=== PATIENT | male | born 1945 | race Caucasian/White ===

== ENCOUNTER 2017-04-07 15:45 | Inpatient (IN) | payer MEDICARE, BC ==
[~2017-04-07] VITALS: Ht 182.9 cm; Wt 94.5 kg
[2017-04-07] VITALS (11 sets, daily range): BP systolic 110–155; BP diastolic 58–86; PULSE 35–40; RESP 17–27; TEMP 98–98.2; O2SAT 94–100
[2017-04-07] MEDS ORDERED: ASPIRIN 81 MG CHEW TAB ONE (15:52)
[2017-04-07] MEDS ORDERED: NITROGLYCERIN 0.4 MG SL 25 TABS/BTL SL ONE (15:52)
[2017-04-07] MEDS ORDERED: SODIUM CHLOR 0.9% 1000 ML INJ 1,000 ML IV ONE ×2 (15:54→17:00)
[2017-04-07] MEDS ORDERED: ASPIRIN 81 MG CHEW TAB PO STA (15:54)
[2017-04-07] MEDS ORDERED: HEPARIN SODIUM - IV 10,000 UNITS/10 ML VIAL IV PUSH STA (15:54)
[2017-04-07] MEDS ORDERED: NITROGLYCERIN 0.4 MG SL 25 TABS/BTL SL STA (15:54)
[2017-04-07] MEDS ORDERED: SODIUM CHLORIDE 0.9% FLUSH 10 ML FLUSH IVF PRN (16:00)
[2017-04-07] MEDS ORDERED: NITROGLYCERIN-D5W 50 MG/250 ML 250 ML IV PRN ×2 (16:00→16:15)
[2017-04-07 16:12] LABS: AUTOMATED NEUTROPHIL # 16.5 TH/MM3 (1.8-7.7); BASOPHIL # 0.1 TH/MM3 (0-0.2); BASOPHIL % 0.5 % (0.0-2.0); HEMATOCRIT 28.1 % (39.0-51.0); HEMOGLOBIN 9.2 GM/DL (13.0-17.0); LYMPH % 6.1 % (9.0-44.0); LYMPHOCYTE # 1.2 TH/MM3 (1.0-4.8); MEAN CELL VOLUME 89.3 FL (80.0-100.0); MEAN CORPUSCULAR HEMOGLOBIN 29.3 PG (27.0-34.0); MEAN CORPUSCULAR HGB CONC 32.8 % (32.0-36.0); MEAN PLATELET VOLUME 10.5 FL (7.0-11.0); MONO % 8.9 % (0.0-8.0); MONOCYTE # 1.7 TH/MM3 (0-0.9); NEUT % 84.5 % (16.0-70.0); PLATELET COUNT 279 TH/MM3 (150-450); RED BLOOD COUNT 3.14 MIL/MM3 (4.50-5.90); WHITE BLOOD COUNT 19.5 TH/MM3 (4.0-11.0)
--- NOTE | 2017-04-07 16:21 | RADRPT ---
EXAM DATE/TIME: 04/07/2017 15:59 [facility] COMPARISON: No previous studies available for comparison. INDICATIONS : Stemi-alert. MEDICAL HISTORY : Unobtainable. SURGICAL HISTORY : Unobtainable. ENCOUNTER: Initial ACUITY: 1 day PAIN SCORE: Non-responsive. LOCATION: Bilateral chest FINDINGS: The heart is enlarged. The mediastinal contours are within normal limits. There are chronic interstit ial changes within the pulmonary parenchyma. There is no overt congestive failure. The osseous struct ures are intact. CONCLUSION: 1. Cardiomegaly and chronic appearing interstitial changes. No definite acute abnormality. Sina Bonner MD on April 07, 2017 at 16:19 Board Certified Radiologist. This report was verified electronically.
[2017-04-07 16:28] LABS: INTERNATIONAL NORMALIZED RATIO 1.1 RATIO; PROTHROMBIN TIME - PATIENT 10.9 SEC (9.8-11.6)
[2017-04-07] MEDS: SODIUM CHLOR 0.9% 1000 ML INJ 1,000 ML IV SCH (16:30)
[2017-04-07] MEDS ORDERED: CHLORHEXIDINE GLUCONATE 2 % 1 PACK (2 CLOTHS) TOP PRN (16:30)
[2017-04-07] MEDS ORDERED: HEPARIN-D5W 25,000 U/250 ML 250 ML IV PRN (16:30)
[2017-04-07] MEDS ORDERED: MISCELLANEOUS NURSING INFORMATION XX SCH (16:30)
[2017-04-07 16:31] LABS: CALCIUM 8.8 MG/DL (8.5-10.1); MAGNESIUM 3.3 MG/DL (1.5-2.5)
[2017-04-07 16:40] LABS: TROPONIN I 2.72 NG/ML (0.02-0.05)
[2017-04-07] MEDS ORDERED: GLUCAGON 1 MG/ML VIAL OTHER PRN (17:00)
[2017-04-07] MEDS ORDERED: DEXTROSE 50% IN WATER 50 ML VIAL(D50) IV PUSH ONE (17:00)
[2017-04-07] MEDS ORDERED: INSULIN HUMAN REGULAR 1,000 UNITS/10 ML VIAL IV PUSH ONE (17:00)
[2017-04-07] MEDS ORDERED: DEXTROSE 50% IN WATER 50 ML VIAL(D50) IV PUSH PRN (17:00)
--- NOTE | 2017-04-07 17:07 | PD.CONS ---
HPI Service Nephrology Consult Requested By Reason for Consult Acute Renal Failure Primary Care Physician History of Present Illness This is a 72 y/o male who came to the ER for fatigue and shortness of breath. He has had a flu like illness recently, apparently was on the floor for several days prior to ER admission. PMH of DM II, CVA with residual expressive aphasia, HTN, and CKD. 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 On arrival EKG showing bradycardia with junctional rhythm , STEMI inferiorly, rate in 30s. He is awake and alert. Blood pressure is stable. No baseline labs are available. POC labs show creatinine 9.7, Glu 251, mag 3.3, K 5.6, BUN over 140, Trop 2.7, BNP 1170. BMP is not available. He has not made any urine as of yet; a bladder scan was ordered. We were consulted to assist with management. Dr. Perdomo and Dr. Briceno are at the bedside. (Katharine Cruz) Review of Systems Constitutional: COMPLAINS OF: Fatigue, DENIES: Fever Respiratory: COMPLAINS OF: Shortness of breath Cardiovascular: COMPLAINS OF: Dyspnea on Exertion, DENIES: Chest pain, Lower Extremity Edema Gastrointestinal: DENIES: Abdominal pain (Katharine Cruz) Past Family Social History Allergies: Coded Allergies: Sulfa (Sulfonamide Antibiotics) (Verified Allergy, Intermediate, HIVES, ) penicillin G (Verified Allergy, Unknown, HIVES, 04/07/17) Past Medical History CKD, baseline unknown HTN DM II CVA, old Anemia Hyperlipidemia Past Surgical History Unknown Reported Medications Unable to list Active Ordered Medications Last 72 hours Impressions Chest X-Ray 04/07/17 0934 Signed Impressions: Service Date/Time: Friday, April 07, 2017 15:59 - CONCLUSION: 1. Cardiomegaly and chronic appearing interstitial changes. No definite acute abnormality. Sina Bonner MD Family History Non contributory Social History Former smoker No ETOH From [place], staying local currently Retired (Katharine Cruz) Physical Exam Vital Signs Vital Signs Date Time Temp Pulse Resp B/P (MAP) Pulse Ox O2 Delivery O2 Flow Rate FiO2 04/07/17 16:27 38 127/74 04/07/17 16:16 38 26 129/63 (85) 99 Nasal Cannula 4.00 04/07/17 16:09 38 24 137/67 (90) 100 Nasal Cannula 4.00 04/07/17 16:01 99 Nasal Cannula 4.00 04/07/17 16:01 22 99 Nasal Cannula 4.00 04/07/17 15:50 35 24 99 Nasal Cannula 4.00 04/07/17 15:49 98.0 40 22 153/86 (108) 100 Physical Exam Elderly Male, obese, on oxygen Awake, alert, follows commands, has expressive aphasia S1/S2, Bradycardic, rate 30s, no murmur Lungs clear Abd soft, non tender Ext without edema Laboratory Laboratory Tests Test 04/07/17 14:50 White Blood Count 19.5 Red Blood Count 3.14 Hemoglobin 9.2 Bedside Hemoglobin 8.8 Hematocrit 28.1 Bedside Hematocrit 26.0 Mean Corpuscular Volume 89.3 Mean Corpuscular Hemoglobin 29.3 Mean Corpuscular Hemoglobin Concent 32.8 Red Cell Distribution Width 16.0 Platelet Count 279 Mean Platelet Volume 10.5 Neutrophils (%) (Auto) 84.5 Lymphocytes (%) (Auto) 6.1 Monocytes (%) (Auto) 8.9 Eosinophils (%) (Auto) 0.0 Basophils (%) (Auto) 0.5 Neutrophils # (Auto) 16.5 Lymphocytes # (Auto) 1.2 Monocytes # (Auto) 1.7 Eosinophils # (Auto) 0.0 Basophils # (Auto) 0.1 CBC Comment DIFF FINAL Differential Comment Prothrombin Time 10.9 Prothromb Time International Ratio 1.1 Activated Partial Thromboplast Time 20.7 Bedside Sodium 133 Bedside Potassium 5.6 Bedside Chloride 102 Bedside Blood Urea Nitrogen GREATER THAN 140 Bedside Creatinine 9.7 Bedside Glucose 251 Calcium Level 8.8 Magnesium Level 3.3 Total Creatine Kinase 380 Troponin I 2.72 (Katharine Cruz) Result Diagram: 04/07/17 1450 Imaging Last 72 hours Impressions Chest X-Ray 04/07/17 1554 Signed Impressions: Service Date/Time: Friday, April 07, 2017 15:59 - CONCLUSION: 1. Cardiomegaly and chronic appearing interstitial changes. No definite acute abnormality. Sina Bonner MD (Katharine Cruz) Assessment and Plan Problem List: (1) Acute renal failure ICD Codes: N17.9 - Acute kidney failure, unspecified Plan: He has underlying CKD, exact baseline not known Renal failure due to bradycardia, diminished renal perfusion. Bladder scan with 95 ml, not retaining Obtain renal US Obtain UA He is hyperkalemic, give IV insulin and dextrose Start bicarb gtt per regional business manager if BMP showing metabolic acidosis Monitor urine output He may require dialysis this admission Repeat labs in AM (2) Bradycardia ICD Codes: R00.1 - Bradycardia, unspecified Plan: Due to HI Continue supportive care (3) STEMI (ST elevation myocardial infarction) ICD Codes: I21.3 - ST elevation (STEMI) myocardial infarction of unspecified site Plan: Cardiology following, may need cardiac cath (4) Anemia ICD Codes: D64.9 - Anemia, unspecified Plan: May have anemia of CKD. Check iron profile. (5) Leukocytosis ICD Codes: D72.829 - Elevated white blood cell count, unspecified Plan: May be reactive, monitor for infections Code Status Thanks for the consult. We will continue to follow. (Katharine Cruz) Assessment and Plan patient was seen and examined in the ER. Discussed with regional business manager. Patient presents with STEMI, follows with a hammer smith in [place], has been told that he has advanced renal dysfunction. Labs were noted. Repeat labs. Needs dialysis very soon. Cardiology evaluation. Prognosis is very much guarded. (Pantera Iraheta MD) Katharine Cruz Apr 07, 2017 17:07 Pantera Iraheta MD Apr 07, 2017 20:16
[2017-04-07] MEDS ORDERED: SODIUM BICARBONATE 8.4% INJ 50 MEQ/50 ML SYR IV PUSH ONE (17:15)
[2017-04-07] MEDS ORDERED: RESP: ALBUTEROL 2.5 MG/IPRATROPIUM 0.5 MG NEB (PRN) NEB (17:15)
--- NOTE | 2017-04-07 17:47 | PD ---
HPI Chief Complaint: STEMI Alert Time Seen by Provider: 15:54 Travel History International Travel<30 days: No Contact w/Intl Traveler<30days: No Traveled to known affect area: No History of Present Illness HPI This is a 72-year-old male with a history of diabetes mellitus, hypertension, depression, who presents today as a STEMI alert. Patient apparently had viral type symptoms last week and was admitted to [facility]. He arrived back home in [facility] the 3 or 4 days ago. According to him he has been laying on the floor for 3 days. Paramedics state that there were feces and urine all over the house. They state the patient was confused. 12-lead showed ST elevation in the inferior leads. Patient was made a STEMI alert by paramedics. The patient is an extremely poor historian. He told paramedics he was having pain all over. When I interviewed him, he reported pain nowhere. Then literally a few minutes later he stated he had pain in his "body". PFSH Past Medical History Cardiovascular Problems: Yes Cerebrovascular Accident: Yes Diabetes: Yes Diminished Hearing: No (UNKNOWN ) Tetanus Vaccination: Unknown Influenza Vaccination: No Past Surgical History Surgical History: Unable to Obtain Social History Alcohol Use: No Tobacco Use: No (QUIT MANY YEARS AGO PT STATES) Substance Use: No Allergies-Medications (Allergen,Severity, Reaction): Coded Allergies: Sulfa (Sulfonamide Antibiotics) (Verified Allergy, Intermediate, HIVES, ) penicillin G (Verified Allergy, Unknown, HIVES, 04/07/17) Review of Systems ROS Limitations: Clinical Condition, Altered Mental Status (Slight altered mental status), Poor Historian Except as stated in HPI: all other systems reviewed are Neg General / Constitutional: No: Fever, Chills HENT: No: Headaches, Lightheadedness, Neck Pain Cardiovascular: No: Chest Pain or Discomfort, Palpitations Respiratory: No: Cough, Shortness of Breath Gastrointestinal: No: Nausea, Vomiting, Diarrhea, Abdominal Pain Genitourinary: No: Decreased Urinary Output (Denied), Incontinence Musculoskeletal: Positive: Weakness, No: Pain (Initially stated no then stated pain all over) Skin: No Rash, No Lesions Neurologic: Positive: Weakness, Change in Mentation, No: Syncope, Headache, Incontinence, Seizures Psychiatric: Positive: Depression, No: Substance Abuse Physical Exam Narrative GENERAL: Well-developed male who appears to be tremulous. He appears to have dry mucous membranes. The patient has no obvious external signs of trauma. SKIN: Focused skin assessment warm/dry. HEAD: Atraumatic. Normocephalic. EYES: No scleral icterus. No injection or drainage. ENT: No nasal bleeding or discharge. Mucous membranes pink and very dry. NECK: Trachea midline. No JVD. CARDIOVASCULAR: Bradycardic in the 30s and 40s. RESPIRATORY: No accessory muscle use. Clear to auscultation. Breath sounds equal bilaterally. Decreased respiratory effort. GASTROINTESTINAL: Abdomen soft, non-tender, nondistended. MUSCULOSKELETAL: No obvious deformities. No clubbing. No cyanosis. No edema. NEUROLOGICAL: Awake and confused. No obvious cranial nerve deficits. Motor grossly within normal limits. Normal speech. Data Data Last Documented VS Vital Signs Date Time Temp Pulse Resp B/P (MAP) Pulse Ox O2 Delivery O2 Flow Rate FiO2 04/07/17 17:30 97 Nasal Cannula 2.00 04/07/17 16:55 37 24 131/71 (91) 04/07/17 15:49 98.0 Orders Orders Aspirin Chew (Aspirin Chew) (04/07/17 15:52) Nitroglycerin Sl (Nitrostat Sl) (04/07/17 15:52) Troponin I (04/07/17 15:54) Ckmb (Isoenzyme) Profile (04/07/17 15:54) Complete Blood Count With Diff (04/07/17 15:54) I-Stat Profile (04/07/17 15:54) I-Stat Creatinine (04/07/17 15:54) Calcium (04/07/17 15:54) Magnesium (Mg) (04/07/17 15:54) Prothrombin Time / Inr (Pt) (04/07/17 15:54) Act Partial Throm Time (Ptt) (04/07/17 15:54) B-Type Natriuretic Peptide (04/07/17 15:54) Chest, Single Ap (04/07/17 15:54) Electrocardiogram (04/07/17 15:54) Oxygen Administration (04/07/17 15:54) Iv Access Insert/Monitor (04/07/17 15:54) Oximetry (04/07/17 15:54) Sodium Chlor 0.9% 1000 Ml Inj (Ns 1000 M (04/07/17 15:54) Sodium Chloride 0.9% Flush (Ns Flush) (04/07/17 16:00) Aspirin Chew (Aspirin Chew) (04/07/17 15:54) Nitroglycerin Sl (Nitrostat Sl) (04/07/17 15:54) Nitroglycerin-D5w 50 Mg/250 Ml (Nitrogly (04/07/17 16:00) Heparin Inj (Heparin Inj) (04/07/17 15:54) Nitroglycerin-D5w 50 Mg/250 Ml (Nitrogly (04/07/17 16:15) Admit To Inpatient (04/07/17 ) Code Status (04/07/17 16:16) Vital Signs (Adult) RICH.Q1H (04/07/17 16:16) Activity Bed Rest (04/07/17 16:16) Elevate Head Of Bed (04/07/17 16:16) Neuro Checks . ORDERED (04/07/17 16:16) Complete Blood Count With Diff (04/08/17 04:00) Comprehensive Metabolic Panel (04/08/17 04:00) Consult Cardiology (04/07/17 ) Consult Nephrology (04/07/17 ) Maritime Pilot / Telemetry RICH.Q8H (04/07/17 16:16) ^ Initiate Protocol (04/07/17 16:16) Instruction (04/07/17 16:16) [facility] Nursing Information (04/07/17 16:30) Chlorhexidine 2% Cloth (Chlorhexidine 2% (04/08/17 04:00) Chlorhexidine 2% Cloth (Chlorhexidine 2% (04/07/17 16:30) Mrsa Pcr Surveillance (04/07/17 16:16) Inpatient Certification (04/07/17 ) Complete Blood Count With Diff (04/07/17 16:19) Comprehensive Metabolic Panel (04/07/17 16:19) Prothrombin Time / Inr (Pt) (04/07/17 16:19) Act Partial Throm Time (Ptt) (04/07/17 16:19) Creatine Kinase (Cpk) (04/07/17 16:19) Ckmb (Isoenzyme) Profile (04/07/17 16:19) Troponin I (04/07/17 16:19) Troponin I (04/07/17 22:19) Troponin I (04/08/17 04:19) Echo 2d Comp With Doppler (04/07/17 ) Urinalysis - C+S If Indicated (04/07/17 16:20) Aspirin Ec (Ecotrin Ec) (04/08/17 09:00) Heparin-D5w 25,000 U/250 Ml (Heparin-D5w (04/07/17 16:30) Cbc No Diff, Includes Plts (04/10/17 06:00) Act Partial Throm Time (Ptt) (04/07/17 23:22) Occult Blood (Hemoccult) Stool (04/07/17 16:22) Sodium Chlor 0.9% 1000 Ml Inj (Ns 1000 M (04/07/17 16:30) Us Kidney/Renal/Bladder (04/07/17 ) (Hub Use Only)Inp Phy Cons/Ref (04/07/17 ) (Hub Use Only)Inp Phy Cons/Ref (04/07/17 ) CKMB (04/07/17 14:50) CKMB% (04/07/17 14:50) Ct Brain W/O Iv Contrast(Rout) (04/07/17 16:46) Insulin Human Regular Inj (Novolin R Inj (04/07/17 17:00) Dextrose 50% In Evan (Vial) Inj (D50w (Vi (04/07/17 17:00) Sodium Chlor 0.9% 1000 Ml Inj (Ns 1000 M (04/07/17 17:00) Blood Glucose Goal (Criteria) (04/07/17 16:58) Hypoglycemia 70 Mg/Dl Or < (04/07/17 16:58) Notify Dr: Other (04/07/17 16:58) Dextrose 50% In Evan (Vial) Inj (D50w (Vi (04/07/17 17:00) Glucagon Inj (Glucagon Inj) (04/07/17 17:00) Insulin Human Reg Supp Scale (Novolin R (04/07/17 17:00) Influenzae A/B Antigen (04/07/17 17:05) Arterial Blood Gas (Abg) (04/07/17 ) Phosphorus (Po4) (04/07/17 17:07) Bladder Scan PRN (04/07/17 17:07) Albuterol-Ipratropium Neb (Duoneb Neb) (04/07/17 20:00) Albuterol-Ipratropium Neb (Duoneb Neb) (04/07/17 17:15) Pantoprazole Inj (Protonix Inj) (04/07/17 18:00) Calcium Gluconate Inj (Calcium Gluconate (04/07/17 18:00) Sodium Bicarbonate 8.4% Inj (Sodium Bica (04/07/17 17:15) Basic Metabolic Panel (Bmp) (04/08/17 06:00) Labs Laboratory Tests Test 04/07/17 14:50 04/07/17 17:07 04/07/17 17:18 White Blood Count 19.5 TH/MM3 Red Blood Count 3.14 MIL/MM3 Hemoglobin 9.2 GM/DL Bedside Hemoglobin 8.8 G/DL Hematocrit 28.1 % Bedside Hematocrit 26.0 % Mean Corpuscular Volume 89.3 FL Mean Corpuscular Hemoglobin 29.3 PG Mean Corpuscular Hemoglobin Concent 32.8 % Red Cell Distribution Width 16.0 % Platelet Count 279 TH/MM3 Mean Platelet Volume 10.5 FL Neutrophils (%) (Auto) 84.5 % Lymphocytes (%) (Auto) 6.1 % Monocytes (%) (Auto) 8.9 % Eosinophils (%) (Auto) 0.0 % Basophils (%) (Auto) 0.5 % Neutrophils # (Auto) 16.5 TH/MM3 Lymphocytes # (Auto) 1.2 TH/MM3 Monocytes # (Auto) 1.7 TH/MM3 Eosinophils # (Auto) 0.0 TH/MM3 Basophils # (Auto) 0.1 TH/MM3 CBC Comment DIFF FINAL Differential Comment Prothrombin Time 10.9 SEC Prothromb Time International Ratio 1.1 RATIO Activated Partial Thromboplast Time 20.7 SEC Bedside Sodium 133 MMOL/L Bedside Potassium 5.6 MMOL/L Bedside Chloride 102 MMOL/L Bedside Blood Urea Nitrogen GREATER THAN 140 MG/DL Bedside Creatinine 9.7 MG/DL Bedside Glucose 251 MG/DL Calcium Level 8.8 MG/DL Magnesium Level 3.3 MG/DL Total Creatine Kinase 380 U/L Creatine Kinase MB 8.7 NG/ML Creatine Kinase MB % 2.3 % Troponin I 2.72 NG/ML B-Type Natriuretic Peptide 1170 PG/ML Blood Gas Puncture Site RT RADIAL Blood Gas Patient Temperature 98.6 Blood Gas HCO3 14 mmol/L Blood Gas Base Excess -10.6 mmol/L Blood Gas Oxygen Saturation 95 % Arterial Blood pH 7.33 Arterial Blood Partial Pressure CO2 28 mmHg Arterial Blood Partial Pressure O2 98 mmHG Arterial Blood Oxygen Content 11.4 Vol % Arterial Blood Carboxyhemoglobin 1.8 % Arterial Blood Methemoglobin 0.6 % Blood Gas Hemoglobin 8.4 G/DL Oxygen Delivery Device NASAL CANNULA Blood Gas Liter Flow 4 L/M MDM Medical Decision Making Medical Screen Exam Complete: Yes Emergency Medical Condition: Yes Interpretation(s) Last 24 hours Impressions Chest X-Ray 04/07/17 1554 Signed Impressions: Service Date/Time: Friday, April 07, 2017 15:59 - CONCLUSION: 1. Cardiomegaly and chronic appearing interstitial changes. No definite acute abnormality. Sina Bonner MD Differential Diagnosis ACS versus metabolic derangement versus anemia versus rhabdomyolysis Narrative Course 72-year-old male presents as a STEMI alert from [place]. Patient had ST elevation noted in the inferior leads. The patient has been reportedly laying on the floor at his residence for 2 days. On i-STAT the patient's BUN and creatinine were greater than 140/9.7. Potassium was 5.6. Sodium 133 glucose 251 hemoglobin 8.8 hematocrit 26. Given this, the patient was discussed with Dr. Hutchinson, on-call hand glass cutter. At this point given his associated comorbid acute conditions, he will hold off on taking him to the [facility]. The patient had received 324 mg of p.o. aspirin. He is also received 6000 units of IV heparin. The patient will be admitted to the intensive care unit. He has been discussed with Dr. Perdomo, retail salesworker, who will admit the patient to his service. Critical Care Narrative Aggregate critical care time was 60 minutes. Time to perform other separately billable procedures was not included in the critical care time. My time did not include minutes spent treating any other patients simultaneously or on activities that did not directly contribute to the patient's treatment. The services I provided to this patient were to treat and/or prevent clinically significant deterioration that could result in: I provided critical care services requiring my management, as noted below: Chart data review, documentation time, medication orders and management, vital sign assessments/reviewing monitor data, ordering and reviewing lab tests, ordering and interpreting/reviewing x-rays and diagnostic studies, care of the patient and discussion of the patient with the admitting physicians. Diagnosis Primary Impression: STEMI (ST elevation myocardial infarction) Additional Impressions: Leukocytosis Acute renal failure Bradycardia Anemia Hyperkalemia Admitting Information Admitting Physician Requests: Admit Gilmar Gonzales MD Apr 07, 2017 17:47
--- NOTE | 2017-04-07 17:49 | RADRPT ---
EXAM DATE/TIME: 04/07/2017 17:37 [facility] COMPARISON: No previous studies available for comparison. INDICATIONS : Altered mental status. RADIATION DOSE: 40.80 CTDIvol (mGy) MEDICAL HISTORY : Stroke. Cardiovascular disease diabetes SURGICAL HISTORY : None. ENCOUNTER: Initial ACUITY: 1 day PAIN SCALE: Non-responsive LOCATION: Bilateral head TECHNIQUE: Multiple contiguous axial images were obtained of the head. Using automated exposure control and adj ustment of the mA and/or kV according to patient size, radiation dose was kept as low as reasonably a chievable to obtain optimal diagnostic quality images. DICOM format image data is available electro nically for review and comparison. FINDINGS: CEREBRUM: Mild to moderate diffuse cerebral volume loss. Diffuse ventriculomegaly which is slightly more than e xpected for degree of atrophy. Mild periventricular white matter hypodensities. No evidence of midlin e shift, mass lesion, hemorrhage or acute infarction. No extra-axial fluid collections are seen. POSTERIOR FOSSA: The cerebellum and brainstem are intact. The 4th ventricle is midline. The cerebellopontine angle i s unremarkable. EXTRACRANIAL: The visualized portion of the orbits is intact. SKULL: The calvaria is intact. No evidence of skull fracture. CONCLUSION: 1. Senescent changes with ventriculomegaly out of proportion to the degree of atrophy. Clinical corre lation for normal pressure hydrocephalus is recommended. Jesus Manuel Storm MD on April 07, 2017 at 17:46 Board Certified Radiologist. This report was verified electronically.
[2017-04-07 17:51] LABS: PHOSPHORUS 8.7 MG/DL (2.5-4.9)
[2017-04-07] MEDS ORDERED: CALCIUM GLUCONATE INJ 1 GM in SODIUM CHLORIDE 0.9% INJ 100 ML IV ONE (18:00)
--- NOTE | 2017-04-07 18:04 | MH ---
cc: YOBANI VERDIN M.D. DATE OF ADMISSION 04/07/2017 DATE OF 1945 HISTORY OF THE PRESENT ILLNESS The patient is a 72-year-old male with a past medical history of coronary artery disease, chronic kidney disease, cerebrovascular accident, hypertension, diabetes mellitus, hyperlipidemia who was brought into [facility] Emergency Department via ambulance with altered mental status. The patient's daughter could not reach him, so she called the fire rescue to go check on her father and on arrival they found him on the floor and has been there for the past two days. The patient is confused and when he came to the emergency department he was found bradycardic and a STEMI alert was called. EKG in the ER showed findings compatible with inferior wall myocardial infarction and bradycardia with a heart rate in the 30s. His labs on point of care significant for acute renal failure with a BUN greater than 140, creatinine 9.7. In addition the patient had a troponin of 2.72 and total CK of 380. Also he had leukocytosis with a WBC of 19.5. In the ED he was given one liter bolus of normal saline, aspirin and initially placed on nitroglycerine drip. The patient was seen by Dr. Briceno from the cardiology service and due to his significant renal failure. Cardiac catheterization was placed on hold and a plan to continue with medical therapy for now until his renal function recovers. The patient is awake, alert, however, he is intermittently confused. He is currently on 4 liters oxygen with saturation 98%, blood pressure 131/71 with heart rate in the 30s. The patient was also seen by Dr. Iraheta from nephrology service in the ED. He denies any chest pain, shortness of breath or any constitutional symptoms. The patient was recently discharged from [facility] in [place] after he was treated there for flu. PAST MEDICAL HISTORY Significant for: 1. Coronary artery disease. 2. Chronic kidney disease. 3. Cerebrovascular accident. 4. Diabetes mellitus. 5. Hypertension. 6. Hyperlipidemia. 7. Psychiatric history. PAST SURGICAL HISTORY The patient does not remember. ALLERGIES PENICILLIN AND SULFA. SOCIAL HISTORY Ex-smoker. No history of alcohol use. FAMILY HISTORY Noncontributory to present illness. MEDICATIONS Reported: The patient does not remember his medications currently. REVIEW OF SYSTEMS As per history of present illness, the rest of the review of systems limited as the patient is a poor historian. PHYSICAL EXAMINATION GENERAL: A 72-year-old male critically ill, bradycardic with heart rate in the 30s. VITAL SIGNS: Temperature of 98.0, pulse of 38, respiratory rate 24, blood pressure 131/71. Saturation of 98% on 4 liters of oxygen. HEENT: Atraumatic, normocephalic. Pupils equal, round and reactive to light and accommodation. Extraocular muscles are intact. Conjunctivae pink. Nonicteric sclerae. Oral mucosa dry mucous membranes. NECK: Supple. No JVD, adenopathy or thyromegaly. Trachea is midline. CARDIOVASCULAR: Bradycardic. Normal S1-S2. No murmurs, rubs, or gallops noted. LUNGS: Bilateral equal air entry. No crackles or wheezing. ABDOMEN: Soft. Nontender. Nondistended. Positive bowel sounds. EXTREMITIES: No clubbing, cyanosis or edema. NEUROLOGIC: Awake however, with intermittent confusion. No focal sensory deficits. LABORATORY DATA From point of care, sodium 131, potassium 5.6, chloride 106, BUN greater than 140, creatinine of 9.7, glucose 251. Magnesium 3.3. Total CK 380. Troponin 2.72. CKMB percentage 2.3. BNP 1170. WBC 19.5, hemoglobin 9.2, hematocrit 28, platelet count of 279. INR 1.1. PT 10.9, PTT 20.7. IMAGING A chest x-ray showed chronic appearing interstitial changes otherwise no acute abnormalities. EKG showed inferior wall myocardial infarction, bradycardia with heart rate in the 40s. IMPRESSION 1. Respiratory insufficiency. 2. ST-elevation myocardial infarction alert, inferior wall myocardial infarction. 3. Altered mental status. 4. Acute on chronic kidney disease. 5. Bradycardia. 6. Hyponatremia and hyperkalemia. 7. Leukocytosis. 8. Anemia. 9. History of coronary artery disease. 10. History of cerebrovascular accident. 11. Hypertension. 12. Diabetes mellitus. 13. Hyperlipidemia. RECOMMENDATIONS 1. Monitor neurological status closely and avoid any sedatives. We will proceed with a CT scan of the brain to rule out acute intracranial process. 2. Continue with oxygen and maintain saturations above 92%. 3. Bronchodilators in the form of DuoNeb q.4h plus q.2h as needed for shortness of breath. Check ABG now. 4. Monitor heart rate and blood pressure closely and maintain mean arterial pressure greater than 65 mmHg. We will discontinue nitro drip. The patient was given aspirin 324 milligrams p.o. times one. We will continue with aspirin daily and place on heparin drip if CT scan of the brain is negative for acute process. Monitor PTT per protocol. 5. Monitor cardiac enzymes with troponins and we will obtain 2-D echocardiogram to evaluate left ventricle function. Dr. Briceno from cardiology service saw the patient in the emergency department. We will hold off on beta ashley due to current bradycardia. Cardiac catheterization was placed on hold per cardiology due to underlying renal failure. 6. Monitor renal function ins and outs. Avoid nephrotoxins. He was given one liter of normal saline in the emergency department. We will give an additional one liter bolus of normal saline followed by maintenance fluids NS at 125 ml an hour. 10 units of IV Regular insulin along with D50 was ordered for hyperkalemia. In addition we will give one amp of calcium gluconate and one amp of sodium bicarbonate. We will obtain ultrasound of the kidneys to rule out hydronephrosis. The case was discussed with Dr. Iraheta. If there is no improvement in renal function the patient will likely need hemodialysis. 7. Keep n.p.o. for now and place on Protonix 40 milligrams IV daily for GI prophylaxis. 8. Monitor for signs of infection which include fever and WBC. We will check a urinalysis with culture if indicated. In addition we will screen for influenza. The patient was recently hospitalized at [facility] for the flu. 9. Farah culture if spikes a fever. His leukocytosis is likely stress related. We will monitor closely. 10. Monitor CBC and coagulations as the patient will be on a heparin drip. 11. Placed on sliding scale insulin with Accu-Cheks for glycemic control. 12. GI prophylaxis with Protonix 40 milligrams daily and DVT prophylaxis with sequential compression devices and heparin drip if CT scan of the brain is negative for acute process. 13. I will obtain stat labs now. 14. The case discussed with both Dr. Briceno and Dr. Iraheta. Further recommendations will be based on hospital course. The patient is critically ill with inferior wall myocardial infarction, renal failure and with altered mental status. MD KARLENE Walker/KK /5:00 PM /5:18 PM
[2017-04-07 18:09] LABS: TROPONIN I 2.31 NG/ML (0.02-0.05)
[2017-04-07] MEDS: INSULIN NovoLIN REGULAR SUPPLEMENTAL SCALE SQ SCH ×2 (18:34→21:51)
[2017-04-07] MEDS: PANTOPRAZOLE SODIUM 40 MG VIAL IV PUSH SCH (18:35)
--- NOTE | 2017-04-07 18:42 | RADRPT ---
EXAM DATE/TIME: 04/07/2017 18:11 [place] COMPARISON: No previous studies available for comparison. INDICATIONS : Acute kidney infection. MEDICAL HISTORY : Stroke. Diabetes. Cardiac disorders. Falls. SURGICAL HISTORY : None. ENCOUNTER: Initial ACUITY: 2 months PAIN SCORE: 2/10 LOCATION: Bilateral flank MEASUREMENTS: RIGHT KIDNEY: 10.4 x 4.8 x 4.8 cm LEFT KIDNEY: 9.5 x 4.7 x 5.3 cm FINDINGS: RIGHT KIDNEY: Markedly increased renal cortical echogenicity. Multiple small cysts. No evidence of hydronephrosis. LEFT KIDNEY: Markedly increased renal cortical echogenicity. Multiple small cysts. No evidence of hydronephrosis. BLADDER: Within normal limits given the degree of distension. CONCLUSION: Medical renal disease. No hydronephrosis. Jaleel Carlin MD on April 07, 2017 at 18:39 Board Certified Radiologist. This report was verified electronically.
[2017-04-07] MEDS ORDERED: SODIUM POLYSTYRENE SULFONATE SUSP 15 GM/60 ML CUP PO ONE (20:15)
[2017-04-07] MEDS: RESP: ALBUTEROL 2.5 MG/IPRATROPIUM 0.5 MG NEB (SCH) NEB ×2 (20:49→23:33)
[2017-04-07 21:09] LABS: ALBUMIN 2.8 GM/DL (3.4-5.0); BICARBONATE 17.7 MEQ/L (21.0-32.0); BLOOD UREA NITROGEN 125 MG/DL (7-18); CALCIUM 8.3 MG/DL (8.5-10.1); CHLORIDE 104 MEQ/L (98-107); GLUCOSE,RANDOM 164 MG/DL (74-106); SODIUM (NA) 138 MEQ/L (136-145)
[2017-04-07 21:10] LABS: AST (GOT) 63 U/L (15-37); GLOMERULAR FILTRATION RATE 6 ML/MIN (>89)
[2017-04-07 21:15] LABS: ALKALINE PHOSPHATASE 89 U/L (45-117); ALT (GPT) 71 U/L (12-78); TOTAL BILIRUBIN ADULT 0.4 MG/DL (0.2-1.0); TOTAL PROTEIN 6.9 GM/DL (6.4-8.2)
[2017-04-07 21:19] LABS: TROPONIN I 2.04 NG/ML (0.02-0.05)
--- NOTE | 2017-04-07 22:32 | MB ---
cc: JOEL HERNANDEZ M.D. DATE OF CONSULTATION 04/07/[address] elevation myocardial infarction. HISTORY OF PRESENT ILLNESS The patient is a 72-year-old white male with a history of hypertension, diabetes, hyperlipidemia, CVA 2017, possible myocardial infarction in [place] 2017, although the patient states he did not have a cardiac catheterization done , chronic renal insufficiency who was brought to the hospital after paramedics found him on the floor at home. Apparently he had been on the floor for the past 48 hours. Initial EKG suggested ST-elevation myocardial infarction so he was called as a STEMI alert. However, his creatinine returned greater than 9.0. The patient states he does have a substernal chest "pressure" at this time. The chest discomfort began sometime this morning and has been associated with shortness of breath without nausea or diaphoresis. He denies lightheadedness, syncope, near-syncope, palpitations, paroxysmal nocturnal dyspnea. About a week at two ago he had flu-like symptoms. Chronically he has intermittent minimal to mild dependent pedal edema. PAST MEDICAL HISTORY As above. No other details currently available. MEDICATIONS His cardiac medications at home currently unknown. ALLERGIES SULFA AND PENICILLIN. FAMILY HISTORY Noncontributory. SOCIAL HISTORY The patient quit smoking many years ago. He denies alcohol abuse. REVIEW OF SYSTEMS As in the history of present illness otherwise negative or noncontributory. He also currently denies headache, abdominal pain, melena, dyspepsia, nausea, diarrhea, bright red blood per rectum, fevers. PHYSICAL EXAMINATION VITAL SIGNS: On physical examination his blood pressure 127/74 with a pulse of 38, respirations 26. GENERAL: In general he is a well-developed, well-nourished white male in no acute distress. HEENT: On HEENT examination jugular venous pressure is hard to assess. Carotid pulses are 2+ bilaterally and without bruits. CHEST: Examination of the chest reveals clear lung sifuentes anteriorly. CARDIOVASCULAR: On cardiac examination he has a bradycardic regular rhythm with a grade 2/6 systolic murmur heard along the left sternal border and apex. No gallop is audible. ABDOMEN: On abdominal examination he has a soft, nontender abdomen. Bowel sounds are present. There is no definite hepatosplenomegaly. EXTREMITIES: Examination of extremities reveals no clubbing, cyanosis or edema. LABORATORY DATA Includes WBC 19.5, hemoglobin 9.2, platelets 279. Potassium 5.6, BUN greater than 140, creatinine 9.7. CK 380 with 2.3% MB fraction. Troponin 2.72. INR 1.1. IMAGING Chest x-ray shows no acute disease. EKG shows junctional rhythm, inferior and lateral ST elevation, consider early repolarization, consider acute injury pattern. IMPRESSION Possible acute myocardial infarction in a 72-year-old white male apparently with a history of myocardial infarction one year ago in [place], history of diabetes, hypertension, CVA, chronic renal insufficiency, hyperlipidemia. At this time he does have very mild chest discomfort which began this morning. Unfortunately he is not a good candidate for emergency cardiac catheterization with a high risk of dye induced renal failure. He likely has rhabdomyolysis. Some of the EKG changes, including the bradycardia, may be due to his metabolic derangements. The patient is normotensive with the bradycardia, which appears to be a junctional rhythm. There is no definite evidence for acute congestive heart failure. RECOMMENDATIONS 1. Agree with obtaining a head CT. If it is negative, administer heparin drip and aspirin. 2. Continue cardiac monitoring. At this point would not recommend a temporary pacemaker unless he demonstrates hypotension. 3. Aggressive intravenous fluid hydration. 4. Check a 2-D echo to assess his left ventricular function. 5. Hold off on beta ashley therapy given his bradycardia, hold off on KRISTYN inhibitor therapy given his renal insufficiency. 6. Agree with intravenous nitroglycerin. MD CARISSA Rodriguez/KK /4:54 PM /10:21 PM MTDArpit
[2017-04-07] MEDS ORDERED: SODIUM BICARBONATE 8.4% INJ 150 MEQ in WATER STERILE FOR INJ 850 ML IV SCH (23:00)
[2017-04-08] VITALS (21 sets, daily range): BP systolic 101–186; BP diastolic 51–86; PULSE 34–69; RESP 23–35; TEMP 97.8–99.2; O2SAT 93–100
[2017-04-08] MEDS: INSULIN NovoLIN REGULAR SUPPLEMENTAL SCALE SQ SCH ×6 (00:33→20:00)
[2017-04-08] MEDS: SODIUM CHLOR 0.9% 1000 ML INJ 1,000 ML IV SCH (03:20)
[2017-04-08 03:26] LABS: AUTOMATED NEUTROPHIL # 10.5 TH/MM3 (1.8-7.7); BASOPHIL # 0.2 TH/MM3 (0-0.2); BASOPHIL % 1.2 % (0.0-2.0); EOSINOPHIL % 0.2 % (0.0-4.0); HEMATOCRIT 26.4 % (39.0-51.0); HEMOGLOBIN 8.8 GM/DL (13.0-17.0); LYMPH % 9.7 % (9.0-44.0); LYMPHOCYTE # 1.3 TH/MM3 (1.0-4.8); MEAN CELL VOLUME 89.2 FL (80.0-100.0); MEAN CORPUSCULAR HEMOGLOBIN 29.7 PG (27.0-34.0); MEAN CORPUSCULAR HGB CONC 33.3 % (32.0-36.0); MEAN PLATELET VOLUME 10.5 FL (7.0-11.0); MONO % 11.7 % (0.0-8.0); MONOCYTE # 1.6 TH/MM3 (0-0.9); NEUT % 77.2 % (16.0-70.0); PLATELET COUNT 198 TH/MM3 (150-450); RED BLOOD COUNT 2.96 MIL/MM3 (4.50-5.90); RED CELL DISTRIBUTION WIDTH 16.2 % (11.6-17.2); WHITE BLOOD COUNT 13.6 TH/MM3 (4.0-11.0)
[2017-04-08 03:47] LABS: BICARBONATE 20.6 MEQ/L (21.0-32.0); CALCIUM 8.4 MG/DL (8.5-10.1); CREATININE 8.21 MG/DL (0.60-1.30)
[2017-04-08] MEDS: CHLORHEXIDINE GLUCONATE 2 % 1 PACK (2 CLOTHS) TOP SCH (04:00)
[2017-04-08 04:03] LABS: TROPONIN I 1.71 NG/ML (0.02-0.05)
[2017-04-08] MEDS: RESP: ALBUTEROL 2.5 MG/IPRATROPIUM 0.5 MG NEB (SCH) NEB ×5 (04:14→20:15)
--- NOTE | 2017-04-08 08:20 | PD.CARD.PN ---
Subjective Subjective Remarks Denies CP, dyspnea, dizziness, palpitations. Slept fairly well. Objective Medications Item Value Date Time Aspirin 325 mg 04/08/17 0900 (Ecotrin Ec) DAILY/PO Heparin Sodium/ 250 ml @ 10 mls/hr 04/07/17 1630 Dextrose TITRATE PRN/IV 04/07/172055 Current Medications Medications (Trade) Dose Ordered Sig/Mary Kay Route Start Time Stop Time Status Last Admin (NS Flush) 2 ml UNSCH PRN IVF 04/07/17 16:00 04/07/17 16:04 Miscellaneous Information 1 [id number] XX 04/07/17 16:30 04/07/17 16:30 (Chlorhexidine 2% Cloth) 3 pack Taper DAILY@04 TOP 04/08/17 04:00 04/04/18 03:59 04/08/17 04:00 (Chlorhexidine 2% Cloth) 3 pack UNSCH PRN TOP 04/07/17 16:30 (Ecotrin Ec) 325 mg DAILY PO 04/08/17 09:00 Heparin Sodium/ Dextrose 250 ml @ 10 mls/hr TITRATE PRN IV 04/07/17 16:30 04/07/17 20:56 Sodium Chloride 1,000 ml @ 75 mls/hr [id number] IV 04/07/17 16:30 04/08/17 03:20 (D50w (Vial) Inj) 50 ml UNSCH PRN IV PUSH 04/07/17 17:00 (Glucagon Inj) 1 mg UNSCH PRN OTHER 04/07/17 17:00 (NovoLIN R SUPPLEMENTAL SCALE) 1 Q4HR SQ 04/07/17 17:00 04/08/17 04:17 (Duoneb Neb) 1 ampule Q4HR NEB NEB 04/07/17 20:00 04/08/17 07:53 (Duoneb Neb) 1 ampule Q2HR NEB PRN NEB 04/07/17 17:15 (Protonix Inj) 40 mg Q24H IV PUSH 04/07/17 18:00 04/07/17 18:35 Sodium Bicarbonate 150 meq/Sterile Water 1,000 ml @ 50 mls/hr Q20H IV 04/07/17 23:00 04/07/17 23:01 Vital Signs / I&O Vital Signs Date Time Temp Pulse Resp B/P (MAP) Pulse Ox O2 Delivery O2 Flow Rate FiO2 04/08/17 07:53 96 Nasal Cannula 2.00 04/08/17 06:00 36 25 142/65 (90) 95 04/08/17 06:00 36 04/08/17 05:00 36 25 169/79 (109) 95 04/08/17 04:00 34 04/08/17 04:00 98.0 34 23 157/77 (103) 95 04/08/17 03:00 35 24 167/79 (108) 96 04/08/17 02:00 35 24 141/67 (91) 97 04/08/17 02:00 35 04/08/17 01:00 35 25 152/71 (98) 100 04/08/17 00:00 35 04/08/17 00:00 97.8 35 25 144/72 (96) 100 04/07/17 23:00 35 27 110/58 (75) 100 04/07/17 22:00 36 04/07/17 22:00 36 22 125/58 (80) 100 04/07/17 21:00 35 17 155/67 (96) 100 04/07/17 20:52 94 Nasal Cannula 3.00 04/07/17 20:00 36 04/07/17 20:00 98.2 36 24 128/67 (87) 100 04/07/17 17:30 97 Nasal Cannula 2.00 04/07/17 16:55 37 24 131/71 (91) 98 Nasal Cannula 4.00 04/07/17 16:27 38 127/74 04/07/17 16:16 38 26 129/63 (85) 99 Nasal Cannula 4.00 04/07/17 16:09 38 24 137/67 (90) 100 Nasal Cannula 4.00 04/07/17 16:01 99 Nasal Cannula 4.00 04/07/17 16:01 22 99 Nasal Cannula 4.00 04/07/17 15:50 35 24 99 Nasal Cannula 4.00 04/07/17 15:49 98.0 40 22 153/86 (108) 100 I/O 04/07/1718 04/07/17 04/08/17 04/08/17 04/08/17 07:00 15:00 23:00 07:00 15:00 23:00 Intake Total 130 ml 1915 ml Output Total 800 ml Balance 130 ml 1115 ml Intake Oral 240 ml IV Total 130 ml 1675 ml Output Urine Total 800 ml Bladder Scan Volume Amount 95 ml # Bowel Movements 1 Physical Exam GENERAL: Well developed, well nourished. No acute distress. HEENT: Jugular venous pressure is normal. CHEST: Lungs clear to auscultation anteriorly. CARDIAC: Regular rate and rhythm without S3, S4. II/ systolic murmur apex and left lower sternal border. ABDOMEN: Soft, nontender, no hepatosplenomegaly. Bowel sounds present. EXTREMITIES: No clubbing, cyanosis, or edema. Laboratory Laboratory Tests Test 04/07/17 14:50 04/07/17 17:07 04/07/17 17:18 04/07/17 20:37 White Blood Count 19.5 TH/MM3 Red Blood Count 3.14 MIL/MM3 Hemoglobin 9.2 GM/DL Bedside Hemoglobin 8.8 G/DL Hematocrit 28.1 % Bedside Hematocrit 26.0 % Mean Corpuscular Volume 89.3 FL Mean Corpuscular Hemoglobin 29.3 PG Mean Corpuscular Hemoglobin Concent 32.8 % Red Cell Distribution Width 16.0 % Platelet Count 279 TH/MM3 Mean Platelet Volume 10.5 FL Neutrophils (%) (Auto) 84.5 % Lymphocytes (%) (Auto) 6.1 % Monocytes (%) (Auto) 8.9 % Eosinophils (%) (Auto) 0.0 % Basophils (%) (Auto) 0.5 % Neutrophils # (Auto) 16.5 TH/MM3 Lymphocytes # (Auto) 1.2 TH/MM3 Monocytes # (Auto) 1.7 TH/MM3 Eosinophils # (Auto) 0.0 TH/MM3 Basophils # (Auto) 0.1 TH/MM3 CBC Comment DIFF FINAL Differential Comment Prothrombin Time 10.9 SEC Prothromb Time International Ratio 1.1 RATIO Activated Partial Thromboplast Time 20.7 SEC Bedside Sodium 133 MMOL/L Bedside Potassium 5.6 MMOL/L Bedside Chloride 102 MMOL/L Bedside Blood Urea Nitrogen GREATER THAN 140 MG/DL Bedside Creatinine 9.7 MG/DL Bedside Glucose 251 MG/DL Calcium Level 8.8 MG/DL 8.3 MG/DL Magnesium Level 3.3 MG/DL Total Creatine Kinase 380 U/L 294 U/L Creatine Kinase MB 8.7 NG/ML 7.2 NG/ML Creatine Kinase MB % 2.3 % Troponin I 2.72 NG/ML 2.31 NG/ML 2.04 NG/ML B-Type Natriuretic Peptide 1170 PG/ML Blood Gas Puncture Site RT RADIAL Blood Gas Patient Temperature 98.6 Blood Gas HCO3 14 mmol/L Blood Gas Base Excess -10.6 mmol/L Blood Gas Oxygen Saturation 95 % Arterial Blood pH 7.33 Arterial Blood Partial Pressure CO2 28 mmHg Arterial Blood Partial Pressure O2 98 mmHG Arterial Blood Oxygen Content 11.4 Vol % Arterial Blood Carboxyhemoglobin 1.8 % Arterial Blood Methemoglobin 0.6 % Blood Gas Hemoglobin 8.4 G/DL Oxygen Delivery Device NASAL CANNULA Blood Gas Liter Flow 4 L/M Phosphorus Level 8.7 MG/DL Blood Urea Nitrogen 125 MG/DL Creatinine 8.70 MG/DL Random Glucose 164 MG/DL Total Protein 6.9 GM/DL Albumin 2.8 GM/DL Alkaline Phosphatase 89 U/L Aspartate Amino Transf (AST/SGOT) 63 U/L Alanine Aminotransferase (ALT/SGPT) 71 U/L Total Bilirubin 0.4 MG/DL Sodium Level 138 MEQ/L Potassium Level 4.9 MEQ/L Chloride Level 104 MEQ/L Carbon Dioxide Level 17.7 MEQ/L Anion Gap 16 MEQ/L Estimat Glomerular Filtration Rate 6 ML/MIN Lactic Acid Level 2.6 mmol/L Test 04/07/17 21:00 04/07/17 22:53 04/08/17 03:05 Nasal Screen MRSA (PCR) MRSA NOT DETECTED Activated Partial Thromboplast Time 25.0 SEC 25.9 SEC White Blood Count 13.6 TH/MM3 Red Blood Count 2.96 MIL/MM3 Hemoglobin 8.8 GM/DL Hematocrit 26.4 % Mean Corpuscular Volume 89.2 FL Mean Corpuscular Hemoglobin 29.7 PG Mean Corpuscular Hemoglobin Concent 33.3 % Red Cell Distribution Width 16.2 % Platelet Count 198 TH/MM3 Mean Platelet Volume 10.5 FL Neutrophils (%) (Auto) 77.2 % Lymphocytes (%) (Auto) 9.7 % Monocytes (%) (Auto) 11.7 % Eosinophils (%) (Auto) 0.2 % Basophils (%) (Auto) 1.2 % Neutrophils # (Auto) 10.5 TH/MM3 Lymphocytes # (Auto) 1.3 TH/MM3 Monocytes # (Auto) 1.6 TH/MM3 Eosinophils # (Auto) 0.0 TH/MM3 Basophils # (Auto) 0.2 TH/MM3 CBC Comment DIFF FINAL Differential Comment Blood Urea Nitrogen 127 MG/DL Creatinine 8.21 MG/DL Random Glucose 169 MG/DL Calcium Level 8.4 MG/DL Sodium Level 140 MEQ/L Potassium Level 4.6 MEQ/L Chloride Level 105 MEQ/L Carbon Dioxide Level 20.6 MEQ/L Anion Gap 14 MEQ/L Estimat Glomerular Filtration Rate 7 ML/MIN Troponin I 1.71 NG/ML Imaging Last [address] 04/07/17 1646 Signed Impressions: Service Date/Time: Friday, April 07, 2017 17:37 - CONCLUSION: 1. Senescent changes with ventriculomegaly out of proportion to the degree of atrophy. Clinical correlation for normal pressure hydrocephalus is recommended. Jesus Manuel Storm MD Chest X-Ray 04/07/17 1554 Signed Impressions: Service Date/Time: Friday, April 07, 2017 15:59 - CONCLUSION: 1. Cardiomegaly and chronic appearing interstitial changes. No definite acute abnormality. Sina Bonner MD Assessment and Plan Problem List: (1) STEMI (ST elevation myocardial infarction) ICD Codes: I21.3 - ST elevation (STEMI) myocardial infarction of unspecified site Status: Acute Plan: Possible STEMI. Difficult to interpret significance of mildly abnormal troponin levels in setting of renal failure. CKMB's negative for [place]. Echo pending. REC await echo no beta ashley for now with bradycardia, no KRISTYN-I with his renal insufficiency conservative management from a cardiac standpoint can stop heparin drip later today, continue daily aspirin check lipid profile (2) Bradycardia ICD Codes: R00.1 - Bradycardia, unspecified Status: Acute Plan: Still appears to be in junctional rhythm. BP's normal to hypertensive. Continue to monitor. Consider permanent pacemaker therapy if no resolution of bradycardia by end of the week. Code Status full code Discussed Condition With patient Problem Qualifiers (1) STEMI (ST elevation myocardial infarction): Qualified Codes: I21.3 - ST elevation (STEMI) myocardial infarction of unspecified site Vikram Briceno MD Apr 08, 2017 08:20
[2017-04-08] MEDS: ASPIRIN EC 325 MG TABEC PO SCH (09:01)
[2017-04-08] MEDS: CLOPIDOGREL 75 MG TAB PO SCH (09:52)
[2017-04-08] MEDS: ISOSORBIDE MONONITRATE 60 MG CR TAB (IMDUR) PO SCH (09:52)
--- NOTE | 2017-04-08 10:16 | HHI.NPPN ---
Subjective General Problems: Anemia, Hypertension, Mebatolic Acidosis Renal Failure: Chronic, Acute Interval History He is awake. They are attempting IV access currently. He is non oliguric. Blood pressure elevated today (Katharine Cruz) Objective Data Data Vital Signs Date Time Temp Pulse Resp B/P (MAP) Pulse Ox O2 Delivery O2 Flow Rate FiO2 04/08/17 07:53 96 Nasal Cannula 2.00 04/08/17 06:00 36 25 142/65 (90) 95 04/08/17 06:00 36 04/08/17 05:00 36 25 169/79 (109) 95 04/08/17 04:00 34 04/08/17 04:00 98.0 34 23 157/77 (103) 95 04/08/17 03:00 35 24 167/79 (108) 96 04/08/17 02:00 35 24 141/67 (91) 97 04/08/17 02:00 35 04/08/17 01:00 35 25 152/71 (98) 100 04/08/17 00:00 35 04/08/17 00:00 97.8 35 25 144/72 (96) 100 04/07/17 23:00 35 27 110/58 (75) 100 04/07/17 22:00 36 04/07/17 22:00 36 22 125/58 (80) 100 04/07/17 21:00 35 17 155/67 (96) 100 04/07/17 20:52 94 Nasal Cannula 3.00 04/07/17 20:00 36 04/07/17 20:00 98.2 36 24 128/67 (87) 100 04/07/17 17:30 97 Nasal Cannula 2.00 04/07/17 16:55 37 24 131/71 (91) 98 Nasal Cannula 4.00 04/07/17 16:27 38 127/74 04/07/17 16:16 38 26 129/63 (85) 99 Nasal Cannula 4.00 04/07/17 16:09 38 24 137/67 (90) 100 Nasal Cannula 4.00 04/07/17 16:01 99 Nasal Cannula 4.00 04/07/17 16:01 22 99 Nasal Cannula 4.00 04/07/17 15:50 35 24 99 Nasal Cannula 4.00 04/07/17 15:49 98.0 40 22 153/86 (210) 100 (Katharine Cruz) -: 04/08/17 0305 04/08/17 0305 Microbiology 04/07/17 Influenza Types A,B Antigen (MAKENZIE) - Final, Complete NEGATIVE FOR FLU A AND B ANTIGEN.... Imaging Last [address] 04/07/17 1646 Signed Impressions: Service Date/Time: Friday, April 07, 2017 17:37 - CONCLUSION: 1. Senescent changes with ventriculomegaly out of proportion to the degree of atrophy. Clinical correlation for normal pressure hydrocephalus is recommended. Jesus Manuel Storm MD Chest X-Ray 04/07/17 1554 Signed Impressions: Service Date/Time: Friday, April 07, 2017 15:59 - CONCLUSION: 1. Cardiomegaly and chronic appearing interstitial changes. No definite acute abnormality. Sina Bonner MD Renal Ultrasound 04/07/17 0000 Signed Impressions: Service Date/Time: Friday, April 07, 2017 18:11 - CONCLUSION: Medical renal disease. No hydronephrosis. Jaleel Carlin MD (Katharine Cruz) Physical Exam General Appearance: Well Developed, Well Nourished, No Acute Distress, Comfortable (Katharine Cruz) Throat Throat Exam: Oral Mucosa Umbarger & Moist (Katharine Cruz) Neck Neck Exam: Neck Supple (Katharine Cruz) Pulmonary Resp Exam: Breath Sounds Equal, No Distress (Katharine Cruz) Cardiology CV Exam: Good Perfusion, Bradycardia (Katharine Cruz) Gastrointestinal/Abdomen GI Exam: Soft, Non-Tender, Bowel Sounds Present (Katharine Cruz) Musculoskeletal MS Exam: Joints Intact, Normal Gait (Katharine Cruz) Integumentary Skin Exam: Warm, Dry, Intact (Katharine Cruz) Extremeties Extremities Exam: No Edema, Pedal Pulses Palpable (Katharine Cruz) Neurologic Neuro Exam: Alert, Awake, Oriented, Speech Clear, Moving All Extremities (Katharine Cruz) Psychiatric Psych Exam: Appropriate Responses (Katharine Cruz) Assessment/Plan Discussed Condition With: Patient Assessment Summary: ROEL/Acute Renal Failure, Anemia of CKD Electrolyte Assessment: Metabolic Acidosis Problem List: (1) Acute renal failure ICD Codes: N17.9 - Acute kidney failure, unspecified Plan: He has underlying CKD, exact baseline not known Acute Renal failure due to bradycardia and VT, with diminished renal perfusion. Renal US not suggesting obstruction UA sent, awaiting results. Potassium has improved. Change fluids, stop NS, change bicarg gtt to 1/2 NS with 75 mEq. Monitor urine output He may require dialysis this admission Sevelamer added for hyperphosphatemia Repeat labs in AM (2) Bradycardia ICD Codes: R00.1 - Bradycardia, unspecified Status: Acute Plan: May need PPM Continue supportive care Hypertensive, avoid BB and KRISTYN, start Amlodipine 5 mg daily (3) STEMI (ST elevation myocardial infarction) ICD Codes: I21.3 - ST elevation (STEMI) myocardial infarction of unspecified site Status: Acute Plan: Cardiology following, On heparin gtt. (4) Anemia ICD Codes: D64.9 - Anemia, unspecified Plan: Iron profile pending may have anemia of CKD. (5) Leukocytosis ICD Codes: D72.829 - Elevated white blood cell count, unspecified Plan: May be reactive, monitor for infections Lactic acid elevated. (Katharine Cruz) Plan patient was seen and examined. Poor renal function, but hyperkalemia has improved. May need dialysis during this admission. Changed IVF composition. (Pantera Iraheta MD) Problem Qualifiers (1) STEMI (ST elevation myocardial infarction): Qualified Codes: I21.3 - ST elevation (STEMI) myocardial infarction of unspecified site Katharine Cruz Apr 08, 2017 10:16 Pantera Iraheta MD Apr 08, 2017 16:19
[2017-04-08 11:15] LABS: BILIRUBIN, URINE NEG (NEG); BLOOD, URINE NEG (NEG); GLUCOSE,URINE NEG (NEG); HYALINE CAST, URINE 1 /lpf (RARE); KETONE, URINE NEG (NEG); NITRITE,URINE NEG (NEG); PH, URINE 5.5 (5.0-8.5); URINE COLOR LIGHT-YELLOW (YELLW/STRAW); URINE LEUKOCYTE ESTERASE NEG (NEG)
[2017-04-08] MEDS: amLODIPine BESYLATE 5 MG TAB PO SCH (11:15)
[2017-04-08 11:54] LABS: % SATURATION IRON PROFILE 3.6 % (20-50); IRON (FE) 13 MCG/DL (65-175); TOTAL IRON BINDING CAPACITY 365 MCG/DL (250-450)
[2017-04-08] MEDS ORDERED: FUROSEMIDE 40 MG/4 ML VIAL ONE (12:43)
[2017-04-08] MEDS ORDERED: FUROSEMIDE 40 MG/4 ML VIAL IV PUSH ONE (13:00)
[2017-04-08] MEDS: SEVELAMER CARBONATE 800 MG TAB PO SCH ×2 (13:15→17:00)
[2017-04-08] MEDS: hydrALAZINE HCL 20 MG/ML VIAL IV PUSH PRN ×2 (13:15→15:56)
[2017-04-08] MEDS: SODIUM BICARBONATE 8.4% INJ 75 MEQ in SODIUM CHLOR 0.45% 1000 ML INJ 1,000 ML IV SCH (13:15)
--- NOTE | 2017-04-08 13:16 | RADRPT ---
EXAM DATE/TIME: 04/08/2017 12:41 [facility] COMPARISON: CHEST SINGLE AP, April 07, 2017, 15:59. INDICATIONS : Shortness of breath. MEDICAL HISTORY : Stroke. Diabetes. Cardiac disorders. Falls. SURGICAL HISTORY : None. ENCOUNTER: Subsequent ACUITY: 1 day PAIN SCORE: Non-responsive. LOCATION: Bilateral chest FINDINGS: Diffuse patchy airspace disease throughout the left lung, slightly more confluent at the lung base. C ardiac silhouette is enlarged. Pulmonary vascularity is indistinct centrally. Remainder of exam is un changed. CONCLUSION: 1. Cardiomegaly with positive fluid balance. 2. Diffuse patchy airspace disease throughout the left lung may reflect atypical pulmonary edema. Jesus Manuel Storm MD on April 08, 2017 at 13:11 Board Certified Radiologist. This report was verified electronically.
[2017-04-08] MEDS ORDERED: HALOPERIDOL LACTATE 5 MG/ML AMP IV PUSH PRN (14:30)
[2017-04-08 14:40] LABS: ALT (GPT) 78 U/L (12-78); AST (GOT) 71 U/L (15-37); BICARBONATE 15.1 MEQ/L (21.0-32.0); BLOOD UREA NITROGEN 130 MG/DL (7-18); CALCIUM 8.4 MG/DL (8.5-10.1); CHLORIDE 105 MEQ/L (98-107); CREATININE 8.52 MG/DL (0.60-1.30); GLOMERULAR FILTRATION RATE 6 ML/MIN (>89); GLUCOSE,RANDOM 149 MG/DL (74-106); SODIUM (NA) 141 MEQ/L (136-145)
[2017-04-08 14:43] LABS: ALKALINE PHOSPHATASE 91 U/L (45-117); TOTAL BILIRUBIN ADULT 0.4 MG/DL (0.2-1.0); TOTAL PROTEIN 7.2 GM/DL (6.4-8.2)
--- NOTE | 2017-04-08 15:44 | HHI.CCPN ---
Subjective Remarks/Hospital Course 04/07: The patient is a 72-year-old male with a past medical history of coronary artery disease, chronic kidney disease, cerebrovascular accident, hypertension, diabetes mellitus, hyperlipidemia who was brought into [facility] Emergency Department via ambulance with altered mental status. The patient's daughter could not reach him, so she called the fire rescue to go check on her father and on arrival they found him on the floor and has been there for the past two days. The patient is confused and when he came to the emergency department he was found bradycardic and a STEMI alert was called. EKG in the ER showed findings compatible with inferior wall myocardial infarction and bradycardia with a heart rate in the 30s. His labs on point of care significant for acute renal failure with a BUN greater than 140, creatinine 9.7. In addition the patient had a troponin of 2.72 and total CK of 380. Also he had leukocytosis with a WBC of 19.5. In the ED he was given one liter bolus of normal saline, aspirin and initially placed on nitroglycerine drip. The patient was seen by Dr. Briceno from the cardiology service and due to his significant renal failure. Cardiac catheterization was placed on hold and a plan to continue with medical therapy for now until his renal function recovers. The patient is awake, alert, however, he is intermittently confused. He is currently on 4 liters oxygen with saturation 98%, blood pressure 131/71 with heart rate in the 30s. The patient was also seen by Dr. Iraheta from nephrology service in the ED. He denies any chest pain, shortness of breath or any constitutional symptoms. The patient was recently discharged from [facility] in [place] after he was treated there for flu. 04/08: Continues to shortness of breath. Initiated on BiPAP. He pulled out his IVs earlier this morning. Heparin drip stopped. Mackey catheter placed in view of acute renal failure with need to monitor accurate urine output. Objective Vital Signs Date Time Temp Pulse Resp B/P (MAP) Pulse Ox O2 Delivery O2 Flow Rate FiO2 04/08/17 14:00 65 04/08/17 12:42 100 100 04/08/17 12:00 99.2 35 174/80 (111) 04/08/17 07:53 Nasal Cannula 2.00 Intake and Output 04/08/17 04/08/17 04/09/17 08:00 16:00 00:00 Intake Total 1915 ml 574.7 ml Output Total 800 ml Balance 1115 ml 574.7 ml Result Diagram: 04/08/17 0305 04/08/17 0305 Other Results Microbiology Date/Time Source Procedure Growth Status 04/07/17 17:18 Nasal Washing Influenza Types A,B Antigen (MAKENZIE) - Final NEGATIVE FOR FLU A AND B ANTIGEN.... Complete Laboratory Tests Test 04/07/17 17:07 04/08/17 13:40 Blood Gas Puncture Site RT RADIAL RT RADIAL Blood Gas Patient Temperature 98.6 98.6 Blood Gas HCO3 14 mmol/L (22-26) 17 mmol/L (22-26) Blood Gas Base Excess -10.6 mmol/L (-2-2) -5.7 mmol/L (-2-2) Blood Gas Oxygen Saturation 95 % (90-100) 93 % (90-100) Arterial Blood pH 7.33 (7.380-7.420) 7.46 (7.380-7.420) Arterial Blood Partial Pressure CO2 28 mmHg (38-42) 25 mmHg (38-42) Arterial Blood Partial Pressure O2 98 mmHG (61-120) 77 mmHg (61-120) Arterial Blood Oxygen Content 11.4 Vol % (12.0-20.0) 11.3 Vol % (12.0-20.0) Arterial Blood Carboxyhemoglobin 1.8 % (0-4) 1.6 % (0-4) Arterial Blood Methemoglobin 0.6 % (0-2) 1.5 % (0-2) Blood Gas Hemoglobin 8.4 G/DL (12.0-16.0) 8.6 G/DL (12.0-16.0) Oxygen Delivery Device NASAL CANNULA BIPAP Blood Gas Liter Flow 4 L/M Blood Gas Ventilator Setting EPAP 5/IPAP 15 Blood Gas Inspired Oxygen 50 % Objective Remarks HEENT: Atraumatic, normocephalic. Pupils equal, round and reactive to light and accommodation. Extraocular muscles are intact. Conjunctivae pink. Nonicteric sclerae. Oral mucosa dry mucous membranes. NECK: Supple. No JVD, adenopathy or thyromegaly. Trachea is midline. CARDIOVASCULAR: Bradycardic. Normal S1-S2. No murmurs, rubs, or gallops noted. LUNGS: On BiPAP with full facemask, Good air entry bilaterally, bilateral rhonchi, no wheezing. ABDOMEN: Soft. Nontender. Nondistended. Positive bowel sounds. EXTREMITIES: No clubbing, cyanosis or edema. NEUROLOGIC: Awake however, with intermittent confusion. No focal sensory deficits. A/P Assessment and Plan IMPRESSION 1. Respiratory insufficiency. 2. ST-elevation myocardial infarction alert, inferior wall myocardial infarction. 3. Altered mental status. 4. Acute on chronic kidney disease. 5. Bradycardia. 6. Hyponatremia and hyperkalemia. 7. Leukocytosis. 8. Anemia. 9. History of coronary artery disease. 10. History of cerebrovascular accident. 11. Hypertension. 12. Diabetes mellitus. 13. Hyperlipidemia. RECOMMENDATIONS 1. Monitor neurological status closely and avoid any sedatives. We will proceed with a CT scan of the brain to rule out acute intracranial process. 2. Continue with oxygen and maintain saturations above 92%. 3. Bronchodilators in the form of DuoNeb q.4h plus q.2h as needed for shortness of breath. Check ABG now. 4. Monitor heart rate and blood pressure closely and maintain mean arterial pressure greater than 65 mmHg. We will discontinue nitro drip. The patient was given aspirin 324 milligrams p.o. times one. We will continue with aspirin daily and place on heparin drip if CT scan of the brain is negative for acute process. Monitor PTT per protocol. 5. Monitor cardiac enzymes with troponins and we will obtain 2-D echocardiogram to evaluate left ventricle function. Dr. Briceno from cardiology service saw the patient in the emergency department. We will hold off on beta ashley due to current bradycardia. Cardiac catheterization was placed on hold per cardiology due to underlying renal failure. 6. Monitor renal function ins and outs. Avoid nephrotoxins. He was given one liter of normal saline in the emergency department. We will give an additional one liter bolus of normal saline followed by maintenance fluids NS at 125 ml an hour. Treated with glucose insulin, calcium and sodium bicarbonate for hyperkalemia on 04/07.. No evidence of obstruction on renal ultrasound. Dr Iraheta following. If there is no improvement in renal function the patient will likely need hemodialysis. 7. Keep n.p.o. for now and place on Protonix 40 milligrams IV daily for GI prophylaxis. 8. Monitor for signs of infection which include fever and WBC. We will check a urinalysis with culture if indicated. In addition we will screen for influenza. The patient was recently hospitalized at [facility] for the flu. We'll consult ID for suspected pneumonia on chest x-ray. We'll start Zosyn/Zyvox for empiric antibiotic coverage. 9. Initiated on BiPAP, will monitor closely. May require endotracheal intubation 10. Monitor CBC and coagulations as the patient will be on a heparin drip. 11. Placed on sliding scale insulin with Accu-Cheks for glycemic control. 12. GI prophylaxis with Protonix 40 milligrams daily and DVT prophylaxis with sequential compression devices. Heparin drip stopped. We'll initiate heparin for DVT prophylaxis. Condition critical Time spent on critical care extending procedures 35 minutes Tushar Haley MD Apr 08, 2017 15:44
[2017-04-08] MEDS ORDERED: ETOMIDATE 20 MG/10 ML VIAL IVP ONE (17:00)
[2017-04-08] MEDS ORDERED: fentaNYL CITRATE 250 MCG/5 ML AMP IV ONE (17:00)
[2017-04-08] MEDS ORDERED: ROCURONIUM INJ 50 MG/5 ML VIAL IV ONE (17:00)
[2017-04-08] MEDS ORDERED: ETOMIDATE 40 MG/20 ML VIAL ONE (17:04)
[2017-04-08] MEDS ORDERED: PROPOFOL 500 MG/50 ML INJ 50 ML ONE ×2 (17:10→18:42)
[2017-04-08] MEDS ORDERED: LEVOFLOXACIN 500 MG PREMIX INJ 100 ML IV ONE (18:00)
--- NOTE | 2017-04-08 18:19 | EKG ---
Date Performed: 04/07/2017 Time Performed: 15:53:05 PTAGE: 72 years EKG: UNCERTAIN IRREGULAR RHYTHM INTRAVENTRICULAR CONDUCTION DELAY INFERIOR MYOCARDIAL INFARCTION ACUTE [place] SIGNIFICANT BASELINE ARTIFARCT. NO PRIOR FOR COMPARISON. NO PREVIOUS TRACING DOCTOR: Ligia Mitchell Interpretating Date/Time 04/11/2017 20:33:51
[2017-04-08] MEDS: LINEZOLID 600 MG PREMIX 300 ML IV SCH (18:35)
[2017-04-08] MEDS: PANTOPRAZOLE SODIUM 40 MG VIAL IV PUSH SCH (18:37)
--- NOTE | 2017-04-08 18:40 | RADRPT ---
EXAM DATE/TIME: 04/08/2017 18:02 [facility] COMPARISON: CHEST SINGLE AP, April 08, 2017, 12:41. INDICATIONS : Post intubation. MEDICAL HISTORY : Stroke. Diabetes. Cardiac disorders. SURGICAL HISTORY : None. ENCOUNTER: Initial ACUITY: 1 day PAIN SCORE: Non-responsive. LOCATION: Bilateral chest FINDINGS: ETT at the level the clavicles. NGT in the proximal stomach. Right IJ central line near the cavoatria l junction. Redemonstration of diffuse patchy airspace disease throughout the left lung and in the mi d to lower right lung zones. Cardiomedi cell contours are stable. Remainder of exam is unchanged. CONCLUSION: 1. ETT in good position. NGT in the stomach. Right IJ central line at the cavoatrial junction. 2. No pneumothorax. 3. Redemonstration of pulmonary edema pattern. Jesus Manuel Storm MD on April 08, 2017 at 18:37 Board Certified Radiologist. This report was verified electronically.
[2017-04-08 18:44] LABS: AUTOMATED NEUTROPHIL # 20.6 TH/MM3 (1.8-7.7); BASOPHIL # 0.1 TH/MM3 (0-0.2); BASOPHIL % 0.3 % (0.0-2.0); HEMATOCRIT 26.2 % (39.0-51.0); HEMOGLOBIN 8.7 GM/DL (13.0-17.0); LYMPH % 4.3 % (9.0-44.0); MEAN CELL VOLUME 89.3 FL (80.0-100.0); MEAN CORPUSCULAR HEMOGLOBIN 29.8 PG (27.0-34.0); MEAN CORPUSCULAR HGB CONC 33.4 % (32.0-36.0); MEAN PLATELET VOLUME 10.1 FL (7.0-11.0); MONO % 7.5 % (0.0-8.0); MONOCYTE # 1.7 TH/MM3 (0-0.9); NEUT % 87.9 % (16.0-70.0); PLATELET COUNT 295 TH/MM3 (150-450); RED BLOOD COUNT 2.93 MIL/MM3 (4.50-5.90); RED CELL DISTRIBUTION WIDTH 16.4 % (11.6-17.2); WHITE BLOOD COUNT 23.4 TH/MM3 (4.0-11.0)
[2017-04-08 18:52] LABS: ALBUMIN 2.6 GM/DL (3.4-5.0); AST (GOT) 56 U/L (15-37); BICARBONATE 21.2 MEQ/L (21.0-32.0); BLOOD UREA NITROGEN 120 MG/DL (7-18); CALCIUM 8.1 MG/DL (8.5-10.1); CHLORIDE 103 MEQ/L (98-107); CREATININE 7.54 MG/DL (0.60-1.30); GLOMERULAR FILTRATION RATE 7 ML/MIN (>89); GLUCOSE,RANDOM 168 MG/DL (74-106); MAGNESIUM 2.8 MG/DL (1.5-2.5); SODIUM (NA) 139 MEQ/L (136-145)
[2017-04-08 18:53] LABS: ALT (GPT) 72 U/L (12-78); PHOSPHORUS 8.5 MG/DL (2.5-4.9)
[2017-04-08 18:57] LABS: ALKALINE PHOSPHATASE 89 U/L (45-117); TOTAL BILIRUBIN ADULT 0.6 MG/DL (0.2-1.0); TOTAL PROTEIN 6.7 GM/DL (6.4-8.2)
[2017-04-08] MEDS ORDERED: DOPamine 800 MG/D5W PREMIX 500 ML IV PRN (19:00)
[2017-04-08] MEDS ORDERED: TERBUTALINE INJ 1 MG/ML AMP SQ PRN (19:00)
[2017-04-08 19:05] LABS: TROPONIN I 1.56 NG/ML (0.02-0.05)
[2017-04-08 19:22] LABS: BANDS 2 % (0-6); LYMPHOCYTES 4 % (9-44); MONOCYTES 2 % (0-8); POLYS (SEG NEUTROPHILS) 92 % (16-70)
[2017-04-08 19:23] LABS: TOXIC GRANULATION 1+ (NORMAL)
--- NOTE | 2017-04-08 19:57 | PD.PROCEDR ---
Central Line Procedure REASON FOR PROCEDURE Central venous access PROCEDURE PERFORMED Central line placement: Right internal jugular vein with ultrasound guidance CONSENT Informed consent for procedure was not obtained as this was an emergent procedure following intubation ANESTHESIA Local injection of 1% Lidocaine DESCRIPTION OF THE PROCEDURE The patient was placed in supine, mild Trendelenburg position. The area was exposed and cleansed with ChloraPrep, times two. Large sterile drape was used to cover the patient, with the site exposed, under sterile conditions including cap, face mask, sterile gown, and sterile gloves. On single attempt, the introducer needle was inserted with negative pressure in syringe and venous flash was obtained. The guide wire was then advanced without any restriction and the needle was removed. The dilator was used without any complications. Using Seldinger technique and antimicrobial coated 80 cm triple lumen catheter was advanced over the guide wire to a depth of 18 centimeters. The guide wire was removed. All ports were aspirated with dark venous blood return and flushed easily with sterile saline. All ports were capped. Antibiotic disc was placed around central line at puncture site. The central line was secured to the skin with a stat lock. The area was bandaged with sterile see-through central line bandage. Postprocedure chest x-ray ordered RADIOLOGICAL DATA Ultrasound guidance was used to locate the right internal jugular vein. COMPLICATIONS: Initial failed attempt at right subclavian vein cannulation. No apparent complications ESTIMATED BLOOD LOSS: Less than 4 cc. Tushar Haley MD Apr 08, 2017 19:57
--- NOTE | 2017-04-08 20:00 | PD.PROCEDR ---
Procedure Note Procedure Procedure: Endotracheal intubation Preop diagnosis: Acute respiratory failure, acute [place], pneumonia, acute renal failure Postop diagnosis: Same Sedation used: Etomidate 20 mg, fentanyl 200 mcg, rocuronium 50 mg IV Procedure: Patient was preoxygenated with 100% oxygen via Ambu bag with bag mask ventilation, following induction of sedation and neuromuscular blockade, laryngoscopy was performed using a glide scope with good visualization of vocal cords. An 8 Uzbek ET tube was passed through the vocal cords under direct visualization up to the 23 centimeter delmis and after inflating cuff of ET tube, correct placement was confirmed using bagging with good color change on CO2 detector, 5 point auscultation and chest rise with ventilation. Patient was connected to mechanical ventilation. Patient tolerated the procedure well with no immediate complications noted. Postprocedure chest x-ray was ordered. Tushar Haley MD Apr 08, 2017 20:00
[2017-04-08] MEDS: PROPOFOL 1000 MG/100 ML INJ 100 ML IV PRN (21:03)
[2017-04-09] VITALS (30 sets, daily range): BP systolic 95–178; BP diastolic 48–81; PULSE 37–106; RESP 4–26; TEMP 97.4–98.8; O2SAT 99–100
[2017-04-09] MEDS: RESP: ALBUTEROL 2.5 MG/IPRATROPIUM 0.5 MG NEB (SCH) NEB ×7 (00:10→23:05)
[2017-04-09] MEDS: INSULIN NovoLIN REGULAR SUPPLEMENTAL SCALE SQ SCH ×6 (00:21→20:00)
[2017-04-09] MEDS: PROPOFOL 1000 MG/100 ML INJ 100 ML IV PRN ×7 (02:24→23:54)
[2017-04-09] MEDS: CHLORHEXIDINE GLUCONATE 2 % 1 PACK (2 CLOTHS) TOP SCH (03:19)
[2017-04-09 04:08] LABS: AUTOMATED NEUTROPHIL # 9.6 TH/MM3 (1.8-7.7); BASOPHIL % 0.2 % (0.0-2.0); EOSINOPHIL % 0.3 % (0.0-4.0); HEMATOCRIT 21.9 % (39.0-51.0); HEMOGLOBIN 7.2 GM/DL (13.0-17.0); LYMPH % 9.6 % (9.0-44.0); LYMPHOCYTE # 1.1 TH/MM3 (1.0-4.8); MEAN CELL VOLUME 89.3 FL (80.0-100.0); MEAN CORPUSCULAR HEMOGLOBIN 29.2 PG (27.0-34.0); MEAN CORPUSCULAR HGB CONC 32.7 % (32.0-36.0); MEAN PLATELET VOLUME 10.3 FL (7.0-11.0); MONO % 8.4 % (0.0-8.0); NEUT % 81.5 % (16.0-70.0); PLATELET COUNT 209 TH/MM3 (150-450); RED BLOOD COUNT 2.46 MIL/MM3 (4.50-5.90); RED CELL DISTRIBUTION WIDTH 16.5 % (11.6-17.2); WHITE BLOOD COUNT 11.8 TH/MM3 (4.0-11.0)
[2017-04-09 04:37] LABS: ALBUMIN 2.2 GM/DL (3.4-5.0); AST (GOT) 41 U/L (15-37); BLOOD UREA NITROGEN 125 MG/DL (7-18); CALCIUM 7.9 MG/DL (8.5-10.1); CHLORIDE 102 MEQ/L (98-107); CREATININE 7.78 MG/DL (0.60-1.30); GLOMERULAR FILTRATION RATE 7 ML/MIN (>89); GLUCOSE,RANDOM 170 MG/DL (74-106); SODIUM (NA) 139 MEQ/L (136-145)
[2017-04-09 04:41] LABS: ALKALINE PHOSPHATASE 71 U/L (45-117); ALT (GPT) 67 U/L (12-78); TOTAL BILIRUBIN ADULT 0.4 MG/DL (0.2-1.0); TOTAL PROTEIN 5.9 GM/DL (6.4-8.2)
[2017-04-09] MEDS: LINEZOLID 600 MG PREMIX 300 ML IV SCH ×2 (05:06→17:41)
[2017-04-09] MEDS ORDERED: SODIUM CHLOR 0.9% 250 ML INJ 250 ML IV ONE (06:45)
[2017-04-09] MEDS ORDERED: FUROSEMIDE 20 MG/2 ML VIAL IV PUSH ONE (06:45)
--- NOTE | 2017-04-09 07:52 | HHI.CCPN ---
Subjective Remarks/Hospital Course 04/07: The patient is a 72-year-old male with a past medical history of coronary artery disease, chronic kidney disease, cerebrovascular accident, hypertension, diabetes mellitus, hyperlipidemia who was brought into [facility] Emergency Department via ambulance with altered mental status. The patient's daughter could not reach him, so she called the fire rescue to go check on her father and on arrival they found him on the floor and has been there for the past two days. The patient is confused and when he came to the emergency department he was found bradycardic and a STEMI alert was called. EKG in the ER showed findings compatible with inferior wall myocardial infarction and bradycardia with a heart rate in the 30s. His labs on point of care significant for acute renal failure with a BUN greater than 140, creatinine 9.7. In addition the patient had a troponin of 2.72 and total CK of 380. Also he had leukocytosis with a WBC of 19.5. In the ED he was given one liter bolus of normal saline, aspirin and initially placed on nitroglycerine drip. The patient was seen by Dr. Briceno from the cardiology service and due to his significant renal failure. Cardiac catheterization was placed on hold and a plan to continue with medical therapy for now until his renal function recovers. The patient is awake, alert, however, he is intermittently confused. He is currently on 4 liters oxygen with saturation 98%, blood pressure 131/71 with heart rate in the 30s. The patient was also seen by Dr. Iraheta from nephrology service in the ED. He denies any chest pain, shortness of breath or any constitutional symptoms. The patient was recently discharged from [facility] in [place] after he was treated there for flu. 04/08: Continues to shortness of breath. Initiated on BiPAP. He pulled out his IVs earlier this morning. Heparin drip stopped. Mackey catheter placed in view of acute renal failure with need to monitor accurate urine output. 04/09: Patient intubated yesterday and placed on mechanical ventilation for worsening respiratory status. Received Lasix 20 mg IV yesterday and is maintaining good urine output. Heparin discontinued yesterday. Hemoglobin dropped noted and 1 unit PRBCs ordered for today. BUN creatinine remains elevated. Patient is currently on propofol and half and is with bicarbonate 42 cc per hour. Had some tremors noted in upper extremities this morning. Obtaining EEG though doubt seizure. Objective Vital Signs Date Time Temp Pulse Resp B/P (MAP) Pulse Ox O2 Delivery O2 Flow Rate FiO2 04/09/17 06:00 45 04/09/17 04:01 98.0 24 95/48 (64) 100 04/09/17 04:00 70 04/08/17 07:53 Nasal Cannula 2.00 Intake and Output 04/09/17 04/09/17 04/10/17 08:00 16:00 00:00 Intake Total 977.5 ml Output Total 600 ml Balance 377.5 ml Result Diagram: 04/09/17 0345 04/09/17 0345 Other Results Microbiology Date/Time Source Procedure Growth Status 04/07/17 17:18 Nasal Washing Influenza Types A,B Antigen (MAKENZIE) - Final NEGATIVE FOR FLU A AND B ANTIGEN.... Complete Laboratory Tests Test 04/08/17 13:40 Blood Gas Puncture Site RT RADIAL Blood Gas Patient Temperature 98.6 Blood Gas HCO3 17 mmol/L (22-26) Blood Gas Base Excess -5.7 mmol/L (-2-2) Blood Gas Oxygen Saturation 93 % (90-100) Arterial Blood pH 7.46 (7.380-7.420) Arterial Blood Partial Pressure CO2 25 mmHg (38-42) Arterial Blood Partial Pressure O2 77 mmHg (61-120) Arterial Blood Oxygen Content 11.3 Vol % (12.0-20.0) Arterial Blood Carboxyhemoglobin 1.6 % (0-4) Arterial Blood Methemoglobin 1.5 % (0-2) Blood Gas Hemoglobin 8.6 G/DL (12.0-16.0) Oxygen Delivery Device BIPAP Blood Gas Ventilator Setting EPAP 5/IPAP 15 Blood Gas Inspired Oxygen 50 % Objective Remarks HEENT/ Neuro: Sedated, orally intubated, Pallor present, no icterus, tongue/ mucosa moist Neck: No JVD. Right IJ central line in place Chest/Pulm: on mech vent, good air entry bilaterally, bilateral rhonchi, no wheezing or crackles CVS: S1-S2 regular, no murmur GI/abdomen: soft, nontender, bowel sounds sluggish Extremities: warm bilaterally, no edema Urinary Catheter: Yes Assessment to: Continue Vascular Central Line Catheter: Yes Assessment to: Continue Date of Insertion: Apr 08, 2017 Line: Central Venous Catheter Side: Right Location: Jugular A/P Assessment and Plan IMPRESSION 1. Acute respiratory failure on mechanical ventilation 2. ST-elevation myocardial infarction alert, inferior wall myocardial infarction. 3. Encephalopathy. 4. Acute on chronic kidney disease. 5. Bradycardia. 6. Hyponatremia and hyperkalemia. 7. Leukocytosis. 8. Anemia. 9. History of coronary artery disease. 10. History of cerebrovascular accident. 11. Hypertension. 12. Diabetes mellitus. 13. Hyperlipidemia. 14. Recent influenza RECOMMENDATIONS 1. Monitor neurological status closely and avoid any sedatives. Head CT with some cerebral atrophy. Stat EEG ordered for tremors noted in upper extremities 2. Intubated on 04/08, continue mechanical ventilation, vent bundle, bronchodilators as needed. 3. Propofol for sedation, daily sedation vacation. 4. Monitor heart rate and blood pressure closely. off heparin GTT. Continue aspirin per cardiology recommendations. Further evaluation for STEMI per cardiology. 2-D echo still pending 5. Dr. Briceno from cardiology service following. Beta ashley not initiated as patient was bradycardic on presentation. Hydralazine when necessary for hypertension. Cardiac catheterization was placed on hold per cardiology due to underlying renal failure. 6. Treated with glucose insulin, calcium and sodium bicarbonate for hyperkalemia on 04/07.. No evidence of obstruction on renal ultrasound. Dr Iraheta following. If there is no improvement in renal function the patient will likely need hemodialysis. Received fluid boluses initially. Remains nonoliguric. Received Lasix 20 mg IV on 04/08 as chest x-ray shows worsening pulmonary edema as well as infiltrates with worsening respiratory status. Additional Lasix 20 mg IV ordered for 04/09 to keep patient in even fluid balance as patient also received 1 unit PRBCs 7. Start tube feeds with Nepro and advanced to goal as tolerated. Continue Protonix 40 milligrams IV daily for GI prophylaxis. 8.The patient was recently hospitalized at [facility] ([place], [place]) for the flu. We'll consult ID for suspected pneumonia on chest x-ray. Was started on levaquin/Zyvox for empiric antibiotic coverage on 04/08. ID consult requested. Check urine for strep pneumo and Legionella antigen. 9. One unit PRBCs ordered on 04/09, follow CBC transfuse to keep hemoglobin closer to 9 g percent in view of suspected [place] 11. Placed on sliding scale insulin with Accu-Cheks for glycemic control. 12. GI prophylaxis with Protonix 40 milligrams daily and DVT prophylaxis with sequential compression devices. Heparin drip stopped 04/08. Initiate heparin for DVT prophylaxis. Condition critical Time spent on critical care extending procedures 40 minutes Tushar Haley MD Apr 09, 2017 07:52
[2017-04-09] MEDS: SEVELAMER CARBONATE 800 MG TAB PO SCH (08:04)
[2017-04-09] MEDS: amLODIPine BESYLATE 5 MG TAB PO SCH (08:04)
[2017-04-09] MEDS: ASPIRIN EC 325 MG TABEC PO SCH (08:04)
[2017-04-09] MEDS: ISOSORBIDE MONONITRATE 60 MG CR TAB (IMDUR) PO SCH (08:04)
[2017-04-09] MEDS: CLOPIDOGREL 75 MG TAB PO SCH (08:05)
--- NOTE | 2017-04-09 08:43 | PD.CARD.PN ---
Subjective Subjective Remarks Intubated. Sedated. Objective Medications Item Value Date Time Amlodipine 5 mg 04/08/17 1115 Besylate DAILY/PO 04/09/17 0804 (Norvasc) Aspirin 325 mg 04/08/17 0900 (Ecotrin Ec) DAILY/PO 04/09/17 0804 Isosorbide 60 mg 04/08/17 0900 Mononitrate DAILY/PO 04/09/17 0804 (Imdur) Clopidogrel 75 mg 04/08/17 0900 Bisulfate DAILY/PO 04/09/17 0805 (Plavix) Current Medications Medications (Trade) Dose Ordered Sig/Mary Kay Route Start Time Stop Time Status Last Admin (NS Flush) 2 ml UNSCH PRN IVF 04/07/17 16:00 04/07/17 16:04 Miscellaneous Information 1 Q361D XX 04/07/17 16:30 04/07/17 16:30 (Chlorhexidine 2% Cloth) 3 pack Taper DAILY@04 TOP 04/08/17 04:00 04/04/18 03:59 04/09/17 03:19 (Chlorhexidine 2% Cloth) 3 pack UNSCH PRN TOP 04/07/17 16:30 (Ecotrin Ec) 325 mg DAILY PO 04/08/17 09:00 04/09/17 08:04 Heparin Sodium/ Dextrose 250 ml @ 10 mls/hr TITRATE PRN IV 04/07/17 16:30 04/07/17 20:56 (D50w (Vial) Inj) 50 ml UNSCH PRN IV PUSH 04/07/17 17:00 (Glucagon Inj) 1 mg UNSCH PRN OTHER 04/07/17 17:00 (NovoLIN R SUPPLEMENTAL SCALE) 1 Q4HR SQ 04/07/17 17:00 04/09/17 08:04 (Duoneb Neb) 1 ampule Q4HR NEB NEB 04/07/17 20:00 04/09/17 08:11 (Duoneb Neb) 1 ampule Q2HR NEB PRN NEB 04/07/17 17:15 (Protonix Inj) 40 mg Q24H IV PUSH 04/07/17 18:00 04/08/17 18:37 (Imdur) 60 mg DAILY PO 04/08/17 09:00 04/09/17 08:04 (Plavix) 75 mg DAILY PO 04/08/17 09:00 04/09/17 08:05 (Renvela) 800 mg TIDAC PO 04/08/17 12:00 04/09/17 08:04 Sodium Bicarbonate 75 meq/Sodium Chloride 1,075 ml @ 42 mls/hr Q24H IV 04/08/17 12:00 04/08/17 13:15 (Norvasc) 5 mg DAILY PO 04/08/17 11:15 04/09/17 08:04 (Apresoline Inj) 20 mg Q2H PRN IV PUSH 04/08/17 13:00 04/08/17 15:56 (Haldol Inj) 5 mg Q4H PRN IV PUSH 04/08/17 14:30 04/08/17 14:32 Linezolid 300 ml @ 300 mls/hr Q12H IV 04/08/17 17:00 04/09/17 05:06 Levofloxacin/ Dextrose 50 ml @ 50 mls/hr Q48H IV 04/10/17 18:00 Dopamine HCl/ Dextrose 500 ml @ 11.475 mls/ hr TITRATE PRN IV 04/08/17 19:00 (Brethine Inj) 1 mg UNSCH PRN SQ 04/08/17 19:00 Propofol 100 ml @ 3.06 mls/hr TITRATE PRN IV 04/08/17 20:30 04/09/17 06:15 Sodium Chloride 250 ml @ 15 mls/hr ONCE ONCE IV 04/09/17 06:45 04/09/17 23:24 Vital Signs / I&O Vital Signs Date Time Temp Pulse Resp B/P (MAP) Pulse Ox O2 Delivery O2 Flow Rate FiO2 04/09/17 08:13 100 60 04/09/17 06:00 45 04/09/17 04:01 98.0 37 24 95/48 (64) 100 04/09/17 04:00 37 04/09/17 04:00 70 04/09/17 03:31 100 70 04/09/17 02:00 37 04/09/17 00:10 100 90 04/09/17 00:00 39 04/09/17 00:00 98.8 39 24 121/57 (78) 100 04/09/17 00:00 90 04/08/17 22:00 44 04/08/17 20:16 100 100 04/08/17 20:00 98.5 47 24 101/51 (68) 100 04/08/17 20:00 100 04/08/17 20:00 47 04/08/17 18:00 49 04/08/17 17:20 95 100 04/08/17 17:15 100 04/08/17 16:59 95 40 04/08/17 16:00 69 04/08/17 16:00 98.0 69 31 186/72 (110) 93 04/08/17 14:00 65 04/08/17 12:42 100 100 04/08/17 12:00 58 04/08/17 12:00 99.2 58 35 174/80 (111) 100 04/08/17 10:00 50 I/O 04/08/17 04/08/17 04/08/17 04/09/17 04/09/17 04/09/17 07:00 15:00 23:00 07:00 15:00 23:00 Intake Total 1915 ml 574.7 ml 894.5 ml 977.5 ml Output Total 800 ml 2000 ml 600 ml Balance 1115 ml 574.7 ml -1105.5 ml 377.5 ml Intake Oral 240 ml 236 ml 0 ml IV Total 1675 ml 574.7 ml 658.5 ml 977.5 ml Output Urine Total 800 ml 2000 ml 600 ml # Bowel Movements 1 Physical Exam GENERAL: Well developed, well nourished. Intubated. Sedated. HEENT: Jugular venous pressure is normal. CHEST: Lungs clear to auscultation anteriorly. CARDIAC: Regular rate and rhythm without S3, S4. I-II/ systolic murmur apex and left lower sternal border. ABDOMEN: Soft, nontender, no hepatosplenomegaly. Bowel sounds present. EXTREMITIES: No clubbing, cyanosis, or edema. Laboratory Laboratory Tests Test 04/08/17 09:00 04/08/17 12:40 04/08/17 13:40 04/08/17 18:10 Urine Color LIGHT-YELLOW Urine Turbidity CLEAR Urine pH 5.5 Urine Specific [place] 1.013 Urine Protein 100 mg/dL Urine Glucose (UA) NEG mg/dL Urine Ketones NEG mg/dL Urine Occult Blood NEG Urine Nitrite NEG Urine Bilirubin NEG Urine Urobilinogen LESS THAN 2.0 MG/DL Urine Leukocyte Esterase NEG Urine RBC 1 /hpf Urine WBC 1 /hpf Urine Hyaline Casts 1 /lpf Microscopic Urinalysis Comment CATH-CULT NOT IND Activated Partial Thromboplast Time 24.0 SEC Blood Gas Puncture Site RT RADIAL Blood Gas Patient Temperature 98.6 Blood Gas HCO3 17 mmol/L Blood Gas Base Excess -5.7 mmol/L Blood Gas Oxygen Saturation 93 % Arterial Blood pH 7.46 Arterial Blood Partial Pressure CO2 25 mmHg Arterial Blood Partial Pressure O2 77 mmHg Arterial Blood Oxygen Content 11.3 Vol % Arterial Blood Carboxyhemoglobin 1.6 % Arterial Blood Methemoglobin 1.5 % Blood Gas Hemoglobin 8.6 G/DL Oxygen Delivery Device BIPAP Blood Gas Ventilator Setting EPAP 5/IPAP 15 Blood Gas Inspired Oxygen 50 % White Blood Count 23.4 TH/MM3 Red Blood Count 2.93 MIL/MM3 Hemoglobin 8.7 GM/DL Hematocrit 26.2 % Mean Corpuscular Volume 89.3 FL Mean Corpuscular Hemoglobin 29.8 PG Mean Corpuscular Hemoglobin Concent 33.4 % Red Cell Distribution Width 16.4 % Platelet Count 295 TH/MM3 Mean Platelet Volume 10.1 FL Neutrophils (%) (Auto) 87.9 % Lymphocytes (%) (Auto) 4.3 % Monocytes (%) (Auto) 7.5 % Eosinophils (%) (Auto) 0.0 % Basophils (%) (Auto) 0.3 % Neutrophils # (Auto) 20.6 TH/MM3 Lymphocytes # (Auto) 1.0 TH/MM3 Monocytes # (Auto) 1.7 TH/MM3 Eosinophils # (Auto) 0.0 TH/MM3 Basophils # (Auto) 0.1 TH/MM3 CBC Comment AUTO DIFF Differential Total Cells Counted 100 Neutrophils % (Manual) 92 % Band Neutrophils % 2 % Lymphocytes % 4 % Monocytes % 2 % Neutrophils # (Manual) 22.0 TH/MM3 Differential Comment FINAL DIFF MANUAL Toxic Granulation 1+ Platelet Estimate NORMAL Platelet Morphology Comment NORMAL Blood Urea Nitrogen 120 MG/DL Creatinine 7.54 MG/DL Random Glucose 168 MG/DL Total Protein 6.7 GM/DL Albumin 2.6 GM/DL Calcium Level 8.1 MG/DL Phosphorus Level 8.5 MG/DL Magnesium Level 2.8 MG/DL Alkaline Phosphatase 89 U/L Aspartate Amino Transf (AST/SGOT) 56 U/L Alanine Aminotransferase (ALT/SGPT) 72 U/L Total Bilirubin 0.6 MG/DL Sodium Level 139 MEQ/L Potassium Level 4.1 MEQ/L Chloride Level 103 MEQ/L Carbon Dioxide Level 21.2 MEQ/L Anion Gap 15 MEQ/L Estimat Glomerular Filtration Rate 7 ML/MIN Lactic Acid Level 1.6 mmol/L Troponin I 1.56 NG/ML Test 04/09/17 03:45 White Blood Count 11.8 TH/MM3 Red Blood Count 2.46 MIL/MM3 Hemoglobin 7.2 GM/DL Hematocrit 21.9 % Mean Corpuscular Volume 89.3 FL Mean Corpuscular Hemoglobin 29.2 PG Mean Corpuscular Hemoglobin Concent 32.7 % Red Cell Distribution Width 16.5 % Platelet Count 209 TH/MM3 Mean Platelet Volume 10.3 FL Neutrophils (%) (Auto) 81.5 % Lymphocytes (%) (Auto) 9.6 % Monocytes (%) (Auto) 8.4 % Eosinophils (%) (Auto) 0.3 % Basophils (%) (Auto) 0.2 % Neutrophils # (Auto) 9.6 TH/MM3 Lymphocytes # (Auto) 1.1 TH/MM3 Monocytes # (Auto) 1.0 TH/MM3 Eosinophils # (Auto) 0.0 TH/MM3 Basophils # (Auto) 0.0 TH/MM3 CBC Comment DIFF FINAL Differential Comment Blood Urea Nitrogen 125 MG/DL Creatinine 7.78 MG/DL Random Glucose 170 MG/DL Total Protein 5.9 GM/DL Albumin 2.2 GM/DL Calcium Level 7.9 MG/DL Alkaline Phosphatase 71 U/L Aspartate Amino Transf (AST/SGOT) 41 U/L Alanine Aminotransferase (ALT/SGPT) 67 U/L Total Bilirubin 0.4 MG/DL Sodium Level 139 MEQ/L Potassium Level 4.0 MEQ/L Chloride Level 102 MEQ/L Carbon Dioxide Level 23.0 MEQ/L Anion Gap 14 MEQ/L Estimat Glomerular Filtration Rate 7 ML/MIN Assessment and Plan Problem List: (1) STEMI (ST elevation myocardial infarction) ICD Codes: I21.3 - ST elevation (STEMI) myocardial infarction of unspecified site Status: Acute Plan: Possible STEMI. Difficult to interpret significance of mildly abnormal troponin levels in setting of renal failure. CKMB's negative for [place]. Echo still pending. REC await echo no beta ashley for now with bradycardia, no KRISTYN-I with his renal insufficiency conservative management from a cardiac standpoint continue daily aspirin, clopidogrel check lipid profile (2) Bradycardia ICD Codes: R00.1 - Bradycardia, unspecified Status: Acute Plan: Appears to be in sinus bradycardia this morning. BP's normal to hypertensive. Continue to monitor. Code Status full code Discussed Condition With Dr. Haley Problem Qualifiers (1) STEMI (ST elevation myocardial infarction): Qualified Codes: I21.3 - ST elevation (STEMI) myocardial infarction of unspecified site Vikram Briceno MD Apr 09, 2017 08:43
[2017-04-09] MEDS ORDERED: IRON SUCROSE INJ 100 MG in SODIUM CHLORIDE 0.9% INJ 100 ML IV SCH (10:00)
[2017-04-09 10:51] LABS: CHOLESTEROL/ HDL RATIO 4.92 RATIO; HDL CHOLESTEROL 28.2 MG/DL (40.0-60.0)
--- NOTE | 2017-04-09 11:04 | PD.ID.CON ---
History of Present Illness Service ID Consult Requested By [facility] Reason for Consult Evaluation and Mment of Possible Necrotizing pneumonia. Primary Care Physician Unknown Diagnoses: History of Present Illness Most of the history was obtained by review of medical records. Patient is currently intubated and sedated. No family in the room. Mr. Hubbard is a 72-year-old male with past medical history significant for coronary artery disease, chronic kidney disease, cerebrovascular accident, hypertension diabetes, hyperlipidemia who was brought into the emergency room via ambulance due to altered mental status. Apparently the patient's daughter could not reach him so she called far department to check on him. On arrival to found him on the floor in reportedly patient was probably there for at least 2 days. Patient was confused and came to the emergency room was found to be bradycardic and a STEMI alert was called. EKG in the ER reportedly was consistent with inferior wall KS and bradycardia in the 30s. Patient had a BUN of 140, creatinine of 9.7 upon arrival in the emergency department. His troponin was 2.72 and total CK of 380. He had leukocytosis of 19.5. In the emergency department he was given 1 L fluid bolus aspirin and Dr. Briceno from cardiology was consulted. Patient was initially placed on nitroglycerin drip as well. Cardiac catheterization was placed on hold due to significant renal failure. It was decided to continue with medical therapy until his renal function improves. Patient was admitted on the critical care services. Dr. Geofrfey Hamilton from nephrology services also been consulted. At the time of my evaluation patient is in the IMC currently not on any pressors. Patient remains intubated and sedated. On a brief sedation vacation patient reportedly moves his extremities. RN reports jittery movements of his upper extremities. An EEG was done report is still pending. Per my discussion with the electrician second there is a plan for hemodialysis to be initiated today after Vas-Cath was placed. RN for the patient reported that she had been told by the patient's daughter that there is a significant psychiatric history. Also that the patient was recently discharged from [facility] in [place] where he is treated for flu. Due to worsening chest x-ray and respiratory status infectious disease was consulted for possible necrotizing pneumonia. Review of Systems ROS Limitations: Intubated Past Family Social History Allergies: Coded Allergies: Sulfa (Sulfonamide Antibiotics) (Verified Allergy, Intermediate, HIVES, ) penicillin G (Verified Allergy, Unknown, HIVES, 04/07/17) Past Medical History 1. Coronary artery disease. 2. Chronic kidney disease. 3. Cerebrovascular accident. 4. Diabetes mellitus. 5. Hypertension. 6. Hyperlipidemia. 7. Psychiatric history. Past Surgical History None per records. Reported Medications Could not be obtained. Active Ordered Medications Current Medications Medications (Trade) Dose Ordered Sig/Mary Kay Route Start Time Stop Time Status Last Admin (NS Flush) 2 ml UNSCH PRN IVF 04/07/17 16:00 04/07/17 16:04 Miscellaneous Information 1 Q361D XX 04/07/17 16:30 04/07/17 16:30 (Chlorhexidine 2% Cloth) 3 pack Taper DAILY@04 TOP 04/08/17 04:00 04/04/18 03:59 04/09/17 03:19 (Chlorhexidine 2% Cloth) 3 pack UNSCH PRN TOP 04/07/17 16:30 (Ecotrin Ec) 325 mg DAILY PO 04/08/17 09:00 04/09/17 08:04 Heparin Sodium/ Dextrose 250 ml @ 10 mls/hr TITRATE PRN IV 04/07/17 16:30 04/07/17 20:56 (D50w (Vial) Inj) 50 ml UNSCH PRN IV PUSH 04/07/17 17:00 (Glucagon Inj) 1 mg UNSCH PRN OTHER 04/07/17 17:00 (NovoLIN R SUPPLEMENTAL SCALE) 1 Q4HR SQ 04/07/17 17:00 04/09/17 12:17 (Duoneb Neb) 1 ampule Q4HR NEB NEB 04/07/17 20:00 04/09/17 10:37 (Duoneb Neb) 1 ampule Q2HR NEB PRN NEB 04/07/17 17:15 (Protonix Inj) 40 mg Q24H IV PUSH 04/07/17 18:00 04/08/17 18:37 (Imdur) 60 mg DAILY PO 04/08/17 09:00 04/09/17 08:04 (Plavix) 75 mg DAILY PO 04/08/17 09:00 04/09/17 08:05 Sodium Bicarbonate 75 meq/Sodium Chloride 1,075 ml @ 42 mls/hr Q24H IV 04/08/17 12:00 04/09/17 14:00 04/08/17 13:15 (Norvasc) 5 mg DAILY PO 04/08/17 11:15 04/09/17 08:04 (Apresoline Inj) 20 mg Q2H PRN IV PUSH 04/08/17 13:00 04/08/17 15:56 (Haldol Inj) 5 mg Q4H PRN IV PUSH 04/08/17 14:30 04/08/17 14:32 Linezolid 300 ml @ 300 mls/hr Q12H IV 04/08/17 17:00 04/09/17 05:06 Levofloxacin/ Dextrose 50 ml @ 50 mls/hr Q48H IV 04/10/17 18:00 Dopamine HCl/ Dextrose 500 ml @ 11.475 mls/ hr TITRATE PRN IV 04/08/17 19:00 (Brethine Inj) 1 mg UNSCH PRN SQ 04/08/17 19:00 Propofol 100 ml @ 3.06 mls/hr TITRATE PRN IV 04/08/17 20:30 04/09/17 11:24 Sodium Chloride 250 ml @ 15 mls/hr ONCE ONCE IV 04/09/17 06:45 04/09/17 23:24 (Phoslo) 667 mg TID OG-TUBE 04/09/17 09:00 04/09/17 11:24 Cefepime HCl 1000 mg/Sodium Chloride 100 ml @ 200 mls/hr Q24H IV 04/09/17 12:00 04/09/17 12:17 Iron Sucrose 100 mg/Sodium Chloride 105 ml @ 105 mls/hr Q24H IV 04/09/17 12:00 04/11/17 12:59 04/09/17 12:17 Sodium Chloride 1,000 ml @ 0 mls/hr Q0M PRN OTHER 04/09/17 11:45 (Heparin Inj) 8,000 units UNSCH PRN IV FLUSH 04/09/17 11:45 Sodium Chloride 1,000 ml @ 200 mls/hr Q5H PRN IV 04/09/17 11:45 Sodium Chloride 1,000 ml @ 0 mls/hr Q0M PRN OTHER 04/09/17 11:45 (Mannitol Inj) 12.5 gm UNSCH PRN IV 04/09/17 11:45 Albumin Human 100 ml @ 60 mls/hr UNSCH PRN IV 04/09/17 11:45 (NS Flush) 5 ml UNSCH PRN IV FLUSH 04/09/17 11:45 (Heparin Inj) UNSCH PRN .XX 04/09/17 11:45 (Gentamicin Inj) 20 mg UNSCH PRN OTHER 04/09/17 11:45 (Zofran Inj) 4 mg UNSCH PRN IV PUSH 04/09/17 11:45 (Tylenol) 650 mg UNSCH PRN PO 04/09/17 11:45 (Benadryl) 25 mg UNSCH PRN PO 04/09/17 11:45 (Nitrostat Sl) 0.4 mg UNSCH PRN SL 04/09/17 11:45 (Catapres) 0.1 mg UNSCH PRN PO 04/09/17 11:45 (Epogen Inj) 10,000 units UNSCH PRN IV PUSH 04/09/17 11:45 (Gelfoam 12 Mm/7 Mm Top) 1 foam UNSCH PRN TOP 04/09/17 11:45 (Tamiflu) 75 mg BID PO 04/09/17 13:00 UNV Family History Could not be obtained. Social History Lives at home with his call friend. Has a daughter. Ex-smoker. No alcohol. No reported illicit drug use. Physical Exam Vital Signs Vital Signs Date Time Temp Pulse Resp B/P (MAP) Pulse Ox O2 Delivery O2 Flow Rate FiO2 04/09/17 10:38 100 50 04/09/17 10:00 44 24 142/61 (88) 100 04/09/17 09:00 51 21 157/65 (95) 100 04/09/17 08:13 100 60 04/09/17 08:00 60 04/09/17 08:00 97.4 50 24 164/72 (102) 100 04/09/17 07:00 41 24 110/55 (73) 100 04/09/17 06:00 45 04/09/17 04:01 98.0 37 24 95/48 (64) 100 04/09/17 04:00 37 04/09/17 04:00 70 04/09/17 03:31 100 70 04/09/17 02:00 37 04/09/17 00:10 100 90 04/09/17 00:00 39 04/09/17 00:00 98.8 39 24 121/57 (78) 100 04/09/17 00:00 90 04/08/17 22:00 44 04/08/17 20:16 100 100 04/08/17 20:00 98.5 47 24 101/51 (68) 100 04/08/17 20:00 100 04/08/17 20:00 47 04/08/17 18:00 49 04/08/17 17:20 95 100 04/08/17 17:15 100 04/08/17 16:59 95 40 04/08/17 16:00 69 04/08/17 16:00 98.0 69 31 186/72 (110) 93 04/08/17 14:00 65 04/08/17 12:42 100 100 04/08/17 12:00 58 04/08/17 12:00 99.2 58 35 174/80 (111) 100 Physical Exam GENERAL: This is a well-nourished, well-developed patient, in no apparent distress. SKIN: No rashes, ecchymoses or lesions. Cool and dry. HEAD: Atraumatic. Normocephalic. No temporal or scalp tenderness. EYES: Pupils equal round and reactive. Extraocular motions intact. No scleral icterus. No injection or drainage. ENT: INtubated NECK: Trachea midline. No JVD or lymphadenopathy. Supple, nontender, no meningeal signs. CARDIOVASCULAR: Regular rate and rhythm without murmurs, gallops, or rubs. RESPIRATORY: Clear to auscultation. Breath sounds equal bilaterally. No wheezes , rales, or rhonchi. GASTROINTESTINAL: Abdomen soft, non-tender, nondistended. No hepato-splenomegaly , or palpable masses. No guarding. MUSCULOSKELETAL: Extremities without clubbing, cyanosis, or edema. No joint tenderness, effusion, or edema noted. No calf tenderness. Negative Homans sign bilaterally. NEUROLOGICAL: Sedated. Psych could not be assessed IV line sites with no e.o infection. Laboratory Laboratory Tests Test 04/08/17 12:40 04/08/17 13:40 04/08/17 18:10 04/09/17 03:45 Activated Partial Thromboplast Time 24.0 Blood Gas Puncture Site RT RADIAL Blood Gas Patient Temperature 98.6 Blood Gas HCO3 17 Blood Gas Base Excess -5.7 Blood Gas Oxygen Saturation 93 Arterial Blood pH 7.46 Arterial Blood Partial Pressure CO2 25 Arterial Blood Partial Pressure O2 77 Arterial Blood Oxygen Content 11.3 Arterial Blood Carboxyhemoglobin 1.6 Arterial Blood Methemoglobin 1.5 Blood Gas Hemoglobin 8.6 Oxygen Delivery Device BIPAP Blood Gas Ventilator Setting EPAP 5/IPAP 15 Blood Gas Inspired Oxygen 50 White Blood Count 23.4 11.8 Red Blood Count 2.93 2.46 Hemoglobin 8.7 7.2 Hematocrit 26.2 21.9 Mean Corpuscular Volume 89.3 89.3 Mean Corpuscular Hemoglobin 29.8 29.2 Mean Corpuscular Hemoglobin Concent 33.4 32.7 Red Cell Distribution Width 16.4 16.5 Platelet Count 295 209 Mean Platelet Volume 10.1 10.3 Neutrophils (%) (Auto) 87.9 81.5 Lymphocytes (%) (Auto) 4.3 9.6 Monocytes (%) (Auto) 7.5 8.4 Eosinophils (%) (Auto) 0.0 0.3 Basophils (%) (Auto) 0.3 0.2 Neutrophils # (Auto) 20.6 9.6 Lymphocytes # (Auto) 1.0 1.1 Monocytes # (Auto) 1.7 1.0 Eosinophils # (Auto) 0.0 0.0 Basophils # (Auto) 0.1 0.0 CBC Comment AUTO DIFF DIFF FINAL Differential Total Cells Counted 100 Neutrophils % (Manual) 92 Band Neutrophils % 2 Lymphocytes % 4 Monocytes % 2 Neutrophils # (Manual) 22.0 Differential Comment FINAL DIFF MANUAL Toxic Granulation 1+ Platelet Estimate NORMAL Platelet Morphology Comment NORMAL Blood Urea Nitrogen 120 125 Creatinine 7.54 7.78 Random Glucose 168 170 Total Protein 6.7 5.9 Albumin 2.6 2.2 Calcium Level 8.1 7.9 Phosphorus Level 8.5 Magnesium Level 2.8 Alkaline Phosphatase 89 71 Aspartate Amino Transf (AST/SGOT) 56 41 Alanine Aminotransferase (ALT/SGPT) 72 67 Total Bilirubin 0.6 0.4 Sodium Level 139 139 Potassium Level 4.1 4.0 Chloride Level 103 102 Carbon Dioxide Level 21.2 23.0 Anion Gap 15 14 Estimat Glomerular Filtration Rate 7 7 Lactic Acid Level 1.6 Troponin I 1.56 B-Type Natriuretic Peptide 911 Triglycerides Level 269 Cholesterol Level 139 LDL Cholesterol 57 HDL Cholesterol 28.2 Cholesterol/HDL Ratio 4.92 Date/Time Source Procedure Growth Status 04/09/17 06:00 Blood Peripheral Aerobic Blood Culture Pending Received 04/09/17 06:00 Blood Peripheral Anaerobic Blood Culture Pending Received 04/08/17 18:40 Sputum Endotracheal Gram Stain - Final Resulted 04/08/17 18:40 Sputum Endotracheal Sputum Culture Pending Resulted Result Diagram: 04/09/17 0345 04/09/17 0345 Imaging Last Impressions Chest X-Ray 04/08/17 0000 Signed Impressions: Service Date/Time: Saturday, April 08, 2017 18:02 - CONCLUSION: 1. ETT in good position. NGT in the stomach. Right IJ central line at the cavoatrial junction. 2. No pneumothorax. 3. Redemonstration of pulmonary edema pattern. Jesus Manuel Storm MD Head CT 04/07/17 1646 Signed Impressions: Service Date/Time: Friday, April 07, 2017 17:37 - CONCLUSION: 1. Senescent changes with ventriculomegaly out of proportion to the degree of atrophy. Clinical correlation for normal pressure hydrocephalus is recommended. Jesus Manuel Storm MD Renal Ultrasound 04/07/17 0000 Signed Impressions: Service Date/Time: Friday, April 07, 2017 18:11 - CONCLUSION: Medical renal disease. No hydronephrosis. Jaleel Carlin MD Assessment and Plan Assessment and Plan Necrotizing pneumonia likely post influenza(based on the recent history of flu)\ Acute renal failure likely component of chronic kidney disease based on history. Now will be placed on dialysis. Acute respiratory failure on ventilator ST elevation KS inferior wall Bradycardia Hyponatremia and hyperkalemia Leukocytosis likely secondary to infection Recent history of flu unsure if this was treated will obtain records. History of coronary artery disease History of cerebrovascular accident History of psychiatric issues Diabetes mellitus Recommendations: Continue Levaquin Start cefepime IV renal dose adjusted by me. Will challenge patient to cefepime. Continue Zyvox oral Start Tamiflu Follow cultures Follow clinically CT chest without contrast (necrotizing pneumonia) Resp panel check Influenza PCR. Obtain records from [facility]. Micki Haley MD Apr 09, 2017 11:04
--- NOTE | 2017-04-09 11:19 | MG ---
cc: CAMELIA SALAZAR M.D. Lab No: [id number] Date: 04/09/2017 Age: 72 Sex: M Race: ___ REFERRING PHYSICIAN EEG requesting by Dr. Haley INDICATIONS A stat EEG was obtained on this 72-year-old patient being evaluated for possible seizures, shaking episodes. DESCRIPTION The patient is intubated. There is bilateral slowing characterized by theta and some delta rhythms. There are beta rhythms and there was a lot of artifact. There might be some underlying sharp activity on the left hemisphere, but the tracing is limited because of the excessive artifact. Photic stimulation was unremarkable. INTERPRETATION Abnormal EEG because of bi-hemisphere slowing with possible sharp discharge on the left hemisphere. The study is limited because of the excessive artifact. The sharp discharge could be of an epileptiform significance, although this is not a definitive finding as there is a substantial amount of intermixed artifact. There is no ictal pattern. MD YESENIA Leal/STACEY /11:09 AM /11:13 AM
[2017-04-09] MEDS: CALCIUM ACETATE 667 MG CAP OG-TUBE SCH ×3 (11:24→17:41)
--- NOTE | 2017-04-09 11:44 | HHI.NPPN ---
Subjective General Problems: Anemia, Hypertension, Mebatolic Acidosis Renal Failure: Chronic, Acute Interval History He was intubated yesterday evening for shortness of breath, difficulty breathing. Renal function is worse although he is making urine. I was able to speak with both daughters at length about current situation. 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 Apparently he has missed his last 10 visits, no show. He is non compliant. In his baseline was 3.2, GFR 19. Prior to that in May his creatinine was 2.6. (Katharine Cruz) Review of Systems General General Remarks unable to obtain (Katharine Cruz) Objective Data Data 04/09/17 04/10/17 19:00 07:00 Intake Total 97.1 ml Balance 97.1 ml IV Total 97.1 ml Vital Signs Date Time Temp Pulse Resp B/P (MAP) Pulse Ox O2 Delivery O2 Flow Rate FiO2 04/09/17 10:38 100 50 04/09/17 10:00 44 24 142/61 (88) 100 04/09/17 09:00 51 21 157/65 (95) 100 04/09/17 08:13 100 60 04/09/17 08:00 60 04/09/17 08:00 97.4 50 24 164/72 (102) 100 04/09/17 07:00 41 24 110/55 (73) 100 04/09/17 06:00 45 04/09/17 04:01 98.0 37 24 95/48 (64) 100 04/09/17 04:00 37 04/09/17 04:00 70 04/09/17 03:31 100 70 04/09/17 02:00 37 04/09/17 00:10 100 90 04/09/17 00:00 39 04/09/17 00:00 98.8 39 24 121/57 (78) 100 04/09/17 00:00 90 04/08/17 22:00 44 04/08/17 20:16 100 100 04/08/17 20:00 98.5 47 24 101/51 (68) 100 04/08/17 20:00 100 04/08/17 20:00 47 04/08/17 18:00 49 04/08/17 17:20 95 100 04/08/17 17:15 100 04/08/17 16:59 95 40 04/08/17 16:00 69 04/08/17 16:00 98.0 69 31 186/72 (110) 93 04/08/17 14:00 65 04/08/17 12:42 100 100 04/08/17 12:00 58 04/08/17 12:00 99.2 58 35 174/80 (111) 100 (Katharine CruzP) -: 04/09/17 0345 04/09/17 0345 Microbiology 04/09/17 Aerobic Blood Culture, Received Pending 04/09/17 Anaerobic Blood Culture, Received Pending 04/08/17 Aerobic Blood Culture - Preliminary, Resulted NO GROWTH IN 1 DAY 04/08/17 Anaerobic Blood Culture - Preliminary, Resulted NO GROWTH IN 1 DAY 04/08/17 Gram Stain - Final, Resulted 04/08/17 Sputum Culture, Resulted Pending Imaging Last 72 hours Impressions Chest X-Ray 04/08/17 0000 Signed Impressions: Service Date/Time: Saturday, April 08, 2017 18:02 - CONCLUSION: 1. ETT in good position. NGT in the stomach. Right IJ central line at the cavoatrial junction. 2. No pneumothorax. 3. Redemonstration of pulmonary edema pattern. Jesus Manuel Storm MD Chest X-Ray 04/08/17 0000 Signed Impressions: Service Date/Time: Saturday, April 08, 2017 12:41 - CONCLUSION: 1. Cardiomegaly with positive fluid balance. 2. Diffuse patchy airspace disease throughout the left lung may reflect atypical pulmonary edema. Jesus Manuel Storm MD Head CT 04/07/17 1646 Signed Impressions: Service Date/Time: Friday, April 07, 2017 17:37 - CONCLUSION: 1. Senescent changes with ventriculomegaly out of proportion to the degree of atrophy. Clinical correlation for normal pressure hydrocephalus is recommended. Jseus Manuel Storm MD Chest X-Ray 04/07/17 1554 Signed Impressions: Service Date/Time: Friday, April 07, 2017 15:59 - CONCLUSION: 1. Cardiomegaly and chronic appearing interstitial changes. No definite acute abnormality. Sina Bonner MD Renal Ultrasound 04/07/17 0000 Signed Impressions: Service Date/Time: Friday, April 07, 2017 18:11 - CONCLUSION: Medical renal disease. No hydronephrosis. Jaleel Carlin MD Tubes & Lines: Mackey (AnthonyKatharine B. FIRST COAT OPERATOR) Physical Exam General Appearance: Well Developed, Well Nourished, No Acute Distress, Comfortable (Anthony,Katharine B. FIRST COAT OPERATOR) Throat Throat Exam: Oral Mucosa Hagaman & Moist (Anthony,Katharine B. FIRST COAT OPERATOR) Neck Neck Exam: Neck Supple (Anthony,Katharine B. FIRST COAT OPERATOR) Pulmonary Resp Exam: Breath Sounds Equal, No Distress (Anthony,Katharine B. FIRST COAT OPERATOR) Cardiology CV Exam: Good Perfusion, Bradycardia (Anthony,Katharine B. FIRST COAT OPERATOR) Gastrointestinal/Abdomen GI Exam: Soft, Non-Tender, Bowel Sounds Present (Anthony,Katharine B. FIRST COAT OPERATOR) Musculoskeletal MS Exam: Joints Intact, Normal Gait (Anthony,Katharine B. FIRST COAT OPERATOR) Integumentary Skin Exam: Warm, Dry, Intact (Anthony,Katharine B. FIRST COAT OPERATOR) Extremeties Extremities Exam: Pedal Pulses Palpable, Moderate Edema (Anthony,Katharine B. FIRST COAT OPERATOR) Neurologic Neuro Exam: Alert, Awake, Oriented, Speech Clear, Moving All Extremities (Anthony,Katharine B. FIRST COAT OPERATOR) Psychiatric Psych Exam: Appropriate Responses (AnthonyKatharine B. FIRST COAT OPERATOR) Assessment/Plan Discussed Condition With: Patient Assessment Summary: ROEL/Acute Renal Failure, Anemia of CKD Electrolyte Assessment: Metabolic Acidosis Problem List: (1) Acute renal failure ICD Codes: N17.9 - Acute kidney failure, unspecified Plan: He has underlying CKD,. Per the associate professor of english, Dr. Ramirez in [place], his GFR was 19 (creatinine 3.2) in October (CKD 4), he had underlying diabetic nephropathy with proteinuria. Acute Renal failure due to bradycardia and [place], with diminished renal perfusion. He is making urine although renal function has declined. Needs to start dialysis. I have spoke with the daughters, they gave consent for vascath placement and to initiate HD. Dr. Haley to place catheter today. Stop bicarb gtt when HD is started. HD today and tomorrow, then reevaluate. Follow renal function daily. Await renal recovery. Change Renvela to calcium acetate with Nepro tube feeding. Spoke with the two daughters, Alejandrina Hubbard ([phone]) lives in [place]. Monika Hubbard ([phone]) lives in [place] however is unable to travel. They have his living will, read it over the phone. Monika is the POA. He did not want life support if in terminal illness, persistent vegetative state, or end state organ failure. It is not clear if his renal function will recover or if he will be able to come off of dialysis. Consider palliative care consultation to determine goals of care. He apparently lives alone in [place], is resistant to medical advice, does not open the door for HHC or PT/OT, is very non compliant with medical advice. Dr. Herron to cover the rest of the week. (2) Bradycardia ICD Codes: R00.1 - Bradycardia, unspecified Status: Acute Plan: May need PPM Continue supportive care Blood pressure remains elevated; avoid BB and KRISTYN, on Amlodipine 5 mg daily (3) Anemia ICD Codes: D64.9 - Anemia, unspecified Plan: May have anemia of CKD. Ordered blood transfusion today. Has iron deficiency, start venofer. (4) STEMI (ST elevation myocardial infarction) ICD Codes: I21.3 - ST elevation (STEMI) myocardial infarction of unspecified site Status: Acute Plan: Cardiology following, unclear if he suffered NY. Off heparin gtt. (5) Leukocytosis ICD Codes: D72.829 - Elevated white blood cell count, unspecified Plan: May be reactive, monitor for infections Lactic acid elevated. (Katharien Cruz) Plan patient was seen and examined. Agree with above assessment and plan. Dialysis today and tomorrow. Baseline stage IV CKD. Unclear if his renal function will recover. Prognosis is guarded. (Pantera Iraheta MD) Problem Qualifiers (1) STEMI (ST elevation myocardial infarction): Qualified Codes: I21.3 - ST elevation (STEMI) myocardial infarction of unspecified site Katharine Cruz Apr 09, 2017 11:44 Pantera Iraheta MD Apr 09, 2017 16:00
[2017-04-09] MEDS ORDERED: ACETAMINOPHEN 325 MG TAB PO PRN (11:45)
[2017-04-09] MEDS ORDERED: cloNIDine HCL 0.1 MG TAB PO PRN (11:45)
[2017-04-09] MEDS ORDERED: SODIUM CHLOR 0.9% 1000 ML INJ 1,000 ML OTHER PRN ×2 (11:45)
[2017-04-09] MEDS ORDERED: ONDANSETRON HCL 4 MG/2 ML VIAL IV PUSH PRN (11:45)
[2017-04-09] MEDS ORDERED: diphenhydrAMINE HCL 25 MG CAP PO PRN (11:45)
[2017-04-09] MEDS ORDERED: SODIUM CHLORIDE 0.9% FLUSH 10 ML FLUSH IV FLUSH PRN (11:45)
[2017-04-09] MEDS ORDERED: HEPARIN SODIUM - IV 10,000 UNITS/10 ML VIAL IV FLUSH PRN (11:45)
[2017-04-09] MEDS ORDERED: SODIUM CHLOR 0.9% 1000 ML INJ 1,000 ML IV PRN (11:45)
[2017-04-09] MEDS ORDERED: NITROGLYCERIN 0.4 MG SL 25 TABS/BTL SL PRN (11:45)
[2017-04-09] MEDS ORDERED: GELATIN 12 MM/7 MM FOAM TOP PRN (11:45)
[2017-04-09] MEDS: SODIUM BICARBONATE 8.4% INJ 75 MEQ in SODIUM CHLOR 0.45% 1000 ML INJ 1,000 ML IV SCH (12:00)
[2017-04-09] MEDS: CEFEPIME INJ 1,000 MG in SODIUM CHLORIDE 0.9% INJ 100 ML IV SCH (12:17)
[2017-04-09] MEDS: IRON SUCROSE INJ 100 MG in SODIUM CHLORIDE 0.9% INJ 100 ML IV SCH (12:17)
--- NOTE | 2017-04-09 12:59 | RADRPT ---
EXAM DATE/TIME: 04/09/2017 12:38 [facility] COMPARISON: No previous studies available for comparison. INDICATIONS : Pneumonia. RADIATION DOSE: 9.59 CTDIvol (mGy) MEDICAL HISTORY : Non-responsive. SURGICAL HISTORY : Non-responsive. ENCOUNTER: Initial ACUITY: 1 day PAIN SCALE: Non-responsive LOCATION: chest TECHNIQUE: Volumetric scanning of the chest was performed. Using automated exposure control and adjustment of t he mA and/or kV according to patient size, radiation dose was kept as low as reasonably achievable to obtain optimal diagnostic quality images. DICOM format image data is available electronically for r eview and comparison. Follow-up recommendations for detected pulmonary nodules are based at a minimum on nodule size and pa tient risk factors according to Fleischner Society Guidelines. FINDINGS: Endotracheal tube is in good position. Nasogastric tube seen entering the stomach. There is patchy airspace disease in both lungs most characteristic of bronchopneumonia. There also sm all bilateral pleural effusions and dependent atelectasis and consolidation in both lungs. There is n o cavitation to suggest necrotizing pneumonia or septic embolic disease. Moderate to severe coronary artery calcifications. Borderline enlarged right precarinal lymph nodes. No acute findings in the upper abdomen. CONCLUSION: 1. Patchy air space in both lungs most characteristic of bronchopneumonia. No cavitation to suggest a necrotizing pneumonia. Small bilateral pleural effusions with basal and dependent consolidation in t he lungs. 2. Endotracheal tube and nasogastric tube in good position. 3. Moderate to severe coronary artery calcifications. John Paul Yeboah MD on April 09, 2017 at 12:53 Board Certified Radiologist. This report was verified electronically.
--- NOTE | 2017-04-09 13:41 | ECHRPT ---
Indication: [facility] CONCLUSIONS Moderately dilated left ventricle. Mild to moderate concentric left ventricular hypertrophy. The left ventricular systolic function is hyperdynamic with an estimated ejection fraction in the ra nge of 45- 50%. The left atrial size is jeae-qu-cpyqkejzrs dilated. The right atrial size is mildly dilated. Emxd-lg-cunoyobo mitral valve regurgitation. Aortic valve sclerosis is present. Mild aortic valve stenosis. Aortic valve area is 1.6 cm. Aortic valve mean gradient is 14 mmHg. There is trace tricuspid valve regurgitation. The estimated pulmonary arterial pressure is 31.5 mmHg. technically limited study BP: 97 / 48 HR: 37 Rhythm: Atrial flutter, Sinus MEASUREMENTS (Male / Female) Normal Values Technical Quality:Fair 2D ECHO LV Diastolic Diameter PLAX 8.0 cm 4.2 - 5.9 / 3.9 - 5.3 cm LV Systolic Diameter PLAX 5.4 cm IVS Diastolic Thickness 1.6 cm 0.6 - 1.0 / 0.6 - 0.9 cm LVPW Diastolic Thickness 1.6 cm 0.6 - 1.0 / 0.6 - 0.9 cm LV Relative Wall Thickness 0.4 LVOT Diameter 2.0 cm Aortic Root Diameter 3.2 cm LA Systolic Diameter LX 4.6 cm 3.0 - 4.0 / 2.7 - 3.8 cm M-MODE AV Cusp Separation MM 2.4 cm DOPPLER AV Peak Velocity 280.0 cm/s AV Peak Gradient 31.4 mmHg AV Mean Gradient 14.0 mmHg AV Velocity Time Integral 47.8 cm LVOT Peak Velocity 121.0 cm/s LVOT Peak Gradient 5.9 mmHg LVOT Velocity Time Integral 23.6 cm AV Area Cont Eq vti 1.6 cm AV Area Cont Eq pk 1.4 cm Mitral E Point Velocity 113.0 cm/s Mitral A Point Velocity 37.0 cm/s Mitral E to A Ratio 3.1 LV E' Lateral Velocity 10.8 cm/s Mitral E to LV E' Lateral Ratio 10.5 LV E' Septal Velocity 3.9 cm/s Mitral E to LV E' Septal Ratio 29.0 TR Peak Velocity 232.0 cm/s TR Peak Gradient 21.5 mmHg Right Atrial Pressure 10.0 mmHg Pulmonary Artery Systolic Pressu 31.5 mmHg Right Ventricular Systolic Press 31.5 mmHg PV Peak Velocity 77.5 cm/s PV Peak Gradient 2.4 mmHg FINDINGS LEFT VENTRICLE Moderately dilated left ventricle. Moderate to severe concentric left ventricular hypertrophy. The left ventricular systolic function is hyperdynamic with an estimated ejection fraction in the ra nge of 65- 70%. RIGHT VENTRICLE Normal right ventricular size and systolic function. LEFT ATRIUM The left atrial size is nwfz-cs-ufyiehkytr dilated. RIGHT ATRIUM The right atrial size is mildly dilated. ATRIAL SEPTUM The interatrial septum not well visualized. AORTA The aortic root and proximal ascending aorta are normal in size on limited imaging. MITRAL VALVE Hqim-ue-niygvuxo mitral valve regurgitation. AORTIC VALVE Aortic valve sclerosis is present. Mild aortic valve stenosis. Aortic valve area is 1.6 cm. Aortic valve mean gradient is 14 mmHg. TRICUSPID VALVE There is trace tricuspid valve regurgitation. The estimated pulmonary arterial pressure is 31.5 mmHg. PULMONARY VALVE No pulmonary valve regurgitation or stenosis. VESSELS There is less than 50% respiratory change in dimension of the inferior vena cava (abnormal). PERICARDIUM No pericardial effusion. Diogo Cunningham MD, FACC, FSCAI (Electronically Signed) Final Date:09 April 2017 13:40
[2017-04-09] MEDS: OSELTAMIVIR PHOSPHATE 75 MG CAP PO SCH (14:00)
--- NOTE | 2017-04-09 14:58 | RADRPT ---
EXAM DATE/TIME: 04/09/2017 14:30 [facility] COMPARISON: CHEST SINGLE AP, April 08, 2017, 18:02. INDICATIONS : Post vascath placement. MEDICAL HISTORY : Stroke. Diabetes. Cardiac disorders. SURGICAL HISTORY : None. ENCOUNTER: Subsequent ACUITY: 1 day PAIN SCORE: Non-responsive. LOCATION: Bilateral chest FINDINGS: Endotracheal tube, or right central line and nasogastric tube are stable. A left neck Vas-Cath as bee n introduced. The catheter tip extends to the SVC. There is no evidence of pneumothorax or other comp lication of placement. There has been slight improvement in aeration with decrease in confluence of b ilateral infiltrates, particularly in the right base. Cardiac contours are grossly stable. CONCLUSION: Satisfactory Vas-Cath positioning. No evidence of complication of placement. Slight improvement in aeration Jaleel Carlin MD on April 09, 2017 at 14:55 Board Certified Radiologist. This report was verified electronically.
--- NOTE | 2017-04-09 16:06 | EKG ---
Date Performed: 04/08/2017 Time Performed: 07:43:38 PTAGE: 72 years EKG: AV JUNCTIONAL RHYTHM ST ELEVATION INFERIORLY PROBABLE INFERIOR MYOCARDIAL INFARCTION , OF I NDETERMINATE AGE ABNORMAL ECG PREVIOUS TRACING : 04/07/2017 15.53 DOCTOR: Deyvi Cardona Interpretating Date/Time 04/09/2017 16:05:16
[2017-04-09] MEDS: HEPARIN SODIUM - IV 10,000 UNITS/10 ML VIAL PRN (16:48)
[2017-04-09] MEDS: EPOETIN ALFA 10,000 UNITS/ML VIAL IV PUSH PRN (16:48)
[2017-04-09] MEDS: GENTAMICIN SULFATE 20 MG/2 ML VIAL OTHER PRN (16:49)
[2017-04-09] MEDS: PANTOPRAZOLE SODIUM 40 MG VIAL IV PUSH SCH (17:41)
--- NOTE | 2017-04-09 19:11 | PD.PROCEDR ---
Procedure Note Procedure Preop diagnosis: Acute respiratory failure, acute renal failure, acute OK Postop diagnosis: Same Informed consent: Obtained from family and documented on chart Anesthesia: 1% lidocaine for local infiltration anesthesia Procedure: Dialysis catheter placement Site: Left internal jugular vein Ultrasound guidance : Yes After sterile prepping and draping using 1% lidocaine for local infiltration anesthesia, left internal jugular vein was visualized using an ultrasound was finder and under direct visualization was cannulated using an introducer needle with dark nonpulsatile blood return. A Guidewire was passed through the introducer needle without any resistance and the needle was then removed. After making a skin neck and dilation of tract, a 20 cm dual lumen dialysis catheter was passed over the guidewire by modified seldinger's technique into the left internal jugular vein up to the 19 cm delmis and the guidewire was then removed. Good blood return obtained through both ports which were then flushed with saline and subsequently hep-locked. After suturing the catheter in place, a Bio- occlusive dressing with biopatch was applied to the site. Post procedure chest x -ray was ordered and reviewed with good placement of left IJ dialysis catheter with tip overlying SVC, no pneumothorax on postprocedure film. Patient tolerated the procedure well with no immediate complications noted. Tushar Haley MD Apr 09, 2017 19:11
[2017-04-09] MEDS: hydrALAZINE HCL 20 MG/ML VIAL IV PUSH PRN (22:32)
[2017-04-10] VITALS (17 sets, daily range): BP systolic 115–173; BP diastolic 65–86; PULSE 85–120; RESP 24–28; TEMP 98–98.7; O2SAT 94–100
[2017-04-10] MEDS: INSULIN NovoLIN REGULAR SUPPLEMENTAL SCALE SQ SCH ×7 (00:03→23:59)
[2017-04-10] MEDS: OSELTAMIVIR PHOSPHATE 75 MG CAP PO SCH ×2 (00:03→14:53)
[2017-04-10] MEDS: hydrALAZINE HCL 20 MG/ML VIAL IV PUSH PRN ×3 (01:41→10:36)
[2017-04-10] MEDS: RESP: ALBUTEROL 2.5 MG/IPRATROPIUM 0.5 MG NEB (SCH) NEB ×6 (03:17→23:20)
[2017-04-10] MEDS: PROPOFOL 1000 MG/100 ML INJ 100 ML IV PRN ×7 (03:32→22:03)
[2017-04-10] MEDS: CHLORHEXIDINE GLUCONATE 2 % 1 PACK (2 CLOTHS) TOP SCH (04:00)
[2017-04-10] MEDS: LINEZOLID 600 MG PREMIX 300 ML IV SCH ×2 (04:49→16:41)
[2017-04-10 05:26] LABS: AUTOMATED NEUTROPHIL # 11.9 TH/MM3 (1.8-7.7); BASOPHIL % 0.2 % (0.0-2.0); EOSINOPHIL # 0.1 TH/MM3 (0-0.4); EOSINOPHIL % 0.6 % (0.0-4.0); HEMATOCRIT 29.6 % (39.0-51.0); LYMPH % 4.6 % (9.0-44.0); LYMPHOCYTE # 0.6 TH/MM3 (1.0-4.8); MEAN CELL VOLUME 88.3 FL (80.0-100.0); MEAN CORPUSCULAR HEMOGLOBIN 29.8 PG (27.0-34.0); MEAN CORPUSCULAR HGB CONC 33.8 % (32.0-36.0); MEAN PLATELET VOLUME 9.8 FL (7.0-11.0); MONO % 8.2 % (0.0-8.0); MONOCYTE # 1.1 TH/MM3 (0-0.9); NEUT % 86.4 % (16.0-70.0); PLATELET COUNT 230 TH/MM3 (150-450); RED BLOOD COUNT 3.35 MIL/MM3 (4.50-5.90); RED CELL DISTRIBUTION WIDTH 15.8 % (11.6-17.2); WHITE BLOOD COUNT 13.8 TH/MM3 (4.0-11.0)
[2017-04-10 05:41] LABS: ALBUMIN 2.5 GM/DL (3.4-5.0); ALKALINE PHOSPHATASE 105 U/L (45-117); ALT (GPT) 61 U/L (12-78); AST (GOT) 29 U/L (15-37); BICARBONATE 26.2 MEQ/L (21.0-32.0); BLOOD UREA NITROGEN 90 MG/DL (7-18); CALCIUM 8.6 MG/DL (8.5-10.1); CHLORIDE 99 MEQ/L (98-107); CREATININE 5.78 MG/DL (0.60-1.30); GLOMERULAR FILTRATION RATE 10 ML/MIN (>89); GLUCOSE,RANDOM 207 MG/DL (74-106); SODIUM (NA) 138 MEQ/L (136-145); TOTAL BILIRUBIN ADULT 0.5 MG/DL (0.2-1.0); TOTAL PROTEIN 6.9 GM/DL (6.4-8.2)
--- NOTE | 2017-04-10 05:43 | RADRPT ---
EXAM DATE/TIME: 04/10/2017 03:32 [facility] COMPARISON: CT THORAX W/O CONTRAST, April 09, 2017, 12:38. CHEST SINGLE AP, April 09, 2017, 14:30. INDICATIONS : Shortness of breath, possible pulmonary disease. MEDICAL HISTORY : Stroke. Diabetes mellitus type II. SURGICAL HISTORY : None. ENCOUNTER: Subsequent ACUITY: 4 - 6 days PAIN SCORE: Non-responsive. LOCATION: Bilateral chest FINDINGS: A single AP symmetric the pubic chest was obtained and again demonstrates the endotracheal tube in pl michelle with the tip approximately 4 cm above the greta. A gastric tube is seen coursing through the eso phagus into the stomach. The bilateral internal jugular central venous catheters are in place. The ri ght lung now appears clear. There is hazy infiltrate left perihilar region. There is hazy opacity at the left lung base as well. There is a small area of lucency along the left heart border with apparen t small area of pleural flexion. There is overlying artifact as well. CONCLUSION: 1. Questionable small medial left pneumothorax which may be artifactual. There is overlying oxygen tu cody in this region as well as patchy infiltrate in the left lung. A repeat study or CT would be sandra mmended for further evaluation. 2. Endotracheal tube and bilateral internal jugular central venous lines remain in place. Timothy Tabares MD on April 10, 2017 at 5:38 Board Certified Radiologist. This report was verified electronically.
--- NOTE | 2017-04-10 08:12 | PD.CARD.PN ---
Subjective Subjective Remarks Intubated. Sedated. Objective Medications Item Value Date Time Heparin Sodium/ 250 ml @ 10 mls/hr 04/07/17 1630 Dextrose TITRATE PRN/IV 04/07/17 2056 Amlodipine 5 mg 04/08/17 1115 Besylate DAILY/PO 04/09/17 08 (Norvasc) Aspirin 325 mg 04/08/17 0900 (Ecotrin Ec) DAILY/PO 04/09/17 0804 Isosorbide 60 mg 04/08/17 0900 Mononitrate DAILY/PO 04/09/17 08 (Imdur) Clopidogrel 75 mg 04/08/17 0900 Bisulfate DAILY/PO 04/09/17 0805 (Plavix) Current Medications Medications (Trade) Dose Ordered Sig/Mary Kay Route Start Time Stop Time Status Last Admin (NS Flush) 2 ml UNSCH PRN IVF 04/07/17 16:00 04/07/17 16:04 Miscellaneous Information 1 Q361D XX 04/07/17 16:30 04/07/17 16:30 (Chlorhexidine 2% Cloth) 3 pack Taper DAILY@04 TOP 04/08/17 04:00 04/04/18 03:59 04/10/17 04:00 (Chlorhexidine 2% Cloth) 3 pack UNSCH PRN TOP 04/07/17 16:30 (Ecotrin Ec) 325 mg DAILY PO 04/08/17 09:00 04/09/17 08:04 Heparin Sodium/ Dextrose 250 ml @ 10 mls/hr TITRATE PRN IV 04/07/17 16:30 04/07/17 20:56 (D50w (Vial) Inj) 50 ml UNSCH PRN IV PUSH 04/07/17 17:00 (Glucagon Inj) 1 mg UNSCH PRN OTHER 04/07/17 17:00 (NovoLIN R SUPPLEMENTAL SCALE) 1 Q4HR SQ 04/07/17 17:00 04/10/17 04:49 (Duoneb Neb) 1 ampule Q4HR NEB NEB 04/07/17 20:00 04/10/17 06:26 (Duoneb Neb) 1 ampule Q2HR NEB PRN NEB 04/07/17 17:15 (Protonix Inj) 40 mg Q24H IV PUSH 04/07/17 18:00 2/21/18 17:41 (Imdur) 60 mg DAILY PO 04/08/17 09:00 04/09/17 08:04 (Plavix) 75 mg DAILY PO 04/08/17 09:00 04/09/17 08:05 (Norvasc) 5 mg DAILY PO 04/08/17 11:15 04/09/17 08:04 (Apresoline Inj) 20 mg Q2H PRN IV PUSH 04/08/17 13:00 04/10/17 05:33 (Haldol Inj) 5 mg Q4H PRN IV PUSH 04/08/17 14:30 04/08/17 14:32 Linezolid 300 ml @ 300 mls/hr Q12H IV 04/08/17 17:00 04/10/17 04:49 Levofloxacin/ Dextrose 50 ml @ 50 mls/hr Q48H IV 04/10/17 18:00 Dopamine HCl/ Dextrose 500 ml @ 11.475 mls/ hr TITRATE PRN IV 04/08/17 19:00 (Brethine Inj) 1 mg UNSCH PRN SQ 04/08/17 19:00 Propofol 100 ml @ 3.06 mls/hr TITRATE PRN IV 04/08/17 20:30 04/10/17 05:33 (Phoslo) 667 mg TID OG-TUBE 04/09/17 09:00 04/09/17 17:41 Cefepime HCl 1000 mg/Sodium Chloride 100 ml @ 200 mls/hr Q24H IV 04/09/17 12:00 04/09/17 12:17 Iron Sucrose 100 mg/Sodium Chloride 105 ml @ 105 mls/hr Q24H IV 04/09/17 12:00 04/11/17 12:59 04/09/17 12:17 Sodium Chloride 1,000 ml @ 0 mls/hr Q0M PRN OTHER 04/09/17 11:45 (Heparin Inj) 8,000 units UNSCH PRN IV FLUSH 04/09/17 11:45 Sodium Chloride 1,000 ml @ 200 mls/hr Q5H PRN IV 04/09/17 11:45 Sodium Chloride 1,000 ml @ 0 mls/hr Q0M PRN OTHER 04/09/17 11:45 (Mannitol Inj) 12.5 gm UNSCH PRN IV 04/09/17 11:45 Albumin Human 100 ml @ 60 mls/hr UNSCH PRN IV 04/09/17 11:45 (NS Flush) 5 ml UNSCH PRN IV FLUSH 04/09/17 11:45 (Heparin Inj) UNSCH PRN .XX 04/09/17 11:45 04/09/17 16:48 (Gentamicin Inj) 20 mg UNSCH PRN OTHER 04/09/17 11:45 04/09/17 16:49 (Zofran Inj) 4 mg UNSCH PRN IV PUSH 04/09/17 11:45 (Tylenol) 650 mg UNSCH PRN PO 04/09/17 11:45 (Benadryl) 25 mg UNSCH PRN PO 04/09/17 11:45 (Nitrostat Sl) 0.4 mg UNSCH PRN SL 04/09/17 11:45 (Catapres) 0.1 mg UNSCH PRN PO 04/09/17 11:45 (Epogen Inj) 10,000 units UNSCH PRN IV PUSH 04/09/17 11:45 04/09/17 16:48 (Gelfoam 12 Mm/7 Mm Top) 1 foam UNSCH PRN TOP 04/09/17 11:45 (Tamiflu) 75 mg Q12H PO 04/09/17 14:00 04/10/17 00:03 Vital Signs / I&O Vital Signs Date Time Temp Pulse Resp B/P (MAP) Pulse Ox O2 Delivery O2 Flow Rate FiO2 04/10/17 07:48 95 40 04/10/17 06:00 116 04/10/17 04:00 98.5 103 28 173/72 (105) 94 04/10/17 04:00 103 04/10/17 04:00 40 04/10/17 03:18 95 40 04/10/17 02:00 106 04/10/17 00:00 98.2 105 26 173/78 (109) 100 04/10/17 00:00 105 04/10/17 00:00 40 04/09/17 22:34 40 04/09/17 22:14 100 40 04/09/17 22:00 97 04/09/17 20:00 98.7 100 26 134/81 (98) 100 04/09/17 20:00 50 04/09/17 20:00 100 04/09/17 19:51 100 40 18 18:00 95 18 18:00 95 23 126/79 (95) 99 04/09/17 17:01 106 24 100/64 (76) 100 04/09/17 17:00 98.0 106 24 100/64 (76) 100 04/09/17 16:00 87 04/09/17 16:00 50 04/09/17 16:00 85 24 135/73 (93) 100 04/09/17 15:00 95 4 117/56 (76) 100 04/09/17 14:24 100 50 04/09/17 14:15 98.3 96 20 141/63 100 04/09/17 14:01 97.9 91 20 147/63 100 04/09/17 14:00 100 24 147/63 (91) 100 04/09/17 14:00 100 04/09/17 13:30 98.5 95 24 122/59 100 04/09/17 13:00 98 24 148/65 (92) 100 04/09/17 12:59 100 100 04/09/17 12:00 97.8 53 25 178/75 (109) 100 04/09/17 12:00 53 04/09/17 12:00 50 04/09/17 10:38 100 50 04/09/17 10:00 44 24 142/61 (88) 100 04/09/17 10:00 44 04/09/17 09:00 51 21 157/65 (95) 100 04/09/17 08:13 100 60 I/O 04/09/17 04/09/17 04/09/17 04/10/17 04/10/17 04/10/17 07:00 15:00 23:00 07:00 15:00 23:00 Intake Total 977.5 ml 679.3 ml 1195 ml 1007 ml Output Total 600 ml 1600 ml 2100 ml Balance 377.5 ml 679.3 ml -405 ml -1093 ml Intake Oral 0 ml IV Total 977.5 ml 679.3 ml 500 ml 600 ml Tube Feeding 215 ml 407 ml Packed Cells 430 ml Blood Product IV Normal Saline Flush 50 ml Output Urine Total 600 ml 1600 ml 2100 ml Physical Exam GENERAL: Well developed, well nourished. Intubated. Sedated. HEENT: Jugular venous pressure is normal. CHEST: Lungs clear to auscultation anteriorly. CARDIAC: Tachycardic irregular rhythm without S3, S4. I-II/ systolic murmur apex and left lower sternal border. ABDOMEN: Soft, nontender, no hepatosplenomegaly. Bowel sounds present. EXTREMITIES: No clubbing, cyanosis, or edema. Laboratory Laboratory Tests Test 04/09/17 11:30 04/10/17 04:30 Adenovirus (PCR) NOT DETECTED Bordetella holmesii (PCR) NOT DETECTED Bordetella pertussis DNA (PCR) NOT DETECTED B. parapertussis/bronchi (PCR) NOT DETECTED Human Metapneumovirus (PCR) NOT DETECTED Influenza Type A (RT-PCR) NOT DETECTED Influenza Type A (H1) (PCR) NOT DETECTED Influenza Type A (H3) (PCR) NOT DETECTED Influenza Type B (RT-PCR) NOT DETECTED Parainfluenza Type 1 (PCR) NOT DETECTED Parainfluenza Type 2 (PCR) NOT DETECTED Parainfluenza Type 3 (PCR) NOT DETECTED Parainfluenza Type 4 (PCR) NOT DETECTED Resp Syncytial Virus Type A (PCR) NOT DETECTED Resp Syncytial Virus Type B (PCR) NOT DETECTED Rhinovirus (PCR) NOT DETECTED White Blood Count 13.8 TH/MM3 Red Blood Count 3.35 MIL/MM3 Hemoglobin 10.0 GM/DL Hematocrit 29.6 % Mean Corpuscular Volume 88.3 FL Mean Corpuscular Hemoglobin 29.8 PG Mean Corpuscular Hemoglobin Concent 33.8 % Red Cell Distribution Width 15.8 % Platelet Count 230 TH/MM3 Mean Platelet Volume 9.8 FL Neutrophils (%) (Auto) 86.4 % Lymphocytes (%) (Auto) 4.6 % Monocytes (%) (Auto) 8.2 % Eosinophils (%) (Auto) 0.6 % Basophils (%) (Auto) 0.2 % Neutrophils # (Auto) 11.9 TH/MM3 Lymphocytes # (Auto) 0.6 TH/MM3 Monocytes # (Auto) 1.1 TH/MM3 Eosinophils # (Auto) 0.1 TH/MM3 Basophils # (Auto) 0.0 TH/MM3 CBC Comment DIFF FINAL Differential Comment Blood Urea Nitrogen 90 MG/DL Creatinine 5.78 MG/DL Random Glucose 207 MG/DL Total Protein 6.9 GM/DL Albumin 2.5 GM/DL Calcium Level 8.6 MG/DL Alkaline Phosphatase 105 U/L Aspartate Amino Transf (AST/SGOT) 29 U/L Alanine Aminotransferase (ALT/SGPT) 61 U/L Total Bilirubin 0.5 MG/DL Sodium Level 138 MEQ/L Potassium Level 3.5 MEQ/L Chloride Level 99 MEQ/L Carbon Dioxide Level 26.2 MEQ/L Anion Gap 13 MEQ/L Estimat Glomerular Filtration Rate 10 ML/MIN Imaging Last 24 hours Impressions Chest X-Ray 04/10/17 0600 Signed Impressions: Service Date/Time: March 03:32 - CONCLUSION: 1. Questionable small medial left pneumothorax which may be artifactual. There is overlying oxygen tubing in this region as well as patchy infiltrate in the left lung. A repeat study or CT would be recommended for further evaluation. 2. Endotracheal tube and bilateral internal jugular central venous lines remain in place. Timothy Tabares MD Assessment and Plan Problem List: (1) STEMI (ST elevation myocardial infarction) ICD Codes: I21.3 - ST elevation (STEMI) myocardial infarction of unspecified site Status: Acute Plan: Possible STEMI on presentation. Difficult to interpret significance of mildly abnormal troponin levels in setting of renal failure. CKMB's negative for DC. EF on echo reported as 45-50%. The study is technically very difficult ; I suspect the EF is closer to 30%. REC add carvedilol 6.25 mg bid conservative management from a cardiac standpoint continue daily aspirin, clopidogrel (2) Paroxysmal atrial fibrillation ICD Codes: I48.0 - Paroxysmal atrial fibrillation Status: Acute Plan: Now in atrial fib with RVR. Rec IV Amiodarone, resume heparin drip. (3) Dilated cardiomyopathy ICD Codes: I42.0 - Dilated cardiomyopathy Status: Chronic Plan: Echo technically very difficult, EF reported as 45-50%. By my review, suspect it is closer to 30%. Rec add carvedilol. No KRISTYN-I with his renal insufficiency. Consider mild diuresis. Code Status full code Problem Qualifiers (1) STEMI (ST elevation myocardial infarction): Qualified Codes: I21.3 - ST elevation (STEMI) myocardial infarction of unspecified site Vikram Briceno MD Apr 10, 2017 08:12
[2017-04-10] MEDS ORDERED: AMIODARONE INJ 150 MG in DEXTROSE 5% IN WATER 100ML INJ 100 ML IV ONE ×2 (08:25)
[2017-04-10] MEDS ORDERED: AMIODARONE INJ 450 MG in DEXTROSE 5% IN WATE(EXCEL) INJ 241 ML IV PRN ×2 (08:30)
[2017-04-10] MEDS ORDERED: HEPARIN SODIUM - IV 10,000 UNITS/10 ML VIAL IV PUSH ONE (08:30)
[2017-04-10] MEDS: CLOPIDOGREL 75 MG TAB PO SCH (08:35)
[2017-04-10] MEDS: ASPIRIN EC 325 MG TABEC PO SCH (08:35)
[2017-04-10] MEDS: CALCIUM ACETATE 667 MG CAP OG-TUBE SCH ×3 (08:36→17:50)
[2017-04-10] MEDS: ISOSORBIDE MONONITRATE 60 MG CR TAB (IMDUR) PO SCH (08:36)
[2017-04-10] MEDS: amLODIPine BESYLATE 5 MG TAB PO SCH (08:36)
[2017-04-10] MEDS: HEPARIN-D5W 25,000 U/250 ML 250 ML IV PRN (08:40)
[2017-04-10] MEDS: CARVEDILOL 6.25 MG TAB PO SCH ×3 (09:00→22:03)
[2017-04-10] MEDS: AMIODARONE INJ 450 MG in SODIUM CHLOR 0.9% (EXCEL) INJ 250 ML IV PRN ×2 (09:25→18:20)
[2017-04-10 09:54] LABS: HEPATITIS A AB IGM NEGATIVE (NEGATIVE); HEPATITIS B CORE AB IGM NEGATIVE (NEGATIVE); HEPATITIS B SURFACE ANTIGEN NEGATIVE (NEGATIVE); HEPATITIS C AB IgG NEGATIVE (NEGATIVE)
[2017-04-10] MEDS: CEFEPIME INJ 1,000 MG in SODIUM CHLORIDE 0.9% INJ 100 ML IV SCH (10:53)
[2017-04-10] MEDS: IRON SUCROSE INJ 100 MG in SODIUM CHLORIDE 0.9% INJ 100 ML IV SCH (11:52)
--- NOTE | 2017-04-10 14:07 | HHI.CCPN ---
Subjective Remarks/Hospital Course 04/07: The patient is a 72-year-old male with a past medical history of coronary artery disease, chronic kidney disease, cerebrovascular accident, hypertension, diabetes mellitus, hyperlipidemia who was brought into [facility] Emergency Department via ambulance with altered mental status. The patient's daughter could not reach him, so she called the fire rescue to go check on her father and on arrival they found him on the floor and has been there for the past two days. The patient is confused and when he came to the emergency department he was found bradycardic and a STEMI alert was called. EKG in the ER showed findings compatible with inferior wall myocardial infarction and bradycardia with a heart rate in the 30s. His labs on point of care significant for acute renal failure with a BUN greater than 140, creatinine 9.7. In addition the patient had a troponin of 2.72 and total CK of 380. Also he had leukocytosis with a WBC of 19.5. In the ED he was given one liter bolus of normal saline, aspirin and initially placed on nitroglycerine drip. The patient was seen by Dr. Briceno from the cardiology service and due to his significant renal failure. Cardiac catheterization was placed on hold and a plan to continue with medical therapy for now until his renal function recovers. The patient is awake, alert, however, he is intermittently confused. He is currently on 4 liters oxygen with saturation 98%, blood pressure 131/71 with heart rate in the 30s. The patient was also seen by Dr. Iraheta from nephrology service in the ED. He denies any chest pain, shortness of breath or any constitutional symptoms. The patient was recently discharged from [facility] in [place] after he was treated there for flu. 04/08: Continues to shortness of breath. Initiated on BiPAP. He pulled out his IVs earlier this morning. Heparin drip stopped. Mackey catheter placed in view of acute renal failure with need to monitor accurate urine output. 04/09: Patient intubated yesterday and placed on mechanical ventilation for worsening respiratory status. Received Lasix 20 mg IV yesterday and is maintaining good urine output. Heparin discontinued yesterday. Hemoglobin dropped noted and 1 unit PRBCs ordered for today. BUN creatinine remains elevated. Patient is currently on propofol and half and is with bicarbonate 42 cc per hour. Had some tremors noted in upper extremities this morning. Obtaining EEG though doubt seizure. 2/22: Remains sedated, orally intubated on mechanical ventilation. Started on hemodialysis yesterday. When into A. fib overnight. Being restarted on heparin GTT as well as being started on amiodarone drip per cardiology. Objective Vital Signs Date Time Temp Pulse Resp B/P (MAP) Pulse Ox O2 Delivery O2 Flow Rate FiO2 04/10/17 12:38 40 04/10/17 12:00 120 04/10/17 12:00 98.0 26 135/86 (102) 96 04/08/17 07:53 Nasal Cannula 2.00 Intake and Output 04/10/17 04/10/17 04/11/17 08:00 16:00 00:00 Intake Total 907 ml Output Total 2100 ml 1000 ml Balance -1193 ml -1000 ml Result Diagram: 04/10/17 0430 04/10/17 0430 Other Results Microbiology Date/Time Source Procedure Growth Status 04/08/17 18:40 Sputum Endotracheal Gram Stain - Final Complete 04/08/17 18:40 Sputum Endotracheal Sputum Culture - Final HEAVY GROWTH NORMAL RESPIRATORY ISMAEL Complete 04/07/17 17:18 Nasal Washing Influenza Types A,B Antigen (MAKENZIE) - Final NEGATIVE FOR FLU A AND B ANTIGEN.... Complete 04/09/17 09:55 Urine Catheterized Urine Legionella Antigen - Final PRESUMPTIVE NEGATIVE FOR LEGIONELLA P... Complete 04/09/17 09:55 Urine Catheterized Urine Streptococcus pneumoniae Antigen (M - Final PRESUMPTIVE NEGATIVE FOR STREPTOCOCCU... Complete Objective Remarks HEENT/ Neuro: Sedated, orally intubated, Pallor present, no icterus, tongue/ mucosa moist Neck: No JVD. Right IJ central line in place Chest/Pulm: on mech vent, good air entry bilaterally, bilateral rhonchi, no wheezing or crackles CVS: S1-S2 irregularly irregular , no murmur GI/abdomen: soft, nontender, bowel sounds sluggish Extremities: warm bilaterally, no edema Date of Insertion: Apr 08, 2017 Line: Central Venous Catheter Side: Right Location: Jugular A/P Assessment and Plan IMPRESSION 1. Acute respiratory failure on mechanical ventilation 2. ST-elevation myocardial infarction alert, inferior wall myocardial infarction. 3. Encephalopathy. 4. Acute on chronic kidney disease. 5. Bradycardia. 6. Hyponatremia and hyperkalemia. 7. Leukocytosis. 8. Anemia. 9. History of coronary artery disease. 10. History of cerebrovascular accident. 11. Hypertension. 12. Diabetes mellitus. 13. Hyperlipidemia. 14. Recent influenza 15. New onset A. fib RECOMMENDATIONS 1. Monitor neurological status closely and avoid any sedatives. Head CT with some cerebral atrophy. Stat EEG ordered for tremors noted in upper extremities on 04/09 2. Intubated on 04/08, continue mechanical ventilation, vent bundle, bronchodilators as needed. 3. Propofol for sedation, daily sedation vacation. 4. Monitor heart rate and blood pressure closely. off heparin GTT. Continue aspirin per cardiology recommendations. Further evaluation for STEMI per cardiology. 2-D echo with LVEF 30-45% 5. Dr. Briceno from cardiology service following. Beta ashley not initiated as patient was bradycardic on presentation. Hydralazine when necessary for hypertension. Being restarted on heparin GTT for A. fib as well as amiodarone gtt. Cardiac catheterization was placed on hold per cardiology due to underlying renal failure. 6. Treated with glucose insulin, calcium and sodium bicarbonate for hyperkalemia on 04/07.. No evidence of obstruction on renal ultrasound. Dr Iraheta following. Received fluid boluses initially. Remains nonoliguric. Received Lasix 20 mg IV on 04/08 as chest x-ray shows worsening pulmonary edema as well as infiltrates with worsening respiratory status. Additional Lasix 20 mg IV ordered for 04/09 to keep patient in even fluid balance as patient also received 1 unit PRBCs. Started on hemodialysis 04/09 7. Start tube feeds with Nepro and advanced to goal as tolerated. Continue Protonix 40 milligrams IV daily for GI prophylaxis. 8.The patient was recently hospitalized at [facility] for the flu. We'll consult ID for suspected pneumonia on chest x-ray. Was started on levaquin/Zyvox for empiric antibiotic coverage on 04/08. ID consult requested. Check urine for strep pneumo and Legionella antigen. 9. One unit PRBCs ordered on 04/09, follow CBC transfuse to keep hemoglobin closer to 9 g percent in view of suspected IA 11. Placed on sliding scale insulin with Accu-Cheks for glycemic control. 12. GI prophylaxis with Protonix 40 milligrams daily and DVT prophylaxis with sequential compression devices. Heparin drip stopped 04/08, restarted on . D/W Dr. Briceno Condition critical Time spent on critical care extending procedures 40 minutes Tushar Haley MD Apr 10, 2017 14:07
[2017-04-10] MEDS ORDERED: HEPARIN SODIUM - IV 10,000 UNITS/10 ML VIAL IV PUSH PRN (14:15)
--- NOTE | 2017-04-10 17:42 | HHI.IDPN ---
Subjective Subjective Remarks Mr. Hubbard is a 72-year-old male with past medical history significant for coronary artery disease, chronic kidney disease, cerebrovascular accident, hypertension diabetes, hyperlipidemia who was brought into the emergency room via ambulance due to altered mental status. Apparently the patient's daughter could not reach him so she called far department to check on him. On arrival to found him on the floor in reportedly patient was probably there for at least 2 days. Patient was confused and came to the emergency room was found to be bradycardic and a STEMI alert was called. EKG in the ER reportedly was consistent with inferior wall NV and bradycardia in the 30s. Patient had a BUN of 140, creatinine of 9.7 upon arrival in the emergency department. His troponin was 2.72 and total CK of 380. He had leukocytosis of 19.5. In the emergency department he was given 1 L fluid bolus aspirin and Dr. Briceno from cardiology was consulted. Patient was initially placed on nitroglycerin drip as well. Cardiac catheterization was placed on hold due to significant renal failure. It was decided to continue with medical therapy until his renal function improves. Patient was admitted on the critical care services. Dr. Geoffrey Hamilton from nephrology services also been consulted. At the time of my evaluation patient is in the IMC currently not on any pressors. Patient remains intubated and sedated. On a brief sedation vacation patient reportedly moves his extremities. RN reports jittery movements of his upper extremities. An EEG was done report is still pending. Per my discussion with the pet care associate there is a plan for hemodialysis to be initiated today after Vas-Cath was placed. RN for the patient reported that she had been told by the patient's daughter that there is a significant psychiatric history. Also that the patient was recently discharged from [facility] in [place] where he is treated for flu. Due to worsening chest x-ray and respiratory status infectious disease was consulted for possible necrotizing pneumonia. Overnight events reviewed. No fevers No rash No diarrhea Underwent HD yesterday using a Vascath placed yday. Antibiotics Tamiflu Cefepime IV Levaquin IV Zyvox IV Lines Line sites with no e.o infection Past Medical History Past Medical History 1. Coronary artery disease. 2. Chronic kidney disease. 3. Cerebrovascular accident. 4. Diabetes mellitus. 5. Hypertension. 6. Hyperlipidemia. 7. Psychiatric history. Past Surgical History None per records. Allergies: Coded Allergies: Sulfa (Sulfonamide Antibiotics) (Verified Allergy, Intermediate, HIVES, ) penicillin G (Verified Allergy, Unknown, HIVES, 04/07/17) Objective . Vital Signs Date Time Temp Pulse Resp B/P (MAP) Pulse Ox O2 Delivery O2 Flow Rate FiO2 04/10/17 16:00 104 04/10/17 16:00 98.1 104 24 121/74 (90) 96 04/10/17 16:00 40 04/10/17 14:00 93 04/10/17 12:38 40 04/10/17 12:00 40 04/10/17 12:00 120 04/10/17 12:00 98.0 120 26 135/86 (102) 96 04/10/17 11:19 97 40 04/10/17 10:00 106 04/10/17 09:25 102 178/78 04/10/17 09:06 114 179/81 04/10/17 08:00 40 04/10/17 08:00 98.5 114 27 166/77 (106) 95 04/10/17 08:00 114 04/10/17 07:48 95 40 04/10/17 06:00 116 04/10/17 04:00 98.5 103 28 173/72 (105) 94 04/10/17 04:00 103 04/10/17 04:00 40 04/10/17 03:18 95 40 04/10/17 02:00 106 04/10/17 00:00 98.2 105 26 173/78 (109) 100 04/10/17 00:00 105 04/10/17 00:00 40 04/09/17 22:34 40 04/09/17 22:14 100 40 04/09/17 22:00 97 04/09/17 20:00 98.7 100 26 134/81 (98) 100 04/09/17 20:00 50 04/09/17 20:00 100 04/09/17 19:51 100 40 04/09/17 18:00 95 04/09/17 18:00 95 23 126/79 (95) 99 04/10/17 04/10/17 04/11/17 15:00 23:00 07:00 Intake Total 408 ml 100 ml Output Total 1000 ml Balance -592 ml 100 ml IV Total 408 ml 100 ml Hemodialysis 1000 ml . Laboratory Tests Test 04/08/17 18:10 04/09/17 03:45 04/10/17 04:30 White Blood Count 23.4 TH/MM3 11.8 TH/MM3 13.8 TH/MM3 Red Blood Count 2.93 MIL/MM3 2.46 MIL/MM3 3.35 MIL/MM3 Hemoglobin 8.7 GM/DL 7.2 GM/DL 10.0 GM/DL Hematocrit 26.2 % 21.9 % 29.6 % Mean Corpuscular Volume 89.3 FL 89.3 FL 88.3 FL Mean Corpuscular Hemoglobin 29.8 PG 29.2 PG 29.8 PG Mean Corpuscular Hemoglobin Concent 33.4 % 32.7 % 33.8 % Red Cell Distribution Width 16.4 % 16.5 % 15.8 % Platelet Count 295 TH/MM3 209 TH/MM3 230 TH/MM3 Mean Platelet Volume 10.1 FL 10.3 FL 9.8 FL Neutrophils (%) (Auto) 87.9 % 81.5 % 86.4 % Lymphocytes (%) (Auto) 4.3 % 9.6 % 4.6 % Monocytes (%) (Auto) 7.5 % 8.4 % 8.2 % Eosinophils (%) (Auto) 0.0 % 0.3 % 0.6 % Basophils (%) (Auto) 0.3 % 0.2 % 0.2 % Neutrophils # (Auto) 20.6 TH/MM3 9.6 TH/MM3 11.9 TH/MM3 Lymphocytes # (Auto) 1.0 TH/MM3 1.1 TH/MM3 0.6 TH/MM3 Monocytes # (Auto) 1.7 TH/MM3 1.0 TH/MM3 1.1 TH/MM3 Eosinophils # (Auto) 0.0 TH/MM3 0.0 TH/MM3 0.1 TH/MM3 Basophils # (Auto) 0.1 TH/MM3 0.0 TH/MM3 0.0 TH/MM3 CBC Comment AUTO DIFF DIFF FINAL DIFF FINAL Differential Total Cells Counted 100 Neutrophils % (Manual) 92 % Band Neutrophils % 2 % Lymphocytes % 4 % Monocytes % 2 % Neutrophils # (Manual) 22.0 TH/MM3 Differential Comment FINAL DIFF MANUAL Toxic Granulation 1+ Platelet Estimate NORMAL Platelet Morphology Comment NORMAL Laboratory Tests Test 04/08/17 18:10 04/09/17 03:45 04/10/17 04:30 Blood Urea Nitrogen 120 MG/DL 125 MG/DL 90 MG/DL Creatinine 7.54 MG/DL 7.78 MG/DL 5.78 MG/DL Random Glucose 168 MG/DL 170 MG/DL 207 MG/DL Total Protein 6.7 GM/DL 5.9 GM/DL 6.9 GM/DL Albumin 2.6 GM/DL 2.2 GM/DL 2.5 GM/DL Calcium Level 8.1 MG/DL 7.9 MG/DL 8.6 MG/DL Phosphorus Level 8.5 MG/DL Magnesium Level 2.8 MG/DL Alkaline Phosphatase 89 U/L 71 U/L 105 U/L Aspartate Amino Transf (AST/SGOT) 56 U/L 41 U/L 29 U/L Alanine Aminotransferase (ALT/SGPT) 72 U/L 67 U/L 61 U/L Total Bilirubin 0.6 MG/DL 0.4 MG/DL 0.5 MG/DL Sodium Level 139 MEQ/L 139 MEQ/L 138 MEQ/L Potassium Level 4.1 MEQ/L 4.0 MEQ/L 3.5 MEQ/L Chloride Level 103 MEQ/L 102 MEQ/L 99 MEQ/L Carbon Dioxide Level 21.2 MEQ/L 23.0 MEQ/L 26.2 MEQ/L Anion Gap 15 MEQ/L 14 MEQ/L 13 MEQ/L Estimat Glomerular Filtration Rate 7 ML/MIN 7 ML/MIN 10 ML/MIN Lactic Acid Level 1.6 mmol/L Troponin I 1.56 NG/ML B-Type Natriuretic Peptide 911 PG/ML Triglycerides Level 269 MG/DL Cholesterol Level 139 MG/DL LDL Cholesterol 57 MG/DL HDL Cholesterol 28.2 MG/DL Cholesterol/HDL Ratio 4.92 RATIO Microbiology Date/Time Source Procedure Growth Status 04/09/17 06:00 Blood Peripheral Aerobic Blood Culture - Preliminary NO GROWTH IN 1 DAY Resulted 04/09/17 06:00 Blood Peripheral Anaerobic Blood Culture - Preliminary NO GROWTH IN 1 DAY Resulted 04/08/17 17:45 Blood Peripheral Aerobic Blood Culture - Preliminary Staphylococcus Epidermidis Resulted 04/08/17 17:45 Blood Peripheral Anaerobic Blood Culture - Preliminary NO GROWTH IN 2 DAYS Resulted 04/08/17 18:40 Sputum Endotracheal Gram Stain - Final Complete 04/08/17 18:40 Sputum Endotracheal Sputum Culture - Final HEAVY GROWTH NORMAL RESPIRATORY ISMAEL Complete 04/09/17 09:55 Urine Catheterized Urine Legionella Antigen - Final PRESUMPTIVE NEGATIVE FOR LEGIONELLA P... Complete 04/09/17 09:55 Urine Catheterized Urine Streptococcus pneumoniae Antigen (M - Final PRESUMPTIVE NEGATIVE FOR STREPTOCOCCU... Complete Imaging Last Impressions Chest X-Ray 04/10/17 0600 Signed Impressions: Service Date/Time: March 03:32 - CONCLUSION: 1. Questionable small medial left pneumothorax which may be artifactual. There is overlying oxygen tubing in this region as well as patchy infiltrate in the left lung. A repeat study or CT would be recommended for further evaluation. 2. Endotracheal tube and bilateral internal jugular central venous lines remain in place. Timothy Tabares MD Chest CT 04/09/17 0000 Signed Impressions: Service Date/Time: Sunday, April 09, 2017 12:38 - CONCLUSION: 1. Patchy air space in both lungs most characteristic of bronchopneumonia. No cavitation to suggest a necrotizing pneumonia. Small bilateral pleural effusions with basal and dependent consolidation in the lungs. 2. Endotracheal tube and nasogastric tube in good position. 3. Moderate to severe coronary artery calcifications. John Paul Yeboah MD Head CT 04/07/17 1646 Signed Impressions: Service Date/Time: Friday, April 07, 2017 17:37 - CONCLUSION: 1. Senescent changes with ventriculomegaly out of proportion to the degree of atrophy. Clinical correlation for normal pressure hydrocephalus is recommended. Jesus Manuel Storm MD Renal Ultrasound 04/07/17 0000 Signed Impressions: Service Date/Time: Friday, April 07, 2017 18:11 - CONCLUSION: Medical renal disease. No hydronephrosis. Jaleel Carlin MD Physical Exam GENERAL: This is a well-nourished, well-developed patient, in no apparent distress. SKIN: No rashes, ecchymoses or lesions. Cool and dry. HEAD: Atraumatic. Normocephalic. No temporal or scalp tenderness. EYES: Pupils equal round and reactive. Extraocular motions intact. No scleral icterus. No injection or drainage. ENT: Intubated NECK: Trachea midline. No JVD or lymphadenopathy. Supple, nontender, no meningeal signs. CARDIOVASCULAR: Regular rate and rhythm without murmurs, gallops, or rubs. RESPIRATORY: Clear to auscultation. Breath sounds equal bilaterally. No wheezes , rales, or rhonchi. GASTROINTESTINAL: Abdomen soft, non-tender, nondistended. No hepato-splenomegaly , or palpable masses. No guarding. MUSCULOSKELETAL: Extremities without clubbing, cyanosis, or edema. No joint tenderness, effusion, or edema noted. No calf tenderness. Negative Homans sign bilaterally. NEUROLOGICAL: Sedated. Psych could not be assessed IV line sites with no e.o infection. Assessment & Plan Remarks Necrotizing pneumonia likely post influenza(based on the recent history of flu)\ Acute renal failure likely component of chronic kidney disease based on history. Now will be placed on dialysis. Acute respiratory failure on ventilator ST elevation NV inferior wall Bradycardia Hyponatremia and hyperkalemia Leukocytosis likely secondary to infection Recent history of flu unsure if this was treated will obtain records. History of coronary artery disease History of cerebrovascular accident History of psychiatric issues Diabetes mellitus Recommendations: Continue Levaquin Continue cefepime IV Continue Zyvox DC Tamiflu Follow cultures Follow clinically CT chest reviewed Obtain records from [place]. I will be off 04/11/2017 to 04/13/2017. Other ID MDs covering for me. Please check with [facility] call center. Micki Haley MD Apr 10, 2017 17:42
[2017-04-10] MEDS: PANTOPRAZOLE SODIUM 40 MG VIAL IV PUSH SCH (17:50)
[2017-04-10] MEDS: LEVOFLOXACIN 250 MG PREMIX INJ 50 ML IV SCH (17:50)
--- NOTE | 2017-04-10 21:20 | HHI.NPPN ---
Subjective General Problems: Anemia, Hypertension, Mebatolic Acidosis Renal Failure: Chronic, Acute Additional Remarks Patient remain intubated and sedated. Review of Systems General General Remarks unable to obtain Objective Data Data 04/10/17 04/11/17 19:00 07:00 Intake Total 2226.8 ml Output Total 2350 ml Balance -123.2 ml IV Total 1899.8 ml Tube Feeding 327 ml Output Urine Total 1350 ml Hemodialysis 1000 ml Vital Signs Date Time Temp Pulse Resp B/P (MAP) Pulse Ox O2 Delivery O2 Flow Rate FiO2 04/10/17 18:20 98 160/91 04/10/17 18:00 85 04/10/17 16:00 104 04/10/17 16:00 98.1 104 24 121/74 (90) 96 04/10/17 16:00 40 04/10/17 14:00 93 04/10/17 12:38 40 04/10/17 12:00 40 04/10/17 12:00 120 04/10/17 12:00 98.0 120 26 135/86 (102) 96 04/10/17 11:19 97 40 04/10/17 10:00 106 04/10/17 09:25 102 178/78 04/10/17 09:06 114 179/81 04/10/17 08:00 40 04/10/17 08:00 98.5 114 27 166/77 (106) 95 04/10/17 08:00 114 04/10/17 07:48 95 40 04/10/17 06:00 116 04/10/17 04:00 98.5 103 28 173/72 (105) 94 04/10/17 04:00 103 04/10/17 04:00 40 04/10/17 03:18 95 40 04/10/17 02:00 106 04/10/17 00:00 98.2 105 26 173/78 (109) 100 04/10/17 00:00 105 04/10/17 00:00 40 04/09/17 22:34 40 04/09/17 22:14 100 40 04/09/17 22:00 97 -: 04/10/17 0430 04/10/17 0430 Tubes & Lines: Mackey Physical Exam General Appearance: Well Developed, Well Nourished, No Acute Distress, Comfortable Throat Throat Exam: Oral Mucosa [place] & Moist Neck Neck Exam: Neck Supple Pulmonary Resp Exam: Breath Sounds Equal, Crackles, Rhonchi, Decreased Bases, Poor Inspiratory Effort Cardiology CV Exam: Good Perfusion, Bradycardia Gastrointestinal/Abdomen GI Exam: Soft, Non-Tender, Bowel Sounds Present Musculoskeletal MS Exam: Joints Intact, Normal Gait Integumentary Skin Exam: Warm, Dry, Intact Extremeties Extremities Exam: Moderate Edema Neurologic Neuro Exam: Sedated Assessment/Plan Discussed Condition With: Patient Assessment Summary: ROEL/Acute Renal Failure, Anemia of CKD Electrolyte Assessment: Metabolic Acidosis Problem List: (1) Acute renal failure ICD Codes: N17.9 - Acute kidney failure, unspecified Plan: He has underlying CKD,. Per the motor overhauler, Dr. Ramirez in [place], his GFR was 19 (creatinine 3.2) in October (CKD 4), he had underlying diabetic nephropathy with proteinuria. Acute Renal failure due to bradycardia and DE, with diminished renal perfusion. He is making urine although renal function has declined. Started on HD after the Vascath. 2nd Treatment today. Has been non oliguric, Creatinine remain high. 1 liter remove with HD. Next HD Sat. or as needed. (2) Bradycardia ICD Codes: R00.1 - Bradycardia, unspecified Status: Acute Plan: May need PPM Continue supportive care Blood pressure remains elevated; avoid BB and KRISTYN, on Amlodipine 5 mg daily (3) Anemia ICD Codes: D64.9 - Anemia, unspecified Plan: May have anemia of CKD. Ordered blood transfusion today. Has iron deficiency, start venofer. (4) STEMI (ST elevation myocardial infarction) ICD Codes: I21.3 - ST elevation (STEMI) myocardial infarction of unspecified site Status: Acute Plan: Cardiology following, unclear if he suffered DE. Off heparin gtt. (5) Leukocytosis ICD Codes: D72.829 - Elevated white blood cell count, unspecified Plan: May be reactive, monitor for infections Lactic acid elevated. Problem Qualifiers (1) STEMI (ST elevation myocardial infarction): Qualified Codes: I21.3 - ST elevation (STEMI) myocardial infarction of unspecified site Hayes Herron MD Apr 10, 2017 21:20
[2017-04-11] VITALS (16 sets, daily range): BP systolic 110–169; BP diastolic 70–93; PULSE 80–126; RESP 13–24; TEMP 96.9–99.3; O2SAT 94–100
[2017-04-11] MEDS: fentaNYL DRIP 250 ML IV PRN ×3 (00:21→21:21)
[2017-04-11] MEDS: HEPARIN SODIUM - IV 10,000 UNITS/10 ML VIAL IV PUSH PRN ×4 (00:30→22:51)
[2017-04-11] MEDS: hydrALAZINE HCL 20 MG/ML VIAL IV PUSH PRN (01:21)
[2017-04-11] MEDS: CHLORHEXIDINE GLUCONATE 2 % 1 PACK (2 CLOTHS) TOP SCH (03:19)
[2017-04-11] MEDS: INSULIN NovoLIN REGULAR SUPPLEMENTAL SCALE SQ SCH ×6 (03:39→23:27)
[2017-04-11] MEDS: RESP: ALBUTEROL 2.5 MG/IPRATROPIUM 0.5 MG NEB (SCH) NEB ×5 (03:58→19:29)
[2017-04-11] MEDS: LINEZOLID 600 MG PREMIX 300 ML IV SCH (04:27)
[2017-04-11 05:42] LABS: AUTOMATED NEUTROPHIL # 7.2 TH/MM3 (1.8-7.7); BASOPHIL % 0.3 % (0.0-2.0); EOSINOPHIL # 0.1 TH/MM3 (0-0.4); EOSINOPHIL % 1.2 % (0.0-4.0); HEMATOCRIT 27.8 % (39.0-51.0); HEMOGLOBIN 9.3 GM/DL (13.0-17.0); LYMPH % 9.3 % (9.0-44.0); LYMPHOCYTE # 0.8 TH/MM3 (1.0-4.8); MEAN CELL VOLUME 88.7 FL (80.0-100.0); MEAN CORPUSCULAR HEMOGLOBIN 29.7 PG (27.0-34.0); MEAN CORPUSCULAR HGB CONC 33.5 % (32.0-36.0); MEAN PLATELET VOLUME 9.3 FL (7.0-11.0); MONO % 9.1 % (0.0-8.0); MONOCYTE # 0.8 TH/MM3 (0-0.9); NEUT % 80.1 % (16.0-70.0); PLATELET COUNT 216 TH/MM3 (150-450); RED BLOOD COUNT 3.14 MIL/MM3 (4.50-5.90); RED CELL DISTRIBUTION WIDTH 15.8 % (11.6-17.2)
[2017-04-11 06:09] LABS: BICARBONATE 30.4 MEQ/L (21.0-32.0); CALCIUM 8.6 MG/DL (8.5-10.1); CREATININE 4.55 MG/DL (0.60-1.30)
[2017-04-11] MEDS: CLOPIDOGREL 75 MG TAB PO SCH (08:03)
[2017-04-11] MEDS: ISOSORBIDE MONONITRATE 60 MG CR TAB (IMDUR) PO SCH (08:03)
[2017-04-11] MEDS: ASPIRIN EC 325 MG TABEC PO SCH (08:03)
[2017-04-11] MEDS: CALCIUM ACETATE 667 MG CAP OG-TUBE SCH ×3 (08:03→18:01)
[2017-04-11] MEDS: amLODIPine BESYLATE 5 MG TAB PO SCH (08:03)
[2017-04-11] MEDS: CARVEDILOL 6.25 MG TAB PO SCH (08:03)
[2017-04-11] MEDS: HEPARIN-D5W 25,000 U/250 ML 250 ML IV PRN (08:05)
[2017-04-11] MEDS: PROPOFOL 1000 MG/100 ML INJ 100 ML IV PRN ×2 (08:06→18:01)
--- NOTE | 2017-04-11 10:00 | HHI.CCPN ---
Subjective Remarks/Hospital Course 04/07: The patient is a 72-year-old male with a past medical history of coronary artery disease, chronic kidney disease, cerebrovascular accident, hypertension, diabetes mellitus, hyperlipidemia who was brought into [facility] Emergency Department via ambulance with altered mental status. The patient's daughter could not reach him, so she called the fire rescue to go check on her father and on arrival they found him on the floor and has been there for the past two days. The patient is confused and when he came to the emergency department he was found bradycardic and a STEMI alert was called. EKG in the ER showed findings compatible with inferior wall myocardial infarction and bradycardia with a heart rate in the 30s. His labs on point of care significant for acute renal failure with a BUN greater than 140, creatinine 9.7. In addition the patient had a troponin of 2.72 and total CK of 380. Also he had leukocytosis with a WBC of 19.5. In the ED he was given one liter bolus of normal saline, aspirin and initially placed on nitroglycerine drip. The patient was seen by Dr. Briceno from the cardiology service and due to his significant renal failure. Cardiac catheterization was placed on hold and a plan to continue with medical therapy for now until his renal function recovers. The patient is awake, alert, however, he is intermittently confused. He is currently on 4 liters oxygen with saturation 98%, blood pressure 131/71 with heart rate in the 30s. The patient was also seen by Dr. Iraheta from nephrology service in the ED. He denies any chest pain, shortness of breath or any constitutional symptoms. The patient was recently discharged from [facility] in [place] after he was treated there for flu. 04/08: Continues to shortness of breath. Initiated on BiPAP. He pulled out his IVs earlier this morning. Heparin drip stopped. Mackey catheter placed in view of acute renal failure with need to monitor accurate urine output. 04/09: Patient intubated yesterday and placed on mechanical ventilation for worsening respiratory status. Received Lasix 20 mg IV yesterday and is maintaining good urine output. Heparin discontinued yesterday. Hemoglobin dropped noted and 1 unit PRBCs ordered for today. BUN creatinine remains elevated. Patient is currently on propofol and half and is with bicarbonate 42 cc per hour. Had some tremors noted in upper extremities this morning. Obtaining EEG though doubt seizure. 2/22: Remains sedated, orally intubated on mechanical ventilation. Started on hemodialysis yesterday. When into A. fib overnight. Being restarted on heparin GTT as well as being started on amiodarone drip per cardiology. 04/11 Patient remains sedated and intubated. On Heparin drip. Amiodarone held overnight as patient noted to have sinus pauses . Objective Vital Signs Date Time Temp Pulse Resp B/P (MAP) Pulse Ox O2 Delivery O2 Flow Rate FiO2 04/11/17 07:40 40 04/11/17 07:40 99 04/11/17 06:00 95 04/11/17 04:00 96.9 24 158/90 (112) 04/08/17 07:53 Nasal Cannula 2.00 Intake and Output 04/11/17 04/11/17 04/12/17 08:00 16:00 00:00 Intake Total 455 ml Output Total 925 ml Balance -470 ml Result Diagram: 04/11/17 0515 04/11/17 0515 Other Results Laboratory Tests Test 04/10/17 14:58 04/10/17 22:00 04/11/17 05:15 Activated Partial Thromboplast Time 40.4 SEC 26.3 SEC 30.9 SEC White Blood Count 9.0 TH/MM3 Red Blood Count 3.14 MIL/MM3 Hemoglobin 9.3 GM/DL Hematocrit 27.8 % Mean Corpuscular Volume 88.7 FL Mean Corpuscular Hemoglobin 29.7 PG Mean Corpuscular Hemoglobin Concent 33.5 % Red Cell Distribution Width 15.8 % Platelet Count 216 TH/MM3 Mean Platelet Volume 9.3 FL Neutrophils (%) (Auto) 80.1 % Lymphocytes (%) (Auto) 9.3 % Monocytes (%) (Auto) 9.1 % Eosinophils (%) (Auto) 1.2 % Basophils (%) (Auto) 0.3 % Neutrophils # (Auto) 7.2 TH/MM3 Lymphocytes # (Auto) 0.8 TH/MM3 Monocytes # (Auto) 0.8 TH/MM3 Eosinophils # (Auto) 0.1 TH/MM3 Basophils # (Auto) 0.0 TH/MM3 CBC Comment DIFF FINAL Differential Comment Blood Urea Nitrogen 56 MG/DL Creatinine 4.55 MG/DL Random Glucose 220 MG/DL Calcium Level 8.6 MG/DL Sodium Level 140 MEQ/L Potassium Level 3.8 MEQ/L Chloride Level 102 MEQ/L Carbon Dioxide Level 30.4 MEQ/L Anion Gap 8 MEQ/L Estimat Glomerular Filtration Rate 13 ML/MIN Imaging Last Impressions Chest X-Ray 04/10/17 0600 Signed Impressions: Service Date/Time: March 03:32 - CONCLUSION: 1. Questionable small medial left pneumothorax which may be artifactual. There is overlying oxygen tubing in this region as well as patchy infiltrate in the left lung. A repeat study or CT would be recommended for further evaluation. 2. Endotracheal tube and bilateral internal jugular central venous lines remain in place. Timothy Tabares MD Chest CT 04/09/17 0000 Signed Impressions: Service Date/Time: Sunday, April 09, 2017 12:38 - CONCLUSION: 1. Patchy air space in both lungs most characteristic of bronchopneumonia. No cavitation to suggest a necrotizing pneumonia. Small bilateral pleural effusions with basal and dependent consolidation in the lungs. 2. Endotracheal tube and nasogastric tube in good position. 3. Moderate to severe coronary artery calcifications. John Paul Yeboah MD Head CT 04/07/17 1646 Signed Impressions: Service Date/Time: Friday, April 07, 2017 17:37 - CONCLUSION: 1. Senescent changes with ventriculomegaly out of proportion to the degree of atrophy. Clinical correlation for normal pressure hydrocephalus is recommended. Jesus Manuel Storm MD Renal Ultrasound 04/07/17 0000 Signed Impressions: Service Date/Time: Friday, April 07, 2017 18:11 - CONCLUSION: Medical renal disease. No hydronephrosis. Jaleel Carlin MD Objective Remarks GENERAL: Patient is 72 intubated and sedated SKIN: Warm and dry. HEAD: Normocephalic. EYES: No scleral icterus. No injection or drainage. NECK: Supple, trachea midline. No JVD or lymphadenopathy. CARDIOVASCULAR: Regular rate and rhythm without murmurs, gallops, or rubs. RESPIRATORY: Breath sounds equal bilaterally. No accessory muscle use. GASTROINTESTINAL: Abdomen soft, non-tender, nondistended. MUSCULOSKELETAL: No cyanosis, or edema. Neuro: Sedated, Date of Insertion: Apr 08, 2017 Line: Central Venous Catheter Side: Right Location: Jugular A/P Assessment and Plan IMPRESSION 1. Acute respiratory failure on mechanical ventilation 2. ST-elevation myocardial infarction alert, inferior wall myocardial infarction. 3. Encephalopathy. 4. Acute on chronic kidney disease. 5. Bradycardia. 6. Hyponatremia and hyperkalemia. 7. Leukocytosis. 8. Anemia. 9. History of coronary artery disease. 10. History of cerebrovascular accident. 11. Hypertension. 12. Diabetes mellitus. 13. Hyperlipidemia. 14. Recent influenza 15. New onset A. fib Plan neuro: On fentanyl infusion for sedation. Daily sedation vacation. Monitor neuro status Head CT with some cerebral atrophy. EEG 04/09- limited study Pulm: Intubated on 04/08, continue with vent support keep sat >92% vent bundle, bronchodilators . start SBT daily as [place] CT chest 04/09: Patchy air space in both lungs most characteristic of bronchopneumonia. No cavitation to suggest a necrotizing pneumonia. Small bilateral pleural effusions with basal and dependent consolidation in the lungs CV: Monitor Hr and BP, Continue aspirin per cardiology recommendations. Further evaluation for STEMI per cardiology. 2-D echo with LVEF 30-45% Dr. Briceno is following. on heparin GTT for A. fib . Cardiac catheterization was placed on hold per cardiology due to underlying renal failure Continue ASA, Coreg, Norvasc, Imdur and Plavix : Monitor renal function, I/O's, avoid nephrotoxins Started on hemodialysis 04/09, s/p HD 04/10 with 1L removed Cr: 4.55 from 5.78, UOP:2275ml in 24 hrs Renal is following- Dr. Iraheta GI: On Nepro @30ml/hr. Continue Protonix 40 milligrams IV daily for GI prophylaxis. ID: Continue abx per ID ( On Levaquin, Cefepime, Zyvox) monitor or signs of infections ( Fever, WBC) 04/09 Sputum cx: normal resp sintia, 04/08 strep pneumonia and legionella ag negative Heme: s/p transfusion 1unit PRBCs on 04/09, follow CBC transfuse to keep hemoglobin closer to 9 g percent in view of suspected PA Endo: SSI with Accu-Cheks for glycemic control. GI prophylaxis with Protonix 40 milligrams daily and DVT prophylaxis with SCDs, on Heparin drip Lines: Right IJ CVP, Left IJ vascath placed 04/08 Discussed with family at bedside and updated them on his condition. Palliative care eval to asses with goals of care CCT 30 mins Laurel Manuel MD Apr 11, 2017 09:59
[2017-04-11] MEDS ORDERED: METOPROLOL TARTRATE 5 MG/5 ML VIAL ONE (10:07)
[2017-04-11] MEDS ORDERED: METOPROLOL TARTRATE 5 MG/5 ML VIAL IV PUSH ONE (10:15)
[2017-04-11] MEDS: CEFEPIME INJ 1,000 MG in SODIUM CHLORIDE 0.9% INJ 100 ML IV SCH (11:40)
[2017-04-11] MEDS: IRON SUCROSE INJ 100 MG in SODIUM CHLORIDE 0.9% INJ 100 ML IV SCH (11:40)
--- NOTE | 2017-04-11 12:04 | PD.CARD.PN ---
Subjective Subjective Remarks Intubated. Sedated. Objective Medications Item Value Date Time Carvedilol 6.25 mg 04/10/17 0900 (Coreg) Q12HR/PO 04/11/17 08 Heparin Sodium/ 250 ml @ 10 mls/hr 04/10/17 0815 Dextrose TITRATE PRN/IV 04/11/17 08 Amlodipine 5 mg 04/08/17 1115 Besylate DAILY/PO 04/11/17 08 (Norvasc) Aspirin 325 mg 04/08/17 0900 (Ecotrin Ec) DAILY/PO 04/11/17 08 Isosorbide 60 mg 04/08/17 09 Mononitrate DAILY/PO 04/11/17 08 (Imdur) Clopidogrel 75 mg 04/08/17 0900 Bisulfate DAILY/PO 04/11/17 08 (Plavix) Current Medications Medications (Trade) Dose Ordered Sig/Mary Kay Route Start Time Stop Time Status Last Admin (NS Flush) 2 ml UNSCH PRN IVF 04/07/17 16:00 04/07/17 16:04 Miscellaneous Information 1 Q361D XX 04/07/17 16:30 04/07/17 16:30 (Chlorhexidine 2% Cloth) 3 pack Taper DAILY@04 TOP 04/08/17 04:00 04/04/18 03:59 04/11/17 03:19 (Chlorhexidine 2% Cloth) 3 pack UNSCH PRN TOP 04/07/17 16:30 (Ecotrin Ec) 325 mg DAILY PO 04/08/17 09:00 04/11/17 08:03 (D50w (Vial) Inj) 50 ml UNSCH PRN IV PUSH 04/07/17 17:00 (Glucagon Inj) 1 mg UNSCH PRN OTHER 04/07/17 17:00 (NovoLIN R SUPPLEMENTAL SCALE) 1 Q4HR SQ 04/07/17 17:00 04/11/17 08:41 (Duoneb Neb) 1 ampule Q4HR NEB NEB 04/07/17 20:00 04/11/17 11:25 (Duoneb Neb) 1 ampule Q2HR NEB PRN NEB 04/07/17 17:15 (Protonix Inj) 40 mg Q24H IV PUSH 04/07/17 18:00 04/10/17 17:50 (Imdur) 60 mg DAILY PO 04/08/17 09:00 04/11/17 08:03 (Plavix) 75 mg DAILY PO 04/08/17 09:00 04/11/17 08:03 (Norvasc) 5 mg DAILY PO 04/08/17 11:15 04/11/17 08:03 (Apresoline Inj) 20 mg Q2H PRN IV PUSH 04/08/17 13:00 04/11/17 01:21 (Haldol Inj) 5 mg Q4H PRN IV PUSH 04/08/17 14:30 04/08/17 14:32 Linezolid 300 ml @ 300 mls/hr Q12H IV 04/08/17 17:00 04/11/17 04:27 Levofloxacin/ Dextrose 50 ml @ 50 mls/hr Q48H IV 04/10/17 18:00 04/10/17 17:50 Dopamine HCl/ Dextrose 500 ml @ 11.475 mls/ hr TITRATE PRN IV 04/08/17 19:00 (Brethine Inj) 1 mg UNSCH PRN SQ 04/08/17 19:00 Propofol 100 ml @ 3.06 mls/hr TITRATE PRN IV 04/08/17 20:30 04/11/17 08:06 (Phoslo) 667 mg TID OG-TUBE 04/09/17 09:00 04/11/17 08:03 Cefepime HCl 1000 mg/Sodium Chloride 100 ml @ 200 mls/hr Q24H IV 04/09/17 12:00 04/11/17 11:40 Iron Sucrose 100 mg/Sodium Chloride 105 ml @ 105 mls/hr Q24H IV 04/09/17 12:00 04/11/17 12:59 04/11/17 11:40 Sodium Chloride 1,000 ml @ 0 mls/hr Q0M PRN OTHER 04/09/17 11:45 (Heparin Inj) 8,000 units UNSCH PRN IV FLUSH 04/09/17 11:45 Sodium Chloride 1,000 ml @ 200 mls/hr Q5H PRN IV 04/09/17 11:45 Sodium Chloride 1,000 ml @ 0 mls/hr Q0M PRN OTHER 04/09/17 11:45 (Mannitol Inj) 12.5 gm UNSCH PRN IV 04/09/17 11:45 Albumin Human 100 ml @ 60 mls/hr UNSCH PRN IV 04/09/17 11:45 (NS Flush) 5 ml UNSCH PRN IV FLUSH 04/09/17 11:45 (Heparin Inj) UNSCH PRN .XX 04/09/17 11:45 04/09/17 16:48 (Gentamicin Inj) 20 mg UNSCH PRN OTHER 04/09/17 11:45 04/09/17 16:49 (Zofran Inj) 4 mg UNSCH PRN IV PUSH 04/09/17 11:45 (Tylenol) 650 mg UNSCH PRN PO 04/09/17 11:45 (Benadryl) 25 mg UNSCH PRN PO 04/09/17 11:45 (Nitrostat Sl) 0.4 mg UNSCH PRN SL 04/09/17 11:45 (Catapres) 0.1 mg UNSCH PRN PO 04/09/17 11:45 (Epogen Inj) 10,000 units UNSCH PRN IV PUSH 04/09/17 11:45 04/09/17 16:48 (Gelfoam 12 Mm/7 Mm Top) 1 foam UNSCH PRN TOP 04/09/17 11:45 (Heparin Inj) 5,000 units UNSCH PRN IV PUSH 04/10/17 14:15 (Heparin Inj) 2,500 units UNSCH PRN IV PUSH 04/10/17 14:15 04/11/17 06:39 Heparin Sodium/ Dextrose 250 ml @ 10 mls/hr TITRATE PRN IV 04/10/17 08:15 04/11/17 08:05 (Coreg) 6.25 mg Q12HR PO 04/10/17 09:00 04/11/17 08:03 Fentanyl Citrate 250 ml @ 5 mls/hr TITRATE PRN IV 04/11/17 00:15 04/11/17 09:52 Vital Signs / I&O Vital Signs Date Time Temp Pulse Resp B/P (MAP) Pulse Ox O2 Delivery O2 Flow Rate FiO2 04/11/17 11:26 99 40 04/11/17 10:00 99 04/11/17 08:00 90 04/11/17 08:00 99.3 126 13 165/84 (111) 94 04/11/17 08:00 40 04/11/17 07:40 40 04/11/17 07:40 99 40 04/11/17 06:00 95 04/11/17 04:01 97 40 04/11/17 04:00 40 04/11/17 04:00 96.9 106 24 158/90 (112) 96 04/11/17 04:00 106 04/11/17 02:00 101 04/11/17 00:00 99.2 105 24 154/81 (105) 98 04/11/17 00:00 105 04/11/17 00:00 40 04/10/17 23:20 99 40 04/10/17 22:00 112 04/10/17 20:25 99 40 04/10/17 20:00 40 04/10/17 20:00 98.7 94 24 115/65 (82) 97 04/10/17 20:00 94 04/10/17 18:20 98 160/91 04/10/17 18:00 85 04/10/17 16:00 104 04/10/17 16:00 98.1 104 24 121/74 (90) 96 04/10/17 16:00 40 04/10/17 14:00 93 04/10/17 12:38 40 I/O 04/10/17 04/10/17 04/10/17 04/11/17 04/11/17 04/11/17 07:00 15:00 23:00 07:00 15:00 23:00 Intake Total 1007 ml 408 ml 1968.8 ml 499 ml Output Total 2100 ml 1000 ml 1350 ml 925 ml Balance -1093 ml -592 ml 618.8 ml -426 ml IV Total 600 ml 408 ml 1641.8 ml 148 ml Tube Feeding 407 ml 327 ml 351 ml Output Urine Total 2100 ml 1350 ml 925 ml Hemodialysis 1000 ml Physical Exam GENERAL: Well developed, well nourished. Intubated. Sedated. HEENT: Jugular venous pressure is normal. CHEST: Lungs clear to auscultation anteriorly. CARDIAC: Tachycardic irregular rhythm without S3, S4. I-II/ systolic murmur apex and left lower sternal border. ABDOMEN: Soft, nontender, no hepatosplenomegaly. Bowel sounds present. EXTREMITIES: No clubbing, cyanosis, or edema. Laboratory Laboratory Tests Test 04/10/17 14:58 04/10/17 22:00 04/11/17 05:15 Activated Partial Thromboplast Time 40.4 SEC 26.3 SEC 30.9 SEC White Blood Count 9.0 TH/MM3 Red Blood Count 3.14 MIL/MM3 Hemoglobin 9.3 GM/DL Hematocrit 27.8 % Mean Corpuscular Volume 88.7 FL Mean Corpuscular Hemoglobin 29.7 PG Mean Corpuscular Hemoglobin Concent 33.5 % Red Cell Distribution Width 15.8 % Platelet Count 216 TH/MM3 Mean Platelet Volume 9.3 FL Neutrophils (%) (Auto) 80.1 % Lymphocytes (%) (Auto) 9.3 % Monocytes (%) (Auto) 9.1 % Eosinophils (%) (Auto) 1.2 % Basophils (%) (Auto) 0.3 % Neutrophils # (Auto) 7.2 TH/MM3 Lymphocytes # (Auto) 0.8 TH/MM3 Monocytes # (Auto) 0.8 TH/MM3 Eosinophils # (Auto) 0.1 TH/MM3 Basophils # (Auto) 0.0 TH/MM3 CBC Comment DIFF FINAL Differential Comment Blood Urea Nitrogen 56 MG/DL Creatinine 4.55 MG/DL Random Glucose 220 MG/DL Calcium Level 8.6 MG/DL Sodium Level 140 MEQ/L Potassium Level 3.8 MEQ/L Chloride Level 102 MEQ/L Carbon Dioxide Level 30.4 MEQ/L Anion Gap 8 MEQ/L Estimat Glomerular Filtration Rate 13 ML/MIN Assessment and Plan Problem List: (1) STEMI (ST elevation myocardial infarction) ICD Codes: I21.3 - ST elevation (STEMI) myocardial infarction of unspecified site Status: Acute Plan: Possible STEMI on presentation. Difficult to interpret significance of mildly abnormal troponin levels in setting of renal failure. CKMB's negative for IA. EF on echo reported as 45-50%. The study is technically very difficult ; I suspect the EF is closer to 30%. REC increase carvedilol conservative management from a cardiac standpoint continue daily aspirin, clopidogrel (2) Paroxysmal atrial fibrillation ICD Codes: I48.0 - Paroxysmal atrial fibrillation Status: Acute Plan: Remains in atrial fib fluctuating HR's. Rec continue IV Amiodarone, resume heparin drip. Increase carvedilol. (3) Dilated cardiomyopathy ICD Codes: I42.0 - Dilated cardiomyopathy Status: Chronic Plan: Echo technically very difficult, EF reported as 45-50%. By my review, suspect it is closer to 30%. Rec increase carvedilol. No KRISTYN-I with his renal insufficiency. Consider mild diuresis. Code Status full code Problem Qualifiers (1) STEMI (ST elevation myocardial infarction): Qualified Codes: I21.3 - ST elevation (STEMI) myocardial infarction of unspecified site Vikram Briceno MD Apr 11, 2017 12:04
--- NOTE | 2017-04-11 12:04 | HHI.NPPN ---
Subjective General Problems: Anemia, Hypertension, Mebatolic Acidosis Renal Failure: Chronic, Acute Additional Remarks Patient remain intubated and sedated. Family at bedside (Carley Castillo) Review of Systems General General Remarks unable to obtain (Carley Castillo) Objective Data Data Vital Signs Date Time Temp Pulse Resp B/P (MAP) Pulse Ox O2 Delivery O2 Flow Rate FiO2 04/11/17 11:26 99 40 04/11/17 10:00 99 04/11/17 08:00 90 04/11/17 08:00 99.3 126 13 165/84 (111) 94 04/11/17 08:00 40 04/11/17 07:40 40 04/11/17 07:40 99 40 04/11/17 06:00 95 04/11/17 04:01 97 40 04/11/17 04:00 40 04/11/17 04:00 96.9 106 24 158/90 (112) 96 04/11/17 04:00 106 04/11/17 02:00 101 04/11/17 00:00 99.2 105 24 154/81 (105) 98 04/11/17 00:00 105 04/11/17 00:00 40 04/10/17 23:20 99 40 04/10/17 22:00 112 04/10/17 20:25 99 40 04/10/17 20:00 40 04/10/17 20:00 98.7 94 24 115/65 (82) 97 04/10/17 20:00 94 04/10/17 18:20 98 160/91 04/10/17 18:00 85 04/10/17 16:00 104 04/10/17 16:00 98.1 104 24 121/74 (90) 96 04/10/17 16:00 40 04/10/17 14:00 93 04/10/17 12:38 40 (Carley Castillo) -: 04/11/17 0515 04/11/17 0515 Imaging Last Impressions Chest X-Ray 04/10/17 0600 Signed Impressions: Service Date/Time: March 03:32 - CONCLUSION: 1. Questionable small medial left pneumothorax which may be artifactual. There is overlying oxygen tubing in this region as well as patchy infiltrate in the left lung. A repeat study or CT would be recommended for further evaluation. 2. Endotracheal tube and bilateral internal jugular central venous lines remain in place. Timothy Tabares MD Chest CT 04/09/17 0000 Signed Impressions: Service Date/Time: Sunday, April 09, 2017 12:38 - CONCLUSION: 1. Patchy air space in both lungs most characteristic of bronchopneumonia. No cavitation to suggest a necrotizing pneumonia. Small bilateral pleural effusions with basal and dependent consolidation in the lungs. 2. Endotracheal tube and nasogastric tube in good position. 3. Moderate to severe coronary artery calcifications. John Paul Yeboah MD Head CT 04/07/17 1646 Signed Impressions: Service Date/Time: Friday, April 07, 2017 17:37 - CONCLUSION: 1. Senescent changes with ventriculomegaly out of proportion to the degree of atrophy. Clinical correlation for normal pressure hydrocephalus is recommended. Jesus Manuel Storm MD Renal Ultrasound 04/07/17 0000 Signed Impressions: Service Date/Time: Friday, April 07, 2017 18:11 - CONCLUSION: Medical renal disease. No hydronephrosis. Jaleel Carlin MD Tubes & Lines: [place] (Carley Castillo M. INTEGRITY ASSESSOR) Physical Exam General Appearance: Well Developed, Well Nourished, No Acute Distress, Comfortable (GelCarley lew M. INTEGRITY ASSESSOR) Throat Throat Exam: Oral Mucosa [place] & Moist (Leila Castillone M. INTEGRITY ASSESSOR) Neck Neck Exam: Neck Supple (Leila Castillone M. INTEGRITY ASSESSOR) Pulmonary Resp Exam: Breath Sounds Equal, Crackles, Rhonchi, Decreased Bases, Poor Inspiratory Effort (GellermannLeilaCarley M. INTEGRITY ASSESSOR) Cardiology CV Exam: Good Perfusion, Bradycardia (AngielerLeila baconne M. INTEGRITY ASSESSOR) Gastrointestinal/Abdomen GI Exam: Soft, Non-Tender, Bowel Sounds Present (Leila Castillone M. INTEGRITY ASSESSOR) Musculoskeletal MS Exam: Joints Intact, Normal Gait (GellermannLeilaCarley M. INTEGRITY ASSESSOR) Integumentary Skin Exam: Warm, Dry, Intact (GellermannLeilaCarley M. INTEGRITY ASSESSOR) Extremeties Extremities Exam: Moderate Edema (TeofilomannLeilaCarley M. INTEGRITY ASSESSOR) Neurologic Neuro Exam: Sedated (GelCarley lew) Assessment/Plan Discussed Condition With: Patient Assessment Summary: ROEL/Acute Renal Failure, Anemia of CKD Electrolyte Assessment: Metabolic Acidosis Problem List: (1) Acute renal failure ICD Codes: N17.9 - Acute kidney failure, unspecified Plan: He has underlying CKD,. Per the locomotive pipe fitter, Dr. Ramirez in [place], his GFR was 19 (creatinine 3.2) in October (CKD 4), he had underlying diabetic nephropathy with proteinuria. Acute Renal failure due to bradycardia and NY, with diminished renal perfusion. Started on HD Has been non oliguric with UOP at 2275 over past 24 hours. Creatinine remain high slightly improved at 4.55 from 4.798 Next HD Sat. or as needed. (2) Bradycardia ICD Codes: R00.1 - Bradycardia, unspecified Status: Acute Plan: May need PPM Continue supportive care Blood pressure remains elevated; avoid BB and KRISTYN, on Amlodipine 5 mg daily (3) Anemia ICD Codes: D64.9 - Anemia, unspecified Plan: May have anemia of CKD. Has iron deficiency, has had venofer. (4) STEMI (ST elevation myocardial infarction) ICD Codes: I21.3 - ST elevation (STEMI) myocardial infarction of unspecified site Status: Acute Plan: Cardiology following, unclear if he suffered NY. Off heparin gtt. (5) Leukocytosis ICD Codes: D72.829 - Elevated white blood cell count, unspecified Plan: May be reactive, monitor for infections Lactic acid elevated. (Carley Castillo) Problem List: (1) Acute renal failure ICD Codes: N17.9 - Acute kidney failure, unspecified Plan: He has underlying CKD,. Per the locomotive pipe fitter, Dr. Ramirez in [place], his GFR was 19 (creatinine 3.2) in October (CKD 4), he had underlying diabetic nephropathy with proteinuria. Acute Renal failure due to bradycardia and NY, with diminished renal perfusion. Started on HD Has been non oliguric with UOP at 2275 over past 24 hours. Creatinine remain high slightly improved at 4.55 from 4.798 Next HD Sat. or as needed. Patient seen and examined, agree with above. HD will be in AM again. Watch for renal recovery (2) Bradycardia ICD Codes: R00.1 - Bradycardia, unspecified Status: Acute Plan: May need PPM Continue supportive care Blood pressure remains elevated; avoid BB and KRISTYN, on Amlodipine 5 mg daily (3) Anemia ICD Codes: D64.9 - Anemia, unspecified Plan: May have anemia of CKD. Has iron deficiency, has had venofer. (4) STEMI (ST elevation myocardial infarction) ICD Codes: I21.3 - ST elevation (STEMI) myocardial infarction of unspecified site Status: Acute Plan: Cardiology following, unclear if he suffered NY. Off heparin gtt. (5) Leukocytosis ICD Codes: D72.829 - Elevated white blood cell count, unspecified Plan: May be reactive, monitor for infections Lactic acid elevated. (Hayes Herron MD) Problem Qualifiers (1) STEMI (ST elevation myocardial infarction): Qualified Codes: I21.3 - ST elevation (STEMI) myocardial infarction of unspecified site Carley Castillo Apr 11, 2017 12:04 Hayes Herron MD Apr 11, 2017 22:53
--- NOTE | 2017-04-11 12:56 | HHI.IDPN ---
Subjective Subjective Remarks ID X cver for Dr Haley chart was reviewed Mr. Hubbard is a 72-year-old male with past medical history significant for coronary artery disease, chronic kidney disease, cerebrovascular accident, hypertension diabetes, hyperlipidemia who was brought into the emergency room via ambulance due to altered mental status. Apparently the patient's daughter could not reach him so she called far department to check on him. On arrival to found him on the floor in reportedly patient was probably there for at least 2 days. Patient was confused and came to the emergency room was found to be bradycardic and a STEMI alert was called. EKG in the ER reportedly was consistent with inferior wall NE and bradycardia in the 30s. Patient had a BUN of 140, creatinine of 9.7 upon arrival in the emergency department. His troponin was 2.72 and total CK of 380. He had leukocytosis of 19.5. In the emergency department he was given 1 L fluid bolus aspirin and Dr. Briceno from cardiology was consulted. Patient was initially placed on nitroglycerin drip as well. Cardiac catheterization was placed on hold due to significant renal failure. It was decided to continue with medical therapy until his renal function improves. Patient was admitted on the critical care services. Dr. Geoffrey Hamilton from nephrology services also been consulted. At the time of my evaluation patient is in the [facility] currently not on any pressors. Patient remains intubated and sedated. On a brief sedation vacation patient reportedly moves his extremities. RN reports jittery movements of his upper extremities. An EEG was done report is still pending. Per my discussion with the garbage collector supervisor there is a plan for hemodialysis to be initiated today after Vas-Cath was placed. RN for the patient reported that she had been told by the patient's daughter that there is a significant psychiatric history. Also that the patient was recently discharged from [facility] in [place] where he is treated for flu. Due to worsening chest x-ray and respiratory status infectious disease was consulted for possible necrotizing pneumonia. CT showed No cavitation to suggest a necrotizing pneumonia Sputum clx with nl resp sintia Low grade Staph epi in blood clx (1/4 bottles) Overnight events reviewed. No fevers No rash No diarrhea Makes good urine WBC down to 9 K On vent PEEP 5 FiO2 40% Antibiotics Tamiflu Cefepime IV Levaquin IV Zyvox IV Lines Line sites with no e.o infection Past Medical History Past Medical History 1. Coronary artery disease. 2. Chronic kidney disease. 3. Cerebrovascular accident. 4. Diabetes mellitus. 5. Hypertension. 6. Hyperlipidemia. 7. Psychiatric history. Past Surgical History None per records. Allergies: Coded Allergies: Sulfa (Sulfonamide Antibiotics) (Verified Allergy, Intermediate, HIVES, ) penicillin G (Verified Allergy, Unknown, HIVES, 04/07/17) Objective . Vital Signs Date Time Temp Pulse Resp B/P (MAP) Pulse Ox O2 Delivery O2 Flow Rate FiO2 04/11/17 11:26 99 40 04/11/17 10:00 99 04/11/17 08:00 90 04/11/17 08:00 99.3 126 13 165/84 (111) 94 04/11/17 08:00 40 04/11/17 07:40 40 04/11/17 07:40 99 40 04/11/17 06:00 95 04/11/17 04:01 97 40 04/11/17 04:00 40 04/11/17 04:00 96.9 106 24 158/90 (112) 96 04/11/17 04:00 106 04/11/17 02:00 101 04/11/17 00:00 99.2 105 24 154/81 (105) 98 04/11/17 00:00 105 04/11/17 00:00 40 04/10/17 23:20 99 40 04/10/17 22:00 112 04/10/17 20:25 99 40 04/10/17 20:00 40 04/10/17 20:00 98.7 94 24 115/65 (82) 97 04/10/17 20:00 94 04/10/17 18:20 98 160/91 04/10/17 18:00 85 04/10/17 16:00 104 04/10/17 16:00 98.1 104 24 121/74 (90) 96 04/10/17 16:00 40 04/10/17 14:00 93 . Laboratory Tests Test 04/10/17 04:30 04/11/17 05:15 White Blood Count 13.8 TH/MM3 9.0 TH/MM3 Red Blood Count 3.35 MIL/MM3 3.14 MIL/MM3 Hemoglobin 10.0 GM/DL 9.3 GM/DL Hematocrit 29.6 % 27.8 % Mean Corpuscular Volume 88.3 FL 88.7 FL Mean Corpuscular Hemoglobin 29.8 PG 29.7 PG Mean Corpuscular Hemoglobin Concent 33.8 % 33.5 % Red Cell Distribution Width 15.8 % 15.8 % Platelet Count 230 TH/MM3 216 TH/MM3 Mean Platelet Volume 9.8 FL 9.3 FL Neutrophils (%) (Auto) 86.4 % 80.1 % Lymphocytes (%) (Auto) 4.6 % 9.3 % Monocytes (%) (Auto) 8.2 % 9.1 % Eosinophils (%) (Auto) 0.6 % 1.2 % Basophils (%) (Auto) 0.2 % 0.3 % Neutrophils # (Auto) 11.9 TH/MM3 7.2 TH/MM3 Lymphocytes # (Auto) 0.6 TH/MM3 0.8 TH/MM3 Monocytes # (Auto) 1.1 TH/MM3 0.8 TH/MM3 Eosinophils # (Auto) 0.1 TH/MM3 0.1 TH/MM3 Basophils # (Auto) 0.0 TH/MM3 0.0 TH/MM3 CBC Comment DIFF FINAL DIFF FINAL Differential Comment Laboratory Tests Test 04/10/17 04:30 04/11/17 05:15 Blood Urea Nitrogen 90 MG/DL 56 MG/DL Creatinine 5.78 MG/DL 4.55 MG/DL Random Glucose 207 MG/DL 220 MG/DL Total Protein 6.9 GM/DL Albumin 2.5 GM/DL Calcium Level 8.6 MG/DL 8.6 MG/DL Alkaline Phosphatase 105 U/L Aspartate Amino Transf (AST/SGOT) 29 U/L Alanine Aminotransferase (ALT/SGPT) 61 U/L Total Bilirubin 0.5 MG/DL Sodium Level 138 MEQ/L 140 MEQ/L Potassium Level 3.5 MEQ/L 3.8 MEQ/L Chloride Level 99 MEQ/L 102 MEQ/L Carbon Dioxide Level 26.2 MEQ/L 30.4 MEQ/L Anion Gap 13 MEQ/L 8 MEQ/L Estimat Glomerular Filtration Rate 10 ML/MIN 13 ML/MIN Microbiology Date/Time Source Procedure Growth Status 04/09/17 06:00 Blood Peripheral Aerobic Blood Culture - Preliminary NO GROWTH IN 2 DAYS Resulted 04/09/17 06:00 Blood Peripheral Anaerobic Blood Culture - Preliminary NO GROWTH IN 2 DAYS Resulted 04/08/17 17:45 Blood Peripheral Aerobic Blood Culture - Preliminary Staphylococcus Epidermidis Resulted 04/08/17 17:45 Blood Peripheral Anaerobic Blood Culture - Preliminary NO GROWTH IN 3 DAYS Resulted 04/08/17 18:40 Sputum Endotracheal Gram Stain - Final Complete 04/08/17 18:40 Sputum Endotracheal Sputum Culture - Final HEAVY GROWTH NORMAL RESPIRATORY SINTIA Complete 04/09/17 09:55 Urine Catheterized Urine Legionella Antigen - Final PRESUMPTIVE NEGATIVE FOR LEGIONELLA P... Complete 04/09/17 09:55 Urine Catheterized Urine Streptococcus pneumoniae Antigen (M - Final PRESUMPTIVE NEGATIVE FOR STREPTOCOCCU... Complete Imaging Last Impressions Chest X-Ray 04/10/17 0600 Signed Impressions: Service Date/Time: March 03:32 - CONCLUSION: 1. Questionable small medial left pneumothorax which may be artifactual. There is overlying oxygen tubing in this region as well as patchy infiltrate in the left lung. A repeat study or CT would be recommended for further evaluation. 2. Endotracheal tube and bilateral internal jugular central venous lines remain in place. Timothy Tabares MD Chest CT 04/09/17 0000 Signed Impressions: Service Date/Time: Sunday, April 09, 2017 12:38 - CONCLUSION: 1. Patchy air space in both lungs most characteristic of bronchopneumonia. No cavitation to suggest a necrotizing pneumonia. Small bilateral pleural effusions with basal and dependent consolidation in the lungs. 2. Endotracheal tube and nasogastric tube in good position. 3. Moderate to severe coronary artery calcifications. John Paul Yeboah MD Head CT 04/07/17 1646 Signed Impressions: Service Date/Time: Friday, April 07, 2017 17:37 - CONCLUSION: 1. Senescent changes with ventriculomegaly out of proportion to the degree of atrophy. Clinical correlation for normal pressure hydrocephalus is recommended. Jesus Manuel Storm MD Renal Ultrasound 04/07/17 0000 Signed Impressions: Service Date/Time: Friday, April 07, 2017 18:11 - CONCLUSION: Medical renal disease. No hydronephrosis. Jaleel Carlin MD Physical Exam GENERAL: This is a well-nourished, well-developed patient, in no apparent distress. SKIN: No rashes, ecchymoses or lesions. Cool and dry. HEAD: Atraumatic. Normocephalic. No temporal or scalp tenderness. EYES: Pupils equal round and reactive. Extraocular motions intact. No scleral icterus. No injection or drainage. ENT: Intubated NECK: Trachea midline. No JVD or lymphadenopathy. Supple, nontender, no meningeal signs. CARDIOVASCULAR: Regular rate and rhythm without murmurs, gallops, or rubs. RESPIRATORY: Clear to auscultation. Breath sounds equal bilaterally. No wheezes , rales, or rhonchi. GASTROINTESTINAL: Abdomen soft, non-tender, nondistended. No hepato-splenomegaly , or palpable masses. No guarding. MUSCULOSKELETAL: Extremities without clubbing, cyanosis, or edema. No joint tenderness, effusion, or edema noted. No calf tenderness. Negative Homans sign bilaterally. NEUROLOGICAL: Sedated. Psych could not be assessed IV line sites with no e.o infection. Assessment & Plan Remarks pneumonia likely post influenza(based on the recent history of flu)\ no e/o necrotizing process Acute renal failure likely component of chronic kidney disease based on history. Now will be placed on dialysis. Acute respiratory failure on ventilator ST elevation NE inferior wall Bradycardia Hyponatremia and hyperkalemia Leukocytosis likely secondary to infection Recent history of flu unsure if this was treated will obtain records. History of coronary artery disease History of cerebrovascular accident History of psychiatric issues Diabetes mellitus Low grade Staph epi bactermeia, cw contaminant Recommendations: Continue Levaquin Continue cefepime IV dc Zyvox dw pt's dgtr Mouna Cunningham MD Apr 11, 2017 12:56
--- NOTE | 2017-04-11 14:50 | PD.CONS ---
Consult Service Palliative Care . Consult Requested By Dr. Perdomo . Primary Care Physician Unknown . Reason for Consultation a. To assist with evaluation and management of symptoms including: pain, dyspnea b. To assist medical decision maker(s) with: better understanding of current medical conditions; weighing benefits/burdens of medical treatment options; making medical treatment decisions. . (Dolly Duran) HPI History of Present Illness Mr. Hubbard is a 72-year-old male with CAD, CKD, CVA, diabetes, hypertension, ND , depression and hyperlipidemia who presented to [facility] ED on 04/07/2017 via EMS for evaluation of altered mental status. Apparently the patient had recently been hospitalized at [facility] with flulike symptoms. His caregiver was unable to reach him on the phone Caregiver had been unable to reach the patient by phone for a couple of days. He was found on the floor and confused but was able to explain he had been there for a couple of days. There was urine and feces all over the house. Patient was confused, complaining of pain all over. Upon EMS arrival, the patient was placed on 3 L oxygen via nasal cannula. EKG showed ST elevation in the inferior and lateral leads with a LBBB; he was made a STEMI alert by paramedics. Patient was given ASA and nitroglycerin without relief. IV access was obtained and the patient received 200ml NS bolus. Additional diagnostic data: * Vital signs: Pulse 40, respirations 22, BP 153/86, oxygen saturation 99% on 4 L via nasal cannula, temperature 98.0 * WBC: 19.5, hemoglobin 9.2, hematocrit 28.1, platelets 279, neutrophils 84.5% * PT: 10.9, INR 1.1, APTT 20.7 * Sodium: 133, potassium 5.6, chloride 102, glucose 251, calcium 8.8, magnesium 3.3 * BUN: 140, creatinine 9.7 * Total creatine kinase: 380 * CK-MB: 8.7 * Troponin: 2.72 * BNP 1170 * Influenza negative * Chest x-ray with cardiomegaly and chronic appearing interstitial changes; no definite acute abnormalities Patient was admitted to critical care for further evaluation and medical management of ST elevation myocardial infarction. Additional impressions include leukocytosis, acute renal failure, bradycardia, anemia and hyperkalemia. Cardiology and nephrology were consulted. Patient has underlying CKD, but baseline is unknown. 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 ARF may be secondary to bradycardia, to diminished renal perfusion. Patient not making urine; a bladder scan showed only 95 mL's. Urinalysis was negative. A ultrasound of the kidneys showed medical renal disease; no hydronephrosis. Hyperkalemic with potassium level of 5.6; given IV insulin and dextrose. BUN >140; creatinine 9.7. If there is no improvement in renal function, patient will likely need hemodialysis. Cardiology, Dr. Briceno, evaluating patient. Patient reporting substernal chest pressure that had begun earlier in the day with associated shortness of breath. No nausea or diaphoresis reported. Patient reports chronic, intermittent dependent pedal edema. Recommendations to obtain CT head (if negative will initiate heparin drip and aspirin) and echocardiogram. Consider temporary pacemaker unless the patient comes hypotensive. We'll continue IV nitroglycerin. Beta blockers on hold secondary to bradycardia; KRISTYN inhibitor inhibitors on hold secondary to renal insufficiency. = CT head on 04/07/2017 owing senescent changes with ventriculomegaly out of proportion to the degree of atrophy. Clinical correlation for normal pressure hydrocephalus is recommended. Patient having ongoing dyspnea; placed on BiPAP initially but later required intubation and mechanical ventilation for worsening respiratory status. Hemoglobin dropped to 7.2 and the patient was transfused with 1 unit of PRBCs Infectious disease was consulted due to worsening chest x-ray and respiratory status. CT chest 04/09/2017 showing patchy airspace in both lungs most characteristic of bronchopneumonia. No cavitation to suggest a necrotizing pneumonia. Small bilateral pleural effusions with basal and dependent consolidation in the lungs. Moderate to severe coronary artery disease. Patient is on Zyvox; started on Cefepime and Tamiflu. Echocardiogram with EF of 30% per Dr. Briceno Nephrology was able to contact kidney specialist in [place]. Apparently the patient has missed his last 10 appointments. He is reportedly noncompliant. In October, his baseline creatinine: 3.2, GFR: 19. Prior to that in May, since creatinine was 2.6. Hemodialysis catheter was placed on 04/09/17 and dialysis was initiated. Patient went into atrial fibrillation overnight on 04/10/2017. Heparin drip was restarted. Amiodarone drip was initiated per cardiology but was later held secondary to noted sinus pauses. Palliative Care was consulted to assist with symptom management and to discuss with the family the benefits and burdens of his current illnesses and the options regarding future care.. . Function/Cognitive Trajectory Information obtained from patient's daughter (Alejandrina). Patient has a complex medical history that includes extensive mental illness. Patient was living closer to his daughter who was making sure that he was going to medical appointments. He is quite noncompliant with medical advice and has been having more difficulty living independently. . (Dolly Duran) Review of Systems ROS Limitations: Intubated, Altered Mental Status, Speech Impaired Respiratory: COMPLAINS OF: Shortness of breath (ROS obtained through review of medical records and report.) Psychiatric: COMPLAINS OF: Anxiety, Depression (Dolly Duran) Past Family Social History Coded Allergies: Sulfa (Sulfonamide Antibiotics) (Verified Allergy, Intermediate, HIVES, ) penicillin G (Verified Allergy, Unknown, HIVES, 04/07/17) Past Medical History Coronary artery disease Chronic kidney disease CVA-2016 Diabetes Hypertension Hyperlipidemia ND-2017 Dementia Significant history of mental illness . Past Surgical History Patient cannot recall surgical history. Reported Medications Patient is unable to provide current medications. . Current Medications Medications (Trade) Dose Ordered Sig/Mary Kay Route Start Time Stop Time Status Last Admin (NS Flush) 2 ml UNSCH PRN IVF 04/07/17 16:00 04/07/17 16:04 Miscellaneous Information 1 Q361D XX 04/07/17 16:30 04/07/17 16:30 (Chlorhexidine 2% Cloth) 3 pack Taper DAILY@04 TOP 04/08/17 04:00 04/04/18 03:59 04/11/17 03:19 (Chlorhexidine 2% Cloth) 3 pack UNSCH PRN TOP 04/07/17 16:30 (Ecotrin Ec) 325 mg DAILY PO 04/08/17 09:00 04/11/17 08:03 (D50w (Vial) Inj) 50 ml UNSCH PRN IV PUSH 04/07/17 17:00 (Glucagon Inj) 1 mg UNSCH PRN OTHER 04/07/17 17:00 (NovoLIN R SUPPLEMENTAL SCALE) 1 Q4HR SQ 04/07/17 17:00 04/11/17 12:16 (Duoneb Neb) 1 ampule Q4HR NEB NEB 04/07/17 20:00 04/11/17 11:25 (Duoneb Neb) 1 ampule Q2HR NEB PRN NEB 04/07/17 17:15 (Protonix Inj) 40 mg Q24H IV PUSH 04/07/17 18:00 04/10/17 17:50 (Imdur) 60 mg DAILY PO 04/08/17 09:00 04/11/17 08:03 (Plavix) 75 mg DAILY PO 04/08/17 09:00 04/11/17 08:03 (Norvasc) 5 mg DAILY PO 04/08/17 11:15 04/11/17 08:03 (Apresoline Inj) 20 mg Q2H PRN IV PUSH 04/08/17 13:00 04/11/17 01:21 (Haldol Inj) 5 mg Q4H PRN IV PUSH 04/08/17 14:30 04/08/17 14:32 Levofloxacin/ Dextrose 50 ml @ 50 mls/hr Q48H IV 04/10/17 18:00 04/10/17 17:50 Dopamine HCl/ Dextrose 500 ml @ 11.475 mls/ hr TITRATE PRN IV 04/08/17 19:00 (Brethine Inj) 1 mg UNSCH PRN SQ 04/08/17 19:00 Propofol 100 ml @ 3.06 mls/hr TITRATE PRN IV 04/08/17 20:30 04/11/17 08:06 (Phoslo) 667 mg TID OG-TUBE 04/09/17 09:00 04/11/17 13:11 Cefepime HCl 1000 mg/Sodium Chloride 100 ml @ 200 mls/hr Q24H IV 04/09/17 12:00 04/11/17 11:40 Sodium Chloride 1,000 ml @ 0 mls/hr Q0M PRN OTHER 04/09/17 11:45 (Heparin Inj) 8,000 units UNSCH PRN IV FLUSH 04/09/17 11:45 Sodium Chloride 1,000 ml @ 200 mls/hr Q5H PRN IV 04/09/17 11:45 Sodium Chloride 1,000 ml @ 0 mls/hr Q0M PRN OTHER 04/09/17 11:45 (Mannitol Inj) 12.5 gm UNSCH PRN IV 04/09/17 11:45 Albumin Human 100 ml @ 60 mls/hr UNSCH PRN IV 04/09/17 11:45 (NS Flush) 5 ml UNSCH PRN IV FLUSH 04/09/17 11:45 (Heparin Inj) UNSCH PRN .XX 04/09/17 11:45 04/09/17 16:48 (Gentamicin Inj) 20 mg UNSCH PRN OTHER 04/09/17 11:45 04/09/17 16:49 (Zofran Inj) 4 mg UNSCH PRN IV PUSH 04/09/17 11:45 (Tylenol) 650 mg UNSCH PRN PO 04/09/17 11:45 (Benadryl) 25 mg UNSCH PRN PO 04/09/17 11:45 (Nitrostat Sl) 0.4 mg UNSCH PRN SL 04/09/17 11:45 (Catapres) 0.1 mg UNSCH PRN PO 04/09/17 11:45 (Epogen Inj) 10,000 units UNSCH PRN IV PUSH 04/09/17 11:45 04/09/17 16:48 (Gelfoam 12 Mm/7 Mm Top) 1 foam UNSCH PRN TOP 04/09/17 11:45 (Heparin Inj) 5,000 units UNSCH PRN IV PUSH 04/10/17 14:15 (Heparin Inj) 2,500 units UNSCH PRN IV PUSH 04/10/17 14:15 04/11/17 06:39 Heparin Sodium/ Dextrose 250 ml @ 10 mls/hr TITRATE PRN IV 04/10/17 08:15 04/11/17 08:05 Fentanyl Citrate 250 ml @ 5 mls/hr TITRATE PRN IV 04/11/17 00:15 04/11/17 09:52 (Coreg) 12.5 mg Q12HR PO 04/11/17 21:00 . Family History Pending further conversation with the patient's family. Substance Use Tobacco: Alcohol: Prescription med abuse: Illicits: Psychosocial History Patient is retired and . He apparently lives alone in [place]. He has 2 daughters, Alejandrina and Trinh. She is noncompliant with medical advice; he does not open the door for C for PT/OT. 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 (Dolly Duran) Living Will: Copy in medical record Health Care Surrogate: Copy in medical record Durable Power of Direct Marketing Manager: Copy in medical record Date completed: 06/15/2015 . Health Care Surrogate(s): Patient designated either one of his daughters to act as the healthcare surrogate decision maker. Either Alejandrina Hubbard or Monika Hubbard . Documented care wishes: Written advanced directives have been completed and are successful and patient' s paper chart. . Today's verbally stated goals: Patient is unable to verbalize medical treatment goals given his current clinical condition. . Family/friends goals: Patient's daughters state they wish to on her the patient's written advanced directives. Based on this, his CODE STATUS was changed to an ALTERNATE CODE- intubation only. They are comfortable giving their father some time to see if he can improve, but if he does not they will want to transition to comfort focused care. . Ethical and Legal Issues No known ethical or legal issues at this time. Sign. (oDlly Duran) Physical Exam Vital Signs Date Time Temp Pulse Resp B/P (MAP) Pulse Ox O2 Delivery O2 Flow Rate FiO2 04/11/17 11:26 99 40 04/11/17 10:00 99 04/11/17 08:00 90 04/11/17 08:00 99.3 126 13 165/84 (111) 94 04/11/17 08:00 40 04/11/17 07:40 40 04/11/17 07:40 99 40 04/11/17 06:00 95 04/11/17 04:01 97 40 04/11/17 04:00 40 04/11/17 04:00 96.9 106 24 158/90 (112) 96 04/11/17 04:00 106 04/11/17 02:00 101 04/11/17 00:00 99.2 105 24 154/81 (105) 98 04/11/17 00:00 105 04/11/17 00:00 40 04/10/17 23:20 99 40 04/10/17 22:00 112 04/10/17 20:25 99 40 04/10/17 20:00 40 04/10/17 20:00 98.7 94 24 115/65 (82) 97 04/10/17 20:00 94 04/10/17 18:20 98 160/91 04/10/17 18:00 85 04/10/17 16:00 104 04/10/17 16:00 98.1 104 24 121/74 (90) 96 04/10/17 16:00 40 . 04/11/17 04/12/17 19:00 07:00 Intake Total 205 ml Balance 205 ml IV Total 205 ml . Exam CONSTITUTIONAL/GENERAL: This is an adequately nourished male patient who is currently intubated on mechanical ventilation. TUBES/LINES/DRAINS: Right IJ CVL, left IJ Vas-Cath, ETT, NGT, Mackey catheter, SCDs, put his boots SKIN: Abrasions on bilateral lower extremities. Skin temperature appropriate. Not diaphoretic. HEAD: Atraumatic. Normocephalic. EYES: No scleral icterus. No injection or drainage. Fundi not examined. ENT: Hearing grossly normal. Nose without bleeding or purulent drainage. NECK: Trachea midline. Supple, nontender. No palpable thyroid enlargement or nodularity. CARDIOVASCULAR: Regular rate and rhythm without murmurs, gallops, or rubs. No JVD. Peripheral pulses symmetric. RESPIRATORY/CHEST: Intubated on mechanical ventilation. Clear to auscultation. Breath sounds diminished bilaterally. No wheezes, rales, or rhonchi. GASTROINTESTINAL: Abdomen soft, non-tender, nondistended. No guarding. Bowel sounds present. GENITOURINARY: Without palpable bladder distension. Mackey catheter in place. MUSCULOSKELETAL: Extremities without clubbing, cyanosis, or edema. . No mottling or clubbing. LYMPHATICS: No palpable cervical or supraclavicular adenopathy. NEUROLOGICAL: Sedated on propofol and fentanyl. Arouses to verbal stimuli. PSYCHIATRIC: Difficult to assess given clinical condition; however at times patient does appear restless and/or agitated. . (Dolly Duran) Diagnostic Tests Laboratory Laboratory Tests Test 04/08/17 18:10 04/09/17 03:45 04/09/17 11:30 04/10/17 04:30 White Blood Count 23.4 TH/MM3 (4.0-11.0) 11.8 TH/MM3 (4.0-11.0) 13.8 TH/MM3 (4.0-11.0) Red Blood Count 2.93 MIL/MM3 (4.50-5.90) 2.46 MIL/MM3 (4.50-5.90) 3.35 MIL/MM3 (4.50-5.90) Hemoglobin 8.7 GM/DL (13.0-17.0) 7.2 GM/DL (13.0-17.0) 10.0 GM/DL (13.0-17.0) Hematocrit 26.2 % (39.0-51.0) 21.9 % (39.0-51.0) 29.6 % (39.0-51.0) Mean Corpuscular Volume 89.3 FL (80.0-100.0) 89.3 FL (80.0-100.0) 88.3 FL (80.0-100.0) Mean Corpuscular Hemoglobin 29.8 PG (27.0-34.0) 29.2 PG (27.0-34.0) 29.8 PG (27.0-34.0) Mean Corpuscular Hemoglobin Concent 33.4 % (32.0-36.0) 32.7 % (32.0-36.0) 33.8 % (32.0-36.0) Red Cell Distribution Width 16.4 % (11.6-17.2) 16.5 % (11.6-17.2) 15.8 % (11.6-17.2) Platelet Count 295 TH/MM3 (150-450) 209 TH/MM3 (150-450) 230 TH/MM3 (150-450) Mean Platelet Volume 10.1 FL (7.0-11.0) 10.3 FL (7.0-11.0) 9.8 FL (7.0-11.0) Neutrophils (%) (Auto) 87.9 % (16.0-70.0) 81.5 % (16.0-70.0) 86.4 % (16.0-70.0) Lymphocytes (%) (Auto) 4.3 % (9.0-44.0) 9.6 % (9.0-44.0) 4.6 % (9.0-44.0) Monocytes (%) (Auto) 7.5 % (0.0-8.0) 8.4 % (0.0-8.0) 8.2 % (0.0-8.0) Eosinophils (%) (Auto) 0.0 % (0.0-4.0) 0.3 % (0.0-4.0) 0.6 % (0.0-4.0) Basophils (%) (Auto) 0.3 % (0.0-2.0) 0.2 % (0.0-2.0) 0.2 % (0.0-2.0) Neutrophils # (Auto) 20.6 TH/MM3 (1.8-7.7) 9.6 TH/MM3 (1.8-7.7) 11.9 TH/MM3 (1.8-7.7) Lymphocytes # (Auto) 1.0 TH/MM3 (1.0-4.8) 1.1 TH/MM3 (1.0-4.8) 0.6 TH/MM3 (1.0-4.8) Monocytes # (Auto) 1.7 TH/MM3 (0-0.9) 1.0 TH/MM3 (0-0.9) 1.1 TH/MM3 (0-0.9) Eosinophils # (Auto) 0.0 TH/MM3 (0-0.4) 0.0 TH/MM3 (0-0.4) 0.1 TH/MM3 (0-0.4) Basophils # (Auto) 0.1 TH/MM3 (0-0.2) 0.0 TH/MM3 (0-0.2) 0.0 TH/MM3 (0-0.2) CBC Comment AUTO DIFF DIFF FINAL DIFF FINAL Differential Total Cells Counted 100 Neutrophils % (Manual) 92 % (16-70) Band Neutrophils % 2 % (0-6) Lymphocytes % 4 % (9-44) Monocytes % 2 % (0-8) Neutrophils # (Manual) 22.0 TH/MM3 (1.8-7.7) Differential Comment FINAL DIFF MANUAL Toxic Granulation 1+ (NORMAL) Platelet Estimate NORMAL (NORMAL) Platelet Morphology Comment NORMAL (NORMAL) Blood Urea Nitrogen 120 MG/DL (7-18) 125 MG/DL (7-18) 90 MG/DL (7-18) Creatinine 7.54 MG/DL (0.60-1.30) 7.78 MG/DL (0.60-1.30) 5.78 MG/DL (0.60-1.30) Random Glucose 168 MG/DL (74-106) 170 MG/DL (74-106) 207 MG/DL (74-106) Total Protein 6.7 GM/DL (6.4-8.2) 5.9 GM/DL (6.4-8.2) 6.9 GM/DL (6.4-8.2) Albumin 2.6 GM/DL (3.4-5.0) 2.2 GM/DL (3.4-5.0) 2.5 GM/DL (3.4-5.0) Calcium Level 8.1 MG/DL (8.5-10.1) 7.9 MG/DL (8.5-10.1) 8.6 MG/DL (8.5-10.1) Phosphorus Level 8.5 MG/DL (2.5-4.9) Magnesium Level 2.8 MG/DL (1.5-2.5) Alkaline Phosphatase 89 U/L (45-117) 71 U/L (45-117) 105 U/L (45-117) Aspartate Amino Transf (AST/SGOT) 56 U/L (15-37) 41 U/L (15-37) 29 U/L (15-37) Alanine Aminotransferase (ALT/SGPT) 72 U/L (12-78) 67 U/L (12-78) 61 U/L (12-78) Total Bilirubin 0.6 MG/DL (0.2-1.0) 0.4 MG/DL (0.2-1.0) 0.5 MG/DL (0.2-1.0) Sodium Level 139 MEQ/L (136-145) 139 MEQ/L (136-145) 138 MEQ/L (136-145) Potassium Level 4.1 MEQ/L (3.5-5.1) 4.0 MEQ/L (3.5-5.1) 3.5 MEQ/L (3.5-5.1) Chloride Level 103 MEQ/L (98-107) 102 MEQ/L (98-107) 99 MEQ/L (98-107) Carbon Dioxide Level 21.2 MEQ/L (21.0-32.0) 23.0 MEQ/L (21.0-32.0) 26.2 MEQ/L (21.0-32.0) Anion Gap 15 MEQ/L (5-15) 14 MEQ/L (5-15) 13 MEQ/L (5-15) Estimat Glomerular Filtration Rate 7 ML/MIN (>89) 7 ML/MIN (>89) 10 ML/MIN (>89) Lactic Acid Level 1.6 mmol/L (0.4-2.0) Troponin I 1.56 NG/ML (0.02-0.05) B-Type Natriuretic Peptide 911 PG/ML (0-100) Triglycerides Level 269 MG/DL (42-150) Cholesterol Level 139 MG/DL (120-200) LDL Cholesterol 57 MG/DL (0-99) HDL Cholesterol 28.2 MG/DL (40.0-60.0) Cholesterol/HDL Ratio 4.92 RATIO Adenovirus (PCR) NOT DETECTED (NOT DETECT) Bordetella holmesii (PCR) NOT DETECTED (NOT DETECT) Bordetella pertussis DNA (PCR) NOT DETECTED (NOT DETECT) B. parapertussis/bronchi (PCR) NOT DETECTED (NOT DETECT) Human Metapneumovirus (PCR) NOT DETECTED (NOT DETECT) Influenza Type A (RT-PCR) NOT DETECTED (NOT DETECT) Influenza Type A (H1) (PCR) NOT DETECTED (NOT DETECT) Influenza Type A (H3) (PCR) NOT DETECTED (NOT DETECT) Influenza Type B (RT-PCR) NOT DETECTED (NOT DETECT) Parainfluenza Type 1 (PCR) NOT DETECTED (NOT DETECT) Parainfluenza Type 2 (PCR) NOT DETECTED (NOT DETECT) Parainfluenza Type 3 (PCR) NOT DETECTED (NOT DETECT) Parainfluenza Type 4 (PCR) NOT DETECTED (NOT DETECT) Resp Syncytial Virus Type A (PCR) NOT DETECTED (NOT DETECT) Resp Syncytial Virus Type B (PCR) NOT DETECTED (NOT DETECT) Rhinovirus (PCR) NOT DETECTED (NOT DETECT) Hepatitis A IgM Antibody NEGATIVE (NEGATIVE) Hepatitis B Surface Antigen NEGATIVE (NEGATIVE) Hepatitis B Core IgM Antibody NEGATIVE (NEGATIVE) Hepatitis C Antibody NEGATIVE (NEGATIVE) Test 04/10/17 14:58 04/10/17 22:00 04/11/17 05:15 04/11/17 13:20 Activated Partial Thromboplast Time 40.4 SEC (24.3-30.1) 26.3 SEC (24.3-30.1) 30.9 SEC (24.3-30.1) 36.3 SEC (24.3-30.1) White Blood Count 9.0 TH/MM3 (4.0-11.0) Red Blood Count 3.14 MIL/MM3 (4.50-5.90) Hemoglobin 9.3 GM/DL (13.0-17.0) Hematocrit 27.8 % (39.0-51.0) Mean Corpuscular Volume 88.7 FL (80.0-100.0) Mean Corpuscular Hemoglobin 29.7 PG (27.0-34.0) Mean Corpuscular Hemoglobin Concent 33.5 % (32.0-36.0) Red Cell Distribution Width 15.8 % (11.6-17.2) Platelet Count 216 TH/MM3 (150-450) Mean Platelet Volume 9.3 FL (7.0-11.0) Neutrophils (%) (Auto) 80.1 % (16.0-70.0) Lymphocytes (%) (Auto) 9.3 % (9.0-44.0) Monocytes (%) (Auto) 9.1 % (0.0-8.0) Eosinophils (%) (Auto) 1.2 % (0.0-4.0) Basophils (%) (Auto) 0.3 % (0.0-2.0) Neutrophils # (Auto) 7.2 TH/MM3 (1.8-7.7) Lymphocytes # (Auto) 0.8 TH/MM3 (1.0-4.8) Monocytes # (Auto) 0.8 TH/MM3 (0-0.9) Eosinophils # (Auto) 0.1 TH/MM3 (0-0.4) Basophils # (Auto) 0.0 TH/MM3 (0-0.2) CBC Comment DIFF FINAL Differential Comment Blood Urea Nitrogen 56 MG/DL (7-18) Creatinine 4.55 MG/DL (0.60-1.30) Random Glucose 220 MG/DL (74-106) Calcium Level 8.6 MG/DL (8.5-10.1) Sodium Level 140 MEQ/L (136-145) Potassium Level 3.8 MEQ/L (3.5-5.1) Chloride Level 102 MEQ/L (98-107) Carbon Dioxide Level 30.4 MEQ/L (21.0-32.0) Anion Gap 8 MEQ/L (5-15) Estimat Glomerular Filtration Rate 13 ML/MIN (>89) (Dolly Duran) Result Diagram: 04/11/17 0515 04/11/17 0515 Microbiology Microbiology Date/Time Source Procedure Growth Status 04/09/17 06:00 Blood Peripheral Aerobic Blood Culture - Preliminary NO GROWTH IN 2 DAYS Resulted 04/09/17 06:00 Blood Peripheral Anaerobic Blood Culture - Preliminary NO GROWTH IN 2 DAYS Resulted 04/08/17 17:45 Blood Peripheral Aerobic Blood Culture - Preliminary Staphylococcus Epidermidis Resulted 04/08/17 17:45 Blood Peripheral Anaerobic Blood Culture - Preliminary NO GROWTH IN 3 DAYS Resulted 04/08/17 18:40 Sputum Endotracheal Gram Stain - Final Complete 04/08/17 18:40 Sputum Endotracheal Sputum Culture - Final HEAVY GROWTH NORMAL RESPIRATORY ISMAEL Complete 04/09/17 09:55 Urine Catheterized Urine Legionella Antigen - Final PRESUMPTIVE NEGATIVE FOR LEGIONELLA P... Complete 04/09/17 09:55 Urine Catheterized Urine Streptococcus pneumoniae Antigen (M - Final PRESUMPTIVE NEGATIVE FOR STREPTOCOCCU... Complete Procedures 04/08/17: Right IJ CVL 04/08/17: Endotracheal intubation 04/09/17: Left IJ Vas-Cath (Dolly Duran) Patient/Family Conference Issues Discussed: * Palliative care role, purpose, approach * Additional medical, psychosocial, and spiritual history * Patients general health, functional status, and cognitive changes in the months leading up to the current hospitalization * Patient/family understanding of the current medical problems * Patient/family understanding of prognosis * Patients goals of care as best understood from advance directives and/or conversations and/or values * Current medical treatment options and benefits/burdens of those options * Likely scenarios comparing ongoing aggressive care with a transition to comfort measures only * Questions answered to the best of my ability * Palliative care contact information provided (Dolly Duran) Assessment and Plan Disease Oriented Problem List: (1) Respiratory insufficiency (2) Altered mental status (3) Acute kidney injury superimposed on chronic kidney disease (4) Diabetes (5) History of CVA (cerebrovascular accident) (6) History of coronary artery disease (7) Hyperlipidemia (8) STEMI (ST elevation myocardial infarction) (9) Leukocytosis (10) Anemia (11) Bradycardia Symptom Scale: Pertinent Non-Medical Issues Psychosocial: Spiritual: Legal: Ethical issues impacting care: Important Contacts Daughter-Alejandrina Hubbard ([phone]) lives in [place]. Daughter-Monika Hubbard ([phone]) lives in [place] Code Status: Full Code Plan * ALTERNATE CODE-intubation only * Decision-making: Patient does not have insight or judgment related to his medical conditions. It is unclear if he will regain this capacity. Patient designated either one of his daughters to act as the healthcare surrogate decision maker. Either Alejandrina Hubbard or Monika Hubbard * Patient's daughters state they wish to on her the patient's written advanced directives. Based on this, his CODE STATUS was changed to an ALTERNATE CODE- intubation only. They are comfortable giving their father some time to see if he can improve, but if he does not they will want to transition to comfort focused care. * Discussed patient with bedside nurse (Davon) and Dr. Manuel. * Consult pending. * Spoke with daughter (Alejandrina) via telephone. Attempted to contact daughter (Monika ) as well and a message was left on her voice mail. Palliative care contact information was provided to both daughters. * SYMPTOM MANAGEMENT: = Dyspnea: Patient is currently intubated and on mechanical ventilation. CT of the chest showed patchy airspace in both lungs most characteristic of bronchopneumonia. No cavitation to suggest a necrotizing pneumonia. Small bilateral pleural effusions with basal and dependent consolidation was noted in the lungs. Sputum culture was negative. On cefepime and levofloxacin; PRN Duonebs are available. = Pain: Multifactorial. Possible contributing factors would include intubation, OGT, invasive lines, Mackey catheter, immobility, bedbound status, possible infection, status post recent ND. Patient is currently sedated on propofol and Fentanyl (Dolly Duran) Thank you for the opportunity to participate in the care of Mr. Hubbard. , (Dolly Duran) Attestation To help prompt me to consider important information that might be impacting today's encounter and assessment, information from prior notes written by myself or my colleagues may have been "brought forward" into today's note. My signature on this note, however, is an attestation that I personally performed the exam, history, and/or decision-making noted today, and, unless otherwise indicated, the interactions with patient, family, and staff as well as the review of records all occurred today. I also attest that the listed assessment and stated plan reflect my best clinical judgment today based on the combination of historical information, prior notes, and today's exam/ interactions. When time spent is documented, it refers only to time spent today by the signer, or if indicated, combined time spent today by collaborating physician/nurse practitioner. . (Dolly Duran) Collaborating MD Comments Chart reviewed. Case discussed with palliative care STEWARDESS SUPERVISOR. Above STEWARDESS SUPERVISOR note reviewed and I concur. . (Tin Chicas MD) Dolly Duran Apr 11, 2017 14:50 Tin Chicas MD Apr 16, 2017 17:34
[2017-04-11] MEDS ORDERED: AMIODARONE INJ 150 MG in DEXTROSE 5% IN WATER 100ML INJ 100 ML IV ONE ×2 (17:21)
[2017-04-11] MEDS ORDERED: AMIODARONE INJ 450 MG in DEXTROSE 5% IN WATE(EXCEL) INJ 241 ML IV PRN ×2 (17:31)
[2017-04-11] MEDS: PANTOPRAZOLE SODIUM 40 MG VIAL IV PUSH SCH (18:00)
[2017-04-11] MEDS ORDERED: CARVEDILOL 12.5 MG TAB PO SCH (21:00)
[2017-04-11] MEDS: AMIODARONE INJ 450 MG in SODIUM CHLOR 0.9% (EXCEL) INJ 250 ML IV PRN (21:23)
[2017-04-12] VITALS (19 sets, daily range): BP systolic 96–152; BP diastolic 53–83; PULSE 79–126; RESP 20–24; TEMP 98.4–100.2; O2SAT 88–100
[2017-04-12] MEDS: PROPOFOL 1000 MG/100 ML INJ 100 ML IV PRN ×6 (02:11→23:43)
[2017-04-12] MEDS: CHLORHEXIDINE GLUCONATE 2 % 1 PACK (2 CLOTHS) TOP SCH (03:23)
[2017-04-12] MEDS: INSULIN NovoLIN REGULAR SUPPLEMENTAL SCALE SQ SCH ×6 (03:30→23:55)
[2017-04-12] MEDS: AMIODARONE INJ 450 MG in SODIUM CHLOR 0.9% (EXCEL) INJ 250 ML IV PRN ×2 (04:31→20:25)
[2017-04-12] MEDS: HEPARIN-D5W 25,000 U/250 ML 250 ML IV PRN ×2 (04:32→20:24)
[2017-04-12 05:53] LABS: AUTOMATED NEUTROPHIL # 6.5 TH/MM3 (1.8-7.7); BASOPHIL % 0.4 % (0.0-2.0); EOSINOPHIL # 0.3 TH/MM3 (0-0.4); EOSINOPHIL % 3.3 % (0.0-4.0); HEMATOCRIT 30.9 % (39.0-51.0); HEMOGLOBIN 10.3 GM/DL (13.0-17.0); LYMPH % 14.2 % (9.0-44.0); LYMPHOCYTE # 1.3 TH/MM3 (1.0-4.8); MEAN CELL VOLUME 90.9 FL (80.0-100.0); MEAN CORPUSCULAR HEMOGLOBIN 30.2 PG (27.0-34.0); MEAN CORPUSCULAR HGB CONC 33.2 % (32.0-36.0); MEAN PLATELET VOLUME 9.2 FL (7.0-11.0); MONO % 8.9 % (0.0-8.0); MONOCYTE # 0.8 TH/MM3 (0-0.9); NEUT % 73.2 % (16.0-70.0); PLATELET COUNT 243 TH/MM3 (150-450); RED CELL DISTRIBUTION WIDTH 16.5 % (11.6-17.2); WHITE BLOOD COUNT 8.9 TH/MM3 (4.0-11.0)
[2017-04-12] MEDS: HEPARIN SODIUM - IV 10,000 UNITS/10 ML VIAL IV PUSH PRN (05:58)
[2017-04-12 06:10] LABS: BICARBONATE 29.5 MEQ/L (21.0-32.0); CALCIUM 9.4 MG/DL (8.5-10.1); CREATININE 4.99 MG/DL (0.60-1.30)
[2017-04-12] MEDS: CLOPIDOGREL 75 MG TAB PO SCH (08:09)
[2017-04-12] MEDS: amLODIPine BESYLATE 5 MG TAB PO SCH (08:09)
[2017-04-12] MEDS: ASPIRIN EC 325 MG TABEC PO SCH (08:09)
[2017-04-12] MEDS: ISOSORBIDE MONONITRATE 60 MG CR TAB (IMDUR) PO SCH (08:09)
[2017-04-12] MEDS: CALCIUM ACETATE 667 MG CAP OG-TUBE SCH ×3 (08:10→16:47)
[2017-04-12] MEDS: fentaNYL DRIP 250 ML IV PRN ×2 (08:10→17:14)
[2017-04-12 08:22] LABS: BANDS 1 % (0-6); LYMPHOCYTES 12 % (9-44); METAMYELOCYTES 2 % (0-1); MONOCYTES 6 % (0-8); MYELOCYTES 1 % (0-0); POLYS (SEG NEUTROPHILS) 74 % (16-70); PROMYELOCYTES 1 % (0-0)
[2017-04-12] MEDS: HEPARIN SODIUM - IV 10,000 UNITS/10 ML VIAL PRN (09:29)
[2017-04-12] MEDS: GENTAMICIN SULFATE 20 MG/2 ML VIAL OTHER PRN (09:29)
[2017-04-12] MEDS: EPOETIN ALFA 10,000 UNITS/ML VIAL IV PUSH PRN (09:29)
[2017-04-12] MEDS: ALBUMIN 25% INJ 100 ML IV PRN (11:25)
[2017-04-12] MEDS: MANNITOL 12.5 GM/50 ML VIAL IV PRN (11:25)
--- NOTE | 2017-04-12 11:47 | HHI.NPPN ---
Subjective General Problems: Anemia, Hypertension, Mebatolic Acidosis Renal Failure: Chronic, Acute Additional Remarks Patient remain intubated and sedated. Seen on HD today Review of Systems General General Remarks unable to obtain Objective Data Data Vital Signs Date Time Temp Pulse Resp B/P (MAP) Pulse Ox O2 Delivery O2 Flow Rate FiO2 04/12/17 10:00 85 04/12/17 08:41 100 40 04/12/17 08:00 40 04/12/17 08:00 88 04/12/17 08:00 99.4 88 24 129/76 (93) 99 04/12/17 06:00 82 04/12/17 04:31 107 192/109 04/12/17 04:27 100 40 04/12/17 04:00 98.4 103 24 152/81 (104) 96 04/12/17 04:00 40 04/12/17 04:00 103 04/12/17 02:00 79 04/12/17 00:09 99 40 04/12/17 00:00 117 04/12/17 00:00 40 04/12/17 00:00 99.2 117 24 148/83 (104) 98 04/11/17 22:00 80 04/11/17 21:23 98 109/57 04/11/17 20:00 115 04/11/17 20:00 40 04/11/17 20:00 98.9 115 23 169/93 (118) 97 04/11/17 19:27 100 40 04/11/17 18:00 94 04/11/17 16:00 96 04/11/17 16:00 40 04/11/17 16:00 98.5 96 24 134/74 (94) 97 04/11/17 14:00 119 04/11/17 12:00 98.1 97 24 110/70 (83) 99 04/11/17 12:00 97 04/11/17 12:00 40 -: 04/12/17 0500 04/12/17 0500 Tubes & Lines: Mac[place] Physical Exam General Appearance: Well Developed, Well Nourished, No Acute Distress, Comfortable Throat Throat Exam: Oral Mucosa [place] & Moist Neck Neck Exam: Neck Supple Pulmonary Resp Exam: Breath Sounds Equal, Crackles, Rhonchi, Decreased Bases, Poor Inspiratory Effort Cardiology CV Exam: Good Perfusion, Bradycardia Gastrointestinal/Abdomen GI Exam: Soft, Non-Tender, Bowel Sounds Present Musculoskeletal MS Exam: Joints Intact, Normal Gait Integumentary Skin Exam: Warm, Dry, Intact Extremeties Extremities Exam: Moderate Edema Neurologic Neuro Exam: Sedated Assessment/Plan Discussed Condition With: Patient Assessment Summary: ROEL/Acute Renal Failure, Anemia of CKD Electrolyte Assessment: Metabolic Acidosis Problem List: (1) Acute renal failure ICD Codes: N17.9 - Acute kidney failure, unspecified Plan: He has underlying CKD,. Per the file keeper, Dr. Ramirez in [place], his GFR was 19 (creatinine 3.2) in October (CKD 4), he had underlying diabetic nephropathy with proteinuria. Acute Renal failure due to bradycardia and CO, with diminished renal perfusion. Started on HD Has been non oliguric with UOP at 1.8L over past 24 hours. HD today, then plan for next HD Friday. Continue to monitor creatinine and UOP for any renal recovery. (2) Bradycardia ICD Codes: R00.1 - Bradycardia, unspecified Status: Acute Plan: May need PPM Continue supportive care Blood pressure remains elevated; avoid BB and KRISTYN, on Amlodipine 5 mg daily (3) Anemia ICD Codes: D64.9 - Anemia, unspecified Plan: May have anemia of CKD. Has iron deficiency, has had venofer. (4) STEMI (ST elevation myocardial infarction) ICD Codes: I21.3 - ST elevation (STEMI) myocardial infarction of unspecified site Status: Acute Plan: Cardiology following, unclear if he suffered CO. Off heparin gtt. (5) Leukocytosis ICD Codes: D72.829 - Elevated white blood cell count, unspecified Plan: May be reactive, monitor for infections Lactic acid elevated. Problem Qualifiers (1) Anemia: (2) STEMI (ST elevation myocardial infarction): Qualified Codes: I21.3 - ST elevation (STEMI) myocardial infarction of unspecified site Sina Carlisle MD Apr 12, 2017 11:47
[2017-04-12] MEDS: CEFEPIME INJ 1,000 MG in SODIUM CHLORIDE 0.9% INJ 100 ML IV SCH (12:29)
--- NOTE | 2017-04-12 16:37 | PD.CARD.PN ---
Subjective Subjective Remarks Intubated. Sedated. Objective Medications Item Value Date Time Heparin Sodium/ 250 ml @ 10 mls/hr 04/10/17 0815 Dextrose TITRATE PRN/IV 04/12/17 0432 Amlodipine 5 mg 04/08/17 1115 Besylate DAILY/PO 04/12/17 0809 (Norvasc) Aspirin 325 mg 04/08/17 0900 (Ecotrin Ec) DAILY/PO 04/12/17 0809 Isosorbide 60 mg 04/08/17 0900 Mononitrate DAILY/PO 04/12/17 0809 (Imdur) Clopidogrel 75 mg 04/08/17 0900 Bisulfate DAILY/PO 04/12/17 08 (Plavix) Current Medications Medications (Trade) Dose Ordered Sig/[employer] [place] Route Start Time Stop Time Status Last Admin (NS Flush) 2 ml UNSCH PRN IVF 04/07/17 16:00 04/07/17 16:04 Miscellaneous Information 1 Q361D XX 04/07/17 16:30 04/07/17 16:30 (Chlorhexidine 2% Cloth) 3 pack Taper DAILY@04 TOP 04/08/17 04:00 04/04/18 03:59 04/12/17 03:23 (Chlorhexidine 2% Cloth) 3 pack UNSCH PRN TOP 04/07/17 16:30 (Ecotrin Ec) 325 mg DAILY PO 04/08/17 09:00 04/12/17 08:09 (D50w (Vial) Inj) 50 ml UNSCH PRN IV PUSH 04/07/17 17:00 (Glucagon Inj) 1 mg UNSCH PRN OTHER 04/07/17 17:00 (NovoLIN R SUPPLEMENTAL SCALE) 1 Q4HR SQ 04/07/17 17:00 04/12/17 12:30 (Duoneb Neb) 1 ampule Q2HR NEB PRN NEB 04/07/17 17:15 (Protonix Inj) 40 mg Q24H IV PUSH 04/07/17 18:00 04/11/17 18:00 (Imdur) 60 mg DAILY PO 04/08/17 09:00 04/12/17 08:09 (Plavix) 75 mg DAILY PO 04/08/17 09:00 04/12/17 08:09 (Norvasc) 5 mg DAILY PO 04/08/17 11:15 04/12/17 08:09 (Apresoline Inj) 20 mg Q2H PRN IV PUSH 04/08/17 13:00 04/11/17 01:21 (Haldol Inj) 5 mg Q4H PRN IV PUSH 04/08/17 14:30 04/08/17 14:32 Levofloxacin/ Dextrose 50 ml @ 50 mls/hr Q48H IV 04/10/17 18:00 04/10/17 17:50 Dopamine HCl/ Dextrose 500 ml @ 11.475 mls/ hr TITRATE PRN IV 04/08/17 19:00 (Brethine Inj) 1 mg UNSCH PRN SQ 04/08/17 19:00 Propofol 100 ml @ 3.06 mls/hr TITRATE PRN IV 04/08/17 20:30 04/12/17 12:30 (Phoslo) 667 mg TID OG-TUBE 04/09/17 09:00 04/12/17 12:29 Cefepime HCl 1000 mg/Sodium Chloride 100 ml @ 200 mls/hr Q24H IV 04/09/17 12:00 04/12/17 12:29 Sodium Chloride 1,000 ml @ 0 mls/hr Q0M PRN OTHER 04/09/17 11:45 (Heparin Inj) 8,000 units UNSCH PRN IV FLUSH 04/09/17 11:45 Sodium Chloride 1,000 ml @ 200 mls/hr Q5H PRN IV 04/09/17 11:45 Sodium Chloride 1,000 ml @ 0 mls/hr Q0M PRN OTHER 04/09/17 11:45 (Mannitol Inj) 12.5 gm UNSCH PRN IV 04/09/17 11:45 04/12/17 11:25 Albumin Human 100 ml @ 60 mls/hr UNSCH PRN IV 04/09/17 11:45 04/12/17 11:25 (NS Flush) 5 ml UNSCH PRN IV FLUSH 04/09/17 11:45 (Heparin Inj) UNSCH PRN .XX 04/09/17 11:45 04/12/17 09:29 (Gentamicin Inj) 20 mg UNSCH PRN OTHER 04/09/17 11:45 04/12/17 09:29 (Zofran Inj) 4 mg UNSCH PRN IV PUSH 04/09/17 11:45 (Tylenol) 650 mg UNSCH PRN PO 04/09/17 11:45 (Benadryl) 25 mg UNSCH PRN PO 04/09/17 11:45 (Nitrostat Sl) 0.4 mg UNSCH PRN SL 04/09/17 11:45 (Catapres) 0.1 mg UNSCH PRN PO 04/09/17 11:45 (Epogen Inj) 10,000 units UNSCH PRN IV PUSH 04/09/17 11:45 04/12/17 09:29 (Gelfoam 12 Mm/7 Mm Top) 1 foam UNSCH PRN TOP 04/09/17 11:45 (Heparin Inj) 5,000 units UNSCH PRN IV PUSH 04/10/17 14:15 (Heparin Inj) 2,500 units UNSCH PRN IV PUSH 04/10/17 14:15 04/12/17 05:58 Heparin Sodium/ Dextrose 250 ml @ 10 mls/hr TITRATE PRN IV 04/10/17 08:15 04/12/17 04:32 Fentanyl Citrate 250 ml @ 5 mls/hr TITRATE PRN IV 04/11/17 00:15 04/12/17 08:10 Amiodarone HCl 450 mg/Sodium Chloride 259 ml @ 33.33 mls/ hr Q7H47M PRN IV 04/11/17 21:00 04/12/17 04:31 Vital Signs / I&O Vital Signs Date Time Temp Pulse Resp B/P (MAP) Pulse Ox O2 Delivery O2 Flow Rate FiO2 04/12/17 16:00 40 04/12/17 15:52 96 40 04/12/17 14:00 108 04/12/17 13:30 40 04/12/17 12:00 40 04/12/17 12:00 98.9 80 24 99/67 (78) 98 04/12/17 12:00 80 04/12/17 11:49 100 40 04/12/17 10:00 85 04/12/17 08:41 100 40 04/12/17 08:00 40 04/12/17 08:00 88 04/12/17 08:00 99.4 88 24 129/76 (93) 99 04/12/17 06:00 82 04/12/17 04:31 107 192/109 04/12/17 04:27 100 40 04/12/17 04:00 98.4 103 24 152/81 (104) 96 04/12/17 04:00 40 04/12/17 04:00 103 04/12/17 02:00 79 04/12/17 00:09 99 40 04/12/17 00:00 117 04/12/17 00:00 40 04/12/17 00:00 99.2 117 24 148/83 (104) 98 04/11/17 22:00 80 04/11/17 21:23 98 109/57 04/11/17 20:00 115 04/11/17 20:00 40 04/11/17 20:00 98.9 115 23 169/93 (118) 97 04/11/17 19:27 100 40 04/11/17 18:00 94 I/O 04/11/17 04/11/17 04/11/17 04/12/17 04/12/17 04/12/17 06:59 14:59 22:59 06:59 14:59 22:59 Intake Total 499 ml 205 ml 1574.2 ml 603 ml Output Total 925 ml 1050 ml 750 ml 1500 ml Balance -426 ml 205 ml 524.2 ml -147 ml -1500 ml IV Total 148 ml 205 ml 953.2 ml 250 ml Tube Feeding 351 ml 441 ml 353 ml Other 180 ml Output Urine Total 925 ml 1050 ml 750 ml Hemodialysis 1500 ml Physical Exam GENERAL: Well developed, well nourished. Intubated. Sedated. HEENT: Jugular venous pressure is normal. CHEST: Lungs clear to auscultation anteriorly. CARDIAC: Irregular rhythm without S3, S4. I-II/ systolic murmur apex and left lower sternal border. ABDOMEN: Soft, nontender, no hepatosplenomegaly. Bowel sounds present. EXTREMITIES: No clubbing, cyanosis, or edema. Laboratory Laboratory Tests Test 04/11/17 21:10 04/12/17 05:00 Activated Partial Thromboplast Time 28.5 SEC 27.7 SEC White Blood Count 8.9 TH/MM3 Red Blood Count 3.40 MIL/MM3 Hemoglobin 10.3 GM/DL Hematocrit 30.9 % Mean Corpuscular Volume 90.9 FL Mean Corpuscular Hemoglobin 30.2 PG Mean Corpuscular Hemoglobin Concent 33.2 % Red Cell Distribution Width 16.5 % Platelet Count 243 TH/MM3 Mean Platelet Volume 9.2 FL Neutrophils (%) (Auto) 73.2 % Lymphocytes (%) (Auto) 14.2 % Monocytes (%) (Auto) 8.9 % Eosinophils (%) (Auto) 3.3 % Basophils (%) (Auto) 0.4 % Neutrophils # (Auto) 6.5 TH/MM3 Lymphocytes # (Auto) 1.3 TH/MM3 Monocytes # (Auto) 0.8 TH/MM3 Eosinophils # (Auto) 0.3 TH/MM3 Basophils # (Auto) 0.0 TH/MM3 CBC Comment AUTO DIFF Differential Total Cells Counted 100 Neutrophils % (Manual) 74 % Band Neutrophils % 1 % Lymphocytes % 12 % Monocytes % 6 % Eosinophils % 3 % Neutrophils # (Manual) 7.0 TH/MM3 Metamyelocytes 2 % Myelocytes 1 % Promyelocytes 1 % Differential Comment FINAL DIFF MANUAL Platelet Estimate NORMAL Platelet Morphology Comment NORMAL Red Cell Morphology Comment NORMAL Blood Urea Nitrogen 58 MG/DL Creatinine 4.99 MG/DL Random Glucose 162 MG/DL Calcium Level 9.4 MG/DL Sodium Level 141 MEQ/L Potassium Level 3.8 MEQ/L Chloride Level 102 MEQ/L Carbon Dioxide Level 29.5 MEQ/L Anion Gap 10 MEQ/L Estimat Glomerular Filtration Rate 12 ML/MIN Assessment and Plan Problem List: (1) STEMI (ST elevation myocardial infarction) ICD Codes: I21.3 - ST elevation (STEMI) myocardial infarction of unspecified site Status: Acute Plan: Possible STEMI on presentation. Difficult to interpret significance of mildly abnormal troponin levels in setting of renal failure. CKMB's negative for OH. EF on echo reported as 45-50%. The study is technically very difficult ; I suspect the EF is closer to 30%. REC no beta ashley with problems with prolonged asystolic episodes conservative management from a cardiac standpoint continue daily aspirin, clopidogrel, amlodipine (2) Paroxysmal atrial fibrillation ICD Codes: I48.0 - Paroxysmal atrial fibrillation Status: Acute Plan: Remains in atrial fib fluctuating HR's, mostly controlled. Unable to use Amiodarone, beta ashley with problems with prolonged asystole. Continue conservative therapy. Ideally patient would need permanent pacemaker implant, though alternative code status noted. (3) Dilated cardiomyopathy ICD Codes: I42.0 - Dilated cardiomyopathy Status: Chronic Plan: Echo technically very difficult, EF reported as 45-50%. By my review, suspect it is closer to 30%. No beta ashley with episodes of asystole. No KRISTYN -I with his renal insufficiency. Consider mild diuresis. Code Status alternative code Problem Qualifiers (1) STEMI (ST elevation myocardial infarction): Qualified Codes: I21.3 - ST elevation (STEMI) myocardial infarction of unspecified site Vikram Briceno MD Apr 12, 2017 16:36
[2017-04-12] MEDS: LEVOFLOXACIN 250 MG PREMIX INJ 50 ML IV SCH (16:47)
[2017-04-12] MEDS: PANTOPRAZOLE SODIUM 40 MG VIAL IV PUSH SCH (16:47)
--- NOTE | 2017-04-12 18:28 | HHI.IDPN ---
Subjective Subjective Remarks ID X cver for Dr Tera kapoor remains on vent, mFiO2 40% Cardiology ff STEMI HD today non oliguric Antibiotics Cefepime IV Levaquin IV Lines Line sites with no e.o infection Past Medical History Past Medical History 1. Coronary artery disease. 2. Chronic kidney disease. 3. Cerebrovascular accident. 4. Diabetes mellitus. 5. Hypertension. 6. Hyperlipidemia. 7. Psychiatric history. Past Surgical History None per records. Allergies: Coded Allergies: Sulfa (Sulfonamide Antibiotics) (Verified Allergy, Intermediate, HIVES, ) penicillin G (Verified Allergy, Unknown, HIVES, 04/07/17) Objective . Vital Signs Date Time Temp Pulse Resp B/P (MAP) Pulse Ox O2 Delivery O2 Flow Rate FiO2 04/12/17 18:00 97 04/12/17 16:00 40 04/12/17 16:00 98.8 102 20 96/53 (67) 96 04/12/17 16:00 102 04/12/17 15:52 96 40 04/12/17 14:00 108 04/12/17 13:30 40 04/12/17 12:00 40 04/12/17 12:00 98.9 80 24 99/67 (78) 98 04/12/17 12:00 80 04/12/17 11:49 100 40 04/12/17 10:00 85 04/12/17 08:41 100 40 04/12/17 08:00 40 04/12/17 08:00 88 04/12/17 08:00 99.4 88 24 129/76 (93) 99 04/12/17 06:00 82 04/12/17 04:31 107 192/109 04/12/17 04:27 100 40 04/12/17 04:00 98.4 103 24 152/81 (104) 96 04/12/17 04:00 40 04/12/17 04:00 103 04/12/17 02:00 79 04/12/17 00:09 99 40 04/12/17 00:00 117 04/12/17 00:00 40 04/12/17 00:00 99.2 117 24 148/83 (104) 98 04/11/17 22:00 80 04/11/17 21:23 98 109/57 04/11/17 20:00 115 04/11/17 20:00 40 04/11/17 20:00 98.9 115 23 169/93 (118) 97 04/11/17 19:27 100 40 04/12/17 04/12/17 04/13/17 15:00 23:00 07:00 Intake Total 460 ml Output Total 1500 ml 550 ml Balance -1500 ml -90 ml Tube Feeding 460 ml Output Urine Total 550 ml Hemodialysis 1500 ml . Laboratory Tests Test 04/11/17 05:15 04/12/17 05:00 White Blood Count 9.0 TH/MM3 8.9 TH/MM3 Red Blood Count 3.14 MIL/MM3 3.40 MIL/MM3 Hemoglobin 9.3 GM/DL 10.3 GM/DL Hematocrit 27.8 % 30.9 % Mean Corpuscular Volume 88.7 FL 90.9 FL Mean Corpuscular Hemoglobin 29.7 PG 30.2 PG Mean Corpuscular Hemoglobin Concent 33.5 % 33.2 % Red Cell Distribution Width 15.8 % 16.5 % Platelet Count 216 TH/MM3 243 TH/MM3 Mean Platelet Volume 9.3 FL 9.2 FL Neutrophils (%) (Auto) 80.1 % 73.2 % Lymphocytes (%) (Auto) 9.3 % 14.2 % Monocytes (%) (Auto) 9.1 % 8.9 % Eosinophils (%) (Auto) 1.2 % 3.3 % Basophils (%) (Auto) 0.3 % 0.4 % Neutrophils # (Auto) 7.2 TH/MM3 6.5 TH/MM3 Lymphocytes # (Auto) 0.8 TH/MM3 1.3 TH/MM3 Monocytes # (Auto) 0.8 TH/MM3 0.8 TH/MM3 Eosinophils # (Auto) 0.1 TH/MM3 0.3 TH/MM3 Basophils # (Auto) 0.0 TH/MM3 0.0 TH/MM3 CBC Comment DIFF FINAL AUTO DIFF Differential Comment FINAL DIFF MANUAL Differential Total Cells Counted 100 Neutrophils % (Manual) 74 % Band Neutrophils % 1 % Lymphocytes % 12 % Monocytes % 6 % Eosinophils % 3 % Neutrophils # (Manual) 7.0 TH/MM3 Metamyelocytes 2 % Myelocytes 1 % Promyelocytes 1 % Platelet Estimate NORMAL Platelet Morphology Comment NORMAL Red Cell Morphology Comment NORMAL Laboratory Tests Test 04/11/17 05:15 04/12/17 05:00 Blood Urea Nitrogen 56 MG/DL 58 MG/DL Creatinine 4.55 MG/DL 4.99 MG/DL Random Glucose 220 MG/DL 162 MG/DL Calcium Level 8.6 MG/DL 9.4 MG/DL Sodium Level 140 MEQ/L 141 MEQ/L Potassium Level 3.8 MEQ/L 3.8 MEQ/L Chloride Level 102 MEQ/L 102 MEQ/L Carbon Dioxide Level 30.4 MEQ/L 29.5 MEQ/L Anion Gap 8 MEQ/L 10 MEQ/L Estimat Glomerular Filtration Rate 13 ML/MIN 12 ML/MIN Imaging Last Impressions Chest X-Ray 04/10/17 0600 Signed Impressions: Service Date/Time: March 03:32 - CONCLUSION: 1. Questionable small medial left pneumothorax which may be artifactual. There is overlying oxygen tubing in this region as well as patchy infiltrate in the left lung. A repeat study or CT would be recommended for further evaluation. 2. Endotracheal tube and bilateral internal jugular central venous lines remain in place. Timothy Tabares MD Chest CT 04/09/17 0000 Signed Impressions: Service Date/Time: Sunday, April 09, 2017 12:38 - CONCLUSION: 1. Patchy air space in both lungs most characteristic of bronchopneumonia. No cavitation to suggest a necrotizing pneumonia. Small bilateral pleural effusions with basal and dependent consolidation in the lungs. 2. Endotracheal tube and nasogastric tube in good position. 3. Moderate to severe coronary artery calcifications. John Paul Yeboah MD Head CT 04/07/17 1646 Signed Impressions: Service Date/Time: Friday, April 07, 2017 17:37 - CONCLUSION: 1. Senescent changes with ventriculomegaly out of proportion to the degree of atrophy. Clinical correlation for normal pressure hydrocephalus is recommended. Jesus Manuel Storm MD Renal Ultrasound 04/07/17 0000 Signed Impressions: Service Date/Time: Friday, April 07, 2017 18:11 - CONCLUSION: Medical renal disease. No hydronephrosis. Jaleel Carlin MD Physical Exam GENERAL: This is a well-nourished, well-developed patient, in no apparent distress. SKIN: No rashes, ecchymoses or lesions. Cool and dry. HEAD: Atraumatic. Normocephalic. No temporal or scalp tenderness. EYES: Pupils equal round and reactive. Extraocular motions intact. No scleral icterus. No injection or drainage. ENT: Intubated NECK: Trachea midline. No JVD or lymphadenopathy. Supple, nontender, no meningeal signs. CARDIOVASCULAR: Regular rate and rhythm without murmurs, gallops, or rubs. RESPIRATORY: Clear to auscultation. Breath sounds equal bilaterally. No wheezes , rales, or rhonchi. GASTROINTESTINAL: Abdomen soft, ? tender (grimacintg to palpation), quite distended. No hepato-splenomegaly, or palpable masses. No guarding. MUSCULOSKELETAL: Extremities without clubbing, cyanosis, or edema. No joint tenderness, effusion, or edema noted. No calf tenderness. Negative Homans sign bilaterally. NEUROLOGICAL: Sedated. Psych could not be assessed IV line sites with no e.o infection. Assessment & Plan Remarks pneumonia likely post influenza(based on the recent history of flu)\ no e/o necrotizing process Acute renal failure likely component of chronic kidney disease based on history. Now will be placed on dialysis. Acute respiratory failure on ventilator ST elevation ND inferior wall Bradycardia Hyponatremia and hyperkalemia Leukocytosis likely secondary to infection Recent history of flu unsure if this was treated will obtain records. History of coronary artery disease History of cerebrovascular accident History of psychiatric issues Diabetes mellitus Low grade Staph epi bactermeia, cw contaminant Abd distention - worse Recommendations: change Levaquin to azithro cont cefepime IV chk KUB If worse abd distentio n will need CT abd dw pt's dgtr Mouna Cunningham MD Apr 12, 2017 18:28
[2017-04-12] MEDS ORDERED: HEPARIN SODIUM - IV 10,000 UNITS/10 ML VIAL IV PUSH ONE (18:45)
[2017-04-12] MEDS: AZITHROMYCIN INJ 500 MG in SODIUM CHLOR 0.9% 250 ML INJ 250 ML IV SCH (20:26)
--- NOTE | 2017-04-12 22:34 | HHI.CCPN ---
Subjective Remarks/Hospital Course 04/07: The patient is a 72-year-old male with a past medical history of coronary artery disease, chronic kidney disease, cerebrovascular accident, hypertension, diabetes mellitus, hyperlipidemia who was brought into [facility] Emergency Department via ambulance with altered mental status. The patient's daughter could not reach him, so she called the fire rescue to go check on her father and on arrival they found him on the floor and has been there for the past two days. The patient is confused and when he came to the emergency department he was found bradycardic and a STEMI alert was called. EKG in the ER showed findings compatible with inferior wall myocardial infarction and bradycardia with a heart rate in the 30s. His labs on point of care significant for acute renal failure with a BUN greater than 140, creatinine 9.7. In addition the patient had a troponin of 2.72 and total CK of 380. Also he had leukocytosis with a WBC of 19.5. In the ED he was given one liter bolus of normal saline, aspirin and initially placed on nitroglycerine drip. The patient was seen by Dr. Briceno from the cardiology service and due to his significant renal failure. Cardiac catheterization was placed on hold and a plan to continue with medical therapy for now until his renal function recovers. The patient is awake, alert, however, he is intermittently confused. He is currently on 4 liters oxygen with saturation 98%, blood pressure 131/71 with heart rate in the 30s. The patient was also seen by Dr. Iraheta from nephrology service in the ED. He denies any chest pain, shortness of breath or any constitutional symptoms. The patient was recently discharged from [facility] in [place] after he was treated there for flu. 04/08: Continues to shortness of breath. Initiated on BiPAP. He pulled out his IVs earlier this morning. Heparin drip stopped. Mackey catheter placed in view of acute renal failure with need to monitor accurate urine output. 04/09: Patient intubated yesterday and placed on mechanical ventilation for worsening respiratory status. Received Lasix 20 mg IV yesterday and is maintaining good urine output. Heparin discontinued yesterday. Hemoglobin dropped noted and 1 unit PRBCs ordered for today. BUN creatinine remains elevated. Patient is currently on propofol and half and is with bicarbonate 42 cc per hour. Had some tremors noted in upper extremities this morning. Obtaining EEG though doubt seizure. 2/22: Remains sedated, orally intubated on mechanical ventilation. Started on hemodialysis yesterday. When into A. fib overnight. Being restarted on heparin GTT as well as being started on amiodarone drip per cardiology. 04/11 Patient remains sedated and intubated. On Heparin drip. Amiodarone held overnight as patient noted to have sinus pauses . Subjective: 04/12 On amiodarone and heparin drip. HD today with 1.5 kg removal. Did not tolerate CPAP trial. Objective Vital Signs Date Time Temp Pulse Resp B/P (MAP) Pulse Ox O2 Delivery O2 Flow Rate FiO2 04/12/17 22:00 104 04/12/17 20:25 117/74 04/12/17 20:00 100.2 23 88 04/12/17 20:00 40 04/08/17 07:53 Nasal Cannula 2.00 Intake and Output 04/12/17 04/12/17 04/13/17 08:00 16:00 00:00 Intake Total 603 ml 100 ml 510 ml Output Total 750 ml 1500 ml 550 ml Balance -147 ml -1400 ml -40 ml Result Diagram: 04/12/17 0500 04/12/17 0500 Imaging Last Impressions Chest X-Ray 04/10/17 0600 Signed Impressions: Service Date/Time: March 03:32 - CONCLUSION: 1. Questionable small medial left pneumothorax which may be artifactual. There is overlying oxygen tubing in this region as well as patchy infiltrate in the left lung. A repeat study or CT would be recommended for further evaluation. 2. Endotracheal tube and bilateral internal jugular central venous lines remain in place. Timothy Tabares MD Chest CT 04/09/17 0000 Signed Impressions: Service Date/Time: Sunday, April 09, 2017 12:38 - CONCLUSION: 1. Patchy air space in both lungs most characteristic of bronchopneumonia. No cavitation to suggest a necrotizing pneumonia. Small bilateral pleural effusions with basal and dependent consolidation in the lungs. 2. Endotracheal tube and nasogastric tube in good position. 3. Moderate to severe coronary artery calcifications. John Paul Yeboah MD Head CT 04/07/17 1646 Signed Impressions: Service Date/Time: Friday, April 07, 2017 17:37 - CONCLUSION: 1. Senescent changes with ventriculomegaly out of proportion to the degree of atrophy. Clinical correlation for normal pressure hydrocephalus is recommended. Jesus Manuel Storm MD Renal Ultrasound 04/07/17 0000 Signed Impressions: Service Date/Time: Friday, April 07, 2017 18:11 - CONCLUSION: Medical renal disease. No hydronephrosis. Jaleel Carlin MD Objective Remarks Drips: Amiodarone 0.5 minute milligrams per hour Heparin 1500 units/hr Fentanyl 250 g per hour Propofol 50 g per KG per minute GENERAL: Critically ill-appearing male who is orotracheally intubated. SKIN: Warm and dry. HEAD: Normocephalic. EYES: Pupils 2mm and sluggishly reactive bilaterally. No scleral icterus. No injection or drainage. NECK: Supple, trachea midline. No JVD or lymphadenopathy. R IJ CVL with dressing c/d/i. L IJ Vascath in place with dressing c/d/i. CARDIOVASCULAR: irregularly irregular, A fib rate 90s on monitor. 2/6 systolic murmur LLSB RESPIRATORY: Orotracheally intubated. Coarse bilateral breath sounds. No rales or wheeze. GASTROINTESTINAL: OGT is clogged, nurse at bedside trying unsuccessfully to relieve obstruction with paty gordo. Replacing NGT. abdomen is distended and tympanitic. Bowel sounds hypoactive : Mackey in place with dark yellow urine MUSCULOSKELETAL: No cyanosis. 1+ edema BUE. NEURO: Sedated, opens eyes, moves extremities restlessly off sedation. Does not follow commands. Date of Insertion: Apr 08, 2017 Line: Central Venous Catheter Side: Right Location: Jugular A/P Assessment and Plan NEURO: Acute encephalopathy History of stroke On fentanyl infusion for analgosedation. Propofol for sedation. Daily sedation vacation. Monitor neuro status Head CT 04/07 - cerebral atrophy, recommend clinical correlation for NPH EEG 04/09- bihemisphere slowing with sharp discharge L hemisphere. Limited due to artifact. Sharp discharge could be of epileptiform significance but no definitive due to artifact. Now sedated on propofol which may provide some seizure protection. Will repeat EEG while off sedatives and consult neurology if abnormal. Obtain MRI to evaluate for acute stroke or other underlying cause of L hemisphere sharps. Obtain ammonia level, b12, tsh. PULM: Acute respiratory failure Small bilateral pleural effusions Intubated on 04/08, continue with vent support keep sat >92% vent bundle, bronchodilators. Daily SBT as tolerated. CT chest 04/09: Patchy air space in both lungs most characteristic of bronchopneumonia. No cavitation to suggest a necrotizing pneumonia. Small bilateral pleural effusions with basal and dependent consolidation in the lungs CXR 04/10 - ? small medial PTX. Repeat CXR. CV: Episode of asystole STEMI, inferior Atrial fibrillation with RVR, new onset Hypertension Hyperlipidemia Coronary artery disease Chronic systolic heart failure Medical management per cardiology in setting of renal failure. 2-D echo 04/09 - Per Dr. Briceno review, EF felt to be 30%. On Amiodarone for management of A fib RVR and rate is 90-110s without any episodes of pauses today. Not candidate for beta-ashley due asystole. Would need permanent pacemaker placement for A fib management if that is keeping with goals of care. BP marginal, placed hold orders on norvasc. Hold Imdur 60 daily because should not be crushed. Would consider diuresis with lasix, though BP likely will not tolerate currently post dialysis without vasopressor/inotrope support. However, selection of agent challenging for fear of exacerbating tachycardia when he cannot tolerate rate control agents. Neosynephrine not ideal in systolic failure due to increased afterload. Will hold off, likely attempt diuresis between dialysis days. Dr. Briceno following. Continue aspirin 325 mg by mouth daily, Plavix any 5 mill grams by mouth daily. Heparin drip for A fib with CHADS-VASC 6. FEN/RENAL/: ROEL overlying CKD IV Hyponatremia Hyperkalemia Monitor renal function, I/O's, avoid nephrotoxins Started on hemodialysis 04/09, s/p HD 04/10 with 1L removed, 1.5 kg removed . Plan for repeat HD Tues. Renal is following- Dr. Iraheta GI: Obesity Chronic mild protein energy malnutrition Ileus Has been On Nepro @30ml/hr (goal rate per nutrition is 40 ml/hr). Will hold for now KUB 04/12 - gaseous distension of colon. and small bowel Replace OGT which is clogged. Place new OG to LIWS. Repeat KUB 04/13. CT abd if not improved. F/u LFTs and lipase Continue Protonix 40 milligrams IV daily for GI prophylaxis. ID: Post-influenza pneumonia Leukocytosis Continue abx per ID, Dr. Cunningham: Azithromycin 04/12 #1, cefepime 04/09 #4. Levaquin discontinued 04/12 04/09 Sputum cx: normal resp sintia, 04/08 strep pneumonia and legionella ag negative 04/08 blood culutre 02/18 with Staph epidermidis. Suspected contaminant. Blood culture 04/09 NGTD. Heme: Anemia s/p transfusion 1unit PRBCs on 04/09, follow CBC transfuse to keep hemoglobin 8 given ACS. Endo: Diabetes mellitus Bedside glucose every 4 hours with medium dose sliding scale GI prophylaxis with Protonix 40 milligrams daily and DVT prophylaxis with SCDs, on Heparin drip Lines: Right IJ CVP 04/08 #5, Left IJ vascath placed 04/08 #5 Palliative care following and assisting with discussion of goals of care. Healthcare surrogate honoring advanced directives with code status ALT CODE Intubation only. Per palliative care documentation family giving time to assess improvement and would consider transition to comfort care if he is not improving. Level III follow up Venessa Rosales MD Apr 12, 2017 22:34
--- NOTE | 2017-04-12 22:38 | RADRPT ---
EXAM DATE/TIME: 04/12/2017 22:15 [facility] COMPARISON: No previous studies available for comparison. INDICATIONS : Abdominal distention. MEDICAL HISTORY : Diabetes mellitus type II. Stroke. SURGICAL HISTORY : None. ENCOUNTER: Initial ACUITY: 1 day PAIN SCORE: Non-responsive. LOCATION: Bilateral abdomen FINDINGS: 2 supine frontal views of the abdomen demonstrate air distended bowel that appears to mostly represen t the colon. The air within bowel in the left mid abdomen could represent small bowel as well. No org anomegaly is present. Nasogastric tube overlies the stomach. There are innumerable clips overlying th e pelvis. No abnormal mass effect is appreciated. Degenerative changes are present throughout the lum bar spine and in the hip joints. CONCLUSION: There is gaseous distention of the bowel that I believe is mostly if not entirely the colon. However, the distended/dilated small bowel in the left midabdomen could also represent small bowel. The charleen rn favors ileus. Suggest a followup to confirm resolution and consider CT if symptoms persist. Jaleel Fischer MD on April 12, 2017 at 22:35 Board Certified Radiologist. This report was verified electronically.
--- NOTE | 2017-04-12 23:30 | RADRPT ---
EXAM DATE/TIME: 04/12/2017 23:11 [facility] COMPARISON: CHEST SINGLE AP, April 10, 2017, 3:32. INDICATIONS : Shortness of breath, possible pulmonary disease. MEDICAL HISTORY : Stroke. Diabetes mellitus type II. SURGICAL HISTORY : None. ENCOUNTER: Subsequent ACUITY: 1 week PAIN SCORE: Non-responsive. LOCATION: Bilateral chest FINDINGS: Mild bilateral airspace opacities, mostly at the base on the right and more diffuse on the left. Both sides are improved in the interim. Small, bilateral pleural effusions are likely. No pneumothorax. Heart size stable, upper limits of normal. Endotracheal tube tip is 4 cm above the greta. There is a nasogastric tube coiled in the stomach. Right and left internal jugular central venous catheter are again seen, tip in the superior vena cava. CONCLUSION: Improved airspace opacities, currently mild. No change lines and tubes. Jaleel Slade MD on April 12, 2017 at 23:27 Board Certified Radiologist. This report was verified electronically.
[2017-04-13] VITALS (17 sets, daily range): BP systolic 96–149; BP diastolic 61–91; PULSE 77–127; RESP 19–22; TEMP 98.2–99.7; O2SAT 97–100
[2017-04-13] MEDS: HEPARIN SODIUM - IV 10,000 UNITS/10 ML VIAL IV PUSH PRN ×3 (02:10→19:10)
[2017-04-13] MEDS: fentaNYL DRIP 250 ML IV PRN ×3 (03:37→21:13)
[2017-04-13] MEDS: CHLORHEXIDINE GLUCONATE 2 % 1 PACK (2 CLOTHS) TOP SCH (03:38)
[2017-04-13] MEDS: INSULIN NovoLIN REGULAR SUPPLEMENTAL SCALE SQ SCH ×5 (03:49→20:00)
--- NOTE | 2017-04-13 05:01 | RADRPT ---
EXAM DATE/TIME: 04/13/2017 04:02 [facility] COMPARISON: ABDOMEN KUB ONLY, April 12, 2017, 22:15. CHEST SINGLE AP, April 12, 2017, 23:11. INDICATIONS : Abdominal distention. MEDICAL HISTORY : Diabetes mellitus type II. Stroke. SURGICAL HISTORY : None. ENCOUNTER: Subsequent ACUITY: 1 week PAIN SCORE: Non-responsive. LOCATION: Bilateral Abdomen FINDINGS: There is moderate colonic distention that appears fairly generalized and presumably ileus/nonmechanic al. No small bowel distention seen. No free air. Nasogastric tube is coiled in the upper stomach. CONCLUSION: Colonic distention as above, probably nonobstructive and not significantly changed. Otherwise benign- appearing abdomen. Jaleel Slade MD on April 13, 2017 at 4:59 Board Certified Radiologist. This report was verified electronically.
[2017-04-13] MEDS: PROPOFOL 1000 MG/100 ML INJ 100 ML IV PRN ×5 (05:06→20:29)
[2017-04-13 06:50] LABS: AUTOMATED NEUTROPHIL # 7.3 TH/MM3 (1.8-7.7); BASOPHIL % 0.3 % (0.0-2.0); EOSINOPHIL # 0.3 TH/MM3 (0-0.4); EOSINOPHIL % 3.4 % (0.0-4.0); HEMATOCRIT 25.5 % (39.0-51.0); HEMOGLOBIN 8.5 GM/DL (13.0-17.0); LYMPH % 7.2 % (9.0-44.0); LYMPHOCYTE # 0.7 TH/MM3 (1.0-4.8); MEAN CORPUSCULAR HEMOGLOBIN 30.4 PG (27.0-34.0); MEAN CORPUSCULAR HGB CONC 33.4 % (32.0-36.0); MEAN PLATELET VOLUME 8.5 FL (7.0-11.0); MONO % 7.8 % (0.0-8.0); MONOCYTE # 0.7 TH/MM3 (0-0.9); NEUT % 81.3 % (16.0-70.0); PLATELET COUNT 185 TH/MM3 (150-450); RED CELL DISTRIBUTION WIDTH 16.3 % (11.6-17.2)
[2017-04-13 07:09] LABS: ALBUMIN 2.5 GM/DL (3.4-5.0); ALT (GPT) 34 U/L (12-78); AST (GOT) 31 U/L (15-37); BICARBONATE 30.4 MEQ/L (21.0-32.0); BLOOD UREA NITROGEN 48 MG/DL (7-18); CALCIUM 8.9 MG/DL (8.5-10.1); CHLORIDE 104 MEQ/L (98-107); CREATININE 4.69 MG/DL (0.60-1.30); GLOMERULAR FILTRATION RATE 12 ML/MIN (>89); GLUCOSE,RANDOM 148 MG/DL (74-106); MAGNESIUM 2.5 MG/DL (1.5-2.5); SODIUM (NA) 142 MEQ/L (136-145)
[2017-04-13 07:12] LABS: ALKALINE PHOSPHATASE 60 U/L (45-117); TOTAL BILIRUBIN ADULT 0.4 MG/DL (0.2-1.0); TOTAL PROTEIN 6.4 GM/DL (6.4-8.2)
[2017-04-13] MEDS: amLODIPine BESYLATE 5 MG TAB PO SCH (08:06)
[2017-04-13] MEDS: ASPIRIN EC 325 MG TABEC PO SCH (08:06)
[2017-04-13] MEDS: CALCIUM ACETATE 667 MG CAP OG-TUBE SCH ×3 (08:06→18:22)
[2017-04-13] MEDS: CLOPIDOGREL 75 MG TAB PO SCH (08:07)
[2017-04-13] MEDS: AMIODARONE INJ 450 MG in SODIUM CHLOR 0.9% (EXCEL) INJ 250 ML IV PRN (08:19)
[2017-04-13] MEDS: HEPARIN-D5W 25,000 U/250 ML 250 ML IV PRN ×2 (08:23→22:07)
--- NOTE | 2017-04-13 09:09 | PD.CARD.PN ---
Subjective Subjective Remarks Intubated. Sedated. Objective Medications Item Value Date Time Amiodarone HCl 259 ml @ 33.33 mls/hr 04/11/17 2100 450 mg/Sodium .Q7H47M PRN/IV 04/13/17 0819 Chloride Heparin Sodium/ 250 ml @ 10 mls/hr 04/10/17 0815 Dextrose TITRATE PRN/IV 04/13/17 0823 Amlodipine 5 mg 04/08/17 1115 Besylate DAILY/PO 04/13/17 0806 (Norvasc) Aspirin 325 mg 04/08/17 0900 (Ecotrin Ec) DAILY/PO 04/13/17 0806 Clopidogrel 75 mg 04/08/17 0900 Bisulfate DAILY/PO 04/13/17 0807 (Plavix) Current Medications Medications (Trade) Dose Ordered Sig/[employer] Route Start Time Stop Time Status Last Admin (NS Flush) 2 ml UNSCH PRN IVF 04/07/17 16:00 04/07/17 16:04 Miscellaneous Information 1 Q361D XX 04/07/17 16:30 04/07/17 16:30 (Chlorhexidine 2% Cloth) Taper DAILY@04 TOP 04/08/17 04:00 04/04/18 03:59 04/13/17 03:38 (Chlorhexidine 2% Cloth) 3 pack UNSCH PRN TOP 04/07/17 16:30 (Ecotrin Ec) 325 mg DAILY PO 04/08/17 09:00 04/13/17 08:06 (D50w (Vial) Inj) 50 ml UNSCH PRN IV PUSH 04/07/17 17:00 (Glucagon Inj) 1 mg UNSCH PRN OTHER 04/07/17 17:00 (NovoLIN R SUPPLEMENTAL SCALE) 1 Q4HR SQ 04/07/17 17:00 04/13/17 08:06 (Duoneb Neb) 1 ampule Q2HR NEB PRN NEB 04/07/17 17:15 (Protonix Inj) 40 mg Q24H IV PUSH 04/07/17 18:00 04/12/17 16:47 (Plavix) 75 mg DAILY PO 04/08/17 09:00 04/13/17 08:07 (Norvasc) 5 mg DAILY PO 04/08/17 11:15 Future hold 04/13/17 08:06 (Apresoline Inj) 20 mg Q2H PRN IV PUSH 04/08/17 13:00 04/11/17 01:21 (Haldol Inj) 5 mg Q4H PRN IV PUSH 04/08/17 14:30 04/08/17 14:32 Dopamine HCl/ Dextrose 500 ml @ 11.475 mls/ hr TITRATE PRN IV 04/08/17 19:00 (Brethine Inj) 1 mg UNSCH PRN SQ 04/08/17 19:00 Propofol 100 ml @ 3.06 mls/hr TITRATE PRN IV 04/08/17 20:30 04/13/17 05:06 (Phoslo) 667 mg TID OG-TUBE 04/09/17 09:00 04/13/17 08:06 Cefepime HCl 1000 mg/Sodium Chloride 100 ml @ 200 mls/hr Q24H IV 04/09/17 12:00 04/12/17 12:29 Sodium Chloride 1,000 ml @ 0 mls/hr Q0M PRN OTHER 04/09/17 11:45 (Heparin Inj) 8,000 units UNSCH PRN IV FLUSH 04/09/17 11:45 Sodium Chloride 1,000 ml @ 200 mls/hr Q5H PRN IV 04/09/17 11:45 Sodium Chloride 1,000 ml @ 0 mls/hr Q0M PRN OTHER 04/09/17 11:45 (Mannitol Inj) 12.5 gm UNSCH PRN IV 04/09/17 11:45 04/12/17 11:25 Albumin Human 100 ml @ 60 mls/hr UNSCH PRN IV 04/09/17 11:45 04/12/17 11:25 (NS Flush) 5 ml UNSCH PRN IV FLUSH 04/09/17 11:45 (Heparin Inj) UNSCH PRN .XX 04/09/17 11:45 04/12/17 09:29 (Gentamicin Inj) 20 mg UNSCH PRN OTHER 04/09/17 11:45 04/12/17 09:29 (Zofran Inj) 4 mg UNSCH PRN IV PUSH 04/09/17 11:45 (Tylenol) 650 mg UNSCH PRN PO 04/09/17 11:45 (Benadryl) 25 mg UNSCH PRN PO 04/09/17 11:45 (Nitrostat Sl) 0.4 mg UNSCH PRN SL 04/09/17 11:45 (Catapres) 0.1 mg UNSCH PRN PO 04/09/17 11:45 (Epogen Inj) 10,000 units UNSCH PRN IV PUSH 04/09/17 11:45 04/12/17 09:29 (Gelfoam 12 Mm/7 Mm Top) 1 foam UNSCH PRN TOP 04/09/17 11:45 (Heparin Inj) 5,000 units UNSCH PRN IV PUSH 04/10/17 14:15 (Heparin Inj) 2,500 units UNSCH PRN IV PUSH 04/10/17 14:15 04/13/17 02:10 Heparin Sodium/ Dextrose 250 ml @ 10 mls/hr TITRATE PRN IV 04/10/17 08:15 04/13/17 08:23 Fentanyl Citrate 250 ml @ 5 mls/hr TITRATE PRN IV 04/11/17 00:15 04/13/17 03:37 Amiodarone HCl 450 mg/Sodium Chloride 259 ml @ 33.33 mls/ hr Q7H47M PRN IV 04/11/17 21:00 04/13/17 08:19 Azithromycin 500 mg/Sodium Chloride 250 ml @ 250 mls/hr Q24H IV 04/12/17 20:00 04/12/17 20:26 Vital Signs / I&O Vital Signs Date Time Temp Pulse Resp B/P (MAP) Pulse Ox O2 Delivery O2 Flow Rate FiO2 04/13/17 08:19 106 160/87 04/13/17 08:00 99.7 126 20 149/69 (95) 98 04/13/17 08:00 126 04/13/17 07:46 98 40 04/13/17 06:00 98 04/13/17 04:00 106 04/13/17 04:00 99.2 106 21 147/75 (99) 98 04/13/17 04:00 40 04/13/17 03:48 98 40 04/13/17 02:00 96 04/13/17 00:00 87 04/13/17 00:00 40 04/13/17 00:00 99.3 87 19 142/91 (108) 99 04/12/17 23:22 98 40 04/12/17 22:00 104 04/12/17 20:25 92 117/74 04/12/17 20:00 126 04/12/17 20:00 100.2 126 23 117/74 (88) 88 04/12/17 20:00 40 04/12/17 19:27 99 40 04/12/17 18:00 97 04/12/17 16:00 40 04/12/17 16:00 98.8 102 20 96/53 (67) 96 04/12/17 16:00 102 04/12/17 15:52 96 40 04/12/17 14:00 108 04/12/17 13:30 40 04/12/17 12:00 40 04/12/17 12:00 98.9 80 24 99/67 (78) 98 04/12/17 12:00 80 04/12/17 11:49 100 40 04/12/17 10:00 85 I/O 04/12/17 04/12/17 04/12/17 04/13/17 04/13/17 04/13/17 07:00 15:00 23:00 07:00 15:00 23:00 Intake Total 603 ml 100 ml 760 ml 718 ml Output Total 750 ml 1500 ml 550 ml 300 ml Balance -147 ml -1400 ml 210 ml 418 ml IV Total 250 ml 100 ml 300 ml 450 ml Tube Feeding 353 ml 460 ml 268 ml Output Urine Total 750 ml 550 ml 300 ml Hemodialysis 1500 ml # Bowel Movements 0 Physical Exam GENERAL: Well developed, well nourished. Intubated. Sedated. HEENT: Jugular venous pressure hard to assess. CHEST: Lungs clear to auscultation anteriorly. CARDIAC: Irregular rhythm without S3, S4. I-II/ systolic murmur apex and left lower sternal border. ABDOMEN: Soft, nontender, no hepatosplenomegaly. Bowel sounds present. EXTREMITIES: No clubbing, cyanosis, or edema. Laboratory Laboratory Tests Test 04/12/17 16:30 04/13/17 00:38 04/13/17 06:07 Activated Partial Thromboplast Time 36.8 SEC 29.5 SEC White Blood Count 9.0 TH/MM3 Red Blood Count 2.80 MIL/MM3 Hemoglobin 8.5 GM/DL Hematocrit 25.5 % Mean Corpuscular Volume 91.0 FL Mean Corpuscular Hemoglobin 30.4 PG Mean Corpuscular Hemoglobin Concent 33.4 % Red Cell Distribution Width 16.3 % Platelet Count 185 TH/MM3 Mean Platelet Volume 8.5 FL Neutrophils (%) (Auto) 81.3 % Lymphocytes (%) (Auto) 7.2 % Monocytes (%) (Auto) 7.8 % Eosinophils (%) (Auto) 3.4 % Basophils (%) (Auto) 0.3 % Neutrophils # (Auto) 7.3 TH/MM3 Lymphocytes # (Auto) 0.7 TH/MM3 Monocytes # (Auto) 0.7 TH/MM3 Eosinophils # (Auto) 0.3 TH/MM3 Basophils # (Auto) 0.0 TH/MM3 CBC Comment DIFF FINAL Differential Comment Blood Urea Nitrogen 48 MG/DL Creatinine 4.69 MG/DL Random Glucose 148 MG/DL Total Protein 6.4 GM/DL Albumin 2.5 GM/DL Calcium Level 8.9 MG/DL Magnesium Level 2.5 MG/DL Alkaline Phosphatase 60 U/L Aspartate Amino Transf (AST/SGOT) 31 U/L Alanine Aminotransferase (ALT/SGPT) 34 U/L Total Bilirubin 0.4 MG/DL Sodium Level 142 MEQ/L Potassium Level 4.3 MEQ/L Chloride Level 104 MEQ/L Carbon Dioxide Level 30.4 MEQ/L Anion Gap 8 MEQ/L Estimat Glomerular Filtration Rate 12 ML/MIN Ammonia 15 MCMOL/L Lipase 296 U/L Vitamin B12 Level 1267 PG/ML Thyroid Stimulating Hormone 3rd Gen 9.250 uIU/ML Imaging Last 24 hours Impressions Abdomen X-Ray 04/13/17 0600 Signed Impressions: Service Date/Time: Thursday, April 13, 2017 04:02 - CONCLUSION: Colonic distention as above, probably nonobstructive and not significantly changed. Otherwise benign-appearing abdomen. Jaleel Slade MD Assessment and Plan Problem List: (1) STEMI (ST elevation myocardial infarction) ICD Codes: I21.3 - ST elevation (STEMI) myocardial infarction of unspecified site Status: Acute Plan: Stable cardiac status. Possible STEMI on presentation. Difficult to interpret significance of mildly abnormal troponin levels in setting of renal failure. CKMB's negative for [place]. EF on echo reported as 45-50%. The study is technically very difficult; I suspect the EF is closer to 30%. REC no beta ashley with problems with prolonged asystolic episodes conservative management from a cardiac standpoint continue daily aspirin, clopidogrel, amlodipine, increase dose (2) Paroxysmal atrial fibrillation ICD Codes: I48.0 - Paroxysmal atrial fibrillation Status: Acute Plan: Remains in atrial fib fluctuating HR's, mostly elevated. Unable to increase medical therapy with problems with prolonged asystole. No pauses past 48 hours. Continue conservative therapy. Ideally patient would need permanent pacemaker implant, though alternative code status noted. Continue IV Amiodarone. (3) Dilated cardiomyopathy ICD Codes: I42.0 - Dilated cardiomyopathy Status: Chronic Plan: Echo technically very difficult, EF reported as 45-50%. By my review, suspect it is closer to 30%. No beta ashley with episodes of asystole. No KRISTYN -I with his renal insufficiency. Consider mild diuresis. Code Status alternative code Problem Qualifiers (1) STEMI (ST elevation myocardial infarction): Qualified Codes: I21.3 - ST elevation (STEMI) myocardial infarction of unspecified site Vikram Briceno MD Apr 13, 2017 09:09
[2017-04-13] MEDS ORDERED: RESP: ALBUTEROL 2.5 MG/3 ML NEB (PRN) NEB (10:45)
[2017-04-13] MEDS ORDERED: ACETAMINOPHEN 650 MG/20.3 ML UDC NG PRN (11:00)
--- NOTE | 2017-04-13 11:09 | HHI.CCPN ---
Subjective Remarks/Hospital Course 72-year-old male with a past medical history of coronary artery disease, chronic kidney disease, cerebrovascular accident, hypertension, diabetes mellitus, hyperlipidemia who was brought into [facility] Emergency Department via ambulance with altered mental status. The patient's daughter could not reach him, so she called the fire rescue to go check on her father and on arrival they found him on the floor and has been there for the past two days. The patient is confused and when he came to the emergency department he was found bradycardic and a STEMI alert was called. EKG in the ER showed findings compatible with inferior wall myocardial infarction and bradycardia with a heart rate in the 30s. His labs on point of care significant for acute renal failure with a BUN greater than 140, creatinine 9.7. In addition the patient had a troponin of 2.72 and total CK of 380. Also he had leukocytosis with a WBC of 19.5. In the ED he was given one liter bolus of normal saline, aspirin and initially placed on nitroglycerine drip. The patient was seen by Dr. Briceno from the cardiology service and due to his significant renal failure. Cardiac catheterization was placed on hold and a plan to continue with medical therapy for now until his renal function recovers. The patient is awake, alert , however, he is intermittently confused. He is currently on 4 liters oxygen with saturation 98%, blood pressure 131/71 with heart rate in the 30s. The patient was also seen by Dr. Iraheta from nephrology service in the ED. He denies any chest pain, shortness of breath or any constitutional symptoms. The patient was recently discharged from [facility] in [place] after he was treated there for flu. 04/08: Continues to shortness of breath. Initiated on BiPAP. He pulled out his IVs earlier this morning. Heparin drip stopped. Mackey catheter placed in view of acute renal failure with need to monitor accurate urine output. 04/09: Patient intubated yesterday and placed on mechanical ventilation for worsening respiratory status. Received Lasix 20 mg IV yesterday and is maintaining good urine output. Heparin discontinued yesterday. Hemoglobin dropped noted and 1 unit PRBCs ordered for today. BUN creatinine remains elevated. Patient is currently on propofol and half and is with bicarbonate 42 cc per hour. Had some tremors noted in upper extremities this morning. Obtaining EEG though doubt seizure. 04/10: Remains sedated, orally intubated on mechanical ventilation. Started on hemodialysis yesterday. When into A. fib overnight. Being restarted on heparin GTT as well as being started on amiodarone drip per cardiology. 04/11 Patient remains sedated and intubated. On Heparin drip. Amiodarone held overnight as patient noted to have sinus pauses . 04/12 On amiodarone and heparin drip. HD today with 1.5 kg removal. Did not tolerate CPAP trial. Subjective 04/13: Resting in bed in no acute distress. MAXIMUM TEMPERATURE 100.2. Currently 99.7F. Distended colonic ileus. We'll start bowel regimen (see orders) and received soapsuds enema 1 today. If no result will need CT abdomen /pelvis within the next 24 hours. High residuals with Nepro currently on hold. Objective Vital Signs Date Time Temp Pulse Resp B/P (MAP) Pulse Ox O2 Delivery O2 Flow Rate FiO2 04/13/17 08:19 106 160/87 04/13/17 08:00 40 04/13/17 08:00 99.7 20 98 Intake and Output 04/13/17 04/13/17 04/14/17 08:00 16:00 00:00 Intake Total 618 ml Output Total 300 ml Balance 318 ml Result Diagram: 04/13/17 0607 04/13/17 0607 Other Results Microbiology Date/Time Source Procedure Growth Status 04/09/17 06:00 Blood Peripheral Aerobic Blood Culture - Preliminary NO GROWTH IN 4 DAYS Resulted 04/09/17 06:00 Blood Peripheral Anaerobic Blood Culture - Preliminary NO GROWTH IN 4 DAYS Resulted 04/08/17 18:40 Sputum Endotracheal Gram Stain - Final Complete 04/08/17 18:40 Sputum Endotracheal Sputum Culture - Final HEAVY GROWTH NORMAL RESPIRATORY SINTIA Complete 04/09/17 09:55 Urine Catheterized Urine Legionella Antigen - Final PRESUMPTIVE NEGATIVE FOR LEGIONELLA P... Complete 04/09/17 09:55 Urine Catheterized Urine Streptococcus pneumoniae Antigen (M - Final PRESUMPTIVE NEGATIVE FOR STREPTOCOCCU... Complete Imaging Last Impressions Abdomen X-Ray 04/13/17 0600 Signed Impressions: Service Date/Time: Thursday, April 13, 2017 04:02 - CONCLUSION: Colonic distention as above, probably nonobstructive and not significantly changed. Otherwise benign-appearing abdomen. Jaleel Slade MD Chest X-Ray 04/12/17 0000 Signed Impressions: Service Date/Time: Wednesday, April 12, 2017 23:11 - CONCLUSION: Improved airspace opacities, currently mild. No change lines and tubes. Jaleel Slade MD Chest CT 04/09/17 0000 Signed Impressions: Service Date/Time: Sunday, April 09, 2017 12:38 - CONCLUSION: 1. Patchy air space in both lungs most characteristic of bronchopneumonia. No cavitation to suggest a necrotizing pneumonia. Small bilateral pleural effusions with basal and dependent consolidation in the lungs. 2. Endotracheal tube and nasogastric tube in good position. 3. Moderate to severe coronary artery calcifications. John Paul Yeboah MD Head CT 04/07/17 1646 Signed Impressions: Service Date/Time: Friday, April 07, 2017 17:37 - CONCLUSION: 1. Senescent changes with ventriculomegaly out of proportion to the degree of atrophy. Clinical correlation for normal pressure hydrocephalus is recommended. Jesus Manuel Storm MD Renal Ultrasound 04/07/17 0000 Signed Impressions: Service Date/Time: Friday, April 07, 2017 18:11 - CONCLUSION: Medical renal disease. No hydronephrosis. Jaleel Carlin MD Objective Remarks GENERAL: 72-year-old male who is orotracheally intubated. SKIN: Warm and dry. Multiple evolving abrasions anterior/tibial aspect bilaterally well-healed HEAD: Normocephalic. EYES: Pupils 1-2mm and sluggishly reactive bilaterally. No scleral icterus. No injection or drainage. NECK: Supple, trachea midline. No JVD or lymphadenopathy. R IJ CVL with dressing c/d/i. L IJ Vascath in place with dressing c/d/i. CARDIOVASCULAR: Tachycardia, IR. S1, S2 no S4. 2/6 systolic murmur LLSB RESPIRATORY: Orotracheally intubated. Coarse bilateral breath sounds are appreciated bilaterally without wheezing GASTROINTESTINAL: NGT in right nares. Abdomen is distended and tympanitic. Bowel sounds hypoactive but present with no high-pitched tinkling sounds appreciated : Mackey catheter in place with dark yellow urine MUSCULOSKELETAL: 1+ edema BUE. NEURO: Currently Sedated, opens eyes, moves extremities restlessly all 4 extremities off sedation. Does not follow commands. Urinary Catheter: Yes Assessment to: Continue Mackey insert reason: Prolonged Immobilization Vascular Central Line Catheter: Yes Assessment to: Continue Date of Insertion: Apr 08, 2017 Line: Central Venous Catheter Side: Right Location: Jugular A/P Assessment and Plan NEURO/PSYCH: Acute encephalopathy History of cerebrovascular accident Chronic benzodiazepine use her sister? Saline disorder per sister? Currently on fentanyl infusion at 250 g an hour for analgosedation. Propofol at 40 mg/kg per minute for sedation. Goal RASS -2 Daily sedation vacation. Monitor neuro status Head CT 04/07 - cerebral atrophy with ventriculomegaly, recommend clinical correlation for normal pressure hydrocephalus EEG 04/09- bihemisphere slowing with sharp discharge L hemisphere. Limited due to artifact. Sharp discharge could be of epileptiform significance but no definitive due to artifact. Now sedated on propofol which may provide some seizure protection. Ordered EEG which was completed 04/13 AM while off sedatives and consult neurology if abnormal. Ordered MRI brain to evaluate for acute stroke or other underlying cause of L hemisphere sharps. Ammonia level 15, B12 - 1267, TSH 9.2 - pending free T3/T4. Obtain home medications with medicine reconciliation still pending PULM: Acute respiratory failure Small bilateral pleural effusions Intubated on 04/08, PRVC 16/500/1./ Ventilator bundle Albuterol/ipratropium aerosols every 6 hours with albuterol aerosols every 2 hours. Dyspnea Daily SBT as tolerated. CT chest 04/09: Patchy air space in both lungs most characteristic of bronchopneumonia. No cavitation to suggest a necrotizing pneumonia. Small bilateral pleural effusions with basal and dependent consolidation in the lungs CXR 04/10 - ? small medial PTX. Repeat CXR 04/12 did not reveal pneumothorax. CV: Episode of asystole STEMI, inferior Atrial fibrillation with RVR, new onset Hypertension Hyperlipidemia - elevated triglycerides's/low HDL Coronary artery disease Chronic systolic heart failure Medical management per cardiology in setting of renal failure. 2-D echo 04/09 - Per Dr. Briceno review, EF felt to be 30%. On Amiodarone drip currently at 0.5 mg/min for management of A fib RVR and rate is 90-110s without any episodes of pauses today. Not candidate for beta-ashley due asystole. Would need permanent pacemaker placement for A fib management if that is keeping with goals of care. Currently on amlodipine 10 mg by mouth daily Will add isosorbide dinitrate 10 mg 3 times a day and titrate as tolerated to decrease afterload by decreasing preload and increasing stroke-volume to improve stroke function ejection fraction. This medication can be given per tube. Previously on isosorbide mononitrate 60 mill grams daily which cannot be given by tube Discussed with nephrology. Will give 1 dose of furosemide 40 mg IV 1 in systolic blood pressure currently 150. Consider additional hemodialysis Friday if clinically indicated Dr. Briceno following. Continue aspirin 324 mg by mouth daily, clopidogrel bisulfate 75 mill grams by mouth daily. Heparin drip early at 1700 units an hour for A fib with CHADS-VASC 6. FEN/RENAL/: ROEL overlying CKD IV Bilateral renal cyst Monitor renal function, I/O's, avoid nephrotoxins Started on hemodialysis 04/09, s/p HD 04/10 with 1L removed, 1.5 kg removed . Plan for repeat HD . Friday if indicated Renal is following- Dr. Iraheta Currently on calcium acetate 667 mg 3 times a day which is been given per RN or hyper phosphatemia Renal ultrasound revealed bilateral multiple renal cysts. No hydronephrosis. Medical renal disease indicated with diffuse renal cortical thinning bilaterally GI: Chronic mild protein energy malnutrition Colonic Ileus Hypoalbuminemia Has been On Nepro @30ml/hr (goal rate per nutrition is 40 ml/hr). Will hold for now due to high residuals. 500 KUB 04/13 - gaseous distension of colon. and small bowel Replaced OGT which is clogged 04/12. Place new NGT to LIWS. Repeat KUB 04/13. CT abd if not improved Initiate bowel regimen today 04/13 including docusate sodium liquid 100 mg twice a day, senna liquid 8.6 mill grams twice a day, polyethylene glycol 17 g twice a day and lactulose 30 cc 4 times a day. 1 dose of methylnaltrexone 12 mg subcutaneous [address] abdomen/pelvis 04/14 no results Lansoprazole 30 mg daily for GI prophylaxis Consider metoclopramide 5 mill grams IV every 8 hours ID: Post-influenza pneumonia Continue abx per ID, Dr. Cunningham: Azithromycin 04/12 #2, cefepime 04/09 #5. Levaquin discontinued 04/12 04/09 Sputum cx: normal resp sintia, 04/08 strep pneumonia and legionella ag negative 04/08 blood culture 02/18 with Staph epidermidis. Suspected contaminant. Blood culture 04/09 NGTD. Heme: Normocytic anemia s/p transfusion 1unit PRBCs on 04/09, follow CBC transfuse to keep hemoglobin 8 given ACS. Recheck hemoglobin at 1602/25 Endo: Diabetes mellitus Elevated TSH Bedside glucose every 4 hours with medium dose Novolin R sliding scale. 12 units past 24 hours. Free T4/T3 pending GI prophylaxis with lansoprazole 30 milligrams daily and DVT prophylaxis with SCDs, on Heparin drip Lines: Right IJ CVP 04/08 #6, Left IJ vascath placed 04/08 #6 Level II follow-up Joshua Sosa MD Apr 13, 2017 11:09
--- NOTE | 2017-04-13 11:12 | HHI.NPPN ---
Subjective General Problems: Anemia, Hypertension, Mebatolic Acidosis Renal Failure: Chronic, Acute Additional Remarks Patient remain intubated and sedated. Tolerated HD yesterday Review of Systems General General Remarks unable to obtain Objective Data Data Vital Signs Date Time Temp Pulse Resp B/P (MAP) Pulse Ox O2 Delivery O2 Flow Rate FiO2 04/13/17 08:19 106 160/87 04/13/17 08:00 40 04/13/17 08:00 99.7 126 20 149/69 (95) 98 04/13/17 08:00 126 04/13/17 07:46 98 40 04/13/17 06:00 98 04/13/17 04:00 106 04/13/17 04:00 99.2 106 21 147/75 (99) 98 04/13/17 04:00 40 04/13/17 03:48 98 40 04/13/17 02:00 96 04/13/17 00:00 87 04/13/17 00:00 40 04/13/17 00:00 99.3 87 19 142/91 (108) 99 04/12/17 23:22 98 40 04/12/17 22:00 104 04/12/17 20:25 92 117/74 04/12/17 20:00 126 04/12/17 20:00 100.2 126 23 117/74 (88) 88 04/12/17 20:00 40 04/12/17 19:27 99 40 04/12/17 18:00 97 04/12/17 16:00 40 04/12/17 16:00 98.8 102 20 96/53 (67) 96 04/12/17 16:00 102 04/12/17 15:52 96 40 04/12/17 14:00 108 04/12/17 13:30 40 04/12/17 12:00 40 04/12/17 12:00 98.9 80 24 99/67 (78) 98 04/12/17 12:00 80 04/12/17 11:49 100 40 -: 04/13/17 0607 04/13/17 0607 Tubes & Lines: Mackey Physical Exam General Appearance: Well Developed, Well Nourished Throat Throat Exam: Oral Mucosa [place] & Moist Neck Neck Exam: Neck Supple Pulmonary Resp Exam: Breath Sounds Equal, Crackles, Rhonchi, Decreased Bases, Poor Inspiratory Effort Cardiology CV Exam: Good Perfusion, Bradycardia Gastrointestinal/Abdomen GI Exam: Soft, Non-Tender, Bowel Sounds Present Musculoskeletal MS Exam: Joints Intact, Normal Gait Integumentary Skin Exam: Warm, Dry, Intact Extremeties Extremities Exam: Moderate Edema Neurologic Neuro Exam: Sedated Assessment/Plan Discussed Condition With: Patient Assessment Summary: ROEL/Acute Renal Failure, Anemia of CKD Electrolyte Assessment: Metabolic Acidosis Problem List: (1) Acute renal failure ICD Codes: N17.9 - Acute kidney failure, unspecified Plan: He has underlying CKD,. Per the historical manuscripts curator, Dr. Ramirez in [place], his GFR was 19 (creatinine 3.2) in October (CKD 4), he had underlying diabetic nephropathy with proteinuria. Acute Renal failure due to bradycardia and MO, with diminished renal perfusion. Started on HD Has been non oliguric with UOP at 850L over past 24 hours. HD done yesterday with 1.5L UF Plan for next HD Friday. Continue to monitor creatinine and UOP for any renal recovery. (2) Bradycardia ICD Codes: R00.1 - Bradycardia, unspecified Status: Acute Plan: May need PPM Continue supportive care Blood pressure stable. Avoid BB and KRISTYN, on Amlodipine 5 mg daily (3) Anemia ICD Codes: D64.9 - Anemia, unspecified Plan: May have anemia of CKD. Has iron deficiency, has had venofer. (4) STEMI (ST elevation myocardial infarction) ICD Codes: I21.3 - ST elevation (STEMI) myocardial infarction of unspecified site Status: Acute Plan: Cardiology following, unclear if he suffered MO. Off heparin gtt. on amiodarone (5) Leukocytosis ICD Codes: D72.829 - Elevated white blood cell count, unspecified Plan: May be reactive, monitor for infections Lactic acid elevated. Problem Qualifiers (1) Anemia: (2) STEMI (ST elevation myocardial infarction): Qualified Codes: I21.3 - ST elevation (STEMI) myocardial infarction of unspecified site Sina Carlisle MD Apr 13, 2017 11:12
[2017-04-13] MEDS ORDERED: METHYLNALTREXONE BROMIDE 12 MG/0.6 ML VIAL SQ ONE (11:15)
[2017-04-13] MEDS ORDERED: SENNOSIDES SYRUP 8.8 MG/5 ML CUP PO ONE (11:15)
[2017-04-13] MEDS ORDERED: POLYETHYLENE GLYCOL 17 GM PKG NG ONE (11:15)
[2017-04-13] MEDS ORDERED: HALOPERIDOL LACTATE 5 MG/ML AMP IM PRN (11:15)
[2017-04-13] MEDS: LACTULOSE SYRUP 20 GM/30 ML CUP PO SCH ×3 (11:32→20:31)
[2017-04-13] MEDS: CEFEPIME INJ 1,000 MG in SODIUM CHLORIDE 0.9% INJ 100 ML IV SCH (11:33)
[2017-04-13] MEDS: DOCUSATE SODIUM 100 MG/10 ML UDC NG SCH ×2 (11:49→20:31)
[2017-04-13] MEDS ORDERED: HEPARIN SODIUM - IV 10,000 UNITS/10 ML VIAL IV PUSH ONE (12:30)
[2017-04-13] MEDS: ISOSORBIDE DINITRATE 10 MG TAB PO SCH ×2 (13:52→21:48)
[2017-04-13] MEDS: ARTIFICIAL TEARS OPTH SOLN 15 ML BTL EACH EYE SCH ×2 (14:00→21:48)
[2017-04-13] MEDS: RESP: ALBUTEROL 2.5 MG/IPRATROPIUM 0.5 MG NEB (SCH) NEB ×2 (16:00→20:06)
[2017-04-13 16:36] LABS: HEMATOCRIT 28.3 % (39.0-51.0); HEMOGLOBIN 9.3 GM/DL (13.0-17.0)
[2017-04-13] MEDS ORDERED: HALOPERIDOL LACTATE 5 MG/ML AMP IV PUSH PRN (17:15)
--- NOTE | 2017-04-13 17:44 | RADRPT ---
EXAM DATE/TIME: 04/13/2017 17:03 [facility] COMPARISON: CT BRAIN W/O CONTRAST, April 07, 2017, 17:37. INDICATIONS : Seizures. MEDICAL HISTORY : Cardiovascular disease Renal insufficiency, chronic. Cerebrovascular disease. HTN, diabetes, high cho lesterol. SURGICAL HISTORY : Knee surgery. ENCOUNTER: Subsequent ACUITY: 4-6 days PAIN SCORE: 0/10 LOCATION: cranial TECHNIQUE: Multiplanar, multisequence MRI of the brain was performed without contrast. FINDINGS: CEREBRUM: The ventricles are prominent for age. There is bilateral cortical atrophy. No evidence of midline sh ift, mass lesion, hemorrhage or acute infarction. No extraaxial fluid collections are seen. The pit uitary gland and suprasellar cistern are normal in configuration. WHITE MATTER: There is moderate chronic white matter changes bilaterally. POSTERIOR FOSSA: The cerebellum and brainstem are intact. The 4th ventricle is midline. The cerebellopontine angle is unremarkable. The cerebellar tonsils are normal in position. DIFFUSION IMAGING: No focal areas of restricted diffusion are seen. No evidence of acute infarction. EXTRACRANIAL: The visualized portions of the orbits and paranasal sinuses are unremarkable. CONCLUSION: 1. No acute pathology. 2. Bilateral cortical atrophy and chronic white matter changes. 3. Nonspecific prominence of the ventricles. This is most likely related to patient's diffuse cortica l atrophy. Normal pressure hydrocephalus would be a second possibility. This needs to be correlated p atient's physical, clinical exam and laboratory values. Gustavo Esparza MD on April 13, 2017 at 17:40 Board Certified Radiologist. This report was verified electronically.
--- NOTE | 2017-04-13 18:01 | MG ---
cc: CAMELIA CAZARES M.D. Lab No: Date: 04/13/2017 Age: 60 Sex: M Race: REQUESTING PHYSICIAN: Dr. Rosales. An EEG was obtained on this 60-year-old patient who is sedated on Diprivan and would not lie still off sedation. The patient was intubated. The EEG shows a lot of theta with some delta rhythms bilaterally. There is some intermixed beta activity and there are lack of alpha rhythms. There is background change from time to time. There is sweating with associated artifact. Photic stimulation was unremarkable. INTERPRETATION: Abnormal EEG because of bihemispheric / generalized slowing suggesting a moderately severe diffuse disturbance of cerebral function or bilateral structural abnormalities. No epileptiform features present. Camelia Cazares MD [facility] /5:45 PM /5:55 PM
[2017-04-13] MEDS: AZITHROMYCIN INJ 500 MG in SODIUM CHLOR 0.9% 250 ML INJ 250 ML IV SCH (20:10)
[2017-04-13] MEDS: POLYETHYLENE GLYCOL 17 GM PKG NG SCH (20:30)
[2017-04-13] MEDS: SENNOSIDES SYRUP 8.8 MG/5 ML CUP NG SCH (20:30)
[2017-04-14] VITALS (20 sets, daily range): BP systolic 93–179; BP diastolic 58–95; PULSE 85–123; RESP 15–21; TEMP 98.1–100; O2SAT 96–100
[2017-04-14] MEDS: PROPOFOL 1000 MG/100 ML INJ 100 ML IV PRN ×4 (00:50→18:07)
[2017-04-14] MEDS: AMIODARONE INJ 450 MG in SODIUM CHLOR 0.9% (EXCEL) INJ 250 ML IV PRN ×2 (01:31→17:43)
[2017-04-14] MEDS: HEPARIN SODIUM - IV 10,000 UNITS/10 ML VIAL IV PUSH PRN (02:12)
[2017-04-14] MEDS: RESP: ALBUTEROL 2.5 MG/IPRATROPIUM 0.5 MG NEB (SCH) NEB ×4 (03:42→21:03)
[2017-04-14] MEDS: CHLORHEXIDINE GLUCONATE 2 % 1 PACK (2 CLOTHS) TOP SCH (04:00)
[2017-04-14] MEDS: INSULIN NovoLIN REGULAR SUPPLEMENTAL SCALE SQ SCH ×6 (04:00→20:00)
--- NOTE | 2017-04-14 05:26 | RADRPT ---
EXAM DATE/TIME: 04/14/2017 03:07 [facility] COMPARISON: CHEST SINGLE AP, April 10, 2017, 3:32. CHEST SINGLE AP, April 12, 2017, 23:11. INDICATIONS : Shortness of breath, possible pulmonary disease. MEDICAL HISTORY : Diabetes mellitus type II. Stroke. SURGICAL HISTORY : None. ENCOUNTER: Subsequent ACUITY: 1 week PAIN SCORE: Non-responsive. LOCATION: Bilateral chest FINDINGS: Stable ETT, NGT, left and right IJ central lines. Persistent mild diffuse interstitial prominence and minimal patchy residual airspace disease primarily in the left lung. Cardiac silhouette is enlarged. Remainder of exam is unchanged. CONCLUSION: 1. Stable lines and tubes. 2. No significant interval change with persistent mild interstitial edema and residual patchy airspac e disease primarily in the left lung. Jesus Manuel Storm MD on April 14, 2017 at 5:23 Board Certified Radiologist. This report was verified electronically.
--- NOTE | 2017-04-14 05:28 | RADRPT ---
EXAM DATE/TIME: 04/14/2017 03:11 [facility] COMPARISON: ABDOMEN KUB ONLY, April 13, 2017, 4:02. INDICATIONS : Abdominal distention. MEDICAL HISTORY : Diabetes mellitus type II. Stroke. SURGICAL HISTORY : None. ENCOUNTER: Initial ACUITY: 1 week PAIN SCORE: Non-responsive. LOCATION: Bilateral Abdomen FINDINGS: Stable NGT in the stomach. There is stable colonic distention to the splenic flexure. More distally, there is suggestion of colonic wall thickening. No dilated loops of small bowel. No free air or pneum atosis. Remainder the exam is unchanged. CONCLUSION: 1. Stable proximal colonic distention with questionable distal colonic wall thickening. Findings may reflect distal colitis in the appropriate clinical setting. This may be further evaluated with CT exa m, already scheduled for today. Jesus Manuel Storm MD on April 14, 2017 at 5:25 Board Certified Radiologist. This report was verified electronically.
[2017-04-14] MEDS ORDERED: DIATRIZOATE MEGLUM/DIATRIZOATE SOD 9 ML CUP PO ONE (06:00)
[2017-04-14] MEDS: ARTIFICIAL TEARS OPTH SOLN 15 ML BTL EACH EYE SCH ×3 (06:02→20:36)
[2017-04-14] MEDS: ISOSORBIDE DINITRATE 10 MG TAB PO SCH ×3 (06:02→20:35)
[2017-04-14 06:09] LABS: AUTOMATED NEUTROPHIL # 6.3 TH/MM3 (1.8-7.7); BASOPHIL % 0.4 % (0.0-2.0); EOSINOPHIL # 0.3 TH/MM3 (0-0.4); EOSINOPHIL % 3.4 % (0.0-4.0); HEMATOCRIT 25.9 % (39.0-51.0); HEMOGLOBIN 8.4 GM/DL (13.0-17.0); LYMPH % 10.3 % (9.0-44.0); LYMPHOCYTE # 0.9 TH/MM3 (1.0-4.8); MEAN CELL VOLUME 90.7 FL (80.0-100.0); MEAN CORPUSCULAR HEMOGLOBIN 29.4 PG (27.0-34.0); MEAN CORPUSCULAR HGB CONC 32.4 % (32.0-36.0); MEAN PLATELET VOLUME 8.7 FL (7.0-11.0); MONO % 8.9 % (0.0-8.0); MONOCYTE # 0.7 TH/MM3 (0-0.9); PLATELET COUNT 177 TH/MM3 (150-450); RED BLOOD COUNT 2.86 MIL/MM3 (4.50-5.90); RED CELL DISTRIBUTION WIDTH 16.1 % (11.6-17.2); WHITE BLOOD COUNT 8.2 TH/MM3 (4.0-11.0)
[2017-04-14] MEDS: fentaNYL DRIP 250 ML IV PRN ×2 (06:09→21:12)
[2017-04-14 07:00] LABS: ALBUMIN 2.4 GM/DL (3.4-5.0); BICARBONATE 27.6 MEQ/L (21.0-32.0); CREATININE 5.55 MG/DL (0.60-1.30); FREE T3 1.1 PG/ML (2.18-3.98); FREE T4 0.78 NG/DL (0.76-1.46); PHOSPHORUS 6.6 MG/DL (2.5-4.9)
--- NOTE | 2017-04-14 08:19 | PD.CARD.PN ---
Subjective Subjective Remarks Intubated. Sedated. Objective Medications Item Value Date Time Amlodipine 10 mg 04/14/17 0900 Besylate DAILY/PO (Norvasc) Aspirin 324 mg 04/14/17 0900 (Aspirin Chew) DAILY/NG Isosorbide 10 mg 04/13/17 1400 Dinitrate Q8HR/PO 04/14/17 0602 (Isordil) Amiodarone HCl 259 ml @ 33.33 mls/hr 04/11/17 2100 450 mg/Sodium .Q7H47M PRN/IV 04/14/17 0131 Chloride Heparin Sodium/ 250 ml @ 10 mls/hr 04/10/17 0815 Dextrose TITRATE PRN/IV 04/13/17 2207 Clopidogrel 75 mg 04/08/17 0900 Bisulfate DAILY/PO 04/13/17 0807 (Plavix) Current Medications Medications (Trade) Dose Ordered Sig/Mary Kay Route Start Time Stop Time Status Last Admin (NS Flush) 2 ml UNSCH PRN IVF 04/07/17 16:00 04/07/17 16:04 Miscellaneous Information 1 Q361D XX 04/07/17 16:30 04/07/17 16:30 (Chlorhexidine 2% Cloth) Taper DAILY@04 TOP 04/08/17 04:00 04/04/18 03:59 04/14/17 04:00 (Chlorhexidine 2% Cloth) 3 pack UNSCH PRN TOP 04/07/17 16:30 (D50w (Vial) Inj) 50 ml UNSCH PRN IV PUSH 04/07/17 17:00 (Glucagon Inj) 1 mg UNSCH PRN OTHER 04/07/17 17:00 (NovoLIN R SUPPLEMENTAL SCALE) 1 Q4HR SQ 04/07/17 17:00 04/13/17 08:06 (Plavix) 75 mg DAILY PO 04/08/17 09:00 04/13/17 08:07 Dopamine HCl/ Dextrose 500 ml @ 11.475 mls/ hr TITRATE PRN IV 04/08/17 19:00 (Brethine Inj) 1 mg UNSCH PRN SQ 04/08/17 19:00 Propofol 100 ml @ 3.06 mls/hr TITRATE PRN IV 04/08/17 20:30 04/14/17 07:59 (Phoslo) 667 mg TID OG-TUBE 04/09/17 09:00 04/13/17 18:22 Cefepime HCl 1000 mg/Sodium Chloride 100 ml @ 200 mls/hr Q24H IV 04/09/17 12:00 04/13/17 11:33 Sodium Chloride 1,000 ml @ 0 mls/hr Q0M PRN OTHER 04/09/17 11:45 (Heparin Inj) 8,000 units UNSCH PRN IV FLUSH 04/09/17 11:45 Sodium Chloride 1,000 ml @ 200 mls/hr Q5H PRN IV 04/09/17 11:45 Sodium Chloride 1,000 ml @ 0 mls/hr Q0M PRN OTHER 04/09/17 11:45 (Mannitol Inj) 12.5 gm UNSCH PRN IV 04/09/17 11:45 04/12/17 11:25 Albumin Human 100 ml @ 60 mls/hr UNSCH PRN IV 04/09/17 11:45 04/12/17 11:25 (NS Flush) 5 ml UNSCH PRN IV FLUSH 04/09/17 11:45 (Heparin Inj) UNSCH PRN .XX 04/09/17 11:45 04/12/17 09:29 (Gentamicin Inj) 20 mg UNSCH PRN OTHER 04/09/17 11:45 04/12/17 09:29 (Zofran Inj) 4 mg UNSCH PRN IV PUSH 04/09/17 11:45 (Benadryl) 25 mg UNSCH PRN PO 04/09/17 11:45 (Nitrostat Sl) 0.4 mg UNSCH PRN SL 04/09/17 11:45 (Catapres) 0.1 mg UNSCH PRN PO 04/09/17 11:45 (Epogen Inj) 10,000 units UNSCH PRN IV PUSH 04/09/17 11:45 04/12/17 09:29 (Gelfoam 12 Mm/7 Mm Top) 1 foam UNSCH PRN TOP 04/09/17 11:45 (Heparin Inj) 5,000 units UNSCH PRN IV PUSH 04/10/17 14:15 (Heparin Inj) 2,500 units UNSCH PRN IV PUSH 04/10/17 14:15 04/14/17 02:12 Heparin Sodium/ Dextrose 250 ml @ 10 mls/hr TITRATE PRN IV 04/10/17 08:15 04/13/17 22:07 Fentanyl Citrate 250 ml @ 5 mls/hr TITRATE PRN IV 04/11/17 00:15 04/14/17 06:09 Amiodarone HCl 450 mg/Sodium Chloride 259 ml @ 33.33 mls/ hr Q7H47M PRN IV 04/11/17 21:00 04/14/17 01:31 Azithromycin 500 mg/Sodium Chloride 250 ml @ 250 mls/hr Q24H IV 04/12/17 20:00 04/13/17 20:10 (Norvasc) 10 mg DAILY PO 04/14/17 09:00 (Tears Naturale Opth Soln) 1 drop Q8HR EACH EYE 04/13/17 14:00 04/14/17 06:02 (Apresoline Inj) 10 mg Q1H PRN IV PUSH 04/13/17 10:45 (Albuterol Neb) 2.5 mg Q2HR NEB PRN NEB 04/13/17 10:45 (Colace Liq) 100 mg Q12HR NG 04/13/17 11:00 04/13/17 20:31 (Senna Liq) 8.8 mg BID NG 04/13/17 21:00 04/13/17 20:30 (Miralax) 17 gm BID NG 04/13/17 21:00 04/13/17 20:30 (Lactulose Liq) 30 ml QID PO 04/13/17 13:00 04/13/17 20:31 (Tylenol 650 Mg/ 20 ml Liq) 650 mg Q6H PRN NG 04/13/17 11:00 (Isordil) 10 mg Q8HR PO 04/13/17 14:00 04/14/17 06:02 (Duoneb Neb) 1 ampule Q6HR NEB NEB 04/13/17 16:00 04/14/17 03:42 (Aspirin Chew) 324 mg DAILY NG 04/14/17 09:00 (Haldol Inj) 5 mg Q6H PRN IV PUSH 04/13/17 17:15 (Prevacid Odt) 30 mg DAILY NG 04/14/17 09:00 Vital Signs / I&O Vital Signs Date Time Temp Pulse Resp B/P (MAP) Pulse Ox O2 Delivery O2 Flow Rate FiO2 2/26/18 06:00 98 04/14/17 04:00 98.9 87 15 133/58 (83) 100 04/14/17 04:00 40 04/14/17 04:00 87 04/14/17 03:42 100 40 04/14/17 02:00 86 04/14/17 01:31 127 106/70 04/14/17 00:00 98.5 90 21 93/66 (75) 99 04/14/17 00:00 90 04/14/17 00:00 40 04/13/17 23:56 100 40 04/13/17 22:00 77 04/13/17 20:09 100 40 04/13/17 20:00 40 04/13/17 20:00 80 04/13/17 20:00 98.2 80 20 96/64 (75) 100 04/13/17 19:30 86 97/66 04/13/17 18:00 89 04/13/17 16:00 126 04/13/17 16:00 99.2 125 22 130/85 (100) 98 04/13/17 16:00 40 04/13/17 14:00 127 04/13/17 12:00 96 04/13/17 12:00 40 04/13/17 12:00 99.3 96 20 110/61 (77) 98 04/13/17 11:09 97 40 04/13/17 10:00 97 04/13/17 08:19 106 160/87 I/O 04/13/17 04/13/17 04/13/17 04/14/17 04/14/17 04/14/17 07:00 15:00 23:00 07:00 15:00 23:00 Intake Total 718 ml 100 ml 850 ml 709 ml Output Total 300 ml 1750 ml 825 ml Balance 418 ml 100 ml -900 ml -116 ml IV Total 450 ml 100 ml 850 ml 709 ml Tube Feeding 268 ml 0 ml 0 ml Output Urine Total 300 ml 450 ml 425 ml Gastric Drainage Total 1300 ml 400 ml # Bowel Movements 0 0 Physical Exam GENERAL: Well developed, well nourished. Intubated. Sedated. HEENT: Jugular venous pressure hard to assess. CHEST: Lungs clear to auscultation anteriorly. CARDIAC: Irregular rhythm without S3, S4. I/ systolic murmur apex and left lower sternal border. ABDOMEN: Soft, nontender, no hepatosplenomegaly. Bowel sounds absent. EXTREMITIES: No clubbing, cyanosis, or edema. Laboratory Laboratory Tests Test 04/13/17 08:57 04/13/17 15:50 04/13/17 18:00 04/14/17 01:15 Activated Partial Thromboplast Time 33.4 SEC 32.8 SEC 33.1 SEC Hemoglobin 9.3 GM/DL Hematocrit 28.3 % Test 04/14/17 05:45 04/14/17 05:54 04/14/17 06:40 White Blood Count 8.2 TH/MM3 Red Blood Count 2.86 MIL/MM3 Hemoglobin 8.4 GM/DL Hematocrit 25.9 % Mean Corpuscular Volume 90.7 FL Mean Corpuscular Hemoglobin 29.4 PG Mean Corpuscular Hemoglobin Concent 32.4 % Red Cell Distribution Width 16.1 % Platelet Count 177 TH/MM3 Mean Platelet Volume 8.7 FL Neutrophils (%) (Auto) 77.0 % Lymphocytes (%) (Auto) 10.3 % Monocytes (%) (Auto) 8.9 % Eosinophils (%) (Auto) 3.4 % Basophils (%) (Auto) 0.4 % Neutrophils # (Auto) 6.3 TH/MM3 Lymphocytes # (Auto) 0.9 TH/MM3 Monocytes # (Auto) 0.7 TH/MM3 Eosinophils # (Auto) 0.3 TH/MM3 Basophils # (Auto) 0.0 TH/MM3 CBC Comment AUTO DIFF Blood Urea Nitrogen 59 MG/DL Creatinine 5.55 MG/DL Random Glucose 141 MG/DL Albumin 2.4 GM/DL Calcium Level 9.0 MG/DL Phosphorus Level 6.6 MG/DL Sodium Level 141 MEQ/L Potassium Level 4.4 MEQ/L Chloride Level 104 MEQ/L Carbon Dioxide Level 27.6 MEQ/L Anion Gap 9 MEQ/L Estimat Glomerular Filtration Rate 10 ML/MIN Total Creatine Kinase 91 U/L Triglycerides Level 208 MG/DL Lipase 185 U/L Free Thyroxine 0.78 NG/DL Free Triiodothyronine (T3) pg/dL 1.10 PG/ML Lactic Acid Level 1.0 mmol/L Activated Partial Thromboplast Time 35.0 SEC Assessment and Plan Problem List: (1) STEMI (ST elevation myocardial infarction) ICD Codes: I21.3 - ST elevation (STEMI) myocardial infarction of unspecified site Status: Acute Plan: Stable cardiac status. Possible STEMI on presentation 04/07/17. Mildly abnormal troponin levels though was in setting of renal failure. CKMB's negative for MS. EF on echo reported as 45-50%. The study is technically very difficult; I suspect the EF is closer to 30%. REC no beta ashley with problems with prolonged asystolic episodes conservative management from a cardiac standpoint continue daily aspirin, clopidogrel, amlodipine (2) Paroxysmal atrial fibrillation ICD Codes: I48.0 - Paroxysmal atrial fibrillation Status: Acute Plan: Remains in atrial fib fluctuating HR's, currently acceptable. Unable to increase medical therapy with problems with prolonged asystole. No pauses past 72 hours. Continue conservative therapy. Ideally patient would need permanent pacemaker implant, though alternative code status noted. Continue IV Amiodarone. (3) Dilated cardiomyopathy ICD Codes: I42.0 - Dilated cardiomyopathy Status: Chronic Plan: Echo technically very difficult, EF reported as 45-50%. By my review, suspect it is closer to 30%. No beta ashley with episodes of asystole. No KRISTYN -I with his renal insufficiency. No new recommendations. Code Status alternative code Problem Qualifiers (1) STEMI (ST elevation myocardial infarction): Qualified Codes: I21.3 - ST elevation (STEMI) myocardial infarction of unspecified site Vikram Briceno MD Apr 14, 2017 08:19
--- NOTE | 2017-04-14 08:21 | HHI.IDPN ---
Subjective Subjective Remarks Mr. Hubbard is a 72-year-old male with past medical history significant for coronary artery disease, chronic kidney disease, cerebrovascular accident, hypertension diabetes, hyperlipidemia who was brought into the emergency room via ambulance due to altered mental status. Apparently the patient's daughter could not reach him so she called far department to check on him. On arrival to found him on the floor in reportedly patient was probably there for at least 2 days. Patient was confused and came to the emergency room was found to be bradycardic and a STEMI alert was called. EKG in the ER reportedly was consistent with inferior wall OH and bradycardia in the 30s. Patient had a BUN of 140, creatinine of 9.7 upon arrival in the emergency department. His troponin was 2.72 and total CK of 380. He had leukocytosis of 19.5. In the emergency department he was given 1 L fluid bolus aspirin and Dr. Briceno from cardiology was consulted. Patient was initially placed on nitroglycerin drip as well. Cardiac catheterization was placed on hold due to significant renal failure. It was decided to continue with medical therapy until his renal function improves. Patient was admitted on the critical care services. Dr. Geoffrey Hamilton from nephrology services also been consulted. At the time of my evaluation patient is in the [facility] currently not on any pressors. Patient remains intubated and sedated. On a brief sedation vacation patient reportedly moves his extremities. RN reports jittery movements of his upper extremities. An EEG was done report is still pending. Per my discussion with the aviation safety officer there is a plan for hemodialysis to be initiated today after Vas-Cath was placed. RN for the patient reported that she had been told by the patient's daughter that there is a significant psychiatric history. Also that the patient was recently discharged from [facility] in [place] where he is treated for flu. ID following for Pneumonia and possible colitis. Overnight events reviewed with RN. Afebrile remains on vent, FiO2 40% Cardiology ff STEMI HD planned. non oliguric Antibiotics Cefepime IV Azithro IV Lines Line sites with no e.o infection Past Medical History Past Medical History 1. Coronary artery disease. 2. Chronic kidney disease. 3. Cerebrovascular accident. 4. Diabetes mellitus. 5. Hypertension. 6. Hyperlipidemia. 7. Psychiatric history. Past Surgical History None per records. Allergies: Coded Allergies: Sulfa (Sulfonamide Antibiotics) (Verified Allergy, Intermediate, HIVES, 2/ 19/18) penicillin G (Verified Allergy, Unknown, HIVES, 04/07/17) Objective . Vital Signs Date Time Temp Pulse Resp B/P (MAP) Pulse Ox O2 Delivery O2 Flow Rate FiO2 04/14/17 06:00 98 04/14/17 04:00 98.9 87 15 133/58 (83) 100 04/14/17 04:00 40 04/14/17 04:00 87 04/14/17 03:42 100 40 04/14/17 02:00 86 04/14/17 01:31 127 106/70 04/14/17 00:00 98.5 90 21 93/66 (75) 99 04/14/17 00:00 90 04/14/17 00:00 40 04/13/17 23:56 100 40 04/13/17 22:00 77 04/13/17 20:09 100 40 04/13/17 20:00 40 04/13/17 20:00 80 04/13/17 20:00 98.2 80 20 96/64 (75) 100 04/13/17 19:30 86 97/66 04/13/17 18:00 89 04/13/17 16:00 126 04/13/17 16:00 99.2 125 22 130/85 (100) 98 04/13/17 16:00 40 04/13/17 14:00 127 04/13/17 12:00 96 04/13/17 12:00 40 04/13/17 12:00 99.3 96 20 110/61 (77) 98 04/13/17 11:09 97 40 04/13/17 10:00 97 04/13/17 08:19 106 160/87 . Laboratory Tests Test 04/13/17 06:07 04/13/17 15:50 04/14/17 05:45 White Blood Count 9.0 TH/MM3 8.2 TH/MM3 Red Blood Count 2.80 MIL/MM3 2.86 MIL/MM3 Hemoglobin 8.5 GM/DL 9.3 GM/DL 8.4 GM/DL Hematocrit 25.5 % 28.3 % 25.9 % Mean Corpuscular Volume 91.0 FL 90.7 FL Mean Corpuscular Hemoglobin 30.4 PG 29.4 PG Mean Corpuscular Hemoglobin Concent 33.4 % 32.4 % Red Cell Distribution Width 16.3 % 16.1 % Platelet Count 185 TH/MM3 177 TH/MM3 Mean Platelet Volume 8.5 FL 8.7 FL Neutrophils (%) (Auto) 81.3 % 77.0 % Lymphocytes (%) (Auto) 7.2 % 10.3 % Monocytes (%) (Auto) 7.8 % 8.9 % Eosinophils (%) (Auto) 3.4 % 3.4 % Basophils (%) (Auto) 0.3 % 0.4 % Neutrophils # (Auto) 7.3 TH/MM3 6.3 TH/MM3 Lymphocytes # (Auto) 0.7 TH/MM3 0.9 TH/MM3 Monocytes # (Auto) 0.7 TH/MM3 0.7 TH/MM3 Eosinophils # (Auto) 0.3 TH/MM3 0.3 TH/MM3 Basophils # (Auto) 0.0 TH/MM3 0.0 TH/MM3 CBC Comment DIFF FINAL AUTO DIFF Differential Comment Laboratory Tests Test 04/13/17 06:07 04/14/17 05:45 04/14/17 05:54 Blood Urea Nitrogen 48 MG/DL 59 MG/DL Creatinine 4.69 MG/DL 5.55 MG/DL Random Glucose 148 MG/DL 141 MG/DL Total Protein 6.4 GM/DL Albumin 2.5 GM/DL 2.4 GM/DL Calcium Level 8.9 MG/DL 9.0 MG/DL Magnesium Level 2.5 MG/DL Alkaline Phosphatase 60 U/L Aspartate Amino Transf (AST/SGOT) 31 U/L Alanine Aminotransferase (ALT/SGPT) 34 U/L Total Bilirubin 0.4 MG/DL Sodium Level 142 MEQ/L 141 MEQ/L Potassium Level 4.3 MEQ/L 4.4 MEQ/L Chloride Level 104 MEQ/L 104 MEQ/L Carbon Dioxide Level 30.4 MEQ/L 27.6 MEQ/L Anion Gap 8 MEQ/L 9 MEQ/L Estimat Glomerular Filtration Rate 12 ML/MIN 10 ML/MIN Ammonia 15 MCMOL/L Lipase 296 U/L 185 U/L Vitamin B12 Level 1267 PG/ML Thyroid Stimulating Hormone 3rd Gen 9.250 uIU/ML Phosphorus Level 6.6 MG/DL Total Creatine Kinase 91 U/L Triglycerides Level 208 MG/DL Free Thyroxine 0.78 NG/DL Free Triiodothyronine (T3) pg/dL 1.10 PG/ML Lactic Acid Level 1.0 mmol/L Imaging Last Impressions Chest X-Ray 04/10/17 0600 Signed Impressions: Service Date/Time: March 03:32 - CONCLUSION: 1. Questionable small medial left pneumothorax which may be artifactual. There is overlying oxygen tubing in this region as well as patchy infiltrate in the left lung. A repeat study or CT would be recommended for further evaluation. 2. Endotracheal tube and bilateral internal jugular central venous lines remain in place. Timothy Tabares MD Chest CT 04/09/17 0000 Signed Impressions: Service Date/Time: Sunday, April 09, 2017 12:38 - CONCLUSION: 1. Patchy air space in both lungs most characteristic of bronchopneumonia. No cavitation to suggest a necrotizing pneumonia. Small bilateral pleural effusions with basal and dependent consolidation in the lungs. 2. Endotracheal tube and nasogastric tube in good position. 3. Moderate to severe coronary artery calcifications. John Paul Yeboah MD Head CT 04/07/17 1646 Signed Impressions: Service Date/Time: Friday, April 07, 2017 17:37 - CONCLUSION: 1. Senescent changes with ventriculomegaly out of proportion to the degree of atrophy. Clinical correlation for normal pressure hydrocephalus is recommended. Jesus Manuel Storm MD Renal Ultrasound 04/07/17 0000 Signed Impressions: Service Date/Time: Friday, April 07, 2017 18:11 - CONCLUSION: Medical renal disease. No hydronephrosis. Jaleel Carlin MD Physical Exam GENERAL: This is a well-nourished, well-developed patient, in no apparent distress. SKIN: No rashes, ecchymoses or lesions. Cool and dry. HEAD: Atraumatic. Normocephalic. No temporal or scalp tenderness. EYES: Pupils equal round and reactive. Extraocular motions intact. No scleral icterus. No injection or drainage. ENT: Intubated NECK: Trachea midline. Supple, nontender, no meningeal signs. CARDIOVASCULAR: HS audible. RESPIRATORY: Breath sounds decreased in the bases. GASTROINTESTINAL: Abdomen soft, ? tender (grimacing to palpation), quite distended. MUSCULOSKELETAL: Extremities without clubbing, cyanosis, or edema. NEUROLOGICAL: Sedated. Psych could not be assessed IV line sites with no e.o infection. Assessment & Plan Remarks pneumonia likely post influenza(based on the recent history of flu)\ no e/o necrotizing process Acute renal failure likely component of chronic kidney disease based on history. Now will be placed on dialysis. Acute respiratory failure on ventilator ST elevation OH inferior wall Bradycardia Hyponatremia and hyperkalemia Leukocytosis likely secondary to infection Recent history of flu unsure if this was treated will obtain records. History of coronary artery disease History of cerebrovascular accident History of psychiatric issues Diabetes mellitus Low grade Staph epi bacteremia, cw contaminant Abd distention ? colitis (ischemic?) Recommendations: Continue azithro cont cefepime IV CT Abd pelvis ordered. Will add CT chest non contrast to follow up on Pneumonia. Micki Haley MD Apr 14, 2017 08:20
[2017-04-14 08:44] LABS: BANDS 3 % (0-6); BASOPHILS 1 % (0-2); LYMPHOCYTES 9 % (9-44); METAMYELOCYTES 2 % (0-1); MONOCYTES 9 % (0-8); MYELOCYTES 2 % (0-0); NEUTROPHIL # MANUAL DIFF 6.4 TH/MM3 (1.8-7.7); POLYS (SEG NEUTROPHILS) 71 % (16-70)
--- NOTE | 2017-04-14 09:49 | HHI.CCPN ---
Subjective Remarks/Hospital Course 72-year-old male with a past medical history of coronary artery disease, chronic kidney disease, cerebrovascular accident, hypertension, diabetes mellitus, hyperlipidemia who was brought into [facility] Emergency Department via ambulance with altered mental status. The patient's daughter could not reach him, so she called the fire rescue to go check on her father and on arrival they found him on the floor and has been there for the past two days. The patient is confused and when he came to the emergency department he was found bradycardic and a STEMI alert was called. EKG in the ER showed findings compatible with inferior wall myocardial infarction and bradycardia with a heart rate in the 30s. His labs on point of care significant for acute renal failure with a BUN greater than 140, creatinine 9.7. In addition the patient had a troponin of 2.72 and total CK of 380. Also he had leukocytosis with a WBC of 19.5. In the ED he was given one liter bolus of normal saline, aspirin and initially placed on nitroglycerine drip. The patient was seen by Dr. Briceno from the cardiology service and due to his significant renal failure. Cardiac catheterization was placed on hold and a plan to continue with medical therapy for now until his renal function recovers. The patient is awake, alert , however, he is intermittently confused. He is currently on 4 liters oxygen with saturation 98%, blood pressure 131/71 with heart rate in the 30s. The patient was also seen by Dr. Iraheta from nephrology service in the ED. He denies any chest pain, shortness of breath or any constitutional symptoms. The patient was recently discharged from [facility] in [place] after he was treated there for flu. 04/08: Continues to shortness of breath. Initiated on BiPAP. He pulled out his IVs earlier this morning. Heparin drip stopped. Mackey catheter placed in view of acute renal failure with need to monitor accurate urine output. 04/09: Patient intubated yesterday and placed on mechanical ventilation for worsening respiratory status. Received Lasix 20 mg IV yesterday and is maintaining good urine output. Heparin discontinued yesterday. Hemoglobin dropped noted and 1 unit PRBCs ordered for today. BUN creatinine remains elevated. Patient is currently on propofol and half and is with bicarbonate 42 cc per hour. Had some tremors noted in upper extremities this morning. Obtaining EEG though doubt seizure. 04/10: Remains sedated, orally intubated on mechanical ventilation. Started on hemodialysis yesterday. When into A. fib overnight. Being restarted on heparin GTT as well as being started on amiodarone drip per cardiology. 04/11 Patient remains sedated and intubated. On Heparin drip. Amiodarone held overnight as patient noted to have sinus pauses . 04/12 On amiodarone and heparin drip. HD today with 1.5 kg removal. Did not tolerate CPAP trial. Subjective 04/13: Resting in bed in no acute distress. MAXIMUM TEMPERATURE 100.2. Currently 99.7F. Distended colonic ileus. We'll start bowel regimen (see orders) and received soapsuds enema 1 today. If no result will need CT abdomen /pelvis within the next 24 hours. High residuals with Nepro currently on hold. 04/14 Patient remains sedated and intubated. T:99.7. He just came back from CT ( CT chest and CT abdomen were done).On Amio and Heparin drips. Objective Vital Signs Date Time Temp Pulse Resp B/P (MAP) Pulse Ox O2 Delivery O2 Flow Rate FiO2 04/14/17 08:35 100 100 04/14/17 06:00 98 04/14/17 04:00 98.9 15 133/58 (83) Intake and Output 04/14/17 04/14/17 04/15/17 08:00 16:00 00:00 Intake Total 709 ml Output Total 825 ml Balance -116 ml Result Diagram: 04/14/17 0545 04/14/17 0545 Other Results Laboratory Tests Test 04/13/17 15:50 04/13/17 18:00 04/14/17 01:15 04/14/17 05:45 Hemoglobin 9.3 GM/DL 8.4 GM/DL Hematocrit 28.3 % 25.9 % Activated Partial Thromboplast Time 32.8 SEC 33.1 SEC White Blood Count 8.2 TH/MM3 Red Blood Count 2.86 MIL/MM3 Mean Corpuscular Volume 90.7 FL Mean Corpuscular Hemoglobin 29.4 PG Mean Corpuscular Hemoglobin Concent 32.4 % Red Cell Distribution Width 16.1 % Platelet Count 177 TH/MM3 Mean Platelet Volume 8.7 FL Neutrophils (%) (Auto) 77.0 % Lymphocytes (%) (Auto) 10.3 % Monocytes (%) (Auto) 8.9 % Eosinophils (%) (Auto) 3.4 % Basophils (%) (Auto) 0.4 % Neutrophils # (Auto) 6.3 TH/MM3 Lymphocytes # (Auto) 0.9 TH/MM3 Monocytes # (Auto) 0.7 TH/MM3 Eosinophils # (Auto) 0.3 TH/MM3 Basophils # (Auto) 0.0 TH/MM3 CBC Comment AUTO DIFF Differential Total Cells Counted 100 Neutrophils % (Manual) 71 % Band Neutrophils % 3 % Lymphocytes % 9 % Monocytes % 9 % Eosinophils % 3 % Basophils % 1 % Neutrophils # (Manual) 6.4 TH/MM3 Metamyelocytes 2 % Myelocytes 2 % Differential Comment FINAL DIFF MANUAL Platelet Estimate NORMAL Platelet Morphology Comment NORMAL Blood Urea Nitrogen 59 MG/DL Creatinine 5.55 MG/DL Random Glucose 141 MG/DL Albumin 2.4 GM/DL Calcium Level 9.0 MG/DL Phosphorus Level 6.6 MG/DL Sodium Level 141 MEQ/L Potassium Level 4.4 MEQ/L Chloride Level 104 MEQ/L Carbon Dioxide Level 27.6 MEQ/L Anion Gap 9 MEQ/L Estimat Glomerular Filtration Rate 10 ML/MIN Total Creatine Kinase 91 U/L Triglycerides Level 208 MG/DL Lipase 185 U/L Free Thyroxine 0.78 NG/DL Free Triiodothyronine (T3) pg/dL 1.10 PG/ML Test 04/14/17 05:54 04/14/17 06:40 Lactic Acid Level 1.0 mmol/L Activated Partial Thromboplast Time 35.0 SEC Imaging Last Impressions Abdomen X-Ray 04/13/17 0600 Signed Impressions: Service Date/Time: Thursday, April 13, 2017 04:02 - CONCLUSION: Colonic distention as above, probably nonobstructive and not significantly changed. Otherwise benign-appearing abdomen. Jaleel Slade MD Brain MRI 04/13/17 0000 Signed Impressions: Service Date/Time: Thursday, April 13, 2017 17:03 - CONCLUSION: 1. No acute pathology. 2. Bilateral cortical atrophy and chronic white matter changes. 3. Nonspecific prominence of the ventricles. This is most likely related to patient's diffuse cortical atrophy. Normal pressure hydrocephalus would be a second possibility. This needs to be correlated patient's physical, clinical exam and laboratory values. Gustavo Esparza MD Chest X-Ray 04/12/17 0000 Signed Impressions: Service Date/Time: Wednesday, April 12, 2017 23:11 - CONCLUSION: Improved airspace opacities, currently mild. No change lines and tubes. Jaleel Slade MD Chest CT 04/09/17 0000 Signed Impressions: Service Date/Time: Sunday, April 09, 2017 12:38 - CONCLUSION: 1. Patchy air space in both lungs most characteristic of bronchopneumonia. No cavitation to suggest a necrotizing pneumonia. Small bilateral pleural effusions with basal and dependent consolidation in the lungs. 2. Endotracheal tube and nasogastric tube in good position. 3. Moderate to severe coronary artery calcifications. John Paul Yeboah MD Head CT 04/07/17 1646 Signed Impressions: Service Date/Time: Friday, April 07, 2017 17:37 - CONCLUSION: 1. Senescent changes with ventriculomegaly out of proportion to the degree of atrophy. Clinical correlation for normal pressure hydrocephalus is recommended. Jesus Manuel Storm MD Renal Ultrasound 04/07/17 0000 Signed Impressions: Service Date/Time: Friday, April 07, 2017 18:11 - CONCLUSION: Medical renal disease. No hydronephrosis. Jaleel Carlin MD Objective Remarks GENERAL: 72-year-old male who is orotracheally intubated. SKIN: Warm and dry. Multiple evolving abrasions anterior/tibial aspect bilaterally well-healed HEAD: Normocephalic. EYES: Pupils 1-2mm and sluggishly reactive bilaterally. No scleral icterus. No injection or drainage. NECK: Supple, trachea midline. No JVD or lymphadenopathy. R IJ CVL with dressing c/d/i. L IJ Vascath in place with dressing c/d/i. CARDIOVASCULAR: Tachycardia, IR. S1, S2 no S4. 2/6 systolic murmur LLSB RESPIRATORY: Orotracheally intubated. Coarse bilateral breath sounds are appreciated bilaterally without wheezing GASTROINTESTINAL: NGT in right nares. Abdomen is distended and tympanitic. Bowel sounds hypoactive but present with no high-pitched tinkling sounds appreciated : Mackey catheter in place with dark yellow urine MUSCULOSKELETAL: 1+ edema BUE. NEURO: Currently Sedated, opens eyes, moves extremities restlessly all 4 extremities off sedation. Does not follow commands. Date of Insertion: Apr 08, 2017 Line: Central Venous Catheter Side: Right Location: Jugular A/P Assessment and Plan NEURO/PSYCH: Acute encephalopathy History of cerebrovascular accident Chronic benzodiazepine use her sister? Saline disorder per sister? Currently on fentanyl infusion at 250 g an hour for analgosedation. Propofol at 40 mg/kg per minute for sedation. Goal RASS -2 Daily sedation vacation. Monitor neuro status. Neuro eval Head CT 04/07 - cerebral atrophy with ventriculomegaly, recommend clinical correlation for normal pressure hydrocephalus EEG 04/09- bihemispheric slowing with sharp discharge L hemisphere. Limited due to artifact. Sharp discharge could be of epileptiform significance but no definitive due to artifact. Now sedated on propofol which may provide some seizure protection. MRI brain: No acute findings EEG: Mod- diffuse disturbance of cerebral function, no epileptiform features Ammonia level 15, B12 - 1267, TSH 9.2 - free T3 1.10, T4. 0.78 PULM: Acute respiratory failure Small bilateral pleural effusions Intubated on 04/08, PRVC 16/500/1.1//40 Ventilator bundle Albuterol/ipratropium aerosols every 6 hours with albuterol aerosols every 2 hours. Dyspnea Daily SBT as tolerated. CT chest 04/09: Patchy air space in both lungs most characteristic of bronchopneumonia. No cavitation to suggest a necrotizing pneumonia. Small bilateral pleural effusions with basal and dependent consolidation in the lungs For repeat CT chest today CV: Episode of asystole STEMI, inferior Atrial fibrillation with RVR, new onset Hypertension Hyperlipidemia - elevated triglycerides's/low HDL Coronary artery disease Chronic systolic heart failure Medical management per cardiology in setting of renal failure. 2-D echo 04/09 - Per Dr. Briceno review, EF felt to be 30%. On Amiodarone drip currently at 0.5 mg/min for management of A fib RVR and rate is 90-110s without any episodes of pauses today. Not candidate for beta-ashley due asystole. Would need permanent pacemaker placement for A fib management if that is keeping with goals of care. Currently on amlodipine 10 mg by mouth daily isosorbide dinitrate 10 mg [address] Briceno following. Continue aspirin 324 mg by mouth daily, clopidogrel bisulfate 75 mill grams by mouth daily. Heparin drip for A fib FEN/RENAL/: ROEL overlying CKD IV Bilateral renal cyst Monitor renal function, I/O's, avoid nephrotoxins Started on hemodialysis 04/09, s/p HD 04/10 with 1L removed, 1.5 kg removed . Renal is following- Dr. Iraheta Currently on calcium acetate 667 mg 3 times a day which is been given per RN or hyper phosphatemia Renal ultrasound revealed bilateral multiple renal cysts. No hydronephrosis. Medical renal disease indicated with diffuse renal cortical thinning bilaterally GI: Chronic mild protein energy malnutrition Colonic Ileus Hypoalbuminemia Has been On Nepro @30ml/hr (goal rate per nutrition is 40 ml/hr). Follow up on CT abdomen/pelvis KUB 04/13 - gaseous distension of colon. and small bowel bowel regimen 04/13 including docusate sodium liquid 100 mg twice a day, senna liquid 8.6 mill grams twice a day, polyethylene glycol 17 g twice a day and lactulose 30 cc 4 times a day. 1 dose of methylnaltrexone 12 mg subcutaneous [address] abdomen/pelvis 04/14 no results Lansoprazole 30 mg daily for GI prophylaxis ID: Post-influenza pneumonia Continue abx per ID, Dr. Cunningham: Azithromycin 04/12 , cefepime 04/09 Levaquin discontinued 04/12 04/09 Sputum cx: normal resp sintia, 04/08 strep pneumonia and legionella ag negative 04/08 blood culture 02/18 with Staph epidermidis. Suspected contaminant. Blood culture 04/09 NGTD. Heme: Normocytic anemia s/p transfusion 1unit PRBCs on 04/09, Monitor CBC Endo: Diabetes mellitus Elevated TSH Bedside glucose every 4 hours with medium dose Novolin R sliding scale. TSH:9.2, FT3: 1.10, FT4:0.78- ? Euthyroid sick syndrome. GI prophylaxis with lansoprazole 30 milligrams daily and DVT prophylaxis with SCDs, on Heparin drip Lines: Right IJ CVP 04/08 #6, Left IJ vascath placed 04/08 #6 Palliative care is following Level 3 Laurel Manuel MD Apr 14, 2017 09:49
--- NOTE | 2017-04-14 09:49 | RADRPT ---
EXAM DATE/TIME: 04/14/2017 08:59 [facility] COMPARISON: No previous studies available for comparison. INDICATIONS : Constipation ORAL CONTRAST: Prescribed oral contrast ingested. RADIATION DOSE: 6.63 CTDIvol (mGy) ; Combined studies - Thorax/Abdomen/Pelvis MEDICAL HISTORY : Cardiovascular disease. Diabetes mellitus type 2. Cerebrovascular disease. SURGICAL HISTORY : None. ENCOUNTER: Initial ACUITY: 3 days PAIN SCALE: Non-responsive LOCATION: abdomen TECHNIQUE: Volumetric scanning of the abdomen and pelvis was performed. Using automated exposure control and ad justment of the mA and/or kV according to patient size, radiation dose was kept as low as reasonably achievable to obtain optimal diagnostic quality images. DICOM format image data is available electro nically for review and comparison. FINDINGS: LOWER LUNGS: Please refer to chest CT report for description of the supradiaphragmatic findings. LIVER: Homogeneous density without a concerning lesion. There is a 9 mm low density lesion in the inferior t ip of the right liver with density measurements characteristic of a simple cyst. There are calcified stones in the gallbladder without wall thickening or inflammatory change. There is no dilation of th e biliary tree. SPLEEN: Normal size without lesion. PANCREAS: Within normal limits. KIDNEYS: Normal in size and shape. There is no mass, stone, or hydronephrosis. There are 3 low density lesion s in the left kidney measuring up to 2 cm, all of which have density measurements consistent with sim ple cysts. ADRENAL GLANDS: Within normal limits. VASCULAR: There is no aortic aneurysm. There is severe atherosclerotic disease. A right internal iliac artery a neurysm is present measuring 15 mm. BOWEL/MESENTERY: A nasogastric tube is looped in the stomach. Stomach demonstrates no acute finding. Small bowel is wi thin normal limits. Terminal ileum is normal. There has been prior surgery in the proximal sigmoid co yosef region with what appears to represent a end to side anastomosis. At the area of surgery in the pr oximal sigmoid colon region there is a distended segment of bowel containing a large amount of stool. This segment demonstrates a mild degree of wall thickening and very mild induration of the adjacent pericolic fat. There are multiple adjacent surgical clips. There is no free air or free fluid. ABDOMINAL WALL: There has been prior hernia repair on the midline anterior abdominal wall with mesh. RETROPERITONEUM: There is no lymphadenopathy. BLADDER: Decompressed with a Mackey catheter present. Air is present in the bladder lumen. REPRODUCTIVE: No acute abnormality. INGUINAL: There is no lymphadenopathy or hernia. MUSCULOSKELETAL: There are degenerative changes of the lumbar spine. CONCLUSION: 1. There is mild wall thickening and inflammation involving the proximal sigmoid colon adjacent to th e prior surgery and re anastomosis. There is a large amount of stool within the sigmoid colon. 2. 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 Jaleel Fischer MD on April 14, 2017 at 9:40 Board Certified Radiologist. This report was verified electronically.
--- NOTE | 2017-04-14 09:50 | HHI.NPPN ---
Subjective General Problems: Anemia, Hypertension, Mebatolic Acidosis Renal Failure: Chronic, Acute Interval History Remains intubated, sedated. To attempt CPAP trial today. Excellent urine output. (Katharine Cruz) Review of Systems General General Remarks unable to obtain (Katharine Cruz) Objective Data Data Vital Signs Date Time Temp Pulse Resp B/P (MAP) Pulse Ox O2 Delivery O2 Flow Rate FiO2 04/14/17 08:35 100 100 04/14/17 08:17 98 40 04/14/17 06:00 98 04/14/17 04:00 98.9 87 15 133/58 (83) 100 04/14/17 04:00 40 04/14/17 04:00 87 04/14/17 03:42 100 40 04/14/17 02:00 86 04/14/17 01:31 127 106/70 04/14/17 00:00 98.5 90 21 93/66 (75) 99 04/14/17 00:00 90 04/14/17 00:00 40 04/13/17 23:56 100 40 04/13/17 22:00 77 04/13/17 20:09 100 40 04/13/17 20:00 40 04/13/17 20:00 80 04/13/17 20:00 98.2 80 20 96/64 (75) 100 04/13/17 19:30 86 97/66 04/13/17 18:00 89 04/13/17 16:00 126 04/13/17 16:00 99.2 125 22 130/85 (100) 98 04/13/17 16:00 40 04/13/17 14:00 127 04/13/17 12:00 96 04/13/17 12:00 40 04/13/17 12:00 99.3 96 20 110/61 (77) 98 04/13/17 11:09 97 40 04/13/17 10:00 97 (Katharine Cruz) -: 04/14/17 0545 04/14/17 0545 Imaging Last 72 hours Impressions Abdomen X-Ray 04/13/17 0600 Signed Impressions: Service Date/Time: Thursday, April 13, 2017 04:02 - CONCLUSION: Colonic distention as above, probably nonobstructive and not significantly changed. Otherwise benign-appearing abdomen. Jaleel Slade MD Brain MRI 04/13/17 0000 Signed Impressions: Service Date/Time: Thursday, April 13, 2017 17:03 - CONCLUSION: 1. No acute pathology. 2. Bilateral cortical atrophy and chronic white matter changes. 3. Nonspecific prominence of the ventricles. This is most likely related to patient's diffuse cortical atrophy. Normal pressure hydrocephalus would be a second possibility. This needs to be correlated patient's physical, clinical exam and laboratory values. Gustavo Esparza MD Chest X-Ray 04/12/17 0000 Signed Impressions: Service Date/Time: Wednesday, April 12, 2017 23:11 - CONCLUSION: Improved airspace opacities, currently mild. No change lines and tubes. Jaleel Slade MD Abdomen X-Ray 04/12/17 0000 Signed Impressions: Service Date/Time: Wednesday, April 12, 2017 22:15 - CONCLUSION: There is gaseous distention of the bowel that I believe is mostly if not entirely the colon. However, the distended/dilated small bowel in the left midabdomen could also represent small bowel. The pattern favors ileus. Suggest a followup to confirm resolution and consider CT if symptoms persist. Jaleel Fischer MD Tubes & Lines: Vas-Cath, Mackey Drip Comment Amiodarone, Fentanyl, Heparin, Propofol (Katharine Cruz B. [employer]) Physical Exam General Appearance: Well Developed, Well Nourished, Sleeping (Kofi Cruzon B. [employer]) Throat Throat Exam: Oral Mucosa Conroy & Moist (AnthonyKatharine B. [employer]) Neck Neck Exam: Neck Supple (Anthony,Katharine B. [employer]) Pulmonary Resp Exam: Breath Sounds Equal, Crackles, Rhonchi, Decreased Bases, Poor Inspiratory Effort (AnthonyKatharine B. [employer]) Cardiology CV Exam: Good Perfusion, Bradycardia (AnthonyKatharine B. [employer]) Gastrointestinal/Abdomen GI Exam: Soft, Non-Tender, Bowel Sounds Present (Kofi Cruzon B. [employer]) Musculoskeletal MS Exam: Joints Intact, Normal Tone, Unable to Ambulate (AnthonyKatharine B. [employer]) Integumentary Skin Exam: Warm, Dry, Intact (Anthony,Katharine B. [employer]) Extremeties Extremities Exam: Pedal Pulses Palpable, Moderate Edema, Pitting Edema (Katharine Cruz) Neurologic Neuro Exam: Unresponsive, Sedated (Katharine Cruz) Assessment/Plan Assessment Summary: ROEL/Acute Renal Failure, Anemia of CKD, Fluid/Volume Overload, Hypertension, CKD Stage V Problem List: (1) Acute renal failure ICD Codes: N17.9 - Acute kidney failure, unspecified Plan: He has underlying CKD stage 4 per the water treatment technician, Dr. Ramirez in [place]. GFR of 19 (creatinine 3.2) in October (CKD 4). Most likely has underlying diabetic nephropathy with proteinuria. Acute Renal failure due to bradycardia and NH, with diminished renal perfusion. Started on HD 04/09, on TTS schedule. He still makes a significant amount of urine. Fluid removal with HD as tolerated. On 40% FiO2. Continue to monitor creatinine and UOP for any renal recovery. Family may choose to convert to comfort care if no meaningful recovery. Dialysis tomorrow. (2) Bradycardia ICD Codes: R00.1 - Bradycardia, unspecified Status: Acute Plan: A fib, variable rate, on IV Amiodarone Was bradycardic, rate improved, per cardiology, he may need PPM Continue supportive care Blood pressure stable. Avoid BB and KRISTYN, on Amlodipine daily (3) Anemia ICD Codes: D64.9 - Anemia, unspecified Plan: May have anemia of CKD. On Epogen with HD. Has iron deficiency, given venofer. (4) STEMI (ST elevation myocardial infarction) ICD Codes: I21.3 - ST elevation (STEMI) myocardial infarction of unspecified site Status: Acute Plan: Cardiology following, unclear if he suffered NH. Off heparin gtt. on amiodarone (5) Leukocytosis ICD Codes: D72.829 - Elevated white blood cell count, unspecified Plan: Improved, monitor. (Katharine Cruz) Plan patient was seen and examined.Non oliguric, but with high BUN and creatinine. Plan for dialysis tomorrow. Agree with above assessment and plan. (Pantera Iraheta MD) Problem Qualifiers (1) Anemia: (2) STEMI (ST elevation myocardial infarction): Qualified Codes: I21.3 - ST elevation (STEMI) myocardial infarction of unspecified site Katharine Cruz Apr 14, 2017 09:50 Pantera Iraheta MD Apr 14, 2017 12:33
--- NOTE | 2017-04-14 10:01 | RADRPT ---
EXAM DATE/TIME: 04/14/2017 08:59 [facility] COMPARISON: CT THORAX W/O CONTRAST, April 09, 2017, 12:38. INDICATIONS : Pneumonia RADIATION DOSE: 6.63 CTDIvol (mGy) ; Combined studies - Thorax/Abdomen/Pelvis MEDICAL HISTORY : Diabetes mellitus type 2. Cardiovascular disease Cerebrovascular disease. SURGICAL HISTORY : None. ENCOUNTER: Initial ACUITY: 1 day PAIN SCALE: Non-responsive LOCATION: chest TECHNIQUE: Volumetric scanning of the chest was performed. Using automated exposure control and adjustment of t he mA and/or kV according to patient size, radiation dose was kept as low as reasonably achievable to obtain optimal diagnostic quality images. DICOM format image data is available electronically for r eview and comparison. Follow-up recommendations for detected pulmonary nodules are based at a minimum on nodule size and pa tient risk factors according to Fleischner Society Guidelines. FINDINGS: LUNGS: There is mild residual groundglass opacity in the upper lobes bilaterally but overall significantly i mproved from the prior study. There is compressive atelectasis in both lower lobes. No pneumothorax i s present. PLEURAE: There are small bilateral pleural effusions. These have slightly decreased in volume. MEDIASTINUM: The heart and great vessels demonstrate no acute abnormality. There is no mediastinal or hilar lymph adenopathy. There is severe coronary artery calcification. Left IJ central line distal tip is in the left brachiocephalic vein and right IJ line distal tip is in the superior vena cava. Endotracheal tub e is present. AXILLAE: Within normal limits. No lymphadenopathy. MUSCULOSKELETAL: There degenerative changes of the thoracic spine. No acute osseous abnormality is identified. MISCELLANEOUS: Please refer to abdomen and pelvis CT report for description of the subdiaphragmatic findings. CONCLUSION: 1. Mild residual groundglass opacity in both upper lobes but overall significantly improved from the prior study from 5 days ago. 2. Very small bilateral pleural effusions, decreased in volume from the prior study. There is residua l lower lobe atelectasis bilaterally. 3. Severe coronary artery calcification. Jaleel Fischer MD on April 14, 2017 at 9:48 Board Certified Radiologist. This report was verified electronically.
[2017-04-14] MEDS: CALCIUM ACETATE 667 MG CAP OG-TUBE SCH ×3 (10:33→18:00)
[2017-04-14] MEDS: ASPIRIN 81 MG CHEW TAB NG SCH (10:34)
[2017-04-14] MEDS: DOCUSATE SODIUM 100 MG/10 ML UDC NG SCH ×2 (10:34→20:35)
[2017-04-14] MEDS: POLYETHYLENE GLYCOL 17 GM PKG NG SCH ×2 (10:34→20:35)
[2017-04-14] MEDS: LANSOPRAZOLE SOLUTAB 30 MG TAB NG SCH (10:34)
[2017-04-14] MEDS: LACTULOSE SYRUP 20 GM/30 ML CUP PO SCH ×4 (10:34→20:35)
[2017-04-14] MEDS: CLOPIDOGREL 75 MG TAB PO SCH (10:35)
[2017-04-14] MEDS: SENNOSIDES SYRUP 8.8 MG/5 ML CUP NG SCH ×2 (10:36→20:35)
[2017-04-14] MEDS ORDERED: DILTIAZEM HCL 25 MG/5 ML VIAL IV ONE (11:00)
[2017-04-14] MEDS: HEPARIN-D5W 25,000 U/250 ML 250 ML IV PRN (11:20)
[2017-04-14] MEDS: CEFEPIME INJ 1,000 MG in SODIUM CHLORIDE 0.9% INJ 100 ML IV SCH (12:00)
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
[2017-04-14] MEDS: AZITHROMYCIN INJ 500 MG in SODIUM CHLOR 0.9% 250 ML INJ 250 ML IV SCH (20:35)
[2017-04-15] VITALS (19 sets, daily range): BP systolic 114–185; BP diastolic 70–94; PULSE 84–135; RESP 10–21; TEMP 98.6–100.6; O2SAT 40–100
[2017-04-15] MEDS: HEPARIN-D5W 25,000 U/250 ML 250 ML IV PRN ×3 (00:10→22:35)
[2017-04-15] MEDS: PROPOFOL 1000 MG/100 ML INJ 100 ML IV PRN ×2 (00:33→10:40)
[2017-04-15] MEDS: RESP: ALBUTEROL 2.5 MG/IPRATROPIUM 0.5 MG NEB (SCH) NEB ×4 (03:43→21:55)
[2017-04-15] MEDS: INSULIN NovoLIN REGULAR SUPPLEMENTAL SCALE SQ SCH ×6 (04:00→19:57)
[2017-04-15] MEDS: CHLORHEXIDINE GLUCONATE 2 % 1 PACK (2 CLOTHS) TOP SCH (04:00)
[2017-04-15 04:52] LABS: AUTOMATED NEUTROPHIL # 7.4 TH/MM3 (1.8-7.7); BASOPHIL % 0.2 % (0.0-2.0); EOSINOPHIL # 0.3 TH/MM3 (0-0.4); HEMOGLOBIN 8.4 GM/DL (13.0-17.0); LYMPH % 8.3 % (9.0-44.0); LYMPHOCYTE # 0.8 TH/MM3 (1.0-4.8); MEAN CELL VOLUME 90.4 FL (80.0-100.0); MEAN CORPUSCULAR HEMOGLOBIN 29.1 PG (27.0-34.0); MEAN CORPUSCULAR HGB CONC 32.2 % (32.0-36.0); MEAN PLATELET VOLUME 8.5 FL (7.0-11.0); MONO % 10.2 % (0.0-8.0); NEUT % 78.3 % (16.0-70.0); PLATELET COUNT 185 TH/MM3 (150-450); RED BLOOD COUNT 2.88 MIL/MM3 (4.50-5.90); RED CELL DISTRIBUTION WIDTH 15.9 % (11.6-17.2); WHITE BLOOD COUNT 9.5 TH/MM3 (4.0-11.0)
[2017-04-15] MEDS: ISOSORBIDE DINITRATE 10 MG TAB PO SCH ×3 (05:05→22:33)
[2017-04-15] MEDS: ARTIFICIAL TEARS OPTH SOLN 15 ML BTL EACH EYE SCH ×3 (05:05→22:33)
[2017-04-15 05:17] LABS: BICARBONATE 26.5 MEQ/L (21.0-32.0); CREATININE 6.31 MG/DL (0.60-1.30)
[2017-04-15 07:07] LABS: DOHLE BODIES PRESENT (NONE SEEN)
[2017-04-15 07:08] LABS: TOXIC GRANULATION 1+ (NORMAL)
[2017-04-15] MEDS: DOCUSATE SODIUM 100 MG/10 ML UDC NG SCH ×2 (07:55→20:49)
[2017-04-15] MEDS: POLYETHYLENE GLYCOL 17 GM PKG NG SCH ×2 (07:55→20:49)
[2017-04-15] MEDS: CALCIUM ACETATE 667 MG CAP OG-TUBE SCH ×3 (07:55→17:57)
[2017-04-15] MEDS: LACTULOSE SYRUP 20 GM/30 ML CUP PO SCH ×4 (07:55→20:49)
[2017-04-15] MEDS: LANSOPRAZOLE SOLUTAB 30 MG TAB NG SCH (07:57)
[2017-04-15] MEDS: CLOPIDOGREL 75 MG TAB PO SCH (07:57)
[2017-04-15] MEDS: ASPIRIN 81 MG CHEW TAB NG SCH (07:57)
--- NOTE | 2017-04-15 07:57 | HHI.CCPN ---
Subjective Remarks/Hospital Course 72-year-old male with a past medical history of coronary artery disease, chronic kidney disease, cerebrovascular accident, hypertension, diabetes mellitus, hyperlipidemia who was brought into [facility] Emergency Department via ambulance with altered mental status. The patient's daughter could not reach him, so she called the fire rescue to go check on her father and on arrival they found him on the floor and has been there for the past two days. The patient is confused and when he came to the emergency department he was found bradycardic and a STEMI alert was called. EKG in the ER showed findings compatible with inferior wall myocardial infarction and bradycardia with a heart rate in the 30s. His labs on point of care significant for acute renal failure with a BUN greater than 140, creatinine 9.7. In addition the patient had a troponin of 2.72 and total CK of 380. Also he had leukocytosis with a WBC of 19.5. In the ED he was given one liter bolus of normal saline, aspirin and initially placed on nitroglycerine drip. The patient was seen by Dr. Briceno from the cardiology service and due to his significant renal failure. Cardiac catheterization was placed on hold and a plan to continue with medical therapy for now until his renal function recovers. The patient is awake, alert , however, he is intermittently confused. He is currently on 4 liters oxygen with saturation 98%, blood pressure 131/71 with heart rate in the 30s. The patient was also seen by Dr. Iraheta from nephrology service in the ED. He denies any chest pain, shortness of breath or any constitutional symptoms. The patient was recently discharged from [facility] in [place] after he was treated there for flu. 04/08: Continues to shortness of breath. Initiated on BiPAP. He pulled out his IVs earlier this morning. Heparin drip stopped. Mackey catheter placed in view of acute renal failure with need to monitor accurate urine output. 04/09: Patient intubated yesterday and placed on mechanical ventilation for worsening respiratory status. Received Lasix 20 mg IV yesterday and is maintaining good urine output. Heparin discontinued yesterday. Hemoglobin dropped noted and 1 unit PRBCs ordered for today. BUN creatinine remains elevated. Patient is currently on propofol and half and is with bicarbonate 42 cc per hour. Had some tremors noted in upper extremities this morning. Obtaining EEG though doubt seizure. 04/10: Remains sedated, orally intubated on mechanical ventilation. Started on hemodialysis yesterday. When into A. fib overnight. Being restarted on heparin GTT as well as being started on amiodarone drip per cardiology. 04/11 Patient remains sedated and intubated. On Heparin drip. Amiodarone held overnight as patient noted to have sinus pauses . 04/12 On amiodarone and heparin drip. HD today with 1.5 kg removal. Did not tolerate CPAP trial. Subjective 04/13: Resting in bed in no acute distress. MAXIMUM TEMPERATURE 100.2. Currently 99.7F. Distended colonic ileus. We'll start bowel regimen (see orders) and received soapsuds enema 1 today. If no result will need CT abdomen /pelvis within the next 24 hours. High residuals with Nepro currently on hold. 04/14 Patient remains sedated and intubated. T:99.7. He just came back from CT ( CT chest and CT abdomen were done).On Amio and Heparin drips. 04/15 Patient is sedated with Diprivan and Fentanyl drips and intubated. T: 100.0. Patient did not tolerate CPAP trials yesterday as he became tachycardic and hypertensive. On Amio and Heparin drips.. Objective Vital Signs Date Time Temp Pulse Resp B/P (MAP) Pulse Ox O2 Delivery O2 Flow Rate FiO2 04/15/17 06:00 103 04/15/17 05:32 100 40 04/15/17 04:00 98.9 10 126/77 (93) Intake and Output 04/15/17 04/15/17 04/16/17 08:00 16:00 00:00 Intake Total 1082 ml Output Total 1050 ml Balance 32 ml Result Diagram: 04/15/17 0430 04/15/17 0430 Other Results Laboratory Tests Test 04/14/17 09:55 Blood Gas Puncture Site RT RADIAL Blood Gas Patient Temperature 98.6 Blood Gas HCO3 25 mmol/L (22-26) Blood Gas Base Excess -0.4 mmol/L (-2-2) Blood Gas Oxygen Saturation 96 % (90-100) Arterial Blood pH 7.34 (7.380-7.420) Arterial Blood Partial Pressure CO2 47 mmHg (38-42) Arterial Blood Partial Pressure O2 122 mmHg (61-120) Arterial Blood Oxygen Content 12.1 Vol % (12.0-20.0) Arterial Blood Carboxyhemoglobin 1.3 % (0-4) Arterial Blood Methemoglobin 1.6 % (0-2) Blood Gas Hemoglobin 8.8 G/DL (12.0-16.0) Oxygen Delivery Device VENTILATOR Blood Gas Ventilator Setting PRVC/AC 500/20 Blood Gas Inspired Oxygen 40 % Imaging Last Impressions Chest X-Ray 04/14/17599 Signed Impressions: Service Date/Time: Friday, April 14, 2017 03:07 - CONCLUSION: 1. Stable lines and tubes. 2. No significant interval change with persistent mild interstitial edema and residual patchy airspace disease primarily in the left lung. Jesus Manuel Storm MD Abdomen/Pelvis CT 04/14/17599 Signed Impressions: Service Date/Time: Friday, April 14, 2017 08:59 - CONCLUSION: 1. There is mild wall thickening and inflammation involving the proximal sigmoid colon adjacent to the prior surgery and re anastomosis. There is a large amount of stool within the sigmoid colon. 2. 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 Jaleel Fischer MD Abdomen X-Ray 04/14/17599 Signed Impressions: Service Date/Time: Friday, April 14, 2017 03:11 - CONCLUSION: 1. Stable proximal colonic distention with questionable distal colonic wall thickening. Findings may reflect distal colitis in the appropriate clinical setting. This may be further evaluated with CT exam, already scheduled for today. Jesus Manuel Storm MD Chest CT 04/14/17 Signed Impressions: Service Date/Time: Friday, April 14, 2017 08:59 - CONCLUSION: 1. Mild residual groundglass opacity in both upper lobes but overall significantly improved from the prior study from 5 days ago. 2. Very small bilateral pleural effusions, decreased in volume from the prior study. There is residual lower lobe atelectasis bilaterally. 3. Severe coronary artery calcification. Jaleel Fischer MD Brain MRI 04/13/17 Signed Impressions: Service Date/Time: Thursday, April 13, 2017 17:03 - CONCLUSION: 1. No acute pathology. 2. Bilateral cortical atrophy and chronic white matter changes. 3. Nonspecific prominence of the ventricles. This is most likely related to patient's diffuse cortical atrophy. Normal pressure hydrocephalus would be a second possibility. This needs to be correlated patient's physical, clinical exam and laboratory values. Gustavo Esparza MD Head CT 04/07/17 1646 Signed Impressions: Service Date/Time: Friday, April 07, 2017 17:37 - CONCLUSION: 1. Senescent changes with ventriculomegaly out of proportion to the degree of atrophy. Clinical correlation for normal pressure hydrocephalus is recommended. Jesus Manuel Storm MD Renal Ultrasound 04/07/17 0000 Signed Impressions: Service Date/Time: Friday, April 07, 2017 18:11 - CONCLUSION: Medical renal disease. No hydronephrosis. Jaleel Carlin MD Objective Remarks GENERAL: 72-year-old male who is orotracheally intubated. SKIN: Warm and dry. Multiple evolving abrasions anterior/tibial aspect bilaterally well-healed HEAD: Normocephalic. EYES: Pupils 1-2mm and sluggishly reactive bilaterally. No scleral icterus. No injection or drainage. NECK: Supple, trachea midline. No JVD or lymphadenopathy. R IJ CVL with dressing c/d/i. L IJ Vascath in place with dressing c/d/i. CARDIOVASCULAR: Tachycardia, IR. S1, S2 no S4. 2/6 systolic murmur LLSB RESPIRATORY: Orotracheally intubated. Coarse bilateral breath sounds are appreciated bilaterally without wheezing GASTROINTESTINAL: NGT in right nares. Abdomen is distended and tympanitic. Bowel sounds hypoactive but present with no high-pitched tinkling sounds appreciated : Mackey catheter in place with dark yellow urine MUSCULOSKELETAL: 1+ edema BUE. NEURO: Currently Sedated, opens eyes, moves extremities restlessly all 4 extremities off sedation. Does not follow commands. Date of Insertion: Apr 08, 2017 Line: Central Venous Catheter Side: Right Location: Jugular A/P Assessment and Plan NEURO/PSYCH: Acute encephalopathy History of cerebrovascular accident Chronic benzodiazepine use her sister? Saline disorder per sister? Currently on fentanyl and Diprivan infusion for sedation. Daily sedation vacation. Goal RASS -2 Daily sedation vacation. Monitor neuro status. Neuro is following- Dr. Ramos. Head CT 04/07 - cerebral atrophy with ventriculomegaly, recommend clinical correlation for normal pressure hydrocephalus EEG 04/09- bihemispheric slowing with sharp discharge L hemisphere. Limited due to artifact. Sharp discharge could be of epileptiform significance but no definitive due to artifact. Now sedated on propofol which may provide some seizure protection. MRI brain: No acute findings EEG: Mod- diffuse disturbance of cerebral function, no epileptiform features For repeat EEG today Ammonia level 15, B12 - 1267, TSH 9.2 - free T3 1.10, T4. 0.78 PULM: Acute respiratory failure Small bilateral pleural effusions Intubated on 04/08, PRVC 16/500/1.1/ Ventilator bundle Albuterol/ipratropium aerosols every 6 hours with albuterol aerosols every 2 hours. Dyspnea Daily SBT as tolerated. Repeat CT chest 04/14: Mild residual ground glass opacity in both upper lobes but overall significantly improved from the prior study from 5 days ago. Very small bilateral pleural effusions, decreased in volume from the prior study. There is residual lower lobe atelectasis bilaterally. Severe coronary artery calcification. CT chest 04/09: Patchy air space in both lungs most characteristic of bronchopneumonia. No cavitation to suggest a necrotizing pneumonia. Small bilateral pleural effusions with basal and dependent consolidation in the lungs CV: Episode of asystole STEMI, inferior Atrial fibrillation with RVR, new onset Hypertension Hyperlipidemia - elevated triglycerides's/low HDL Coronary artery disease Chronic systolic heart failure Medical management per cardiology in setting of renal failure. 2-D echo 04/09 - Per Dr. Briceno review, EF felt to be 30%. On Amiodarone drip currently at 0.5 mg/min for management of A fib RVR. Not candidate for beta-ashley due asystole. Would need permanent pacemaker placement for A fib management if that is keeping with goals of care. Currently on amlodipine 10 mg by mouth daily isosorbide dinitrate 10 mg [address] Briceno following. Continue aspirin 324 mg by mouth daily, clopidogrel bisulfate 75 mill grams by mouth daily. Heparin drip for A fib FEN/RENAL/: ROEL overlying CKD IV Bilateral renal cyst Monitor renal function, I/O's, avoid nephrotoxins Started on hemodialysis 04/09, s/p HD 04/10 with 1L removed, 1.5 kg removed . Renal is following- Dr. Hoskote Currently on calcium acetate 667 mg 3 times a day which is been given per RN or hyper phosphatemia Renal ultrasound revealed bilateral multiple renal cysts. No hydronephrosis. Medical renal disease indicated with diffuse renal cortical thinning bilaterally GI: Chronic mild protein energy malnutrition Colonic Ileus Hypoalbuminemia Check KUB today Has been On Nepro @30ml/hr (goal rate per nutrition is 40 ml/hr) held for ileus 04/14 CT abdomen/pelvis: There is mild wall thickening and inflammation involving the proximal sigmoid colon adjacent to the prior surgery and re anastomosis. There is a large amount of stool within the sigmoid colon. 2. Nonacute findings include cholelithiasis , severe atherosclerotic disease, and right common iliac artery aneurysm measurin 15 mm. KUB 04/13 - gaseous distension of colon and small bowel bowel regimen 04/13 including docusate sodium liquid 100 mg twice a day, senna liquid 8.6 mill grams twice a day, polyethylene glycol 17 g twice a day and lactulose 30 cc 4 times a day. 1 dose of methylnaltrexone 12 mg subcutaneous [address] abdomen/pelvis 04/14 no results Lansoprazole 30 mg daily for GI prophylaxis ID: Post-influenza pneumonia Continue abx per ID, Dr. Cunningham: Azithromycin 04/12 , cefepime 04/09 Levaquin discontinued 04/12 04/09 Sputum cx: normal resp sintia, 04/08 strep pneumonia and legionella ag negative 04/08 blood culture 02/18 with Staph epidermidis. Suspected contaminant. Blood culture 04/09 NGTD. Heme: Normocytic anemia s/p transfusion 1unit PRBCs on 04/09, Monitor CBC Endo: Diabetes mellitus Elevated TSH Bedside glucose every 4 hours with medium dose Novolin R sliding scale. TSH:9.2, FT3: 1.10, FT4:0.78- ? Euthyroid sick syndrome. GI prophylaxis with lansoprazole 30 milligrams daily and DVT prophylaxis with SCDs, on Heparin drip Lines: Right IJ CVP 04/08 #6, Left IJ vascath placed 04/08 #6 Palliative care is following Level 3 Laurel Manuel MD Apr 15, 2017 07:57
[2017-04-15] MEDS: SENNOSIDES SYRUP 8.8 MG/5 ML CUP NG SCH ×2 (07:58→20:49)
--- NOTE | 2017-04-15 08:08 | HHI.NPPN ---
Subjective General Problems: Anemia, Hypertension, Mebatolic Acidosis Renal Failure: Chronic, Acute Interval History Non oliguric, however, renal function is worse. Needs dialysis today. Did not tolerate CPAP trial today. Review of Systems General Constitutional: Fatigue General Remarks unable to obtain Objective Data Data Vital Signs Date Time Temp Pulse Resp B/P (MAP) Pulse Ox O2 Delivery O2 Flow Rate FiO2 04/15/17 06:00 103 04/15/17 05:32 100 40 04/15/17 04:53 99 40 04/15/17 04:00 91 04/15/17 04:00 40 04/15/17 04:00 98.9 91 10 126/77 (93) 98 04/15/17 02:05 99 40 04/15/17 02:00 97 04/15/17 00:00 99.3 132 20 114/74 (87) 97 04/15/17 00:00 132 04/15/17 00:00 40 04/14/17 23:30 98 40 04/14/17 22:00 102 04/14/17 22:00 103 04/14/17 21:04 99 40 04/14/17 20:00 103 04/14/17 20:00 98.8 101 20 151/72 (98) 99 04/14/17 20:00 40 04/14/17 19:00 102 142/91 04/14/17 18:00 122 04/14/17 17:50 100 40 04/14/17 17:43 108 160/85 04/14/17 16:00 122 04/14/17 16:00 100.0 112 20 179/83 (115) 96 04/14/17 16:00 40 04/14/17 14:00 122 04/14/17 12:01 98 40 04/14/17 12:00 40 04/14/17 12:00 100.0 123 21 176/95 (122) 97 04/14/17 12:00 122 04/14/17 12:00 122 04/14/17 10:04 40 04/14/17 10:00 122 04/14/17 08:35 100 100 04/14/17 08:17 98 40 -: 04/15/17 0430 04/15/17 0430 Tubes & Lines: Vas-Cath, Mackey Drip Comment Amiodarone, Fentanyl, Heparin, Propofol Physical Exam General Appearance: Well Developed, Well Nourished, Sleeping Throat Throat Exam: Oral Mucosa [place] & Moist Neck Neck Exam: Neck Supple Pulmonary Resp Exam: Breath Sounds Equal, Crackles, Rhonchi, Decreased Bases, Poor Inspiratory Effort Cardiology CV Exam: Good Perfusion, Bradycardia Gastrointestinal/Abdomen GI Exam: Soft, Non-Tender, Bowel Sounds Present Musculoskeletal MS Exam: Joints Intact, Normal Tone, Unable to Ambulate Integumentary Skin Exam: Warm, Dry, Intact Extremeties Extremities Exam: Pedal Pulses Palpable, Moderate Edema, Pitting Edema Neurologic Neuro Exam: Unresponsive, Sedated Assessment/Plan Assessment Summary: ROEL/Acute Renal Failure, Anemia of CKD, Fluid/Volume Overload, Hypertension, CKD Stage V Problem List: (1) Acute renal failure ICD Codes: N17.9 - Acute kidney failure, unspecified Plan: He has underlying CKD stage 4 per the oriental rug repairer, Dr. Ramirez in [place]. GFR of 19 (creatinine 3.2) in October (CKD 4). Most likely has underlying diabetic nephropathy with proteinuria. Acute Renal failure due to bradycardia and CO, with diminished renal perfusion. Started on HD 04/09, on TTS schedule. Dialysis today. He still makes a significant amount of urine. Continue to monitor renal function and urine output. May have reached ESRD. Family may choose to convert to comfort care if no meaningful recovery. (2) Bradycardia ICD Codes: R00.1 - Bradycardia, unspecified Status: Acute Plan: A fib, variable rate Cardiology following. (3) Anemia ICD Codes: D64.9 - Anemia, unspecified Plan: May have anemia of CKD. On Epogen with HD. Has iron deficiency, given venofer. (4) STEMI (ST elevation myocardial infarction) ICD Codes: I21.3 - ST elevation (STEMI) myocardial infarction of unspecified site Status: Acute Plan: Cardiology following, off heparin drip (5) Leukocytosis ICD Codes: D72.829 - Elevated white blood cell count, unspecified Plan: Improved, monitor. Problem Qualifiers (1) Anemia: (2) STEMI (ST elevation myocardial infarction): Qualified Codes: I21.3 - ST elevation (STEMI) myocardial infarction of unspecified site Pantera Iraheta MD Apr 15, 2017 08:08
--- NOTE | 2017-04-15 08:41 | PD.CARD.PN ---
Subjective Subjective Remarks Intubated. Awake. Not answering questions. Objective Medications Item Value Date Time Amlodipine 10 mg 04/14/17 0900 Besylate DAILY/PO 04/15/17 0755 (Norvasc) Aspirin 324 mg 04/14/17 0900 (Aspirin Chew) DAILY/NG 04/15/17 0757 Isosorbide 10 mg 04/13/17 1400 Dinitrate Q8HR/PO 04/15/17 0505 (Isordil) Amiodarone HCl 259 ml @ 33.33 mls/hr 04/11/17 2100 450 mg/Sodium .Q7H47M PRN/IV 04/14/17 1743 Chloride Heparin Sodium/ 250 ml @ 10 mls/hr 04/10/17 0815 Dextrose TITRATE PRN/IV 04/15/17 0010 Clopidogrel 75 mg 04/08/17 0900 Bisulfate DAILY/PO 04/15/17 0757 (Plavix) Current Medications Medications (Trade) Dose Ordered Sig/Mary Kay Route Start Time Stop Time Status Last Admin (NS Flush) 2 ml UNSCH PRN IVF 04/07/17 16:00 04/07/17 16:04 Miscellaneous Information 1 Q361D XX 04/07/17 16:30 04/07/17 16:30 (Chlorhexidine 2% Cloth) Taper DAILY@04 TOP 04/08/17 04:00 04/04/18 03:59 04/14/17 04:00 (Chlorhexidine 2% Cloth) 3 pack UNSCH PRN TOP 04/07/17 16:30 (D50w (Vial) Inj) 50 ml UNSCH PRN IV PUSH 04/07/17 17:00 (Glucagon Inj) 1 mg UNSCH PRN OTHER 04/07/17 17:00 (NovoLIN R SUPPLEMENTAL SCALE) 1 Q4HR SQ 04/07/17 17:00 04/15/17 07:57 (Plavix) 75 mg DAILY PO 04/08/17 09:00 04/15/17 07:57 Dopamine HCl/ Dextrose 500 ml @ 11.475 mls/ hr TITRATE PRN IV 04/08/17 19:00 (Brethine Inj) 1 mg UNSCH PRN SQ 04/08/17 19:00 Propofol 100 ml @ 3.06 mls/hr TITRATE PRN IV 04/08/17 20:30 04/15/17 00:33 (Phoslo) 667 mg TID OG-TUBE 04/09/17 09:00 04/15/17 07:55 Cefepime HCl 1000 mg/Sodium Chloride 100 ml @ 200 mls/hr Q24H IV 04/09/17 12:00 04/14/17 12:00 Sodium Chloride 1,000 ml @ 0 mls/hr Q0M PRN OTHER 04/09/17 11:45 (Heparin Inj) 8,000 units UNSCH PRN IV FLUSH 04/09/17 11:45 Sodium Chloride 1,000 ml @ 200 mls/hr Q5H PRN IV 04/09/17 11:45 Sodium Chloride 1,000 ml @ 0 mls/hr Q0M PRN OTHER 04/09/17 11:45 (Mannitol Inj) 12.5 gm UNSCH PRN IV 04/09/17 11:45 04/12/17 11:25 Albumin Human 100 ml @ 60 mls/hr UNSCH PRN IV 04/09/17 11:45 04/12/17 11:25 (NS Flush) 5 ml UNSCH PRN IV FLUSH 04/09/17 11:45 (Heparin Inj) UNSCH PRN .XX 04/09/17 11:45 04/12/17 09:29 (Gentamicin Inj) 20 mg UNSCH PRN OTHER 04/09/17 11:45 04/12/17 09:29 (Zofran Inj) 4 mg UNSCH PRN IV PUSH 04/09/17 11:45 (Benadryl) 25 mg UNSCH PRN PO 04/09/17 11:45 (Nitrostat Sl) 0.4 mg UNSCH PRN SL 04/09/17 11:45 (Catapres) 0.1 mg UNSCH PRN PO 04/09/17 11:45 (Epogen Inj) 10,000 units UNSCH PRN IV PUSH 04/09/17 11:45 04/12/17 09:29 (Gelfoam 12 Mm/7 Mm Top) 1 foam UNSCH PRN TOP 04/09/17 11:45 (Heparin Inj) 5,000 units UNSCH PRN IV PUSH 04/10/17 14:15 (Heparin Inj) 2,500 units UNSCH PRN IV PUSH 04/10/17 14:15 04/14/17 02:12 Heparin Sodium/ Dextrose 250 ml @ 10 mls/hr TITRATE PRN IV 04/10/17 08:15 04/15/17 00:10 Fentanyl Citrate 250 ml @ 5 mls/hr TITRATE PRN IV 04/11/17 00:15 04/14/17 21:12 Amiodarone HCl 450 mg/Sodium Chloride 259 ml @ 33.33 mls/ hr Q7H47M PRN IV 04/11/17 21:00 04/14/17 17:43 Azithromycin 500 mg/Sodium Chloride 250 ml @ 250 mls/hr Q24H IV 04/12/17 20:00 04/14/17 20:35 (Norvasc) 10 mg DAILY PO 04/14/17 09:00 04/15/17 07:55 (Tears Naturale Opth Soln) 1 drop Q8HR EACH EYE 04/13/17 14:00 04/14/17 06:02 (Apresoline Inj) 10 mg Q1H PRN IV PUSH 04/13/17 10:45 (Albuterol Neb) 2.5 mg Q2HR NEB PRN NEB 04/13/17 10:45 (Colace Liq) 100 mg Q12HR NG 04/13/17 11:00 04/15/17 07:55 (Senna Liq) 8.8 mg BID NG 04/13/17 21:00 04/15/17 07:58 (Miralax) 17 gm BID NG 04/13/17 21:00 04/15/17 07:55 (Lactulose Liq) 30 ml QID PO 04/13/17 13:00 04/15/17 07:55 (Tylenol 650 Mg/ 20 ml Liq) 650 mg Q6H PRN NG 04/13/17 11:00 (Isordil) 10 mg Q8HR PO 04/13/17 14:00 04/15/17 05:05 (Duoneb Neb) 1 ampule Q6HR NEB NEB 04/13/17 16:00 04/15/17 03:43 (Aspirin Chew) 324 mg DAILY NG 04/14/17 09:00 04/15/17 07:57 (Haldol Inj) 5 mg Q6H PRN IV PUSH 04/13/17 17:15 (Prevacid Odt) 30 mg DAILY NG 04/14/17 09:00 04/15/17 07:57 Vital Signs / I&O Vital Signs Date Time Temp Pulse Resp B/P (MAP) Pulse Ox O2 Delivery O2 Flow Rate FiO2 04/15/17 06:00 103 04/15/17 05:32 100 40 04/15/17 04:53 99 40 04/15/17 04:00 91 04/15/17 04:00 40 04/15/17 04:00 98.9 91 10 126/77 (93) 98 04/15/17 02:05 99 40 04/15/17 02:00 97 04/15/17 00:00 99.3 132 20 114/74 (87) 97 04/15/17 00:00 132 04/15/17 00:00 40 04/14/17 23:30 98 40 04/14/17 22:00 102 04/14/17 22:00 103 04/14/17 21:04 99 40 04/14/17 20:00 103 04/14/17 20:00 98.8 101 20 151/72 (98) 99 04/14/17 20:00 40 04/14/17 19:00 102 142/91 04/14/17 18:00 122 04/14/17 17:50 100 40 04/14/17 17:43 108 160/85 04/14/17 16:00 122 04/14/17 16:00 100.0 112 20 179/83 (115) 96 04/14/17 16:00 40 04/14/17 14:00 122 04/14/17 12:01 98 40 04/14/17 12:00 40 04/14/17 12:00 100.0 123 21 176/95 (122) 97 04/14/17 12:00 122 04/14/17 12:00 122 04/14/17 10:04 40 04/14/17 10:00 122 I/O 04/14/17 04/14/17 04/14/17 04/15/17 04/15/17 04/15/17 07:00 15:00 23:00 07:00 15:00 23:00 Intake Total 709 ml 600 ml 1082 ml Output Total 825 ml 1250 ml 1050 ml Balance -116 ml -650 ml 32 ml IV Total 709 ml 600 ml 882 ml Tube Feeding 0 ml Tube Irrigant 200 ml Output Urine Total 425 ml 450 ml 700 ml Gastric Drainage Total 400 ml 800 ml 350 ml # Bowel Movements 0 1 Physical Exam GENERAL: Well developed, well nourished. Intubated. Sedated. HEENT: Jugular venous pressure hard to assess. CHEST: Lungs clear to auscultation anteriorly. CARDIAC: Irregular rhythm without S3, S4. I/ systolic murmur apex and left lower sternal border. ABDOMEN: Soft, nontender, no hepatosplenomegaly. Bowel sounds absent. EXTREMITIES: No clubbing, cyanosis, or edema. Laboratory Laboratory Tests Test 04/14/17 09:55 04/14/17 19:14 04/15/17 00:50 04/15/17 04:30 Blood Gas Puncture Site RT RADIAL Blood Gas Patient Temperature 98.6 Blood Gas HCO3 25 mmol/L Blood Gas Base Excess -0.4 mmol/L Blood Gas Oxygen Saturation 96 % Arterial Blood pH 7.34 Arterial Blood Partial Pressure CO2 47 mmHg Arterial Blood Partial Pressure O2 122 mmHg Arterial Blood Oxygen Content 12.1 Vol % Arterial Blood Carboxyhemoglobin 1.3 % Arterial Blood Methemoglobin 1.6 % Blood Gas Hemoglobin 8.8 G/DL Oxygen Delivery Device VENTILATOR Blood Gas Ventilator Setting PRVC/AC 500/20 Blood Gas Inspired Oxygen 40 % Activated Partial Thromboplast Time 36.5 SEC 39.0 SEC White Blood Count 9.5 TH/MM3 Red Blood Count 2.88 MIL/MM3 Hemoglobin 8.4 GM/DL Hematocrit 26.0 % Mean Corpuscular Volume 90.4 FL Mean Corpuscular Hemoglobin 29.1 PG Mean Corpuscular Hemoglobin Concent 32.2 % Red Cell Distribution Width 15.9 % Platelet Count 185 TH/MM3 Mean Platelet Volume 8.5 FL Neutrophils (%) (Auto) 78.3 % Lymphocytes (%) (Auto) 8.3 % Monocytes (%) (Auto) 10.2 % Eosinophils (%) (Auto) 3.0 % Basophils (%) (Auto) 0.2 % Neutrophils # (Auto) 7.4 TH/MM3 Lymphocytes # (Auto) 0.8 TH/MM3 Monocytes # (Auto) 1.0 TH/MM3 Eosinophils # (Auto) 0.3 TH/MM3 Basophils # (Auto) 0.0 TH/MM3 CBC Comment AUTO DIFF Differential Comment AUTO DIFF CONFIRMED Toxic Granulation 1+ Dohle Bodies PRESENT Platelet Estimate NORMAL Platelet Morphology Comment NORMAL Blood Urea Nitrogen 65 MG/DL Creatinine 6.31 MG/DL Random Glucose 137 MG/DL Calcium Level 9.0 MG/DL Sodium Level 142 MEQ/L Potassium Level 4.2 MEQ/L Chloride Level 105 MEQ/L Carbon Dioxide Level 26.5 MEQ/L Anion Gap 11 MEQ/L Estimat Glomerular Filtration Rate 9 ML/MIN Assessment and Plan Problem List: (1) STEMI (ST elevation myocardial infarction) ICD Codes: I21.3 - ST elevation (STEMI) myocardial infarction of unspecified site Status: Acute Plan: Stable cardiac status. Possible STEMI on presentation 04/07/17. Mildly abnormal troponin levels though was in setting of renal failure. CKMB's negative for TX. EF on echo reported as 45-50%. The study is technically very difficult; I suspect the EF is closer to 30%. REC no beta ashley with problems with prolonged asystolic episodes earlier this admission conservative management from a cardiac standpoint continue daily aspirin, clopidogrel, amlodipine, oral nitrate will f/u PRN (2) Paroxysmal atrial fibrillation ICD Codes: I48.0 - Paroxysmal atrial fibrillation Status: Acute Plan: Remains in atrial fib fluctuating HR's, mostly acceptable. Unable to increase medical therapy with problems with prolonged asystole earlier this admission. Continue conservative therapy. Ideally patient would need permanent pacemaker implant, though alternative code status noted. Can change to oral Amiodarone 200 mg qd. If patient felt to be candidate for anticoagulation therapy, rec warfarin and dropping aspirin to 81 mg qd. (3) Dilated cardiomyopathy ICD Codes: I42.0 - Dilated cardiomyopathy Status: Chronic Plan: Echo technically very difficult, EF reported as 45-50%. By my review, suspect it is closer to 30%. No beta ashley with episodes of asystole. No KRISTYN -I with his renal insufficiency. No new recommendations. Code Status alternative Problem Qualifiers (1) STEMI (ST elevation myocardial infarction): Qualified Codes: I21.3 - ST elevation (STEMI) myocardial infarction of unspecified site Vikram Briceno MD Apr 15, 2017 08:40
--- NOTE | 2017-04-15 08:52 | RADRPT ---
EXAM DATE/TIME: 04/15/2017 08:10 [facility] COMPARISON: ABDOMEN KUB ONLY, April 14, 2017, 3:11. INDICATIONS : Ileus. MEDICAL HISTORY : Cardiovascular disease. Diabetes mellitus type II. Cerebrovascular disease. SURGICAL HISTORY : None. ENCOUNTER: Subsequent ACUITY: 3 days PAIN SCORE: Non-responsive. LOCATION: Bilateral abdomen FINDINGS: Supine view of the abdomen was performed. Nasogastric tube tip in stomach. The abdominal bowel gas p attern is normal. No abnormal masses, calcifications, or organomegaly is seen. Surgical clips in the lower abdomen/pelvis. Scattered degenerative changes. The osseous structures are unremarkable. CONCLUSION: No obstruction. Peter Coats MD on April 15, 2017 at 8:51 Board Certified Radiologist. This report was verified electronically.
[2017-04-15] MEDS: AMIODARONE 200 MG TAB PO SCH (09:00)
[2017-04-15] MEDS: HEPARIN SODIUM - IV 10,000 UNITS/10 ML VIAL IV PUSH PRN (09:44)
[2017-04-15] MEDS ORDERED: DILTIAZEM HCL 25 MG/5 ML VIAL ONE ×2 (10:10→10:31)
[2017-04-15] MEDS ORDERED: DILTIAZEM HCL 25 MG/5 ML VIAL IV ONE (10:10)
[2017-04-15] MEDS ORDERED: DILTIAZEM HCL 25 MG/5 ML (Bolus) IV PUSH ONE (10:30)
--- NOTE | 2017-04-15 10:56 | MG ---
cc: Giselle Ramos MD EEG #[id number] REFERRING PHYSICIAN: Giselle Ramos MD In room 508 with only photic, no sedation noted awake study. MRI shows not acute pathology. Last EEG on the 13 of April showed bilateral slowing. History of stroke, non-ST elevated [place]. On aspirin, amiodarone, heparin, Plavix. DESCRIPTION OF RECORD: There still is overall background slowing, a lot of muscle artifact but predominantly has 3-4 hertz background, some movement of the left leg. There is no correlation with epileptic activity, a lot of eye movement artifact still seen, some sweat sway. EKG looks sinus to sinus tachycardic. Photic stimulation minimal driving response. IMPRESSION: Mild to moderate slowing still noted without epileptiform features in this recording. Clinical correlation. Giselle Ramos MD DF/TL/rr , 08:24 AM , 09:24 AM
[2017-04-15] MEDS: GENTAMICIN SULFATE 20 MG/2 ML VIAL OTHER PRN (11:14)
[2017-04-15] MEDS: HEPARIN SODIUM - IV 10,000 UNITS/10 ML VIAL PRN (11:15)
[2017-04-15] MEDS: DILTIAZEM 125 MG/NS 100 ML IV PRN ×2 (11:59)
--- NOTE | 2017-04-15 12:23 | HHI.IDPN ---
Subjective Subjective Remarks Mr. Hubbard is a 72-year-old male with past medical history significant for coronary artery disease, chronic kidney disease, cerebrovascular accident, hypertension diabetes, hyperlipidemia who was brought into the emergency room via ambulance due to altered mental status. Apparently the patient's daughter could not reach him so she called far department to check on him. On arrival to found him on the floor in reportedly patient was probably there for at least 2 days. Patient was confused and came to the emergency room was found to be bradycardic and a STEMI alert was called. EKG in the ER reportedly was consistent with inferior wall CA and bradycardia in the 30s. Patient had a BUN of 140, creatinine of 9.7 upon arrival in the emergency department. His troponin was 2.72 and total CK of 380. He had leukocytosis of 19.5. In the emergency department he was given 1 L fluid bolus aspirin and Dr. Briceno from cardiology was consulted. Patient was initially placed on nitroglycerin drip as well. Cardiac catheterization was placed on hold due to significant renal failure. It was decided to continue with medical therapy until his renal function improves. Patient was admitted on the critical care services. Dr. Iraheta from nephrology services also been consulted. At the time of my evaluation patient is in the [facility]MC currently not on any pressors. Patient remains intubated and sedated. On a brief sedation vacation patient reportedly moves his extremities. RN reports jittery movements of his upper extremities. An EEG was done report is still pending. Per my discussion with the trolley coach driver there is a plan for hemodialysis to be initiated today after Vas-Cath was placed. RN for the patient reported that she had been told by the patient's daughter that there is a significant psychiatric history. Also that the patient was recently discharged from [facility] in [place] where he is treated for flu. ID following for Pneumonia and possible colitis. Overnight events reviewed with RN. Afebrile Extubated. No rash No diarrhea Antibiotics Cefepime IV Azithro IV Lines Line sites with no e.o infection Past Medical History Past Medical History 1. Coronary artery disease. 2. Chronic kidney disease. 3. Cerebrovascular accident. 4. Diabetes mellitus. 5. Hypertension. 6. Hyperlipidemia. 7. Psychiatric history. Past Surgical History None per records. Allergies: Coded Allergies: Sulfa (Sulfonamide Antibiotics) (Verified Allergy, Intermediate, HIVES, ) penicillin G (Verified Allergy, Unknown, HIVES, 04/07/17) Objective . Vital Signs Date Time Temp Pulse Resp B/P (MAP) Pulse Ox O2 Delivery O2 Flow Rate FiO2 04/15/17 11:59 107 205/99 04/15/17 11:41 40 40 04/15/17 10:55 96 40 04/15/17 10:00 120 04/15/17 08:18 40 04/15/17 08:00 40 04/15/17 08:00 100.5 109 20 185/94 (124) 98 04/15/17 08:00 109 04/15/17 06:00 103 04/15/17 05:32 100 40 04/15/17 04:53 99 40 04/15/17 04:00 91 04/15/17 04:00 40 04/15/17 04:00 98.9 91 10 126/77 (93) 98 04/15/17 02:05 99 40 04/15/17 02:00 97 04/15/17 00:00 99.3 132 20 114/74 (87) 97 04/15/17 00:00 132 04/15/17 00:00 40 04/14/17 23:30 98 40 04/14/17 22:00 102 04/14/17 22:00 103 04/14/17 21:04 99 40 04/14/17 20:00 103 04/14/17 20:00 98.8 101 20 151/72 (98) 99 04/14/17 20:00 40 04/14/17 19:00 102 142/91 04/14/17 18:00 122 04/14/17 17:50 100 40 04/14/17 17:43 108 160/85 04/14/17 16:00 122 04/14/17 16:00 100.0 112 20 179/83 (115) 96 04/14/17 16:00 40 04/14/17 14:00 122 . Laboratory Tests Test 04/13/17 15:50 04/14/17 05:45 04/15/17 04:30 Hemoglobin 9.3 GM/DL 8.4 GM/DL 8.4 GM/DL Hematocrit 28.3 % 25.9 % 26.0 % White Blood Count 8.2 TH/MM3 9.5 TH/MM3 Red Blood Count 2.86 MIL/MM3 2.88 MIL/MM3 Mean Corpuscular Volume 90.7 FL 90.4 FL Mean Corpuscular Hemoglobin 29.4 PG 29.1 PG Mean Corpuscular Hemoglobin Concent 32.4 % 32.2 % Red Cell Distribution Width 16.1 % 15.9 % Platelet Count 177 TH/MM3 185 TH/MM3 Mean Platelet Volume 8.7 FL 8.5 FL Neutrophils (%) (Auto) 77.0 % 78.3 % Lymphocytes (%) (Auto) 10.3 % 8.3 % Monocytes (%) (Auto) 8.9 % 10.2 % Eosinophils (%) (Auto) 3.4 % 3.0 % Basophils (%) (Auto) 0.4 % 0.2 % Neutrophils # (Auto) 6.3 TH/MM3 7.4 TH/MM3 Lymphocytes # (Auto) 0.9 TH/MM3 0.8 TH/MM3 Monocytes # (Auto) 0.7 TH/MM3 1.0 TH/MM3 Eosinophils # (Auto) 0.3 TH/MM3 0.3 TH/MM3 Basophils # (Auto) 0.0 TH/MM3 0.0 TH/MM3 CBC Comment AUTO DIFF AUTO DIFF Differential Total Cells Counted 100 Neutrophils % (Manual) 71 % Band Neutrophils % 3 % Lymphocytes % 9 % Monocytes % 9 % Eosinophils % 3 % Basophils % 1 % Neutrophils # (Manual) 6.4 TH/MM3 Metamyelocytes 2 % Myelocytes 2 % Differential Comment FINAL DIFF MANUAL AUTO DIFF CONFIRMED Platelet Estimate NORMAL NORMAL Platelet Morphology Comment NORMAL NORMAL Toxic Granulation 1+ Dohle Bodies PRESENT Laboratory Tests Test 04/14/17 05:45 04/14/17 05:54 04/15/17 04:30 Blood Urea Nitrogen 59 MG/DL 65 MG/DL Creatinine 5.55 MG/DL 6.31 MG/DL Random Glucose 141 MG/DL 137 MG/DL Albumin 2.4 GM/DL Calcium Level 9.0 MG/DL 9.0 MG/DL Phosphorus Level 6.6 MG/DL Sodium Level 141 MEQ/L 142 MEQ/L Potassium Level 4.4 MEQ/L 4.2 MEQ/L Chloride Level 104 MEQ/L 105 MEQ/L Carbon Dioxide Level 27.6 MEQ/L 26.5 MEQ/L Anion Gap 9 MEQ/L 11 MEQ/L Estimat Glomerular Filtration Rate 10 ML/MIN 9 ML/MIN Total Creatine Kinase 91 U/L Triglycerides Level 208 MG/DL Lipase 185 U/L Free Thyroxine 0.78 NG/DL Free Triiodothyronine (T3) pg/dL 1.10 PG/ML Lactic Acid Level 1.0 mmol/L Imaging Last Impressions Chest X-Ray 04/10/17 0600 Signed Impressions: Service Date/Time: March 03:32 - CONCLUSION: 1. Questionable small medial left pneumothorax which may be artifactual. There is overlying oxygen tubing in this region as well as patchy infiltrate in the left lung. A repeat study or CT would be recommended for further evaluation. 2. Endotracheal tube and bilateral internal jugular central venous lines remain in place. Timothy Tabares MD Chest CT 04/09/17 0000 Signed Impressions: Service Date/Time: Sunday, April 09, 2017 12:38 - CONCLUSION: 1. Patchy air space in both lungs most characteristic of bronchopneumonia. No cavitation to suggest a necrotizing pneumonia. Small bilateral pleural effusions with basal and dependent consolidation in the lungs. 2. Endotracheal tube and nasogastric tube in good position. 3. Moderate to severe coronary artery calcifications. John Paul Yeboah MD Head CT 04/07/17 1646 Signed Impressions: Service Date/Time: Friday, April 07, 2017 17:37 - CONCLUSION: 1. Senescent changes with ventriculomegaly out of proportion to the degree of atrophy. Clinical correlation for normal pressure hydrocephalus is recommended. Jesus Manuel Storm MD Renal Ultrasound 04/07/17 0000 Signed Impressions: Service Date/Time: Friday, April 07, 2017 18:11 - CONCLUSION: Medical renal disease. No hydronephrosis. Jaleel Carlin MD Physical Exam GENERAL: This is a well-nourished, well-developed patient, in no apparent distress. SKIN: No rashes, ecchymoses or lesions. Cool and dry. HEAD: Atraumatic. Normocephalic. No temporal or scalp tenderness. EYES: Pupils equal round and reactive. Extraocular motions intact. No scleral icterus. No injection or drainage. ENT: Intubated NECK: Trachea midline. Supple, nontender, no meningeal signs. CARDIOVASCULAR: HS audible. RESPIRATORY: Breath sounds decreased in the bases. GASTROINTESTINAL: Abdomen soft, ? tender (grimacing to palpation), quite distended. MUSCULOSKELETAL: Extremities without clubbing, cyanosis, or edema. NEUROLOGICAL: Sedated. Psych could not be assessed IV line sites with no e.o infection. Assessment & Plan Remarks pneumonia likely post influenza(based on the recent history of flu)\ no e/o necrotizing process Acute renal failure likely component of chronic kidney disease based on history. Now will be placed on dialysis. Acute respiratory failure on ventilator ST elevation CA inferior wall Bradycardia Hyponatremia and hyperkalemia Leukocytosis likely secondary to infection Recent history of flu unsure if this was treated will obtain records. History of coronary artery disease History of cerebrovascular accident History of psychiatric issues Diabetes mellitus Low grade Staph epi bacteremia, cw contaminant Abd distention ? colitis (ischemic?) Recommendations: Continue azithro cont cefepime IV CT Chest improved CT A/P with inflammation at site of anastomosis of prior bowel surgery. Ileus with no BM yet on a bowel regimen. Micki Haley MD Apr 15, 2017 12:23
[2017-04-15] MEDS: CEFEPIME INJ 1,000 MG in SODIUM CHLORIDE 0.9% INJ 100 ML IV SCH (12:40)
[2017-04-15] MEDS: fentaNYL DRIP 250 ML IV PRN (13:27)
[2017-04-15] MEDS: hydrALAZINE HCL 20 MG/ML VIAL IV PUSH PRN (15:26)
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
[2017-04-15] MEDS: AZITHROMYCIN INJ 500 MG in SODIUM CHLOR 0.9% 250 ML INJ 250 ML IV SCH (20:49)
[2017-04-16] VITALS (18 sets, daily range): BP systolic 134–185; BP diastolic 72–92; PULSE 96–112; RESP 18–24; TEMP 99.5–100.3; O2SAT 94–100
[2017-04-16] MEDS: PROPOFOL 1000 MG/100 ML INJ 100 ML IV PRN (00:21)
[2017-04-16] MEDS: RESP: ALBUTEROL 2.5 MG/IPRATROPIUM 0.5 MG NEB (SCH) NEB ×4 (03:41→20:43)
[2017-04-16] MEDS: INSULIN NovoLIN REGULAR SUPPLEMENTAL SCALE SQ SCH ×6 (03:50→20:00)
[2017-04-16] MEDS: fentaNYL DRIP 250 ML IV PRN (03:50)
[2017-04-16] MEDS: CHLORHEXIDINE GLUCONATE 2 % 1 PACK (2 CLOTHS) TOP SCH (03:51)
[2017-04-16] MEDS: ISOSORBIDE DINITRATE 10 MG TAB PO SCH ×3 (04:54→22:00)
[2017-04-16] MEDS: ARTIFICIAL TEARS OPTH SOLN 15 ML BTL EACH EYE SCH ×3 (04:54→20:27)
[2017-04-16 05:03] LABS: BICARBONATE 27.4 MEQ/L (21.0-32.0); CALCIUM 8.8 MG/DL (8.5-10.1); CREATININE 5.93 MG/DL (0.60-1.30)
[2017-04-16 05:04] LABS: AUTOMATED NEUTROPHIL # 9.4 TH/MM3 (1.8-7.7); BASOPHIL # 0.1 TH/MM3 (0-0.2); BASOPHIL % 0.5 % (0.0-2.0); EOSINOPHIL # 0.2 TH/MM3 (0-0.4); EOSINOPHIL % 1.7 % (0.0-4.0); HEMATOCRIT 28.1 % (39.0-51.0); LYMPH % 9.8 % (9.0-44.0); LYMPHOCYTE # 1.2 TH/MM3 (1.0-4.8); MEAN CELL VOLUME 90.1 FL (80.0-100.0); MEAN CORPUSCULAR HEMOGLOBIN 28.9 PG (27.0-34.0); MEAN CORPUSCULAR HGB CONC 32.1 % (32.0-36.0); MEAN PLATELET VOLUME 8.8 FL (7.0-11.0); MONO % 9.1 % (0.0-8.0); MONOCYTE # 1.1 TH/MM3 (0-0.9); NEUT % 78.9 % (16.0-70.0); PLATELET COUNT 225 TH/MM3 (150-450); RED BLOOD COUNT 3.12 MIL/MM3 (4.50-5.90); RED CELL DISTRIBUTION WIDTH 16.2 % (11.6-17.2)
[2017-04-16 07:02] LABS: BANDS 7 % (0-6); LYMPHOCYTES 12 % (9-44); MONOCYTES 9 % (0-8); MYELOCYTES 1 % (0-0); NEUTROPHIL # MANUAL DIFF 9.4 TH/MM3 (1.8-7.7); POLYCHROMASIA 2.7 % (0.0-1.9); POLYS (SEG NEUTROPHILS) 70 % (16-70)
[2017-04-16 07:03] LABS: OVALOCYTES 1+ (NORMAL)
[2017-04-16] MEDS: HEPARIN-D5W 25,000 U/250 ML 250 ML IV PRN ×2 (08:28→20:27)
[2017-04-16] MEDS: ASPIRIN 81 MG CHEW TAB NG SCH (08:42)
[2017-04-16] MEDS: CLOPIDOGREL 75 MG TAB PO SCH (08:42)
[2017-04-16] MEDS: LANSOPRAZOLE SOLUTAB 30 MG TAB NG SCH (08:42)
[2017-04-16] MEDS: CALCIUM ACETATE 667 MG CAP OG-TUBE SCH ×3 (08:42→17:28)
[2017-04-16] MEDS: SENNOSIDES SYRUP 8.8 MG/5 ML CUP NG SCH ×2 (08:44→20:27)
[2017-04-16] MEDS: DOCUSATE SODIUM 100 MG/10 ML UDC NG SCH ×2 (08:44→20:26)
[2017-04-16] MEDS: LACTULOSE SYRUP 20 GM/30 ML CUP PO SCH ×4 (08:44→20:27)
[2017-04-16] MEDS: AMIODARONE 200 MG TAB PO SCH (08:44)
[2017-04-16] MEDS: POLYETHYLENE GLYCOL 17 GM PKG NG SCH ×2 (08:44→20:27)
[2017-04-16] MEDS: DILTIAZEM 125 MG/NS 100 ML IV PRN ×4 (09:01→23:00)
[2017-04-16] MEDS ORDERED: DILTIAZEM HCL 25 MG/5 ML VIAL ONE (10:23)
--- NOTE | 2017-04-16 10:58 | HHI.NPPN ---
Subjective General Problems: Anemia, Hypertension, Mebatolic Acidosis Renal Failure: Chronic, Acute Interval History Dialyzed yesterday. He is awake today, intermittently following commands. Possible extubation today. (Katharine Cruz) Review of Systems General Constitutional: Fatigue General Remarks unable to obtain (Katharine Cruz) Objective Data Data Vital Signs Date Time Temp Pulse Resp B/P (MAP) Pulse Ox O2 Delivery O2 Flow Rate FiO2 04/16/17 09:01 113 162/92 04/16/17 07:37 40 04/16/17 07:37 99 40 04/16/17 06:30 102 127/67 04/16/17 06:00 112 04/16/17 04:15 101 150/70 04/16/17 04:00 99.5 101 20 163/72 (102) 97 04/16/17 04:00 101 04/16/17 04:00 40 04/16/17 03:45 138 153/92 04/16/17 03:40 96 40 04/16/17 03:15 133 159/100 04/16/17 02:00 96 04/16/17 01:13 98 40 04/16/17 00:00 103 04/16/17 00:00 99.5 103 22 134/74 (94) 96 04/16/17 00:00 40 04/15/17 22:00 84 04/15/17 21:55 99 40 04/15/17 20:00 92 04/15/17 20:00 40 04/15/17 20:00 99.5 92 20 121/71 (88) 99 04/15/17 20:00 92 121/71 04/15/17 19:58 99 40 04/15/17 19:00 90 110/66 04/15/17 16:00 109 04/15/17 16:00 98.6 135 21 139/92 (108) 94 04/15/17 16:00 40 04/15/17 15:57 99 40 04/15/17 15:53 130 150/113 04/15/17 14:00 109 04/15/17 12:00 40 04/15/17 12:00 100.6 106 20 138/70 (92) 98 04/15/17 12:00 109 04/15/17 11:59 107 205/99 04/15/17 11:41 40 40 (Katharine Cruz) -: 04/16/17 0415 04/16/17 0415 Imaging Last 72 hours Impressions Abdomen X-Ray 04/15/17 0000 Signed Impressions: Service Date/Time: Saturday, April 15, 2017 08:10 - CONCLUSION: No obstruction. Peter Coats MD Chest X-Ray 04/14/17599 Signed Impressions: Service Date/Time: Friday, April 14, 2017 03:07 - CONCLUSION: 1. Stable lines and tubes. 2. No significant interval change with persistent mild interstitial edema and residual patchy airspace disease primarily in the left lung. Jesus Manuel Storm MD Abdomen/Pelvis CT 04/14/17599 Signed Impressions: Service Date/Time: Friday, April 14, 2017 08:59 - CONCLUSION: 1. There is mild wall thickening and inflammation involving the proximal sigmoid colon adjacent to the prior surgery and re anastomosis. There is a large amount of stool within the sigmoid colon. 2. 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 Jaleel Fischer MD Abdomen X-Ray 04/14/17599 Signed Impressions: Service Date/Time: Friday, April 14, 2017 03:11 - CONCLUSION: 1. Stable proximal colonic distention with questionable distal colonic wall thickening. Findings may reflect distal colitis in the appropriate clinical setting. This may be further evaluated with CT exam, already scheduled for today. Jesus Manuel Storm MD Chest CT 04/14/17 0000 Signed Impressions: Service Date/Time: Friday, April 14, 2017 08:59 - CONCLUSION: 1. Mild residual groundglass opacity in both upper lobes but overall significantly improved from the prior study from 5 days ago. 2. Very small bilateral pleural effusions, decreased in volume from the prior study. There is residual lower lobe atelectasis bilaterally. 3. Severe coronary artery calcification. Jaleel Fischer MD Tubes & Lines: Vas-Cath, Mackey Drip Comment Cardizem (Katharine Cruz) Physical Exam General Appearance: Well Developed, Well Nourished, Sleeping (Anthony,Katharine B. [employer]) Throat Throat Exam: Oral Mucosa [place] & Moist (Katharine Cruz B. [employer]) Neck Neck Exam: Neck Supple (Katharine Cruz B. [employer]) Pulmonary Resp Exam: Breath Sounds Equal, Crackles, Rhonchi, Decreased Bases, Poor Inspiratory Effort (Kofi Cruzon B. [employer]) Cardiology CV Exam: Good Perfusion, Bradycardia (Katharine Cruz B. [employer]) Gastrointestinal/Abdomen GI Exam: Soft, Non-Tender, Bowel Sounds Present (Katharine Cruz B. [employer]) Musculoskeletal MS Exam: Joints Intact, Normal Tone, Unable to Ambulate (Katharine Cruz B. [employer]) Integumentary Skin Exam: Warm, Dry, Intact (Katharine Cruz B. [employer]) Extremeties Extremities Exam: Pedal Pulses Palpable, Moderate Edema, Pitting Edema (Kathraine Cruz B. [employer]) Neurologic Neuro Exam: Awake Neuro Remarks awake on vent (Katharine Cruz B. [employer]) VTE Prophylaxis Device: SCDs (Katharine Cruz B. [employer]) Assessment/Plan Assessment Summary: ROEL/Acute Renal Failure, Anemia of CKD, Fluid/Volume Overload, Hypertension, CKD Stage V Problem List: (1) Acute renal failure ICD Codes: N17.9 - Acute kidney failure, unspecified Plan: He has underlying CKD stage 4 per the sales route driver, Dr. Ramirez in [place]. GFR of 19 (creatinine 3.2) in October (CKD 4). Most likely has underlying diabetic nephropathy with proteinuria. Acute Renal failure due to bradycardia and AR, with diminished renal perfusion. Started on HD 04/09, on TTS schedule. 3L fluid removal yesterday. Attempt extubation, ask patient if he wants to continue HD, due tomorrow. Will need a new dialysis catheter prior to treatment tomorrow. Repeat labs Follow urine output It is possible he has reached ESRD. (2) Bradycardia ICD Codes: R00.1 - Bradycardia, unspecified Status: Acute Plan: A fib, variable rate Cardiology following. (3) Anemia ICD Codes: D64.9 - Anemia, unspecified Plan: May have anemia of CKD. On Epogen with HD. Has iron deficiency, given venofer. (4) STEMI (ST elevation myocardial infarction) ICD Codes: I21.3 - ST elevation (STEMI) myocardial infarction of unspecified site Status: Acute Plan: Cardiology following, off heparin drip (5) Leukocytosis ICD Codes: D72.829 - Elevated white blood cell count, unspecified Plan: Improved, monitor. (6) Respiratory insufficiency ICD Codes: R06.89 - Other abnormalities of breathing Plan: Attempt extubation. (Katharine Cruz) Plan patient was seen and examined. Agree with above assessment and plan. (Pantera Iraheta MD) Problem Qualifiers (1) Anemia: (2) STEMI (ST elevation myocardial infarction): Qualified Codes: I21.3 - ST elevation (STEMI) myocardial infarction of unspecified site Katharine Cruz Apr 16, 2017 10:58 Pantera Iraheta MD Apr 17, 2017 09:59
--- NOTE | 2017-04-16 11:15 | RADRPT ---
EXAM DATE/TIME: 04/16/2017 10:39 [facility] COMPARISON: CT THORAX W/O CONTRAST, April 14, 2017, 8:59. CHEST SINGLE AP, April 14, 2017, 3:07. INDICATIONS : Respiratory Disease. MEDICAL HISTORY : Diabetes mellitus type 2. Cardiovascular disease Cerebrovascular disease SURGICAL HISTORY : None. ENCOUNTER: Subsequent ACUITY: 1 week PAIN SCORE: Non-responsive. LOCATION: Bilateral chest FINDINGS: Portable AP view of the chest demonstrates a normal-sized cardiac silhouette. Left IJ line, right IJ line, ETT, and NG tube remain present and not significantly changed in position. EKG lines overlie th e patient. Lungs are underinflated. No effusion, consolidation, or pneumothorax is identified. The judd yesica demonstrate no acute finding. CONCLUSION: No acute cardiopulmonary abnormality is appreciated. There is persistent atelectasis at the lung base zara Fischer MD on April 16, 2017 at 11:10 Board Certified Radiologist. This report was verified electronically.
--- NOTE | 2017-04-16 11:17 | HHI.CCPN ---
Subjective Remarks/Hospital Course 72-year-old male with a past medical history of coronary artery disease, chronic kidney disease, cerebrovascular accident, hypertension, diabetes mellitus, hyperlipidemia who was brought into [facility] Emergency Department via ambulance with altered mental status. The patient's daughter could not reach him, so she called the fire rescue to go check on her father and on arrival they found him on the floor and has been there for the past two days. The patient is confused and when he came to the emergency department he was found bradycardic and a STEMI alert was called. EKG in the ER showed findings compatible with inferior wall myocardial infarction and bradycardia with a heart rate in the 30s. His labs on point of care significant for acute renal failure with a BUN greater than 140, creatinine 9.7. In addition the patient had a troponin of 2.72 and total CK of 380. Also he had leukocytosis with a WBC of 19.5. In the ED he was given one liter bolus of normal saline, aspirin and initially placed on nitroglycerine drip. The patient was seen by Dr. Briceno from the cardiology service and due to his significant renal failure. Cardiac catheterization was placed on hold and a plan to continue with medical therapy for now until his renal function recovers. The patient is awake, alert , however, he is intermittently confused. He is currently on 4 liters oxygen with saturation 98%, blood pressure 131/71 with heart rate in the 30s. The patient was also seen by Dr. Iraheta from nephrology service in the ED. He denies any chest pain, shortness of breath or any constitutional symptoms. The patient was recently discharged from [facility] in [place] after he was treated there for flu. 04/08: Continues to shortness of breath. Initiated on BiPAP. He pulled out his IVs earlier this morning. Heparin drip stopped. Mackey catheter placed in view of acute renal failure with need to monitor accurate urine output. 04/09: Patient intubated yesterday and placed on mechanical ventilation for worsening respiratory status. Received Lasix 20 mg IV yesterday and is maintaining good urine output. Heparin discontinued yesterday. Hemoglobin dropped noted and 1 unit PRBCs ordered for today. BUN creatinine remains elevated. Patient is currently on propofol and half and is with bicarbonate 42 cc per hour. Had some tremors noted in upper extremities this morning. Obtaining EEG though doubt seizure. 04/10: Remains sedated, orally intubated on mechanical ventilation. Started on hemodialysis yesterday. When into A. fib overnight. Being restarted on heparin GTT as well as being started on amiodarone drip per cardiology. 04/11 Patient remains sedated and intubated. On Heparin drip. Amiodarone held overnight as patient noted to have sinus pauses . 04/12 On amiodarone and heparin drip. HD today with 1.5 kg removal. Did not tolerate CPAP trial. Subjective 04/13: Resting in bed in no acute distress. MAXIMUM TEMPERATURE 100.2. Currently 99.7F. Distended colonic ileus. We'll start bowel regimen (see orders) and received soapsuds enema 1 today. If no result will need CT abdomen /pelvis within the next 24 hours. High residuals with Nepro currently on hold. 04/14 Patient remains sedated and intubated. T:99.7. He just came back from CT ( CT chest and CT abdomen were done).On Amio and Heparin drips. 04/15 Patient is sedated with Diprivan and Fentanyl drips and intubated. T: 100.0. Patient did not tolerate CPAP trials yesterday as he became tachycardic and hypertensive. On Amio and Heparin drips. 04/16: Remains on IV Cardizem and IV Heparin. Heart rate 110s-115 responded to IV Cardizem 15 mg push. Tolerating CPAP better today. Hold Fentanyl gtt. Following commands weakly on Left UE Objective Vital Signs Date Time Temp Pulse Resp B/P (MAP) Pulse Ox O2 Delivery O2 Flow Rate FiO2 04/16/17 09:01 113 162/92 04/16/17 07:37 40 04/16/17 07:37 99 04/16/17 04:00 99.5 20 Intake and Output 04/16/17 04/16/17 04/17/17 08:00 16:00 00:00 Intake Total 852 ml Output Total 300 ml Balance 552 ml Result Diagram: 04/16/17 0415 04/16/17 0415 Imaging Last Impressions Chest X-Ray 04/14/17 0600 Signed Impressions: Service Date/Time: Friday, April 14, 2017 03:07 - CONCLUSION: 1. Stable lines and tubes. 2. No significant interval change with persistent mild interstitial edema and residual patchy airspace disease primarily in the left lung. Jesus Manuel Storm MD Abdomen/Pelvis CT 04/14/17 0600 Signed Impressions: Service Date/Time: Friday, April 14, 2017 08:59 - CONCLUSION: 1. There is mild wall thickening and inflammation involving the proximal sigmoid colon adjacent to the prior surgery and re anastomosis. There is a large amount of stool within the sigmoid colon. 2. 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 Jaleel Fischer MD Abdomen X-Ray 04/14/17 06 Signed Impressions: Service Date/Time: Friday, April 14, 2017 03:11 - CONCLUSION: 1. Stable proximal colonic distention with questionable distal colonic wall thickening. Findings may reflect distal colitis in the appropriate clinical setting. This may be further evaluated with CT exam, already scheduled for today. Jesus Manuel Storm MD Chest CT 04/14/17 0000 Signed Impressions: Service Date/Time: Friday, April 14, 2017 08:59 - CONCLUSION: 1. Mild residual groundglass opacity in both upper lobes but overall significantly improved from the prior study from 5 days ago. 2. Very small bilateral pleural effusions, decreased in volume from the prior study. There is residual lower lobe atelectasis bilaterally. 3. Severe coronary artery calcification. Jaleel Fischer MD Brain MRI 04/13/17 0000 Signed Impressions: Service Date/Time: Thursday, April 13, 2017 17:03 - CONCLUSION: 1. No acute pathology. 2. Bilateral cortical atrophy and chronic white matter changes. 3. Nonspecific prominence of the ventricles. This is most likely related to patient's diffuse cortical atrophy. Normal pressure hydrocephalus would be a second possibility. This needs to be correlated patient's physical, clinical exam and laboratory values. Gustavo Esparza MD Head CT 04/07/17 1646 Signed Impressions: Service Date/Time: Friday, April 07, 2017 17:37 - CONCLUSION: 1. Senescent changes with ventriculomegaly out of proportion to the degree of atrophy. Clinical correlation for normal pressure hydrocephalus is recommended. Jesus Manuel Storm MD Renal Ultrasound 04/07/17 0000 Signed Impressions: Service Date/Time: Friday, April 07, 2017 18:11 - CONCLUSION: Medical renal disease. No hydronephrosis. Jaleel Carlin MD Objective Remarks GENERAL: 72-year-old male who is orotracheally intubated. SKIN: Warm and dry. Multiple evolving abrasions anterior/tibial aspect bilaterally well-healed HEAD: Normocephalic. EYES: Pupils 1-2mm and sluggishly reactive bilaterally. No scleral icterus. No injection or drainage. NECK: Supple, trachea midline. No JVD or lymphadenopathy. R IJ CVL with dressing c/d/i. L IJ Vascath in place with dressing c/d/i. CARDIOVASCULAR: Tachycardia, IR. S1, S2 no S4. 2/6 systolic murmur LLSB RESPIRATORY: Orotracheally intubated. Coarse bilateral breath sounds are appreciated bilaterally without wheezing GASTROINTESTINAL: NGT in right nares. Abdomen is distended and tympanitic. : Mackey catheter in place with dark yellow urine MUSCULOSKELETAL: 1+ edema BUE. NEURO: Currently minimally sedated, opens eyes, moves all extremities follow commands on LUE. Date of Insertion: Apr 08, 2017 Line: Central Venous Catheter Side: Right Location: Jugular A/P Assessment and Plan NEURO/PSYCH: Acute encephalopathy History of cerebrovascular accident Chronic benzodiazepine use her sister? Saline disorder per sister? Currently on fentanyl and Diprivan infusion for sedation. Hold all sedation for weaning trial Goal RASS -1. Neuro is following- Dr. Ramos. Head CT 04/07 - cerebral atrophy with ventriculomegaly, recommend clinical correlation for normal pressure hydrocephalus EEG 04/09- bihemispheric slowing with sharp discharge L hemisphere.Sharp discharge could be of epileptiform significance but no definitive due to artifact. MRI brain: No acute findings EEG: Mod- diffuse disturbance of cerebral function, no epileptiform features Ammonia level 15, B12 - 1267, TSH 9.2 - free T3 1.10, T4. 0.78 PULM: Acute respiratory failure Small bilateral pleural effusions Intubated on 04/08, PRVC 16/500/1.1//40. Tolerating CPAP, if extubated will be full DNR per family Ventilator bundle. Albuterol/ipratropium aerosols every 6 hours with albuterol aerosols every 2 hours for Dyspnea Daily SBT as tolerated. Repeat CT chest 04/14: Mild residual ground glass opacity in both upper lobes but overall significantly improved from the prior study from 5 days ago. Very small bilateral pleural effusions, decreased in volume from the prior study. There is residual lower lobe atelectasis bilaterally. Severe coronary artery calcification. CT chest 04/09: Patchy air space in both lungs most characteristic of bronchopneumonia. No cavitation to suggest a necrotizing pneumonia. Small bilateral pleural effusions with basal and dependent consolidation in the lungs CV: Episode of asystole STEMI, inferior Atrial fibrillation with RVR, new onset Hypertension Hyperlipidemia - elevated triglycerides's/low HDL Coronary artery disease Chronic systolic heart failure Medical management per cardiology in setting of renal failure. 2-D echo 04/09 - Per Dr. Briceno review, EF felt to be 30%. On Amiodarone po and Cardizem drip currently 5 mg per hour for management of A fib RVR. Not candidate for beta-ashley due asystole. Would need permanent pacemaker placement for A fib management if that is keeping with goals of care-but family may decline Currently on amlodipine 10 mg by mouth daily isosorbide dinitrate 10 mg [address] Briceno following. Continue aspirin 324 mg by mouth daily, clopidogrel bisulfate 75 mill grams by mouth daily. Heparin drip for A fib FEN/RENAL/: ROEL overlying CKD IV Bilateral renal cyst Monitor renal function, I/O's, avoid nephrotoxins Started on hemodialysis 04/09, s/p HD 04/10 with 1L removed, 1.5 kg removed 04/12. Renal is following- Dr. Iraheta Currently on calcium acetate 667 mg 3 times a day which is been given per RN or hyper phosphatemia Renal ultrasound revealed bilateral multiple renal cysts. No hydronephrosis. Medical renal disease indicated with diffuse renal cortical thinning bilaterally GI: Chronic mild protein energy malnutrition Colonic Ileus Hypoalbuminemia KUB 04/15, no obstruction Has been On Nepro @30ml/hr (goal rate per nutrition is 40 ml/hr) held for ileus. Hold for possible extubation 04/14 CT abdomen/pelvis: There is mild wall thickening and inflammation involving the proximal sigmoid colon adjacent to the prior surgery and re anastomosis. There is a large amount of stool within the sigmoid colon. 2. Nonacute findings include cholelithiasis , severe atherosclerotic disease, and right common iliac artery aneurysm measurin 15 mm. KUB 04/13 - gaseous distension of colon and small bowel regimen 04/13 including docusate sodium liquid 100 mg twice a day, senna liquid 8.6 mill grams twice a day, polyethylene glycol 17 g twice a day and lactulose 30 cc 4 times a day. 1 dose of methylnaltrexone 12 mg subcutaneous 1 now. Lansoprazole 30 mg daily for GI prophylaxis ID: Post-influenza pneumonia Continue abx per ID, Dr. Cunningham: Azithromycin 04/12 , cefepime 04/09 Levaquin discontinued 04/12 04/09 Sputum cx: normal resp sintia, 04/08 strep pneumonia and legionella ag negative 04/08 blood culture 02/18 with Staph epidermidis. Suspected contaminant. Blood culture 04/09 NGTD. Heme: Normocytic anemia s/p transfusion 1unit PRBCs on 04/09, Monitor CBC Endo: Diabetes mellitus Elevated TSH Bedside glucose every 4 hours with medium dose Novolin R sliding scale. TSH:9.2, FT3: 1.10, FT4:0.78- ? Euthyroid sick syndrome. GI prophylaxis with lansoprazole 30 milligrams daily and DVT prophylaxis with SCDs, on Heparin drip Lines: Right IJ CVP 04/08 #8, Left IJ vascath placed 04/08 #8 Palliative care is following Level 3 At this time patient remains critically ill, but he is tolerating CPAP trials / . Currently on Cardizem infusion and IV heparin for A. fib. Attempt extubation if he passes weaning parameters and ABG Jc Marmolejo MD Apr 16, 2017 11:17
[2017-04-16] MEDS: CEFEPIME INJ 1,000 MG in SODIUM CHLORIDE 0.9% INJ 100 ML IV SCH (12:29)
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
[2017-04-16] MEDS: hydrALAZINE HCL 20 MG/ML VIAL IV PUSH PRN (18:24)
[2017-04-16] MEDS: AZITHROMYCIN INJ 500 MG in SODIUM CHLOR 0.9% 250 ML INJ 250 ML IV SCH (20:26)
[2017-04-17] VITALS (13 sets, daily range): BP systolic 137–172; BP diastolic 66–103; PULSE 78–106; RESP 21–29; TEMP 98.2–100.2; O2SAT 96–98
[2017-04-17] MEDS: hydrALAZINE HCL 20 MG/ML VIAL IV PUSH PRN (02:21)
[2017-04-17] MEDS: RESP: ALBUTEROL 2.5 MG/IPRATROPIUM 0.5 MG NEB (SCH) NEB ×3 (03:34→14:44)
[2017-04-17] MEDS: INSULIN NovoLIN REGULAR SUPPLEMENTAL SCALE SQ SCH ×6 (04:00→20:00)
[2017-04-17] MEDS: CHLORHEXIDINE GLUCONATE 2 % 1 PACK (2 CLOTHS) TOP SCH (04:00)
[2017-04-17] MEDS: ISOSORBIDE DINITRATE 10 MG TAB PO SCH ×3 (06:00→22:00)
[2017-04-17] MEDS: ARTIFICIAL TEARS OPTH SOLN 15 ML BTL EACH EYE SCH ×2 (06:00→13:23)
[2017-04-17] MEDS: HEPARIN-D5W 25,000 U/250 ML 250 ML IV PRN ×2 (06:26→17:31)
[2017-04-17] MEDS: DILTIAZEM 125 MG/NS 100 ML IV PRN ×4 (09:41→18:32)
--- NOTE | 2017-04-17 09:53 | HHI.CCPN ---
Subjective Remarks/Hospital Course 72-year-old male with a past medical history of coronary artery disease, chronic kidney disease, cerebrovascular accident, hypertension, diabetes mellitus, hyperlipidemia who was brought into [facility] Emergency Department via ambulance with altered mental status. The patient's daughter could not reach him, so she called the fire rescue to go check on her father and on arrival they found him on the floor and has been there for the past two days. The patient is confused and when he came to the emergency department he was found bradycardic and a STEMI alert was called. EKG in the ER showed findings compatible with inferior wall myocardial infarction and bradycardia with a heart rate in the 30s. His labs on point of care significant for acute renal failure with a BUN greater than 140, creatinine 9.7. In addition the patient had a troponin of 2.72 and total CK of 380. Also he had leukocytosis with a WBC of 19.5. In the ED he was given one liter bolus of normal saline, aspirin and initially placed on nitroglycerine drip. The patient was seen by Dr. Briceno from the cardiology service and due to his significant renal failure. Cardiac catheterization was placed on hold and a plan to continue with medical therapy for now until his renal function recovers. The patient is awake, alert , however, he is intermittently confused. He is currently on 4 liters oxygen with saturation 98%, blood pressure 131/71 with heart rate in the 30s. The patient was also seen by Dr. Iraheta from nephrology service in the ED. He denies any chest pain, shortness of breath or any constitutional symptoms. The patient was recently discharged from [facility] in [place] after he was treated there for flu. 04/08: Continues to shortness of breath. Initiated on BiPAP. He pulled out his IVs earlier this morning. Heparin drip stopped. Mackey catheter placed in view of acute renal failure with need to monitor accurate urine output. 04/09: Patient intubated yesterday and placed on mechanical ventilation for worsening respiratory status. Received Lasix 20 mg IV yesterday and is maintaining good urine output. Heparin discontinued yesterday. Hemoglobin dropped noted and 1 unit PRBCs ordered for today. BUN creatinine remains elevated. Patient is currently on propofol and half and is with bicarbonate 42 cc per hour. Had some tremors noted in upper extremities this morning. Obtaining EEG though doubt seizure. 04/10: Remains sedated, orally intubated on mechanical ventilation. Started on hemodialysis yesterday. When into A. fib overnight. Being restarted on heparin GTT as well as being started on amiodarone drip per cardiology. 04/11 Patient remains sedated and intubated. On Heparin drip. Amiodarone held overnight as patient noted to have sinus pauses . 04/12 On amiodarone and heparin drip. HD today with 1.5 kg removal. Did not tolerate CPAP trial. Subjective 04/13: Resting in bed in no acute distress. MAXIMUM TEMPERATURE 100.2. Currently 99.7F. Distended colonic ileus. We'll start bowel regimen (see orders) and received soapsuds enema 1 today. If no result will need CT abdomen /pelvis within the next 24 hours. High residuals with Nepro currently on hold. 04/14 Patient remains sedated and intubated. T:99.7. He just came back from CT ( CT chest and CT abdomen were done).On Amio and Heparin drips. 04/15 Patient is sedated with Diprivan and Fentanyl drips and intubated. T: 100.0. Patient did not tolerate CPAP trials yesterday as he became tachycardic and hypertensive. On Amio and Heparin drips. 04/16: Remains on IV Cardizem and IV Heparin. Heart rate 110s-115 responded to IV Cardizem 15 mg push. Tolerating CPAP better today. Hold Fentanyl gtt. Following commands weakly on Left UE 04/17: On nasal cannula. To be dialyzed today. Objective Vital Signs Date Time Temp Pulse Resp B/P (MAP) Pulse Ox O2 Delivery O2 Flow Rate FiO2 04/17/17 09:41 85 177/79 04/17/17 07:50 97 Nasal Cannula 4.00 04/17/17 04:00 99.9 23 04/16/17 11:14 40 Intake and Output 04/17/17 04/17/17 04/18/17 08:00 16:00 00:00 Output Total 1100 ml Balance -1100 ml Result Diagram: 04/16/17 0415 04/16/17 0415 Other Results Laboratory Tests Test 04/16/17 11:19 Blood Gas Puncture Site RT RADIAL Blood Gas Patient Temperature 98.6 Blood Gas HCO3 25 mmol/L (22-26) Blood Gas Base Excess 0.8 mmol/L (-2-2) Blood Gas Oxygen Saturation 90 % (90-100) Arterial Blood pH 7.39 (7.380-7.420) Arterial Blood Partial Pressure CO2 43 mmHg (38-42) Arterial Blood Partial Pressure O2 66 mmHg (61-120) Arterial Blood Oxygen Content 11.9 Vol % (12.0-20.0) Arterial Blood Carboxyhemoglobin 1.5 % (0-4) Arterial Blood Methemoglobin 1.6 % (0-2) Blood Gas Hemoglobin 9.4 G/DL (12.0-16.0) Oxygen Delivery Device VENTILATOR Blood Gas Ventilator Setting PEEP5 PS5 Blood Gas Inspired Oxygen 40 % Imaging Last Impressions Chest X-Ray 04/14/17599 Signed Impressions: Service Date/Time: Friday, April 14, 2017 03:07 - CONCLUSION: 1. Stable lines and tubes. 2. No significant interval change with persistent mild interstitial edema and residual patchy airspace disease primarily in the left lung. Jesus Manuel Storm MD Abdomen/Pelvis CT 04/14/17599 Signed Impressions: Service Date/Time: Friday, April 14, 2017 08:59 - CONCLUSION: 1. There is mild wall thickening and inflammation involving the proximal sigmoid colon adjacent to the prior surgery and re anastomosis. There is a large amount of stool within the sigmoid colon. 2. 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 Jaleel Fischer MD Abdomen X-Ray 04/14/17599 Signed Impressions: Service Date/Time: Friday, April 14, 2017 03:11 - CONCLUSION: 1. Stable proximal colonic distention with questionable distal colonic wall thickening. Findings may reflect distal colitis in the appropriate clinical setting. This may be further evaluated with CT exam, already scheduled for today. Jesus Manuel Storm MD Chest CT 04/14/17 0000 Signed Impressions: Service Date/Time: Friday, April 14, 2017 08:59 - CONCLUSION: 1. Mild residual groundglass opacity in both upper lobes but overall significantly improved from the prior study from 5 days ago. 2. Very small bilateral pleural effusions, decreased in volume from the prior study. There is residual lower lobe atelectasis bilaterally. 3. Severe coronary artery calcification. Jaleel Fischer MD Brain MRI 04/13/17 0000 Signed Impressions: Service Date/Time: Thursday, April 13, 2017 17:03 - CONCLUSION: 1. No acute pathology. 2. Bilateral cortical atrophy and chronic white matter changes. 3. Nonspecific prominence of the ventricles. This is most likely related to patient's diffuse cortical atrophy. Normal pressure hydrocephalus would be a second possibility. This needs to be correlated patient's physical, clinical exam and laboratory values. Gustavo Esparza MD Head CT 04/07/17 1646 Signed Impressions: Service Date/Time: Friday, April 07, 2017 17:37 - CONCLUSION: 1. Senescent changes with ventriculomegaly out of proportion to the degree of atrophy. Clinical correlation for normal pressure hydrocephalus is recommended. Jesus Manuel Storm MD Renal Ultrasound 04/07/17 0000 Signed Impressions: Service Date/Time: Friday, April 07, 2017 18:11 - CONCLUSION: Medical renal disease. No hydronephrosis. Jaleel Carlin MD Objective Remarks GENERAL: 72-year-old male laying in bed, not in any acute distress SKIN: Warm and dry. Multiple evolving abrasions anterior/tibial aspect bilaterally well-healed HEAD: Normocephalic. EYES: Pupils 1-2mm and sluggishly reactive bilaterally. No scleral icterus. No injection or drainage. NECK: Supple, trachea midline. No JVD or lymphadenopathy. R IJ CVL with dressing c/d/i. L IJ Vascath in place with dressing c/d/i. CARDIOVASCULAR: S1, S2 irregular. 2/6 systolic murmur LLSB RESPIRATORY: Orotracheally intubated. Coarse bilateral breath sounds are appreciated bilaterally without wheezing GASTROINTESTINAL: NGT in right nares. Abdomen is distended and tympanitic. : Mackey catheter in place with dark yellow urine MUSCULOSKELETAL: 1+ edema BUE. NEURO: Awake, alert, , moves all extremities follow commands on LUE. Date of Insertion: Apr 08, 2017 Line: Central Venous Catheter Side: Right Location: Jugular A/P Assessment and Plan NEURO/PSYCH: Acute encephalopathy History of cerebrovascular accident Chronic benzodiazepine use her sister? Saline disorder per sister? Off all sedation. Neuro is following- Dr. Ramos. Head CT 04/07 - cerebral atrophy with ventriculomegaly, recommend clinical correlation for normal pressure hydrocephalus EEG 04/09- bihemispheric slowing with sharp discharge L hemisphere.Sharp discharge could be of epileptiform significance but no definitive due to artifact. MRI brain: No acute findings EEG: Mod- diffuse disturbance of cerebral function, no epileptiform features Ammonia level 15, B12 - 1267, TSH 9.2 - free T3 1.10, T4. 0.78 PULM: Acute respiratory failure Small bilateral pleural effusions Intubated on 04/08, Tolerated CPAP, extubated on 04/16. Will be full DNR per family Albuterol/ipratropium aerosols every 6 hours with albuterol aerosols every 2 hours for [address]ys[address] Repeat CT chest 04/14: Mild residual ground glass opacity in both upper lobes but overall significantly improved from the prior study from 5 days ago. Very small bilateral pleural effusions, decreased in volume from the prior study. There is residual lower lobe atelectasis bilaterally. Severe coronary artery calcification. CT chest 04/09: Patchy air space in both lungs most characteristic of bronchopneumonia. No cavitation to suggest a necrotizing pneumonia. Small bilateral pleural effusions with basal and dependent consolidation in the lungs CV: Episode of asystole STEMI, inferior Atrial fibrillation with RVR, new onset Hypertension Hyperlipidemia - elevated triglycerides's/low HDL Coronary artery disease Chronic systolic heart failure Medical management per cardiology in setting of renal failure. 2-D echo 04/09 - Per Dr. Briceno review, EF felt to be 30%. On Amiodarone po and Cardizem drip currently 5 mg per hour for management of A fib RVR. Not candidate for beta-ashley due asystole. Would need permanent pacemaker placement for A fib management if that is keeping with goals of care-but family may decline Currently on amlodipine 10 mg by mouth daily isosorbide dinitrate 10 mg [address] Briceno following. Continue aspirin 324 mg by mouth daily, clopidogrel bisulfate 75 mill grams by mouth daily. Heparin drip for A fib FEN/RENAL/: ROEL overlying CKD IV Bilateral renal cyst Monitor renal function, I/O's, avoid nephrotoxins Started on hemodialysis 04/09, s/p HD 04/10 with 1L removed, 1.5 kg removed 04/12. Renal is following- Dr. Iraheta Currently on calcium acetate 667 mg 3 times a day which is been given per RN or hyper phosphatemia Renal ultrasound 2/30 revealed bilateral multiple renal cysts. No hydronephrosis. Medical renal disease indicated with diffuse renal cortical thinning bilaterally GI: Chronic mild protein energy malnutrition Colonic Ileus Hypoalbuminemia KUB 04/15, no obstruction Has been On Nepro @30ml/hr (goal rate per nutrition is 40 ml/hr) held for ileus. Hold for possible extubation 04/14 CT abdomen/pelvis: There is mild wall thickening and inflammation involving the proximal sigmoid colon adjacent to the prior surgery and re anastomosis. There is a large amount of stool within the sigmoid colon. 2. Nonacute findings include cholelithiasis , severe atherosclerotic disease, and right common iliac artery aneurysm measurin 15 mm. KUB 04/13 - gaseous distension of colon and small bowel regimen 04/13 including docusate sodium liquid 100 mg twice a day, senna liquid 8.6 mill grams twice a day, polyethylene glycol 17 g twice a day and lactulose 30 cc 4 times a day. 1 dose of methylnaltrexone 12 mg subcutaneous 1 now. Lansoprazole 30 mg daily for GI prophylaxis ID: Post-influenza pneumonia Continue abx per ID, Dr. Cunningham: Azithromycin 04/12 , cefepime 04/09 Levaquin discontinued 04/12 04/09 Sputum cx: normal resp sintia, 04/08 strep pneumonia and legionella ag negative 04/08 blood culture 02/18 with Staph epidermidis. Suspected contaminant. Blood culture 04/09 NGTD. Heme: Normocytic anemia s/p transfusion 1unit PRBCs on 04/09, Monitor CBC Endo: Diabetes mellitus Elevated TSH Bedside glucose every 4 hours with medium dose Novolin R sliding scale. TSH:9.2, FT3: 1.10, FT4:0.78- ? Euthyroid sick syndrome. GI prophylaxis with lansoprazole 30 milligrams daily and DVT prophylaxis with SCDs, on Heparin drip Lines: Right IJ CVP 04/08 #8, Left IJ vascath placed 04/08 #8 Palliative care is following. CODE STATUS DNR Level 3 Tushar Haley MD Apr 17, 2017 09:53
--- NOTE | 2017-04-17 10:09 | HHI.NPPN ---
Subjective General Problems: Anemia, Hypertension, Mebatolic Acidosis Renal Failure: Chronic, Acute Interval History He was extubated. Awake and answers questions but is not oriented. Pending today 's labs. He is making good amount of urine. (Katharine Cruz) Review of Systems General Constitutional: Fatigue General Remarks confused, difficult to obtain. (Katharine Cruz) Objective Data Data Vital Signs Date Time Temp Pulse Resp B/P (MAP) Pulse Ox O2 Delivery O2 Flow Rate FiO2 04/17/17 09:41 85 177/79 04/17/17 07:50 97 Nasal Cannula 4.00 04/17/17 06:00 95 04/17/17 04:00 99 04/17/17 04:00 99.9 99 23 153/90 (111) 97 04/17/17 02:00 106 04/17/17 00:00 100.0 103 26 159/103 (121) 97 04/17/17 00:00 103 04/16/17 23:00 102 04/16/17 22:00 102 04/16/17 20:45 98 Nasal Cannula 4.00 04/16/17 20:00 100.0 100 24 175/91 (119) 96 04/16/17 20:00 100 04/16/17 18:53 116 177/91 04/16/17 18:00 100 04/16/17 17:27 107 185/92 04/16/17 16:00 99.9 103 21 185/92 (123) 96 04/16/17 16:00 103 04/16/17 14:00 111 04/16/17 12:00 107 04/16/17 12:00 99.9 108 20 154/77 (102) 96 04/16/17 11:47 94 Nasal Cannula 4.00 04/16/17 11:14 100 40 (Katharine Cruz) -: 04/16/17 0415 04/16/17 0415 Imaging Last 72 hours Impressions Chest X-Ray 04/16/17 0000 Signed Impressions: Service Date/Time: Sunday, April 16, 2017 10:39 - CONCLUSION: No acute cardiopulmonary abnormality is appreciated. There is persistent atelectasis at the lung bases. Jaleel Fischer MD Abdomen X-Ray 04/15/17 0000 Signed Impressions: Service Date/Time: Saturday, April 15, 2017 08:10 - CONCLUSION: No obstruction. Peter Coats MD Tubes & Lines: Vas-Cath, Mackey Drip Comment Heparin (Katharine Cruz B. [employer]) Physical Exam General Appearance: Well Developed, Well Nourished, No Acute Distress, Comfortable (Anthony,Katharine B. [employer]) Throat Throat Exam: Oral Mucosa [place] & Moist (Anthony,Katharine B. [employer]) Neck Neck Exam: Neck Supple (AnthonyKatharine B. [employer]) Pulmonary Resp Exam: Breath Sounds Equal, Crackles, Decreased Bases, Poor Inspiratory Effort (Anthony,Katharine B. [employer]) Cardiology CV Exam: Good Perfusion, Irregular, Arrhythmia (Anthony,Katharine B. [employer]) Gastrointestinal/Abdomen GI Exam: Soft, Non-Tender, Bowel Sounds Present, Positive Bowel Movement (Anthony,Katharine B. [employer]) Musculoskeletal MS Exam: Joints Intact, Normal Tone, Unable to Ambulate (AnthonyKatharine B. [employer]) Integumentary Skin Exam: Warm, Dry, Intact (AnthonyKatharine B. [employer]) Extremeties Extremities Exam: Pedal Pulses Palpable, Moderate Edema, Pitting Edema (AnthonyKatharine B. [employer]) Neurologic Neuro Exam: Alert, Awake, Oriented, Speech Clear, Moving All Extremities Neuro Remarks awake on vent (AnthonyKatharine B. [employer]) Psychiatric Psych Exam: Appropriate Responses (AnthonyKatharine B. [employer]) VTE Prophylaxis Device: SCDs (AntohnyKatharine B. [employer]) Assessment/Plan Discussed Condition With: Patient Assessment Summary: ROEL/Acute Renal Failure, Anemia of CKD, Fluid/Volume Overload, Hypertension, CKD Stage V Problem List: (1) Acute renal failure ICD Codes: N17.9 - Acute kidney failure, unspecified Plan: He has underlying CKD stage 4 per the chrome plater helper, Dr. Ramirez in [place]. GFR of 19 (creatinine 3.2) in October (CKD 4). Most likely has underlying diabetic nephropathy with proteinuria. Acute Renal failure due to bradycardia and TX, with diminished renal perfusion. Started on HD 04/09, on TTS schedule. Pending labs from today. Dr. Iraheta spoke at length with the daughter (POA) to ask about continued dialysis plans. They would like to discuss prior to treatment today. Most likely will need vascath placed if treatment is to be continued. Follow urine output It is possible he has reached ESRD. (2) Bradycardia ICD Codes: R00.1 - Bradycardia, unspecified Status: Acute Plan: A fib, variable rate Cardiology following. (3) Anemia ICD Codes: D64.9 - Anemia, unspecified Plan: May have anemia of CKD. On Epogen with HD. Has iron deficiency, given venofer. (4) STEMI (ST elevation myocardial infarction) ICD Codes: I21.3 - ST elevation (STEMI) myocardial infarction of unspecified site Status: Acute Plan: CKMB not high, suggesting elevated troponin in due to CKD. Cardiology following, on heparin drip (5) Leukocytosis ICD Codes: D72.829 - Elevated white blood cell count, unspecified Plan: Improved, monitor. (6) Respiratory insufficiency ICD Codes: R06.89 - Other abnormalities of breathing Plan: Attempt extubation. Plan patient was seen and examined. Agree with above assessment and plan. (Katharine Cruz) Plan Discussed with patient's daughter about continued need for dialysis and need for a new dialysis catheter. They decided not to continue dialysis support. The daughter understands terminal nature of his condition if dialysis is not continued. (Pantera Iraheta MD) Problem Qualifiers (1) Anemia: (2) STEMI (ST elevation myocardial infarction): Qualified Codes: I21.3 - ST elevation (STEMI) myocardial infarction of unspecified site Katharine Cruz Apr 17, 2017 10:09 Pantera Iraheta MD Apr 17, 2017 20:38
[2017-04-17] MEDS: LANSOPRAZOLE SOLUTAB 30 MG TAB NG SCH (10:14)
[2017-04-17] MEDS: LACTULOSE SYRUP 20 GM/30 ML CUP PO SCH ×4 (10:14→21:00)
[2017-04-17] MEDS: DOCUSATE SODIUM 100 MG/10 ML UDC NG SCH ×2 (10:14→21:00)
[2017-04-17] MEDS: POLYETHYLENE GLYCOL 17 GM PKG NG SCH ×2 (10:14→21:00)
[2017-04-17] MEDS: AMIODARONE 200 MG TAB PO SCH (10:15)
[2017-04-17] MEDS: CALCIUM ACETATE 667 MG CAP OG-TUBE SCH ×3 (10:15→17:29)
[2017-04-17] MEDS: CLOPIDOGREL 75 MG TAB PO SCH (10:15)
[2017-04-17] MEDS: ASPIRIN 81 MG CHEW TAB NG SCH (10:15)
[2017-04-17] MEDS: SENNOSIDES SYRUP 8.8 MG/5 ML CUP NG SCH ×2 (10:16→21:00)
[2017-04-17 11:11] LABS: ALBUMIN 2.5 GM/DL (3.4-5.0); CALCIUM 9.1 MG/DL (8.5-10.1); CREATININE 6.44 MG/DL (0.60-1.30); PHOSPHORUS 8.1 MG/DL (2.5-4.9)
[2017-04-17] MEDS: CEFEPIME INJ 1,000 MG in SODIUM CHLORIDE 0.9% INJ 100 ML IV SCH (13:21)
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
[2017-04-18] VITALS (10 sets, daily range): BP systolic 150–181; BP diastolic 85–88; PULSE 70–90; RESP 19–24; TEMP 98.3–98.5; O2SAT 93–99
[2017-04-18] MEDS: CHLORHEXIDINE GLUCONATE 2 % 1 PACK (2 CLOTHS) TOP SCH (04:00)
[2017-04-18] MEDS: INSULIN NovoLIN REGULAR SUPPLEMENTAL SCALE SQ SCH ×4 (04:00→12:00)
[2017-04-18 04:57] LABS: ALBUMIN 2.6 GM/DL (3.4-5.0); BICARBONATE 26.6 MEQ/L (21.0-32.0); CALCIUM 8.9 MG/DL (8.5-10.1); CREATININE 6.61 MG/DL (0.60-1.30); PHOSPHORUS 7.7 MG/DL (2.5-4.9)
[2017-04-18] MEDS: HEPARIN-D5W 25,000 U/250 ML 250 ML IV PRN (05:13)
[2017-04-18] MEDS: ISOSORBIDE DINITRATE 10 MG TAB PO SCH ×2 (05:15→12:52)
[2017-04-18] MEDS: DILTIAZEM 125 MG/NS 100 ML IV PRN ×2 (05:15)
[2017-04-18] MEDS: hydrALAZINE HCL 20 MG/ML VIAL IV PUSH PRN (05:15)
[2017-04-18] MEDS: ARTIFICIAL TEARS OPTH SOLN 15 ML BTL EACH EYE SCH ×2 (06:00→12:51)
[2017-04-18] MEDS: ASPIRIN 81 MG CHEW TAB NG SCH (08:44)
[2017-04-18] MEDS: POLYETHYLENE GLYCOL 17 GM PKG NG SCH (08:44)
[2017-04-18] MEDS: LACTULOSE SYRUP 20 GM/30 ML CUP PO SCH ×2 (08:44→12:51)
[2017-04-18] MEDS: CALCIUM ACETATE 667 MG CAP OG-TUBE SCH (08:44)
[2017-04-18] MEDS: AMIODARONE 200 MG TAB PO SCH (08:44)
[2017-04-18] MEDS: CLOPIDOGREL 75 MG TAB PO SCH (08:44)
[2017-04-18] MEDS: DOCUSATE SODIUM 100 MG/10 ML UDC NG SCH (08:44)
[2017-04-18] MEDS: SENNOSIDES SYRUP 8.8 MG/5 ML CUP NG SCH (08:45)
[2017-04-18] MEDS: LANSOPRAZOLE SOLUTAB 30 MG TAB NG SCH (08:45)
--- NOTE | 2017-04-18 10:27 | HHI.NPPN ---
Subjective General Problems: Anemia, Hypertension, Mebatolic Acidosis Renal Failure: Chronic, Acute Interval History Oriented to self only. Family has decided to transfer to hospice, stop HD. (Katharine Cruz) Review of Systems General Constitutional: Fatigue General Remarks confused, difficult to obtain. (Katharine Cruz) Objective Data Data Vital Signs Date Time Temp Pulse Resp B/P (MAP) Pulse Ox O2 Delivery O2 Flow Rate FiO2 04/18/17 08:00 98.4 86 22 165/86 (112) 98 04/18/17 08:00 86 04/18/17 07:39 99 Nasal Cannula 3.00 04/18/17 06:00 90 04/18/17 05:15 81 190/84 04/18/17 04:00 81 19 150/85 (106) 04/18/17 04:00 87 04/18/17 02:00 70 04/18/17 00:01 98.5 80 24 181/88 (119) 04/18/17 00:00 75 04/17/17 22:00 80 04/17/17 20:00 86 04/17/17 20:00 98.5 78 24 143/77 (99) 04/17/17 18:32 82 150/77 04/17/17 18:00 86 04/17/17 16:00 81 04/17/17 16:00 98.2 81 29 137/73 (94) 97 04/17/17 14:00 89 04/17/17 12:00 98.8 86 27 147/66 (93) 98 04/17/17 12:00 86 (Katharine Cruz) -: 04/16/17 0415 04/18/17 0400 Tubes & Lines: Vas-Cath, Mackey Drip Comment Heparin (Katharine Cruz) Physical Exam General Appearance: Well Developed, Well Nourished, No Acute Distress, Comfortable (Katharine Cruz) Throat Throat Exam: Oral Mucosa Redby & Moist (Katharine Cruz) Neck Neck Exam: Neck Supple (Katharine Cruz) Pulmonary Resp Exam: Breath Sounds Equal, Crackles, Decreased Bases, Poor Inspiratory Effort (aKtharine Cruz) Cardiology CV Exam: Good Perfusion, Irregular, Arrhythmia (Katharine Cruz. PROCESSING MGR) Gastrointestinal/Abdomen GI Exam: Soft, Non-Tender, Bowel Sounds Present, Positive Bowel Movement (Katharine Cruz PROCESSING MGR) Musculoskeletal MS Exam: Joints Intact, Normal Tone, Unable to Ambulate (Katharine Cruz. PROCESSING MGR) Integumentary Skin Exam: Warm, Dry, Intact (Katharine Cruz PROCESSING MGR) Extremeties Extremities Exam: Pedal Pulses Palpable, Moderate Edema, Pitting Edema (Katharine Cruz. PROCESSING MGR) Neurologic Neuro Exam: Alert, Awake, Oriented, Speech Clear, Moving All Extremities Neuro Remarks awake on vent (Katharine Cruz PROCESSING MGR) Psychiatric Psych Exam: Appropriate Responses (Katharine CruzP) VTE Prophylaxis Device: SCDs (Katharine Cruz PROCESSING MGR) Assessment/Plan Discussed Condition With: Patient Assessment Summary: ROEL/Acute Renal Failure, Anemia of CKD, Fluid/Volume Overload, Hypertension, CKD Stage V Problem List: (1) Acute renal failure ICD Codes: N17.9 - Acute kidney failure, unspecified Plan: He has underlying CKD stage 4 per the stone sandblaster, Dr. Ramirez in [place]. GFR of 19 (creatinine 3.2) in October (CKD 4). Most likely has underlying diabetic nephropathy with proteinuria. Acute Renal failure due to bradycardia and IL, with diminished renal perfusion. Started on HD 04/09, Family has decided to stop HD, convert to comfort measures Okay to remove vascath now, it is not functioning. (2) Bradycardia ICD Codes: R00.1 - Bradycardia, unspecified Status: Acute Plan: A fib, variable rate Cardiology following. (3) Anemia ICD Codes: D64.9 - Anemia, unspecified Plan: Given epogen and venofer. (4) STEMI (ST elevation myocardial infarction) ICD Codes: I21.3 - ST elevation (STEMI) myocardial infarction of unspecified site Status: Acute Plan: CKMB not high, suggesting elevated troponin in due to CKD. Cardiology following, on heparin drip (5) Leukocytosis ICD Codes: D72.829 - Elevated white blood cell count, unspecified Plan: Improved, monitor. (6) Respiratory insufficiency ICD Codes: R06.89 - Other abnormalities of breathing Plan: s/p successful extubation. Plan . We will sign off at this time. Call us if needed. (Katharine Cruz) Plan Patient's family has decided to stop dialysis and take him to hospice. (Pantera Iraheta MD) Problem Qualifiers (1) Anemia: (2) STEMI (ST elevation myocardial infarction): Qualified Codes: I21.3 - ST elevation (STEMI) myocardial infarction of unspecified site Katharine Cruz Apr 18, 2017 10:27 Pantera Iraheta MD Apr 18, 2017 12:41
--- NOTE | 2017-04-18 11:40 | HHI.IDPN ---
Subjective Subjective Remarks Mr. Hubbard is a 72-year-old male with past medical history significant for coronary artery disease, chronic kidney disease, cerebrovascular accident, hypertension diabetes, hyperlipidemia who was brought into the emergency room via ambulance due to altered mental status. Apparently the patient's daughter could not reach him so she called far department to check on him. On arrival to found him on the floor in reportedly patient was probably there for at least 2 days. Patient was confused and came to the emergency room was found to be bradycardic and a STEMI alert was called. EKG in the ER reportedly was consistent with inferior wall VT and bradycardia in the 30s. Patient had a BUN of 140, creatinine of 9.7 upon arrival in the emergency department. His troponin was 2.72 and total CK of 380. He had leukocytosis of 19.5. In the emergency department he was given 1 L fluid bolus aspirin and Dr. Briceno from cardiology was consulted. Patient was initially placed on nitroglycerin drip as well. Cardiac catheterization was placed on hold due to significant renal failure. It was decided to continue with medical therapy until his renal function improves. Patient was admitted on the critical care services. Dr. Iraheta from nephrology services also been consulted. At the time of my evaluation patient is in the IMC currently not on any pressors. Patient remains intubated and sedated. On a brief sedation vacation patient reportedly moves his extremities. RN reports jittery movements of his upper extremities. An EEG was done report is still pending. Per my discussion with the lithographic plate maker there is a plan for hemodialysis to be initiated today after Vas-Cath was placed. RN for the patient reported that she had been told by the patient's daughter that there is a significant psychiatric history. Also that the patient was recently discharged from [facility] in [place] where he is treated for flu. ID following for Pneumonia and possible colitis. Overnight events reviewed with RN. Afebrile Extubated. No rash No diarrhea Converses, >? orientation Antibiotics Cefepime IV Azithro IV Lines Line sites with no e.o infection Past Medical History Past Medical History 1. Coronary artery disease. 2. Chronic kidney disease. 3. Cerebrovascular accident. 4. Diabetes mellitus. 5. Hypertension. 6. Hyperlipidemia. 7. Psychiatric history. Past Surgical History None per records. Allergies: Coded Allergies: Sulfa (Sulfonamide Antibiotics) (Verified Allergy, Intermediate, HIVES, ) penicillin G (Verified Allergy, Unknown, HIVES, 04/07/17) Objective . Vital Signs Date Time Temp Pulse Resp B/P (MAP) Pulse Ox O2 Delivery O2 Flow Rate FiO2 04/18/17 08:00 98.4 86 22 165/86 (112) 98 04/18/17 08:00 86 04/18/17 07:39 99 Nasal Cannula 3.00 04/18/17 06:00 90 04/18/17 05:15 81 190/84 04/18/17 04:00 81 19 150/85 (106) 04/18/17 04:00 87 04/18/17 02:00 70 04/18/17 00:01 98.5 80 24 181/88 (119) 04/18/17 00:00 75 04/17/17 22:00 80 04/17/17 20:00 86 04/17/17 20:00 98.5 78 24 143/77 (99) 04/17/17 18:32 82 150/77 04/17/17 18:00 86 04/17/17 16:00 81 04/17/17 16:00 98.2 81 29 137/73 (94) 97 04/17/17 14:00 89 04/17/17 12:00 98.8 86 27 147/66 (93) 98 04/17/17 12:00 86 . Laboratory Tests Test 04/17/17 09:45 04/18/17 04:00 Blood Urea Nitrogen 63 MG/DL 69 MG/DL Creatinine 6.44 MG/DL 6.61 MG/DL Random Glucose 167 MG/DL 165 MG/DL Albumin 2.5 GM/DL 2.6 GM/DL Calcium Level 9.1 MG/DL 8.9 MG/DL Phosphorus Level 8.1 MG/DL 7.7 MG/DL Sodium Level 142 MEQ/L 143 MEQ/L Potassium Level 3.8 MEQ/L 3.6 MEQ/L Chloride Level 104 MEQ/L 106 MEQ/L Carbon Dioxide Level 25.0 MEQ/L 26.6 MEQ/L Anion Gap 13 MEQ/L 10 MEQ/L Estimat Glomerular Filtration Rate 9 ML/MIN 8 ML/MIN Imaging Last Impressions Chest X-Ray 04/10/17 0600 Signed Impressions: Service Date/Time: March 03:32 - CONCLUSION: 1. Questionable small medial left pneumothorax which may be artifactual. There is overlying oxygen tubing in this region as well as patchy infiltrate in the left lung. A repeat study or CT would be recommended for further evaluation. 2. Endotracheal tube and bilateral internal jugular central venous lines remain in place. Timothy Tabares MD Chest CT 04/09/17 0000 Signed Impressions: Service Date/Time: Sunday, April 09, 2017 12:38 - CONCLUSION: 1. Patchy air space in both lungs most characteristic of bronchopneumonia. No cavitation to suggest a necrotizing pneumonia. Small bilateral pleural effusions with basal and dependent consolidation in the lungs. 2. Endotracheal tube and nasogastric tube in good position. 3. Moderate to severe coronary artery calcifications. John Paul Yeboah MD Head CT 04/07/17 1646 Signed Impressions: Service Date/Time: Friday, April 07, 2017 17:37 - CONCLUSION: 1. Senescent changes with ventriculomegaly out of proportion to the degree of atrophy. Clinical correlation for normal pressure hydrocephalus is recommended. Jesus Manuel Storm MD Renal Ultrasound 04/07/17 0000 Signed Impressions: Service Date/Time: Friday, April 07, 2017 18:11 - CONCLUSION: Medical renal disease. No hydronephrosis. Jaleel Carlin MD Physical Exam GENERAL: This is a well-nourished, well-developed patient, in no apparent distress. SKIN: No rashes, ecchymoses or lesions. Cool and dry. HEAD: Atraumatic. Normocephalic. No temporal or scalp tenderness. EYES: Pupils equal round and reactive. Extraocular motions intact. No scleral icterus. No injection or drainage. ENT: NAD NECK: Trachea midline. Supple, nontender, no meningeal signs. CARDIOVASCULAR: HS audible. RESPIRATORY: Breath sounds decreased in the bases. GASTROINTESTINAL: Abdomen soft, non tender. MUSCULOSKELETAL: Extremities without clubbing, cyanosis, or edema. NEUROLOGICAL: Sedated. Psych could not be assessed IV line sites with no e.o infection. Assessment & Plan Remarks pneumonia likely post influenza(based on the recent history of flu)\ no e/o necrotizing process Acute renal failure likely component of chronic kidney disease based on history. Now will be placed on dialysis. Acute respiratory failure on ventilator ST elevation VT inferior wall Bradycardia Hyponatremia and hyperkalemia Leukocytosis likely secondary to infection Recent history of flu unsure if this was treated will obtain records. History of coronary artery disease History of cerebrovascular accident History of psychiatric issues Diabetes mellitus Low grade Staph epi bacteremia, cw contaminant Abd distention ? colitis (ischemic?) Recommendations: DC antibiotics. Observe off antibiotics. Jamshid Guardado: DC HD cath and CL if not needed. Palliative care informs me patient and family have refused Hemodialysis and there is a plan for Inpatient hospice. Will sign off please call back if any change in clinical condition or questions. Micki Haley MD Apr 18, 2017 11:40
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
[2017-04-18] MEDS ORDERED: ASPI81TA23 PO (13:11)
[2017-04-18] MEDS ORDERED: PREV30TA3 NG (13:11)
[2017-04-18] MEDS ORDERED: AMIO200T PO (13:11)
[2017-04-18] MEDS ORDERED: PLAV75TA29 PO (13:11)
[2017-04-18] MEDS ORDERED: ISOS10TA PO (13:11)
--- NOTE | 2017-04-18 13:48 | HHI.DS ---
Discharge Summary Admission Date Apr 07, 2017 at 5:49 pm Admitting Diagnosis stemi, acute renal failure, leukocytosis, anemia, hyperkalemia CBC/BMP: 04/16/17 0415 04/18/17 0400 Significant Findings Laboratory Tests Test 04/15/17 17:15 04/15/17 23:03 04/16/17 04:15 04/16/17 05:45 Activated Partial Thromboplast Time 44.3 SEC (24.3-30.1) 52.6 SEC (24.3-30.1) 61.3 SEC (24.3-30.1) White Blood Count 12.0 TH/MM3 (4.0-11.0) Red Blood Count 3.12 MIL/MM3 (4.50-5.90) Hemoglobin 9.0 GM/DL (13.0-17.0) Hematocrit 28.1 % (39.0-51.0) Neutrophils (%) (Auto) 78.9 % (16.0-70.0) Monocytes (%) (Auto) 9.1 % (0.0-8.0) Neutrophils # (Auto) 9.4 TH/MM3 (1.8-7.7) Monocytes # (Auto) 1.1 TH/MM3 (0-0.9) Band Neutrophils % 7 % (0-6) Monocytes % 9 % (0-8) Neutrophils # (Manual) 9.4 TH/MM3 (1.8-7.7) Myelocytes 1 % (0-0) Polychromasia 2.7 % (0.0-1.9) Ovalocytes 1+ (NORMAL) Blood Urea Nitrogen 50 MG/DL (7-18) Creatinine 5.93 MG/DL (0.60-1.30) Random Glucose 162 MG/DL (74-106) Estimat Glomerular Filtration Rate 9 ML/MIN (>89) Test 04/16/17 11:19 04/17/17 05:20 04/17/17 09:45 04/18/17 04:00 Arterial Blood Partial Pressure CO2 43 mmHg (38-42) Arterial Blood Oxygen Content 11.9 Vol % (12.0-20.0) Blood Gas Hemoglobin 9.4 G/DL (12.0-16.0) Activated Partial Thromboplast Time 63.2 SEC (24.3-30.1) 46.4 SEC (24.3-30.1) Blood Urea Nitrogen 63 MG/DL (7-18) 69 MG/DL (7-18) Creatinine 6.44 MG/DL (0.60-1.30) 6.61 MG/DL (0.60-1.30) Random Glucose 167 MG/DL (74-106) 165 MG/DL (74-106) Albumin 2.5 GM/DL (3.4-5.0) 2.6 GM/DL (3.4-5.0) Phosphorus Level 8.1 MG/DL (2.5-4.9) 7.7 MG/DL (2.5-4.9) Estimat Glomerular Filtration Rate 9 ML/MIN (>89) 8 ML/MIN (>89) Pt Condition on Discharge: Guarded Discharge Disposition: Hospice/Med Facility Discharge Instructions DIET: Follow Instructions for: Renal Failure Diet Speech Therapy-Diet Recommends: Honey Thickened Liquids, Pureed Activities you can perform: Regular-No Restrictions John Elizondo DO Apr 18, 2017 1:47 pm
== END 2017-04-18 15:00 | disposition hospice, inpatient (51) | DRG 280 ==
LOC: NEPC 15:45 → NEDA 17:49 → HIME 19:30
PROVIDERS: ADMIT Hospitalist; ATTEND Hospitalist
PROC: 05HM33Z Insertion of Infusion Device into Right Internal Jugular Vein, Percutaneous Approach (ICD-10-PCS; principal; 2017-04-08)
PROC: 5A1955Z Respiratory Ventilation, Greater than 96 Consecutive Hours (ICD-10-PCS; 2017-04-08)
PROC: 0BH17EZ Insertion of Endotracheal Airway into Trachea, Via Natural or Artificial Opening (ICD-10-PCS; 2017-04-08)
PROC: 0T9B70Z Drainage of Bladder with Drainage Device, Via Natural or Artificial Opening (ICD-10-PCS; 2017-04-08)
PROC: 5A09357 Assistance with Respiratory Ventilation, Less than 24 Consecutive Hours, Continuous Positive Airway Pressure (ICD-10-PCS; 2017-04-08)
PROC: 0DH67UZ Insertion of Feeding Device into Stomach, Via Natural or Artificial Opening (ICD-10-PCS; 2017-04-09)
PROC: 05HN33Z Insertion of Infusion Device into Left Internal Jugular Vein, Percutaneous Approach (ICD-10-PCS; 2017-04-09)
PROC: 5A1D70Z Performance of Urinary Filtration, Intermittent, Less than 6 Hours Per Day (ICD-10-PCS; 2017-04-09)
PROC: 30233N1 Transfusion of Nonautologous Red Blood Cells into Peripheral Vein, Percutaneous Approach (ICD-10-PCS; 2017-04-09)
PROC: 0D20XUZ Change Feeding Device in Upper Intestinal Tract, External Approach (ICD-10-PCS; 2017-04-12)
DX: I21.19 ST elevation (STEMI) myocardial infarction involving other coronary artery of inferior wall (principal); J96.00 Acute respiratory failure, unspecified whether with hypoxia or hypercapnia; J18.0 Bronchopneumonia, unspecified organism; I13.2 Hypertensive heart and chronic kidney disease with heart failure and with stage 5 chronic kidney disease, or end stage renal disease; G93.40 Encephalopathy, unspecified; E87.2 Acidosis; N17.9 Acute kidney failure, unspecified; N18.4 Chronic kidney disease, stage 4 (severe); I50.22 Chronic systolic (congestive) heart failure; F03.90 Unspecified dementia, unspecified severity, without behavioral disturbance, psychotic disturbance, mood disturbance, and anxiety; I46.9 Cardiac arrest, cause unspecified; M62.82 Rhabdomyolysis; E87.1 Hypo-osmolality and hyponatremia; K56.7 Ileus, unspecified; I42.0 Dilated cardiomyopathy; E44.1 Mild protein-calorie malnutrition; J98.11 Atelectasis; G93.89 Other specified disorders of brain; E83.39 Other disorders of phosphorus metabolism; E11.21 Type 2 diabetes mellitus with diabetic nephropathy; R00.1 Bradycardia, unspecified; E78.5 Hyperlipidemia, unspecified; E78.1 Pure hyperglyceridemia; I25.10 Atherosclerotic heart disease of native coronary artery without angina pectoris; I69.320 Aphasia following cerebral infarction; Z87.891 Personal history of nicotine dependence; D63.1 Anemia in chronic kidney disease; I25.2 Old myocardial infarction; E11.22 Type 2 diabetes mellitus with diabetic chronic kidney disease; Z91.19 Patient's noncompliance with other medical treatment and regimen; F32.9 Major depressive disorder, single episode, unspecified; I44.7 Left bundle-branch block, unspecified; E87.5 Hyperkalemia; Z51.5 Encounter for palliative care; I48.0 Paroxysmal atrial fibrillation; N28.1 Cyst of kidney, acquired; K52.9 Noninfective gastroenteritis and colitis, unspecified; I72.3 Aneurysm of iliac artery; K80.20 Calculus of gallbladder without cholecystitis without obstruction; F42.9 Obsessive-compulsive disorder, unspecified; F41.0 Panic disorder [episodic paroxysmal anxiety]; Z66 Do not resuscitate; Z74.01 Bed confinement status; E07.81 Sick-euthyroid syndrome; S80.812A Abrasion, left lower leg, initial encounter; S80.811A Abrasion, right lower leg, initial encounter; X58.XXXA Exposure to other specified factors, initial encounter
CPT/HCPCS: 31500; 36430; 36556; 36600; 70450; 70551; 71045; 71250; 74018; 74176; 76775; 76937; 80048; 80053; 80061; 80069; 80074; 81001; 82140; 82310; 82550; 82552; 82607; 82805; 82948; 83540; 83550; 83605; 83690; 83735; 83880; 84100; 84439; 84443; 84478; 84481; 84484; 85007; 85014; 85018; 85025; 85027; 85610; 85730; 86850; 86900; 86901; 86920; 87040; 87070; 87186; 87205; 87449; 87633; 87641; 87804; 90935; 93005; 93306; 94002; 94003; 94640; 94664; 95819; 96374; 96375; C9113; J0282; J0360; J0456; J0610; J0692; J1580; J1630; J1644; J1756; J1815; J1940; J1956; J2020; J2150; J2212; J3010; J7030; J7050; P9016; P9047; Q4081; Q9963